=== PATIENT | female | born 1935 | race Caucasian/White ===

== ENCOUNTER 2020-04-11 16:33 | Outpatient (REF) | payer MEDICARE, OTHER, SELFPAY ==
[2020-04-11 16:49] LABS: C Reactive Protein 0.23 mg/dL (< or = 0.50)
[2020-04-11 17:37] LABS: Erythrocyte Sedimentation Rate 8 MM/HR (0-20)
== END 2020-04-11 16:34 | disposition home or self-care (01) ==
LOC: HO.LNP 16:33
PROVIDERS: Visit Provider Internal Medicine
DX: M35.3 Polymyalgia rheumatica (principal)
CPT/HCPCS: 36415; 85652; 86140

== ENCOUNTER 2020-04-24 11:06 | Outpatient (REF) | payer MEDICARE, OTHER, SELFPAY ==
[2020-04-24 14:32] LABS: C Reactive Protein 0.33 mg/dL (< or = 0.50)
[2020-04-24 14:51] LABS: Erythrocyte Sedimentation Rate 8 MM/HR (0-20)
== END 2020-04-24 11:07 | disposition home or self-care (01) ==
LOC: HO.HMGCLDS 11:06
PROVIDERS: PCP Internal Medicine; Visit Provider Internal Medicine
DX: M35.3 Polymyalgia rheumatica (principal)
CPT/HCPCS: 36415; 85652; 86140

== ENCOUNTER 2020-05-06 08:42 | Outpatient (REF) | payer MEDICARE, OTHER, SELFPAY ==
[2020-05-06 11:09] LABS: MANUAL DIFF FLAG NO
[2020-05-06 11:16] LABS: Basophils Absolute Auto 0.1 X10*3/uL (0.0-0.2); Basophils Percent Auto 0.8 % (0-2); Eosinophils Absolute Auto 0.3 X10*3/uL (0.0-0.4); Eosinophils Percent Auto 4.1 % (0-4); Hematocrit 43.5 % (37-47); Hemoglobin 14.5 g/dl (12.0-16.0); Imm Gran Abs Auto 0.02 X10*3/uL (0.00-0.03); Imm Gran Pct Auto 0.3 % (0.0-0.4); Lymphocytes Percent Auto 26.4 % (20-40); Mean Corpuscular HGB Conc 33.3 g/dl (31.0-35.0); Mean Corpuscular Hemoglobin 31.1 pg (27.0-33.0); Mean Corpuscular Volume 93.3 fL (80-98); Mean Platelet Volume 10.8 fL (9.4-12.3); Monocytes Absolute Auto 0.8 X10*3/uL (0.1-1.2); Neutrophils Absolute Auto 4.4 X10*3/uL (2.0-8.3); Neutrophils Percent Auto 58.4 % (45-73); Platelet Count 261 X10*3/uL (160-400); Red Blood Count 4.66 X10*6/uL (4.20-5.50); Red Cell Distribution Width 11.9 % (11.0-16.0); White Blood Count 7.5 X10*3/uL (4.8-10.8)
[2020-05-06 11:21] LABS: Glucose Urine UA NEG (NEG); Leukocyte Esterase Urine 2+ (NEG); Nitrite Urine NEG (NEG); PH 5.5 (5.0-8.0); Specific Gravity - Urine >= 1.030 (1.005-1.025); Urine Blood NEG (NEG); Urine Ketones NEG (NEG); Urine Protein NEG (NEG-TRACE)
[2020-05-06 11:25] LABS: Appearance Urine HAZY; Color Urine YELLOW
[2020-05-06 11:36] LABS: Alanine Aminotransferase 25 U/L (0-31); Albumin Level 4.3 g/dL (3.5-5.0); Alkaline Phosphatase 40 U/L (39-117); Anion Gap 12 (12-20); Aspartate Amino Transferase 20 U/L (5-31); Bilirubin Total 0.4 mg/dL (0.0-1.0); Blood Urea Nitrogen 15 mg/dL (9-16); Carbon Dioxide 28 mmol/L (22-29); Chloride 106 mmol/L (96-108); Cholesterol 249 mg/dL; Estimated Glomerular Filt Rate > 60; Glucose Fasting 115 mg/dL (60-99); HDL Cholesterol 54 mg/dL; LDL Cholesterol Calculated 155 mg/dl; Potassium 4.4 mmol/l (3.3-5.1); Sodium 142 mmol/L (135-145); Total Protein 6.8 g/dL (6.5-8.0); Triglycerides 204 mg/dL
[2020-05-06 11:57] LABS: Estimated Average Glucose 120 mg/dL; Hemoglobin A1C 150.4535 umol/L; Hemoglobin A1c % 5.8 %; Microalbum/Creatinine Ratio Ur 14.3 ug/mg cr
== END 2020-05-06 08:43 | disposition home or self-care (01) ==
LOC: HO.HMGCLDS 08:42
PROVIDERS: PCP Internal Medicine; Visit Provider Internal Medicine
DX: R73.03 Prediabetes (principal); M35.3 Polymyalgia rheumatica; E78.2 Mixed hyperlipidemia
CPT/HCPCS: 36415; 80053; 80061; 81001; 82043; 83036; 85025

== ENCOUNTER 2020-05-08 11:49 | Outpatient (REF) | payer MEDICARE, OTHER, SELFPAY | END 2020-05-08 11:50 | disposition home or self-care (01) | LOC: HO.HMGCLDS 11:49 | PROVIDERS: PCP Internal Medicine; Visit Provider Internal Medicine | DX: Z20.828 Contact with and (suspected) exposure to other viral communicable diseases (principal) | CPT/HCPCS: C9803; U0003 ==

== ENCOUNTER 2020-05-27 12:58 | Outpatient (REF) | payer MEDICARE, OTHER, SELFPAY ==
--- NOTE | 2020-05-27 13:02 | MM_ITS ---
EXAMINATION: MM SCREENING DIGITAL BREAST TOMOSYNTHESIS, BILATERAL CLINICAL INFORMATION: Screening. Asymptomatic. The lifetime risk of breast cancer based on the Tyrer-Cuzick Model is 1%. COMPARISON: Mammography: 04/20/2019, 04/02/2018, 03/16/2017, 03/04/2016 TECHNIQUE: Digital breast tomosynthesis is performed in both the craniocaudal and mediolateral oblique views along with computer-aided detection (CAD). Synthesized 2D images are generated from the tomosynthesis. FINDINGS: There are scattered areas of fibroglandular density (ACR BI-RADS breast composition Category b). Left breast parenchymal pattern is similar to prior studies. There is small nodular asymmetry 7:00 position mid depth similar to prior exams. Neither breast shows abnormal calcifications. The bilateral axilla and skin contours are unremarkable. The right MLO view pelvis asymmetric density close to posterior nipple line 6.7 cm from nipple without correlate on CC view. This may be related to incompletely compressed glandular tissue or summation artifact. Patient will be recalled to further characterize. MM/MM tomosynthesis screening BI IMPRESSION: 1. Right: Asymmetric density posterior central breast on MLO view without CC correlate, possibly summation artifact or incompletely compressed glandular tissue. 2. Left: No significant changes from prior studies. ASSESSMENT: BI-RADS 0: Incomplete - Need Additional Imaging Evaluation RECOMMENDATION: 1. Additional views of the right breast (3-D spot MLO, 3-D ML). 2. Targeted ultrasound if warranted after review of the additional views. 3. Radiology department staff will contact the patient for additional imaging. This patient's information was entered into a reminder system with a target due date for their next mammogram.
== END 2020-05-27 12:59 | disposition home or self-care (01) ==
LOC: HO.MAMMO 12:58
PROVIDERS: PCP Internal Medicine; Visit Provider Internal Medicine
DX: Z12.31 Encounter for screening mammogram for malignant neoplasm of breast (principal)
CPT/HCPCS: 77063; 77067

== ENCOUNTER 2020-06-27 13:41 | Outpatient (REF) | payer MEDICARE, OTHER, SELFPAY ==
--- NOTE | 2020-06-27 13:47 | MM_ITS ---
EXAMINATION: MM DIAGNOSTIC DIGITAL BREAST TOMOSYNTHESIS, RIGHT US DIAGNOSTIC ULTRASOUND BREAST, RIGHT CLINICAL INFORMATION: Recall for small asymmetric density mid outer quadrant close to posterior nipple line mid right breast on MLO view. COMPARISON: Mammography: 05/27/2020, 04/20/2019 TECHNIQUE: Digital breast tomosynthesis is performed. 2D images are generated from the tomosynthesis. The following views are obtained: Spot MLO, standard ML Ultrasound right breast is targeted to the outer quadrant. Grayscale imaging and color Doppler are performed without and with harmonics. FINDINGS: There are scattered areas of fibroglandular density (ACR BI-RADS breast composition Category b). The additional views suggest subtle equal to slightly decreased attenuation nodularity central 9:00 position measuring under 1 cm. Ultrasound demonstrates a solitary oval cyst 9:00 position 5 cm from nipple measuring 0.7 x 0.6 x 0.3 cm. There may be fine peripheral avascular internal septation. No solid component. No peripheral or internal color flow. Results are discussed with the patient at time of visit. MM/MM tomosynthesis added views R IMPRESSION: Incidental small cyst mid 9:00 position corresponding to finding on recent mammography. ASSESSMENT: BI-RADS 2: Benign RECOMMENDATION: Routine annual mammography screening. This patient's information was entered into a reminder system with a target due date for their next mammogram.
== END 2020-06-27 13:42 | disposition home or self-care (01) ==
LOC: HO.MAMMO 13:41
PROVIDERS: PCP Internal Medicine; Visit Provider Internal Medicine
DX: N64.89 Other specified disorders of breast (principal)
CPT/HCPCS: 76642; 77061; 77065

== ENCOUNTER → 2020-08-05 12:28 | Outpatient (BNVA) | payer MEDICARE, OTHER, SELFPAY | PROVIDERS: PCP Internal Medicine; Visit Provider Internal Medicine ==

== ENCOUNTER 2020-08-12 15:38 | Emergency (ER) | payer MEDICARE, OTHER, SELFPAY ==
--- NOTE | ~2020-08-12 | XR_ITS ---
EXAMINATION: XR CHEST CLINICAL INFORMATION: SOB. COMPARISON: Chest 01/09/2020 TECHNIQUE: Frontal view of the chest was obtained. FINDINGS: The lungs are well-expanded with increased interstitial markings in both lungs right greater than left similar to previous study from 1120. There is new focal density left midlung overlying the seventh posterior rib. The heart size and pulmonary vascularity is normal. There is mild tenting of the right hemidiaphragm. No gross bony abnormality seen. XR/XR chest 1V IMPRESSION: Diffuse reticular interstitial changes in both upper lobes worse in the right upper lobe with focal bronchiectasis consistent with chronic changes. There is new noted density seen in the left midlung as described above. No acute pneumonic consolidation seen.
--- NOTE | 2020-08-12 15:58 | ECG_ITS ---
Test Reason : SHORTNESS OF BREATH Blood Pressure : / mmHG Vent. Rate : 076 BPM Atrial Rate : 076 BPM P-R Int : 158 ms QRS Dur : 072 ms QT Int : 400 ms P-R-T Axes : 071 -13 048 degrees QTc Int : 450 ms Normal sinus rhythm Normal ECG When compared with ECG of 16-MAR-2017 14:32, Premature ventricular complexes are no longer Present Referred By: Kerri Boogie Electronically Signed By:KASHMIR MURRAY MD
--- NOTE | 2020-08-12 16:01 | ED.GENADULT ---
HPI - General Adult General Chief complaint: General Medical Stated complaint: diff breathing Time Seen by Provider: 08/12/20 15:50 Source: patient Mode of arrival: ambulatory Limitations: no limitations History of Present Illness HPI narrative: Patient comes emergency room complaining of generalized weakness. Patient states on July 24 she received her 1st dose of the COVID vaccine. After 24 hours, patient stated feeling weak. Patient states she has been weak since then. Patient denies aches, no fever or chills, no abdominal pain, no chest pain, no shortness of breath, no vomiting or diarrhea. Patient states she is eating and drinking well. 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 Iodinated Contrast Media Allergy Severe DIDN'T Unverified 02/15/20 15:20 [IV CONTRAST] AGREE WITH PATIENT SHELLFISH Allergy Intermediate VOMITING Uncoded 02/15/20 15:20 contrast dye Allergy Unknown Uncoded 12/05/19 00:00 fish Allergy Unknown Uncoded 12/05/19 00:00 IV dye Allergy Unknown Uncoded 01/09/20 00:00 shellfish Allergy Unknown Uncoded 01/09/20 00:00 shrimp Allergy Unknown Uncoded 12/05/19 00:00 Review of Systems Review of Systems: Constitutional : No Weight loss, No Fever, No Chills, No Night Sweats, complaining of fatigue ENT/Mouth : No Hearing loss, No Ear Pain, No Nasal Congestion, No Sinus Pain, No Hoarseness, No sore throat, No Rhinorrhea, No Swallowing Difficulty Eyes: No Eye Pain, No Swelling, No Redness, No Foreign Body, No Discharge, No Vision Changes Cardiovascular : No Chest Pain, No SOB, No Dyspnea on Exertion, No Orthopnea, No Edema, No Palpitations Respiratory : No Cough, No Sputum, No Wheezing, No Smoke Exposure, No Dyspnea Gastrointestinal : No Nausea, No Vomiting, No Diarrhea, No Constipation, No abdominal Pain, No Hematochezia, No Melena Genitourinary : no irregular bleeding, No Dysuria, No Urinary Frequency, No Hematuria, No Urinary Incontinence, No Urgency, No Flank Pain, No Urinary Flow Changes, No Hesitancy Musculoskeletal : No joint pain, No Myalgias, No Joint Swelling Skin : No Skin Lesions, No rash Neuro : No Weakness, No Numbness, No Paresthesias, No Loss of Consciousness, No Dizziness, No Headache Psych : No Anxiety/Panic, No Depression, No SI/HI/AH/VH, No Social Issues, Heme/Lymph: No Bruising, No Bleeding,No Lymphadenopathy Endocrine : No Polyuria, No Polydipsia, No Temperature Intolerance [facility] Past Medical History Medical History Osteoporosis Vitamin D deficiency Surgical History History of ear surgery Hx of colonoscopy Hx of toe surgery Hx of tubal ligation Family History Family History Father No problems noted. Mother Heart disease Brother Colon cancer Brother Stomach cancer Social History Social History Alcohol intake: never Smoking Status: Never smoker Tobacco Type: Cigarette Use of substances other than those prescribed or required for medical reasons: No Advance Directives: No Advance Directives Information Provided: No Physical Exam Vital Signs: Vital Signs: Last Vital Signs Temp 98.3 F 08/12/20 16:24 Pulse 79 08/12/20 16:24 Resp 17 08/12/20 16:24 BP 127/66 08/12/20 16:24 Pulse Ox 96 08/12/20 16:24 Body Mass Index 23.9 Appearance: Alert. Oriented X3. No acute distress. Well-appearing Eyes: Pupils equal, round and reactive to light. ENT: Pharynx normal. Neck: Normal inspection. Neck supple. No lymph nodes noted. No crepitus CVS: Normal heart rate and rhythm. Pulses normal. Normal S1 and S2 Respiratory: No respiratory distress. Breath sounds normal. No Wheezing. No rales Abdomen: Soft and nontender. No rigidity. No distention. good BS x4 Skin: Skin warm and dry. Normal skin color. Normal skin turgor. Extremities: No lower extremity edema. No lower extremity edema. No Lacerations. No Rash Neuro: Oriented X 3. No motor deficit. No sensory deficit. Moving all extermities. No slurred speech. Course Course Course Narrative: I discussed the labs and imaging with the patient, no acute pathology. Unclear reason for patient's weakness, recommended to follow up with her primary care physician Medical Decision Making Lab Data Result diagrams: 08/12/20 16:24 08/12/20 16:24 Labs: Lab Results 08/12/20 08/12/20 08/12/20 Range/Units 16:24 16:24 16:24 WBC 9.7 (4.8-10.8) X10*3/uL RBC 4.68 (4.20-5.50) X10*6/uL Hgb 14.0 (12.0-16.0) g/dl Hct 42.8 (37-47) % MCV 91.5 (80-98) fL MCH 29.9 (27.0-33.0) pg MCHC 32.7 (31.0-35.0) g/dl RDW 12.0 (11.0-16.0) % Plt Count 325 (160-400) X10*3/uL MPV 9.5 (9.4-12.3) fL Immature Gran % (Auto) 0.4 (0.0-0.4) % Neut % (Auto) 62.3 (45-73) % Lymph % (Auto) 23.2 (20-40) % [place] % (Auto) 10.6 (2-11) % Eos % (Auto) 2.9 (0-4) % Baso % (Auto) 0.6 (0-2) % Lymph # (Auto) 2.2 (1.2-4.9) X10*3/uL [place] # (Auto) 1.0 (0.1-1.2) X10*3/uL Eos # (Auto) 0.3 (0.0-0.4) X10*3/uL Baso # (Auto) 0.1 (0.0-0.2) X10*3/uL Abs Immat Gran (auto) 0.04 H (0.00-0.03) X10*3/uL Absolute Neuts (auto) 6.0 (2.0-8.3) X10*3/uL Absolute Nucleated RBC 0.000 (0.0-0.012) X10*3/uL Nucleated RBC % (auto) 0.0 (0.0-0.2) /100WBC Sodium 141 (135-145) mmol/L Potassium 4.4 (3.3-5.1) mmol/L Chloride 105 (96-108) mmol/L Carbon Dioxide 27 (22-29) mmol/L Anion Gap 13 (12-20) BUN 16 (9-16) mg/dL Creatinine 0.83 (0.5-1.4) mg/dL Estim Creat Clear Calc 42.4 Estimated GFR > 60 Random Glucose 84 (60-115) mg/dL Calcium 9.3 (8.4-10.2) mg/dL Total Bilirubin 0.5 (0.0-1.0) mg/dL Direct Bilirubin < 0.2 (0.0-0.5) mg/dL AST 13 (5-31) U/L ALT 9 (0-31) U/L Alkaline Phosphatase 53 D (39-117) U/L Total Protein 7.0 (6.5-8.0) g/dL Albumin 4.2 (3.5-5.0) g/dL Urine Color Urine Appearance Urine pH (5.0-8.0) Ur Specific [place] (1.005-1.025) Urine Protein (NEG-TRACE) MG/DL Urine Glucose (UA) (NEG) MG/DL Urine Ketones (NEG) MG/DL Urine Blood (NEG) Urine Nitrite (NEG) Ur Leukocyte Esterase (NEG) Coronavirus (PCR) NEGATIVE (Negative) Influenza Type A (PCR) NEGATIVE (Negative) Influenza Type B (PCR) NEGATIVE (Negative) RSV RNA Qual (PCR) NEGATIVE (Negative) 08/12/20 Range/Units 17:58 WBC (4.8-10.8) X10*3/uL RBC (4.20-5.50) X10*6/uL Hgb (12.0-16.0) g/dl Hct (37-47) % MCV (80-98) fL MCH (27.0-33.0) pg MCHC (31.0-35.0) g/dl RDW (11.0-16.0) % Plt Count (160-400) X10*3/uL MPV (9.4-12.3) fL Immature Gran % (Auto) (0.0-0.4) % Neut % (Auto) (45-73) % Lymph % (Auto) (20-40) % [place] % (Auto) (2-11) % Eos % (Auto) (0-4) % Baso % (Auto) (0-2) % Lymph # (Auto) (1.2-4.9) X10*3/uL [place] # (Auto) (0.1-1.2) X10*3/uL Eos # (Auto) (0.0-0.4) X10*3/uL Baso # (Auto) (0.0-0.2) X10*3/uL Abs Immat Gran (auto) (0.00-0.03) X10*3/uL Absolute Neuts (auto) (2.0-8.3) X10*3/uL Absolute Nucleated RBC (0.0-0.012) X10*3/uL Nucleated RBC % (auto) (0.0-0.2) /100WBC Sodium (135-145) mmol/L Potassium (3.3-5.1) mmol/L Chloride (96-108) mmol/L Carbon Dioxide (22-29) mmol/L Anion Gap (12-20) BUN (9-16) mg/dL Creatinine (0.5-1.4) mg/dL Estim Creat Clear Calc Estimated GFR Random Glucose (60-115) mg/dL Calcium (8.4-10.2) mg/dL Total Bilirubin (0.0-1.0) mg/dL Direct Bilirubin (0.0-0.5) mg/dL AST (5-31) U/L ALT (0-31) U/L Alkaline Phosphatase (39-117) U/L Total Protein (6.5-8.0) g/dL Albumin (3.5-5.0) g/dL Urine Color YELLOW Urine Appearance CLEAR Urine pH 5.5 (5.0-8.0) Ur Specific [place] 1.010 (1.005-1.025) Urine Protein NEG (NEG-TRACE) MG/DL Urine Glucose (UA) NEG (NEG) MG/DL Urine Ketones NEG (NEG) MG/DL Urine Blood NEG (NEG) Urine Nitrite NEG (NEG) Ur Leukocyte Esterase NEG (NEG) Coronavirus (PCR) (Negative) Influenza Type A (PCR) (Negative) Influenza Type B (PCR) (Negative) RSV RNA Qual (PCR) (Negative) Imaging Data Chest x-ray: Radiologist's impression: The lungs are well-expanded with increased interstitial markings in both lungs right greater than left similar to previous study from 1120. There is new focal density left midlung overlying the seventh posterior rib. The heart size and pulmonary vascularity is normal. There is mild tenting of the right hemidiaphragm. No gross bony abnormality seen. XR/XR chest 1V IMPRESSION: Diffuse reticular interstitial changes in both upper lobes worse in the right upper lobe with focal bronchiectasis consistent with chronic changes. There is new noted density seen in the left midlung as described above. No acute pneumonic consolidation seen. ECG Data Attestation: I personally reviewed and interpreted this ECG as follows: (Sinus rhythm, heart rate 76, no ST segment depressions or inversions, no T-wave inversions) Discharge Plan Discharge Clinical Impression: Generalized weakness Patient Disposition: Home, Self-Care Instructions: Weakness (ED) Additional Instructions: Please follow-up with your primary care physician tomorrow. If you have any worsening or new symptoms, please return to the emergency room or call 911 Prescriptions: No Action calcium carbonate 600 mg calcium (1,500 mg) tablet 600 mg PO DAILY 30 Days Qty: 30 RF: 11
[2020-08-12 16:13] VITALS: BP 127/66; PULSE 76; RESP 19; TEMP 36.8; O2SAT 95
[2020-08-12 16:24] VITALS: BP 127/66; PULSE 79; RESP 17; TEMP 36.8; O2SAT 96; BMI 23.9
[2020-08-12 16:31] LABS: Basophils Absolute Auto 0.1 X10*3/uL (0.0-0.2); Basophils Percent Auto 0.6 % (0-2); Eosinophils Absolute Auto 0.3 X10*3/uL (0.0-0.4); Eosinophils Percent Auto 2.9 % (0-4); Hematocrit 42.8 % (37-47); Imm Gran Abs Auto 0.04 X10*3/uL (0.00-0.03); Imm Gran Pct Auto 0.4 % (0.0-0.4); Lymphocytes Absolute Auto 2.2 X10*3/uL (1.2-4.9); Lymphocytes Percent Auto 23.2 % (20-40); MANUAL DIFF FLAG NO; Mean Corpuscular HGB Conc 32.7 g/dl (31.0-35.0); Mean Corpuscular Hemoglobin 29.9 pg (27.0-33.0); Mean Corpuscular Volume 91.5 fL (80-98); Mean Platelet Volume 9.5 fL (9.4-12.3); Monocytes Percent Auto 10.6 % (2-11); Neutrophils Percent Auto 62.3 % (45-73); Platelet Count 325 X10*3/uL (160-400); Red Blood Count 4.68 X10*6/uL (4.20-5.50); White Blood Count 9.7 X10*3/uL (4.8-10.8)
[2020-08-12 17:00] LABS: Alanine Aminotransferase 9 U/L (0-31); Albumin Level 4.2 g/dL (3.5-5.0); Alkaline Phosphatase 53 U/L (39-117); Anion Gap 13 (12-20); Aspartate Amino Transferase 13 U/L (5-31); Bilirubin Direct < 0.2 mg/dL (0.0-0.5); Bilirubin Total 0.5 mg/dL (0.0-1.0); Blood Urea Nitrogen 16 mg/dL (9-16); Calcium 9.3 mg/dL (8.4-10.2); Carbon Dioxide 27 mmol/L (22-29); Chloride 105 mmol/L (96-108); Creatinine Clr Calc Pharmacy 42.4; Estimated Glomerular Filt Rate > 60; Glucose Random 84 mg/dL (60-115); Potassium 4.4 mmol/L (3.3-5.1); Sodium 141 mmol/L (135-145)
[2020-08-12 17:08] LABS: Influenza A PCR NEGATIVE (Negative); Influenza B PCR NEGATIVE (Negative); Resp Syncy Virus RNA Qual PCR NEGATIVE (Negative); SARS COV2 PCR INHOUSE NEGATIVE (Negative)
[2020-08-12 18:05] LABS: Glucose Urine UA NEG (NEG); Leukocyte Esterase Urine NEG (NEG); Nitrite Urine NEG (NEG); PH 5.5 (5.0-8.0); Urine Blood NEG (NEG); Urine Ketones NEG (NEG); Urine Protein NEG (NEG-TRACE)
[2020-08-12 18:06] LABS: Appearance Urine CLEAR; Color Urine YELLOW
== END 2020-08-12 18:52 | disposition home or self-care (01) ==
PROVIDERS: Emergency Provider Emergency Medicine; PCP Internal Medicine
DX: R53.1 Weakness (principal); Z20.822 Contact with and (suspected) exposure to COVID-19; F17.210 Nicotine dependence, cigarettes, uncomplicated
CPT/HCPCS: 0241U; 36415; 71045; 80048; 80076; 81003; 85025; 93005; 99283; 99284

== ENCOUNTER → 2020-09-30 11:11 | Outpatient (BNVA) | payer MEDICARE, OTHER, SELFPAY | PROVIDERS: PCP Internal Medicine; Visit Provider Internal Medicine | DX: Z13.89 Encounter for screening for other disorder (principal) | CPT/HCPCS: Q3014 ==

== ENCOUNTER 2020-10-10 14:42 | Outpatient (REF) | payer MEDICARE, OTHER, SELFPAY ==
[2020-10-10 15:47] LABS: Alanine Aminotransferase 21 U/L (0-31); Albumin Level 4.2 g/dL (3.5-5.0); Alkaline Phosphatase 62 U/L (39-117); Anion Gap 14 (12-20); Aspartate Amino Transferase 17 U/L (5-31); Bilirubin Total 0.2 mg/dL (0.0-1.0); Blood Urea Nitrogen 22 mg/dL (9-16); Calcium 9.7 mg/dL (8.4-10.2); Carbon Dioxide 26 mmol/L (22-29); Chloride 103 mmol/L (96-108); Estimated Glomerular Filt Rate > 60; Glucose Random 78 mg/dL (60-115); Phosphorus 4.1 mg/dL (2.7-4.5); Potassium 4.6 mmol/L (3.3-5.1); Sodium 138 mmol/L (135-145); Total Protein 7.1 g/dL (6.5-8.0)
[2020-10-10 16:08] LABS: Vitamin D 25-OH Total 47.1 ng/mL (>30)
[2020-10-11 11:32] LABS: Calcium (PTHI) 9.7 mg/dL (8.6-10.4); PTHI 31 pg/mL (14-64)
[2020-10-14 09:52] LABS: Alkaline Phosphatase Bone 10.2 mcg/L (see note)
== END 2020-10-10 14:43 | disposition home or self-care (01) ==
LOC: HO.LAB 14:42
PROVIDERS: PCP Internal Medicine; Visit Provider Internal Medicine
DX: M81.0 Age-related osteoporosis without current pathological fracture (principal); E55.9 Vitamin D deficiency, unspecified
CPT/HCPCS: 36415; 80053; 82306; 83970; 84075; 84100

== ENCOUNTER 2020-10-15 14:42 | Outpatient (REF) | payer MEDICARE, OTHER, SELFPAY ==
[2020-10-20 07:36] LABS: N-Telopeptide 65 (see note); NTXCreaRU 42 mg/dL (20-275)
== END 2020-10-15 14:43 | disposition home or self-care (01) ==
LOC: HO.HMGCLNP 14:42
PROVIDERS: Visit Provider Internal Medicine
DX: M81.0 Age-related osteoporosis without current pathological fracture (principal)
CPT/HCPCS: 82523

== ENCOUNTER 2020-12-24 09:41 | Outpatient (REF) | payer MEDICARE, OTHER, SELFPAY ==
--- NOTE | ~2020-12-24 | XR_ITS ---
EXAMINATION: XR SHOULDER, RIGHT XR SHOULDER, LEFT CLINICAL INFORMATION: Bilateral shoulder pain. COMPARISON: Chest radiograph 08/12/2020, CT chest noncontrast 01/24/2019. TECHNIQUE: Each shoulder is imaged in 4 views. There are a total of 8 views. FINDINGS: Right: There is no fracture, dislocation, destructive process. No visible rotator cuff calcifications. The glenohumeral joint appears normal. There are mild degenerative changes acromioclavicular joint. No AC separation. Chronic changes again noted in the right lung with coarsening of the interstitial markings, bronchiectasis, and scattered nodularity similar to prior imaging. Left: There is no fracture, dislocation, destructive process. No visible rotator cuff calcifications. The glenohumeral joint appears normal. The acromioclavicular joint is unremarkable. Chronic changes again noted left lung with coarsening interstitial markings, bronchiectasis, and scattered nodularity similar to prior imaging. XR/XR shoulder LT min 2V IMPRESSION: 1. No fracture, dislocation, or destructive process. 2. No visible rotator cuff calcifications. 3. Mild degenerative changes right acromioclavicular joint.
--- NOTE | ~2020-12-24 | XR_ITS ---
EXAMINATION: XR SHOULDER, RIGHT XR SHOULDER, LEFT CLINICAL INFORMATION: Bilateral shoulder pain. COMPARISON: Chest radiograph 08/12/2020, CT chest noncontrast 01/24/2019. TECHNIQUE: Each shoulder is imaged in 4 views. There are a total of 8 views. FINDINGS: Right: There is no fracture, dislocation, destructive process. No visible rotator cuff calcifications. The glenohumeral joint appears normal. There are mild degenerative changes acromioclavicular joint. No AC separation. Chronic changes again noted in the right lung with coarsening of the interstitial markings, bronchiectasis, and scattered nodularity similar to prior imaging. Left: There is no fracture, dislocation, destructive process. No visible rotator cuff calcifications. The glenohumeral joint appears normal. The acromioclavicular joint is unremarkable. Chronic changes again noted left lung with coarsening interstitial markings, bronchiectasis, and scattered nodularity similar to prior imaging. XR/XR shoulder RT min 2V IMPRESSION: 1. No fracture, dislocation, or destructive process. 2. No visible rotator cuff calcifications. 3. Mild degenerative changes right acromioclavicular joint.
[2020-12-24 11:42] LABS: MANUAL DIFF FLAG NO
[2020-12-24 11:50] LABS: Basophils Absolute Auto 0.1 X10*3/uL (0.0-0.2); Basophils Percent Auto 0.6 % (0-2); Eosinophils Absolute Auto 0.4 X10*3/uL (0.0-0.4); Hematocrit 42.4 % (37-47); Hemoglobin 13.5 g/dl (12.0-16.0); Imm Gran Abs Auto 0.04 X10*3/uL (0.00-0.03); Imm Gran Pct Auto 0.4 % (0.0-0.4); Lymphocytes Absolute Auto 1.9 X10*3/uL (1.2-4.9); Lymphocytes Percent Auto 18.8 % (20-40); Mean Corpuscular HGB Conc 31.8 g/dl (31.0-35.0); Mean Corpuscular Hemoglobin 28.9 pg (27.0-33.0); Mean Corpuscular Volume 90.8 fL (80-98); Mean Platelet Volume 10.1 fL (9.4-12.3); Monocytes Absolute Auto 0.9 X10*3/uL (0.1-1.2); Monocytes Percent Auto 9.1 % (2-11); Neutrophils Absolute Auto 6.7 X10*3/uL (2.0-8.3); Neutrophils Percent Auto 67.1 % (45-73); Platelet Count 355 X10*3/uL (160-400); Red Blood Count 4.67 X10*6/uL (4.20-5.50); Red Cell Distribution Width 12.4 % (11.0-16.0)
[2020-12-24 12:06] LABS: Alanine Aminotransferase 18 U/L (0-31); Albumin Level 4.2 g/dL (3.5-5.0); Alkaline Phosphatase 67 U/L (39-117); Anion Gap 14 (12-20); Aspartate Amino Transferase 16 U/L (5-31); Bilirubin Total 0.3 mg/dL (0.0-1.0); Blood Urea Nitrogen 21 mg/dL (9-16); C Reactive Protein 2.04 mg/dL (< or = 0.50); Calcium 9.8 mg/dL (8.4-10.2); Carbon Dioxide 29 mmol/L (22-29); Chloride 103 mmol/L (96-108); Estimated Glomerular Filt Rate > 60; Glucose Random 86 mg/dL (60-115); Phosphorus 4.2 mg/dL (2.7-4.5); Potassium 5.3 mmol/L (3.3-5.1); Rheumatoid Factor < 15.0 IU/mL (<15.0); Sodium 141 mmol/L (135-145); Total Protein 7.2 g/dL (6.5-8.0)
[2020-12-24 12:19] LABS: Vitamin D 25-OH Total 47.6 ng/mL (>30)
[2020-12-24 12:40] LABS: Erythrocyte Sedimentation Rate 25 MM/HR (0-20)
[2020-12-26 14:00] LABS: Calcium (PTHI) 9.9 mg/dL (8.6-10.4); PTHI 35 pg/mL (14-64)
[2020-12-27 22:11] LABS: Cyclic Citrullinated Peptide <16 UNITS
[2020-12-28 15:11] LABS: Alkaline Phosphatase Bone 12.6 mcg/L (see note)
[2021-01-01 23:01] LABS: N-Telopeptide 141 (see note); NTXCreaRU 65 mg/dL (20-275)
== END 2020-12-24 09:42 | disposition home or self-care (01) ==
LOC: HO.LAB 09:41
PROVIDERS: Internal Medicine; PCP Internal Medicine; Visit Provider Student in an Organized Health Care Education/Training Program
DX: M25.511 Pain in right shoulder (principal); M25.512 Pain in left shoulder; G89.29 Other chronic pain; E55.9 Vitamin D deficiency, unspecified; M81.0 Age-related osteoporosis without current pathological fracture
CPT/HCPCS: 36415; 73030; 80053; 82306; 82523; 83970; 84075; 84100; 85025; 85652; 86140; 86200; 86431; 99202

== ENCOUNTER 2020-12-31 10:43 | Outpatient (REF) | payer MEDICARE, OTHER, SELFPAY ==
[2020-12-31 14:09] LABS: Potassium 4.5 mmol/L (3.3-5.1)
== END 2020-12-31 10:44 | disposition home or self-care (01) ==
LOC: HO.HMGCLDS 10:43
PROVIDERS: PCP Internal Medicine; Visit Provider Internal Medicine
DX: E87.5 Hyperkalemia (principal)
CPT/HCPCS: 36415; 84132

== ENCOUNTER 2021-01-02 10:52 | Outpatient (REF) | payer MEDICARE, OTHER, SELFPAY ==
[2021-01-02 14:23] LABS: Alanine Aminotransferase 17 U/L (0-31); Albumin Level 4.4 g/dL (3.5-5.0); Alkaline Phosphatase 67 U/L (39-117); Anion Gap 15 (12-20); Aspartate Amino Transferase 17 U/L (5-31); Bilirubin Total 0.4 mg/dL (0.0-1.0); Blood Urea Nitrogen 25 mg/dL (9-16); Calcium 9.6 mg/dL (8.4-10.2); Carbon Dioxide 28 mmol/L (22-29); Chloride 106 mmol/L (96-108); Estimated Glomerular Filt Rate > 60; Glucose Random 96 mg/dL (60-115); Potassium 4.9 mmol/L (3.3-5.1); Sodium 144 mmol/L (135-145); Total Protein 7.3 g/dL (6.5-8.0)
== END 2021-01-02 10:53 | disposition home or self-care (01) ==
LOC: HO.HMGCLDS 10:52
PROVIDERS: PCP Internal Medicine; Visit Provider Internal Medicine
DX: M81.0 Age-related osteoporosis without current pathological fracture (principal)
CPT/HCPCS: 36415; 80053

== ENCOUNTER → 2021-01-06 15:26 | Outpatient (BNVA) | payer MEDICARE, OTHER, SELFPAY | PROVIDERS: PCP Internal Medicine; Visit Provider Internal Medicine | DX: M81.0 Age-related osteoporosis without current pathological fracture (principal); E55.9 Vitamin D deficiency, unspecified | CPT/HCPCS: 20552; 96372; 99212 ==

== ENCOUNTER → 2021-01-16 13:40 | Outpatient (BNVA) | payer MEDICARE, OTHER, SELFPAY | PROVIDERS: Visit Provider Nurse Practitioner Family | DX: M35.3 Polymyalgia rheumatica (principal) | CPT/HCPCS: 99212 ==

== ENCOUNTER 2021-01-21 09:33 | Outpatient (REF) | payer MEDICARE, OTHER, SELFPAY ==
[2021-01-21 12:35] LABS: C Reactive Protein 0.25 mg/dL (< or = 0.50)
[2021-01-21 13:11] LABS: Erythrocyte Sedimentation Rate 5 MM/HR (0-20)
[2021-01-22 10:31] LABS: BV Int Neg Control Negative (Negative); BV Int Pos Control Positive (Positive)
== END 2021-01-21 09:34 | disposition home or self-care (01) ==
LOC: HO.LAB 09:33
PROVIDERS: Absent Provider Nurse Practitioner Family; PCP Internal Medicine; Referring Provider Internal Medicine; Visit Provider Advanced Practice Midwife
DX: Z01.419 Encounter for gynecological examination (general) (routine) without abnormal findings (principal); M35.3 Polymyalgia rheumatica; N89.8 Other specified noninflammatory disorders of vagina; Z87.891 Personal history of nicotine dependence
CPT/HCPCS: 36415; 85652; 86140; 87480; 87510; 87660

== ENCOUNTER 2021-03-11 12:23 | Outpatient (REF) | payer MEDICARE, OTHER, SELFPAY ==
[2021-03-11 13:56] LABS: C Reactive Protein 0.64 mg/dL (< or = 0.50)
[2021-03-11 14:36] LABS: Erythrocyte Sedimentation Rate 8 MM/HR (0-20)
== END 2021-03-11 12:24 | disposition home or self-care (01) ==
LOC: HO.LAB 12:23
PROVIDERS: PCP Internal Medicine; Visit Provider Nurse Practitioner Family
DX: M35.3 Polymyalgia rheumatica (principal); Z79.52 Long term (current) use of systemic steroids
CPT/HCPCS: 36415; 85652; 86140; 99212

== ENCOUNTER 2021-04-13 12:40 | Emergency (ER) | payer MEDICARE, OTHER, SELFPAY ==
--- NOTE | ~2021-04-13 | XR_ITS ---
EXAMINATION: XR CHEST CLINICAL INFORMATION: Weakness COMPARISON: Chest x-ray 08/12/2020 TECHNIQUE: 2 views of the chest were obtained. FINDINGS: Cardiac silhouette is normal in size. The lungs are well aerated. Chronically increased reticular nodule interstitial markings are again noted, particularly within the right upper chest. No lobar consolidation is present. No pleural effusion or pneumothorax. Mild degenerative changes of the spine. XR/XR chest 2V IMPRESSION: Stable chronic findings of the chest.
--- NOTE | ~2021-04-13 | CT_ITS ---
EXAMINATION: CT ABDOMEN AND PELVIS WITHOUT CONTRAST CLINICAL INFORMATION: Left-sided abdominal pain COMPARISON: None TECHNIQUE: Multidetector volumetric imaging was performed from the superior aspect of the liver through the pubic symphysis. Sagittal and coronal reformatted images were obtained on the technologist's workstation. This CT examination was performed using dose optimization techniques as appropriate, variously including the following: *Automated exposure control *Adjustment of mA and/or kV according to patient size (this includes techniques or standardized protocols for targeted exams where dose is matched to indication/reason for exam; i.e. extremities or head) *Use of iterative reconstruction technique DLP: 501 mGy-cm FINDINGS: LUNG BASES: Minimal bibasilar atelectasis. The visualized cardiac structures are unremarkable. LIVER, GALLBLADDER, AND BILIARY TREE: The liver is normal in size, shape, and attenuation. Simple cyst at the dome of the right lobe of the liver. No follow-up imaging recommended. No solid hepatic lesion or biliary ductal dilatation is present. The gallbladder is unremarkable with no evidence of radiopaque gallstones, gallbladder wall thickening, or obvious pericholecystic inflammatory changes. PANCREAS: Unremarkable. SPLEEN: Unremarkable. ADRENAL GLANDS: Unremarkable. KIDNEYS AND URETERS: The kidneys are normal in size, shape, and attenuation. No hydronephrosis, hydroureter, or calculi seen. No perinephric stranding. Cortical calcification at the upper pole of the left kidney. BLADDER: Unremarkable. GASTROINTESTINAL TRACT: Decompressed stomach with no gross abnormality. Normal caliber small bowel. No obstruction. No colonic wall thickening or inflammatory change. Mild colonic stool burden. Diverticulosis noted without diverticulitis. No free air or free fluid. ABDOMINAL WALL: No significant hernia is appreciated. LYMPH NODES: Normal. VASCULAR: Normal caliber aorta. Mild to moderate atherosclerotic calcifications. PELVIC VISCERA: Anteverted uterus. 6.4 cm simple appearing right adnexal cyst. OSSEOUS STRUCTURES: No acute or suspicious osseous abnormality. Degenerative changes of the spine. CT/CT abdomen pelvis wo con IMPRESSION: No acute finding of the abdomen or pelvis. No inflammatory change. Diverticulosis without diverticulitis. Simple appearing right adnexal cyst. Suggest follow-up ultrasound in 6-12 months.
--- NOTE | ~2021-04-13 | CT_ITS ---
EXAMINATION: CT HEAD WITHOUT CONTRAST CLINICAL INFORMATION: Weakness. COMPARISON: None TECHNIQUE: Contiguous axial imaging was performed from the skull base to vertex without intravenous administration of contrast. This CT examination was performed using dose optimization techniques as appropriate, variously including the following: *Automated exposure control *Adjustment of mA and/or kV according to patient size (this includes techniques or standardized protocols for targeted exams where dose is matched to indication/reason for exam; i.e. extremities or head) *Use of iterative reconstruction technique DLP: 540 mGy-cm FINDINGS: There is no evidence of acute intracranial hemorrhage or territorial infarction. No abnormal mass effect or midline shift is seen. Delacruz to white matter differentiation is well preserved. No extra-axial fluid collections are identified. The ventricles are normal in size. There is no abnormal attenuation within the brain parenchyma. The osseous structures and soft tissues are normal. The mastoid air cells and visualized portions of the paranasal sinuses are fairly well aerated. Post mastoidectomy changes noted in the left side. CT/CT head/brain wo con IMPRESSION: No acute intracranial pathology.
[2021-04-13 12:46] VITALS: BP 182/86; PULSE 78; O2SAT 97
[2021-04-13 12:51] VITALS: BP 171/82; PULSE 87; RESP 18; TEMP 36.6; O2SAT 96; BMI 24.7
--- NOTE | 2021-04-13 13:06 | ECG_ITS ---
Test Reason : WEAKNESS Blood Pressure : / mmHG Vent. Rate : 080 BPM Atrial Rate : 080 BPM P-R Int : 148 ms QRS Dur : 070 ms QT Int : 382 ms P-R-T Axes : 072 -17 050 degrees QTc Int : 440 ms Normal sinus rhythm Normal ECG When compared with ECG of 12-AUG-2020 16:09, No significant change was found Referred By: Kelin Richardson Electronically Signed By:JULIANNE LARIOS MD
[2021-04-13 13:16] LABS: Basophils Absolute Auto 0.1 X10*3/uL (0.0-0.2); Basophils Percent Auto 0.5 % (0-2); MANUAL DIFF FLAG SCAN; PLT CLUMP 1; Red Cell Distribution Width 13.2 % (11.0-16.0); SCAN SMEAR FLAG 1
[2021-04-13 13:18] LABS: Eosinophils Absolute Auto 0.3 X10*3/uL (0.0-0.4); Eosinophils Percent Auto 2.5 % (0-4); Hematocrit 43.4 % (37.0-47.0); Hemoglobin 14.4 g/dl (12.0-16.0); Imm Gran Abs Auto 0.05 X10*3/uL (0.00-0.03); Imm Gran Pct Auto 0.4 % (0.0-0.4); Lymphocytes Absolute Auto 2.9 X10*3/uL (1.2-4.9); Lymphocytes Percent Auto 25.7 % (20-40); Mean Corpuscular HGB Conc 33.2 g/dl (31.0-35.0); Mean Corpuscular Hemoglobin 30.3 pg (27.0-33.0); Mean Corpuscular Volume 91.2 fL (80.0-98.0); Mean Platelet Volume 11.5 fL (9.4-12.3); Monocytes Absolute Auto 1.3 X10*3/uL (0.1-1.2); Monocytes Percent Auto 11.2 % (2-11); Neutrophils Absolute Auto 6.8 x10*3/uL (2.0-8.3); Neutrophils Percent Auto 59.7 % (45-73); Red Blood Count 4.76 X10*6/uL (4.20-5.50); White Blood Count 11.4 X10*3/uL (4.8-10.8)
--- NOTE | 2021-04-13 13:20 | ED.WEAKNESS ---
HPI - Weakness General Chief complaint: Weakness <Kelin Richardson NP - Last Filed: 04/13/21 19:43> Stated complaint: htn <Kelin Richardson NP - Last Filed: 04/13/21 19:43> Time Seen by Provider: 04/13/21 13:05 <Kelin Richardson NP - Last Filed: 04/13/21 19:43> Source: patient and EMS <Kelin Richardson NP - Last Filed: 04/13/21 19:43> Mode of arrival: EMS <Kelin Richardson NP - Last Filed: 04/13/21 19:43> Limitations: no limitations <Kelin Richardson NP - Last Filed: 04/13/21 19:43> History of Present Illness HPI Narrative: 85-year-old female here with past medical history of polymyalgia rheumatica on chronic prednisone, bronchiectasis (followed by pulmonology, on zyvox since January), osteoporosis here with complaints of generalized weakness for 2-3 weeks. Patient felt lightheaded today and like her head was hot. She tells me she took her blood pressure and it was elevated 180 systolic. She also tells me her pulse fell elevated but she does not know the number. She has no history of hypertension. Patient denies headache, no falls or injury recently. No chest pain, palpitations, shortness of breath, cough, fever, chill, abdominal pain, vomiting or diarrhea. No urinary symptoms. <Kelin Richardson NP - Last Filed: 04/13/21 19:43> Related Data Home medications: Home Medications Medication Instructions Recorded Confirmed benzonatate 100 mg capsule 100 mg PO TID PRN 08/05/20 04/13/21 multivitamin 1 tab PO DAILY 08/05/20 04/13/21 acetaminophen 500 mg tablet 500 mg PO BID PRN tab 12/24/20 04/13/21 (Tylenol Extra Strength) biotin 500 mcg capsule 1 mg PO DAILY 12/24/20 04/13/21 budesonide-formoterol HFA 80 2 inh INHALATION BID 01/06/21 04/13/21 mcg-4.5 mcg/actuation aerosol inhaler (Symbicort) codeine 10 mg-guaifenesin 100 mg/5 10 ml PO Q4H PRN 01/21/21 04/13/21 mL oral liquid (Virtussin AC) linezolid 600 mg tablet 1 tab PO Q12H 04/13/21 04/13/21 prednisone 1 mg tablet 6 mg PO DAILY 04/13/21 04/13/21 Previous Rx's Medication Instructions Recorded calcium carbonate 600 mg calcium 600 mg PO DAILY 30 Days #30 tab 07/31/20 (1,500 mg) tablet Prolia 60 mg/mL subcutaneous 60 mg SUBCUT [id number] #1 ml NS 01/01/21 syringe (denosumab) <Kelin Richardson NP - Last Filed: 04/13/21 19:43> Allergies/Adverse reactions: Allergies Allergy/AdvReac Type Severity Reaction Status Date / Time influenza virus vaccine, Allergy Severe DUE TO Verified 03/11/21 12:42 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 Iodinated Contrast Media Allergy Severe DIDN'T Verified 03/11/21 12:42 [IV CONTRAST] AGREE WITH PATIENT SHELLFISH Allergy Intermediate VOMITING Uncoded 03/11/21 12:42 contrast dye Allergy Unknown Unknown Uncoded 03/11/21 12:42 fish Allergy Unknown Unknown Uncoded 03/11/21 12:42 IV dye Allergy Unknown Unknown Uncoded 03/11/21 12:42 shellfish Allergy Unknown Unknown Uncoded 03/11/21 12:42 shrimp Allergy Unknown Unknown Uncoded 03/11/21 12:42 <Kelin Richardson NP - Last Filed: 04/13/21 19:43> Review of Systems Review of Systems: Yes all other systems are reviewed and are negative <Kelin Richardson NP - Last Filed: 04/13/21 19:43> Constitutional: Constitutional: Reports no additional constitutional complaints, Denies body ache(s), Denies chills, Denies fever(s), Denies headache(s) and Reports weakness <Kelin Richardson NP - Last Filed: 04/13/21 19:43> Eyes: Eyes: Reports no additional eye complaints and Denies change in vision <DOMINIC Rojas Last Filed: 04/13/21 19:43> ENT: Reports system reviewed and no additional complaints, except as documented, Reports dizziness, Denies headache(s), Denies nasal congestion, Denies nasal discharge and Denies neck pain <Kelin Richardson NP - Last Filed: 04/13/21 19:43> Cardiovascular: Cardiovascular: Reports no additional cardiovascular complaints, Denies chest pain, Denies leg edema and Denies dyspnea <Kelin Richardson NP - Last Filed: 04/13/21 19:43> Respiratory: Respiratory: Reports no additional respiratory complaints, Denies cough and Denies dyspnea <Kelin Richardson NP - Last Filed: 04/13/21 19:43> Gastrointestinal: Gastrointestinal: Reports no additional gastrointestinal complaints, Denies abdominal pain, Denies diarrhea, Denies nausea and Denies vomiting <Kelin Richardson NP - Last Filed: 04/13/21 19:43> Genitourinary: Genitourinary: Reports no additional female genitourinary complaints and Denies urinary incontinence <Kelin Richardson NP - Last Filed: 04/13/21 19:43> Musculoskeletal: Musculoskeletal: Reports no additional musculoskeletal complaints, Denies back pain, Denies arthralgias, Denies joint swelling, Denies neck pain, Denies numbness and Denies tingling <Kelin Richardson NP - Last Filed: 04/13/21 19:43> Integumentary/Breasts: Skin/Breast: Reports system reviewed and no additional complaints, except as docu and Denies rash <Kelin Richardson NP - Last Filed: 04/13/21 19:43> Neurologic: Reports system reviewed and no additional complaints, except as documented, Denies Abnormal speech present, Reports dizziness, Denies headache(s), Denies numbness, Denies tingling and Reports weakness <Kelin Richardson NP - Last Filed: 04/13/21 19:43> [facility] Past Medical History Attestation statement: The following information was validated with the patient. <Kelin Richardson NP - Last Filed: 04/13/21 19:43> Source: old records reviewed and nursing notes reviewed <Kelin Richardson NP - Last Filed: 04/13/21 19:43> Medical History: Medical History COVID-19 vaccine series completed Osteoporosis Vitamin D deficiency <Kelin Richardson NP - Last Filed: 04/13/21 19:43> Surgical History: Surgical History History of ear surgery Hx of colonoscopy Hx of toe surgery Hx of tubal ligation <Kelin Richardson NP - Last Filed: 04/13/21 19:43> Family History Family History: Family History Father No problems noted. Mother Heart disease Brother Colon cancer Brother Stomach cancer <Kelin Richardson NP - Last Filed: 04/13/21 19:43> Social History Social History: Social History Household Members: None Alcohol intake: never Patient Tobacco Use Status: Former Tobacco user Tobacco use type: Cigarette Cigarettes Per Day: 40 Years Smoked: 40 Use of substances other than those prescribed or required for medical reasons: No Advance Directives: Yes Advance Directives Information Provided: No Advance Directives on File: No <Kelin Richardson NP - Last Filed: 04/13/21 19:43> Physical Exam Vital Signs: Vital Signs: Last Vital Signs Temp 98.0 F 04/14/21 00:45 Pulse 82 04/14/21 08:12 Resp 04/14/21 05:56 BP 166/76 H 04/14/21 07:33 Pulse Ox 95 04/14/21 07:33 Body Mass Index 24.7 <Kelin Richardson NP - Last Filed: 04/13/21 19:43> Vital Signs: Last Vital Signs Temp 98.0 F 04/14/21 00:45 Pulse 82 04/14/21 08:12 Resp 19 04/14/21 05:56 BP 166/76 H 04/14/21 07:33 Pulse Ox 95 04/14/21 07:33 Body Mass Index 24.7 <Myra Abreu MD - Last Filed: 04/14/21 02:54> Vital Signs: Last Vital Signs Temp 98.0 F 04/14/21 00:45 Pulse 82 04/14/21 08:12 Resp 19 04/14/21 05:56 BP 166/76 H 04/14/21 07:33 Pulse Ox 95 04/14/21 07:33 Body Mass Index 24.7 <Max Dewey MD - Last Filed: 04/14/21 08:41> Const: General: cooperative, healthy appearing, comfortable and no acute distress <Kelin Richardson NP - Last Filed: 04/13/21 19:43> Orientation/consciousness: patient oriented x3 <Kelin Richardson NP - Last Filed: 04/13/21 19:43> Limitations: no limitations <Kelin Richardson NP - Last Filed: 04/13/21 19:43> HENMT: Head: Yes normal to inspection <Kelin Richardson NP - Last Filed: 04/13/21 19:43> Ears: hearing grossly normal bilaterally and TM's normal bilaterally <Kelin Richardson NP - Last Filed: 04/13/21 19:43> General nose exam: Normal external nose present <Kelin Richardson NP - Last Filed: 04/13/21 19:43> Face and sinus: Yes normal facial exam <Kelin Richardson NP - Last Filed: 04/13/21 19:43> Mouth: Normal oral and palatal mucosa present <Kelin Richardson NP - Last Filed: 04/13/21 19:43> Throat: Yes posterior oropharynx normal, Yes tonsils normal and Yes uvula midline <Kelin Richardson NP - Last Filed: 04/13/21 19:43> Eyes: General: appearance normal, both eyes and all related structures <Kelin Richardson NP - Last Filed: 04/13/21 19:43> Pupils: Equal, round and reactive pupils present <Kelin Richardson NP - Last Filed: 04/13/21 19:43> Neck: Neck: Yes normal visual inspection <Kelin Richardson NP - Last Filed: 04/13/21 19:43> Chest: Chest palpation & inspection: normal inspection of the chest <Kelin Richardson NP - Last Filed: 04/13/21 19:43> Resp: Effort & Inspection: normal respiratory effort <Kelin Richardson NP - Last Filed: 04/13/21 19:43> Auscultation: clear to auscultation bilaterally <Kelin Richardson TIE UP WORKER - Last Filed: 04/13/21 19:43> Cardio: Rate: regular rate <Kelin Richardson TIE UP WORKER - Last Filed: 04/13/21 19:43> Rhythm: regular rhythm <Kelin Richardson TIE UP WORKER - Last Filed: 04/13/21 19:43> Peripheral pulses: Peripheral pulses 2+ throughout <Kelin Richardson TIE UP WORKER - Last Filed: 04/13/21 19:43> GI: Inspection: Yes normal to inspection <Kelin Richardson TIE UP WORKER - Last Filed: 04/13/21 19:43> Palpation (GI): Soft to palpation and nontender <Kelin Richardson TIE UP WORKER - Last Filed: 04/13/21 19:43> Auscultation: normal bowel sounds <Kelin Richardson NP - Last Filed: 04/13/21 19:43> Back/Spine/Pelvis: Thoracic/Lumbar Spine: thoracic and lumbar spine normal to inspection <Kelin Richardson TIE UP WORKER - Last Filed: 04/13/21 19:43> Skin: General skin exam: no rashes or lesions noted <Kelin Richardson NP - Last Filed: 04/13/21 19:43> Neuro: General: patient oriented x3, no focal motor deficits and normal sensation to monofilament <Kelin Richardson TIE UP WORKER - Last Filed: 04/13/21 19:43> Cranial nerves: Yes CN's II-XII intact bilaterally, Yes Equal, round and reactive pupils present, Yes Bilaterally intact EOM present, Yes Nystagmus not present, Yes Normal facial strength present and Yes Midline tongue present <Kelin Richardson TIE UP WORKER - Last Filed: 04/13/21 19:43> Cognition (Neuro): normal cognition <Kelin Richardson TIE UP WORKER - Last Filed: 04/13/21 19:43> Speech: No Abnormal speech present <Kelin Richardson NP - Last Filed: 04/13/21 19:43> Gait exam (Neuro): Normal gait present <Kelin Richardson NP - Last Filed: 04/13/21 19:43> Motor exam (neuro): 5/5 motor strength present throughout <Kelin Richardson NP - Last Filed: 04/13/21 19:43> Sensory Exam: Normal double simultaneous stimulation for sensation <Kelin Richardson NP - Last Filed: 04/13/21 19:43> Deep tendon reflexes (DTR's): Right patellar reflex intensity grade: 2+ and Left patellar reflex intensity grade: 2+ <Kelin Richardson NP - Last Filed: 04/13/21 19:43> Coordination: [id number] test normal, [id number] test normal and tandem gait normal <Kelin Richardson NP - Last Filed: 04/13/21 19:43> Extrem: General: Yes normal to inspection, Yes no pedal edema and Yes no calf tenderness <Kelin Richardson NP - Last Filed: 04/13/21 19:43> Course Course Course Narrative: 85-year-old female here with complaints of generalized weakness for several weeks. Today felt lightheaded like she might fall if she stood up and had felt like her head was hot. Checked her blood pressure at home and noted to be elevated so she called EMS. On arrival the patient is alert and oriented. Normal neurological exam. She is mildly hypertensive with no history of same. Otherwise her exam is benign. Due to age will check labs, EKG, chest x-ray, UA and CT head 1415-Mild thombocytopenia which ?from zyvox as patient started this in the last month/two. 1500-imaging unremarkable. Lab work and UA are negative. Patient did attempt to ambulate but is very weak. She lives in a 2nd floor apartment by herself and I do not feel like it is safe for her to be home at this point. We did discuss involving physical therapy for an evaluation and case management the patient was agreeable to this. Placed in physician observation pending disposition <Kelin Richardson NP - Last Filed: 04/13/21 19:43> Reevaluation(s) Reevaluation #1: Informed by nursing that patient began to develop left-sided abdominal discomfort that she states is constant and nonradiating. She denies any feelings nausea at this time. All laboratory evaluations were reviewed and although there was a mild leukocytosis the chest x-ray is negative and the urinalysis is without acute findings. Will proceed with CT abdomen pelvis with IV contrast and obtain lactic acid and blood cultures. <Myra Abreu MD - Last Filed: 04/14/21 02:54> Time: 01:46 <Myra Abreu MD - Last Filed: 04/14/21 02:54> Reevaluation #2: Review of all investigations without acute findings, although there is a noted lactic acid of 2.3 which is of unclear significance. <Myra Abreu MD - Last Filed: 04/14/21 02:54> Time: 02:52 <Myra Abreu MD - Last Filed: 04/14/21 02:54> Reevaluation #3: Patient has generalized weakness, difficulty walking, case management involved for placement, she had an uneventful night <Max Dewey MD - Last Filed: 04/14/21 08:41> Time: 08:41 <Max Dewey MD - Last Filed: 04/14/21 08:41> MDM - Weakness MDM Narrative Medical decision making narrative: ACS, CVA versus ICH <Kelin Richardson NP - Last Filed: 04/13/21 19:43> Differential Diagnosis Differential diagnosis: Likely UTI, anemia, hypoglycemia, sepsis and dehydration <Kelin Richardson NP - Last Filed: 04/13/21 19:43> Medical Records Attestation: I reviewed the patient's medical records. <Kelin Richardson NP - Last Filed: 04/13/21 19:43> Lab Data Attestation: I reviewed the patient's lab results. <Kelin Richardson NP - Last Filed: 04/13/21 19:43> Result diagrams: : 04/13/21 13:10 04/13/21 13:10 <Kelin Richardson NP - Last Filed: 04/13/21 19:43> Labs: Lab Results 04/13/21 04/13/21 04/13/21 Range/Units 13:10 13:10 13:10 WBC 11.4 H (4.8-10.8) X10*3/uL RBC 4.76 (4.20-5.50) X10*6/uL Hgb 14.4 (12.0-16.0) g/dl Hct 43.4 (37.0-47.0) % MCV 91.2 (80.0-98.0) fL MCH 30.3 (27.0-33.0) pg MCHC 33.2 (31.0-35.0) g/dl RDW 13.2 (11.0-16.0) % Plt Count 126 L (160-400) X10*3/uL MPV 11.5 (9.4-12.3) fL Immature Gran % (Auto) 0.4 (0.0-0.4) % Neut % (Auto) 59.7 (45-73) % Lymph % (Auto) 25.7 (20-40) % Dickson % (Auto) 11.2 H (2-11) % Eos % (Auto) 2.5 (0-4) % Baso % (Auto) 0.5 (0-2) % Lymph # (Auto) 2.9 (1.2-4.9) X10*3/uL Dickson # (Auto) 1.3 H (0.1-1.2) X10*3/uL Eos # (Auto) 0.3 (0.0-0.4) X10*3/uL Baso # (Auto) 0.1 (0.0-0.2) X10*3/uL Abs Immat Gran (auto) 0.05 H (0.00-0.03) X10*3/uL Absolute Neuts (auto) 6.8 (2.0-8.3) x10*3/uL Absolute Nucleated RBC 0.000 (0.0-0.012) X10*3/uL Nucleated RBC % (auto) 0.0 (0.0-0.2) /100WBC Smear Tech's Comments VERIFIED Sodium 139 (135-145) mmol/L Potassium 4.4 (3.3-5.1) mmol/L Chloride 104 (96-108) mmol/L Carbon Dioxide 21 L (22-29) mmol/L Anion Gap 18 (12-20) BUN 18 H (9-16) mg/dL Creatinine 0.87 (0.5-1.4) mg/dL Estim Creat Clear Calc 42.2 Estimated GFR > 60 Random Glucose 102 (60-115) mg/dL Lactic Acid (0.5-2.0) mmol/L Lactic Acid Fup @ 2Hr (0.5-2.0) mmol/L Calcium 9.3 (8.4-10.2) mg/dL Magnesium 2.2 (1.6-2.6) mg/dL Total Bilirubin 0.5 (0.0-1.0) mg/dL Direct Bilirubin < 0.2 (0.0-0.5) mg/dL AST 28 D (5-31) U/L ALT 32 H (0-31) U/L Alkaline Phosphatase 42 D (39-117) U/L Troponin I High Sens 7.4 (<3.5-17.0) ng/L Total Protein 7.5 (6.5-8.0) g/dL Albumin 4.5 (3.5-5.0) g/dL Urine Color Urine Appearance Urine pH (5.0-8.0) Ur Specific [place] (1.005-1.025) Urine Protein (NEG-TRACE) MG/DL Urine Glucose (UA) (NEG) MG/DL Urine Ketones (NEG) MG/DL Urine Blood (NEG) Urine Nitrite (NEG) Ur Leukocyte Esterase (NEG) COVID-19 (MAR[facility]) (Negative) COVID-19 Clin Com 04/13/21 04/13/21 04/14/21 Range/Units 13:10 14:49 02:02 WBC (4.8-10.8) X10*3/uL RBC (4.20-5.50) X10*6/uL Hgb (12.0-16.0) g/dl Hct (37.0-47.0) % MCV (80.0-98.0) fL MCH (27.0-33.0) pg MCHC (31.0-35.0) g/dl RDW (11.0-16.0) % Plt Count (160-400) X10*3/uL MPV (9.4-12.3) fL Immature Gran % (Auto) (0.0-0.4) % Neut % (Auto) (45-73) % Lymph % (Auto) (20-40) % Dickson % (Auto) (2-11) % Eos % (Auto) (0-4) % Baso % (Auto) (0-2) % Lymph # (Auto) (1.2-4.9) X10*3/uL Dickson # (Auto) (0.1-1.2) X10*3/uL Eos # (Auto) (0.0-0.4) X10*3/uL Baso # (Auto) (0.0-0.2) X10*3/uL Abs Immat Gran (auto) (0.00-0.03) X10*3/uL Absolute Neuts (auto) (2.0-8.3) x10*3/uL Absolute Nucleated RBC (0.0-0.012) X10*3/uL Nucleated RBC % (auto) (0.0-0.2) /100WBC Smear Tech's Comments Sodium (135-145) mmol/L Potassium (3.3-5.1) mmol/L Chloride (96-108) mmol/L Carbon Dioxide (22-29) mmol/L Anion Gap (12-20) BUN (9-16) mg/dL Creatinine (0.5-1.4) mg/dL Estim Creat Clear Calc Estimated GFR Random Glucose (60-115) mg/dL Lactic Acid 2.3 H* (0.5-2.0) mmol/L Lactic Acid Fup @ 2Hr (0.5-2.0) mmol/L Calcium (8.4-10.2) mg/dL Magnesium (1.6-2.6) mg/dL Total Bilirubin (0.0-1.0) mg/dL Direct Bilirubin (0.0-0.5) mg/dL AST (5-31) U/L ALT (0-31) U/L Alkaline Phosphatase (39-117) U/L Troponin I High Sens (<3.5-17.0) ng/L Total Protein (6.5-8.0) g/dL Albumin (3.5-5.0) g/dL Urine Color STRAW Urine Appearance CLEAR Urine pH 6.0 (5.0-8.0) Ur Specific [place] <= 1.005 (1.005-1.025) Urine Protein NEG (NEG-TRACE) MG/DL Urine Glucose (UA) NEG (NEG) MG/DL Urine Ketones NEG (NEG) MG/DL Urine Blood NEG (NEG) Urine Nitrite NEG (NEG) Ur Leukocyte Esterase NEG (NEG) COVID-19 ([facility]) Negative (Negative) COVID-19 Clin Com See Note 04/14/21 Range/Units 05:10 WBC (4.8-10.8) X10*3/uL RBC (4.20-5.50) X10*6/uL Hgb (12.0-16.0) g/dl Hct (37.0-47.0) % MCV (80.0-98.0) fL MCH (27.0-33.0) pg MCHC (31.0-35.0) g/dl RDW (11.0-16.0) % Plt Count (160-400) X10*3/uL MPV (9.4-12.3) fL Immature Gran % (Auto) (0.0-0.4) % Neut % (Auto) (45-73) % Lymph % (Auto) (20-40) % Dickson % (Auto) (2-11) % Eos % (Auto) (0-4) % Baso % (Auto) (0-2) % Lymph # (Auto) (1.2-4.9) X10*3/uL Dickson # (Auto) (0.1-1.2) X10*3/uL Eos # (Auto) (0.0-0.4) X10*3/uL Baso # (Auto) (0.0-0.2) X10*3/uL Abs Immat Gran (auto) (0.00-0.03) X10*3/uL Absolute Neuts (auto) (2.0-8.3) x10*3/uL Absolute Nucleated RBC (0.0-0.012) X10*3/uL Nucleated RBC % (auto) (0.0-0.2) /100WBC Smear Tech's Comments Sodium (135-145) mmol/L Potassium (3.3-5.1) mmol/L Chloride (96-108) mmol/L Carbon Dioxide (22-29) mmol/L Anion Gap (12-20) BUN (9-16) mg/dL Creatinine (0.5-1.4) mg/dL Estim Creat Clear Calc Estimated GFR Random Glucose (60-115) mg/dL Lactic Acid (0.5-2.0) mmol/L Lactic Acid Fup @ 2Hr 1.8 (0.5-2.0) mmol/L Calcium (8.4-10.2) mg/dL Magnesium (1.6-2.6) mg/dL Total Bilirubin (0.0-1.0) mg/dL Direct Bilirubin (0.0-0.5) mg/dL AST (5-31) U/L ALT (0-31) U/L Alkaline Phosphatase (39-117) U/L Troponin I High Sens (<3.5-17.0) ng/L Total Protein (6.5-8.0) g/dL Albumin (3.5-5.0) g/dL Urine Color Urine Appearance Urine pH (5.0-8.0) Ur Specific [place] (1.005-1.025) Urine Protein (NEG-TRACE) MG/DL Urine Glucose (UA) (NEG) MG/DL Urine Ketones (NEG) MG/DL Urine Blood (NEG) Urine Nitrite (NEG) Ur Leukocyte Esterase (NEG) COVID-19 ([facility]) (Negative) COVID-19 Clin Com <Kelin Richardosn NP - Last Filed: 04/13/21 19:43> Lab Results 04/13/21 04/13/21 04/13/21 Range/Units 13:10 13:10 13:10 WBC 11.4 H (4.8-10.8) X10*3/uL RBC 4.76 (4.20-5.50) X10*6/uL Hgb 14.4 (12.0-16.0) g/dl Hct 43.4 (37.0-47.0) % MCV 91.2 (80.0-98.0) fL MCH 30.3 (27.0-33.0) pg MCHC 33.2 (31.0-35.0) g/dl RDW 13.2 (11.0-16.0) % Plt Count 126 L (160-400) X10*3/uL MPV 11.5 (9.4-12.3) fL Immature Gran % (Auto) 0.4 (0.0-0.4) % Neut % (Auto) 59.7 (45-73) % Lymph % (Auto) 25.7 (20-40) % Dickson % (Auto) 11.2 H (2-11) % Eos % (Auto) 2.5 (0-4) % Baso % (Auto) 0.5 (0-2) % Lymph # (Auto) 2.9 (1.2-4.9) X10*3/uL Dickson # (Auto) 1.3 H (0.1-1.2) X10*3/uL Eos # (Auto) 0.3 (0.0-0.4) X10*3/uL Baso # (Auto) 0.1 (0.0-0.2) X10*3/uL Abs Immat Gran (auto) 0.05 H (0.00-0.03) X10*3/uL Absolute Neuts (auto) 6.8 (2.0-8.3) x10*3/uL Absolute Nucleated RBC 0.000 (0.0-0.012) X10*3/uL Nucleated RBC % (auto) 0.0 (0.0-0.2) /100WBC Smear Tech's Comments VERIFIED Sodium 139 (135-145) mmol/L Potassium 4.4 (3.3-5.1) mmol/L Chloride 104 (96-108) mmol/L Carbon Dioxide 21 L (22-29) mmol/L Anion Gap 18 (12-20) BUN 18 H (9-16) mg/dL Creatinine 0.87 (0.5-1.4) mg/dL Estim Creat Clear Calc 42.2 Estimated GFR > 60 Random Glucose 102 (60-115) mg/dL Lactic Acid (0.5-2.0) mmol/L Lactic Acid Fup @ 2Hr (0.5-2.0) mmol/L Calcium 9.3 (8.4-10.2) mg/dL Magnesium 2.2 (1.6-2.6) mg/dL Total Bilirubin 0.5 (0.0-1.0) mg/dL Direct Bilirubin < 0.2 (0.0-0.5) mg/dL AST 28 D (5-31) U/L ALT 32 H (0-31) U/L Alkaline Phosphatase 42 D (39-117) U/L Troponin I High Sens 7.4 (<3.5-17.0) ng/L Total Protein 7.5 (6.5-8.0) g/dL Albumin 4.5 (3.5-5.0) g/dL Urine Color Urine Appearance Urine pH (5.0-8.0) Ur Specific [place] (1.005-1.025) Urine Protein (NEG-TRACE) MG/DL Urine Glucose (UA) (NEG) MG/DL Urine Ketones (NEG) MG/DL Urine Blood (NEG) Urine Nitrite (NEG) Ur Leukocyte Esterase (NEG) COVID-19 ([facility]) (Negative) COVID-19 Clin Com 04/13/21 04/13/21 04/14/21 Range/Units 13:10 14:49 02:02 WBC (4.8-10.8) X10*3/uL RBC (4.20-5.50) X10*6/uL Hgb (12.0-16.0) g/dl Hct (37.0-47.0) % MCV (80.0-98.0) fL MCH (27.0-33.0) pg MCHC (31.0-35.0) g/dl RDW (11.0-16.0) % Plt Count (160-400) X10*3/uL MPV (9.4-12.3) fL Immature Gran % (Auto) (0.0-0.4) % Neut % (Auto) (45-73) % Lymph % (Auto) (20-40) % [place] % (Auto) (2-11) % Eos % (Auto) (0-4) % Baso % (Auto) (0-2) % Lymph # (Auto) (1.2-4.9) X10*3/uL [place] # (Auto) (0.1-1.2) X10*3/uL Eos # (Auto) (0.0-0.4) X10*3/uL Baso # (Auto) (0.0-0.2) X10*3/uL Abs Immat Gran (auto) (0.00-0.03) X10*3/uL Absolute Neuts (auto) (2.0-8.3) x10*3/uL Absolute Nucleated RBC (0.0-0.012) X10*3/uL Nucleated RBC % (auto) (0.0-0.2) /100WBC Smear Tech's Comments Sodium (135-145) mmol/L Potassium (3.3-5.1) mmol/L Chloride (96-108) mmol/L Carbon Dioxide (22-29) mmol/L Anion Gap (12-20) BUN (9-16) mg/dL Creatinine (0.5-1.4) mg/dL Estim Creat Clear Calc Estimated GFR Random Glucose (60-115) mg/dL Lactic Acid 2.3 H* (0.5-2.0) mmol/L Lactic Acid Fup @ 2Hr (0.5-2.0) mmol/L Calcium (8.4-10.2) mg/dL Magnesium (1.6-2.6) mg/dL Total Bilirubin (0.0-1.0) mg/dL Direct Bilirubin (0.0-0.5) mg/dL AST (5-31) U/L ALT (0-31) U/L Alkaline Phosphatase (39-117) U/L Troponin I High Sens (<3.5-17.0) ng/L Total Protein (6.5-8.0) g/dL Albumin (3.5-5.0) g/dL Urine Color STRAW Urine Appearance CLEAR Urine pH 6.0 (5.0-8.0) Ur Specific [place] <= 1.005 (1.005-1.025) Urine Protein NEG (NEG-TRACE) MG/DL Urine Glucose (UA) NEG (NEG) MG/DL Urine Ketones NEG (NEG) MG/DL Urine Blood NEG (NEG) Urine Nitrite NEG (NEG) Ur Leukocyte Esterase NEG (NEG) COVID-19 ([facility]) Negative (Negative) COVID-19 Clin Com See Note 04/14/21 Range/Units 05:10 WBC (4.8-10.8) X10*3/uL RBC (4.20-5.50) X10*6/uL Hgb (12.0-16.0) g/dl Hct (37.0-47.0) % MCV (80.0-98.0) fL MCH (27.0-33.0) pg MCHC (31.0-35.0) g/dl RDW (11.0-16.0) % Plt Count (160-400) X10*3/uL MPV (9.4-12.3) fL Immature Gran % (Auto) (0.0-0.4) % Neut % (Auto) (45-73) % Lymph % (Auto) (20-40) % [place] % (Auto) (2-11) % Eos % (Auto) (0-4) % Baso % (Auto) (0-2) % Lymph # (Auto) (1.2-4.9) X10*3/uL [place] # (Auto) (0.1-1.2) X10*3/uL Eos # (Auto) (0.0-0.4) X10*3/uL Baso # (Auto) (0.0-0.2) X10*3/uL Abs Immat Gran (auto) (0.00-0.03) X10*3/uL Absolute Neuts (auto) (2.0-8.3) x10*3/uL Absolute Nucleated RBC (0.0-0.012) X10*3/uL Nucleated RBC % (auto) (0.0-0.2) /100WBC Smear Tech's Comments Sodium (135-145) mmol/L Potassium (3.3-5.1) mmol/L Chloride (96-108) mmol/L Carbon Dioxide (22-29) mmol/L Anion Gap (12-20) BUN (9-16) mg/dL Creatinine (0.5-1.4) mg/dL Estim Creat Clear Calc Estimated GFR Random Glucose (60-115) mg/dL Lactic Acid (0.5-2.0) mmol/L Lactic Acid Fup @ 2Hr 1.8 (0.5-2.0) mmol/L Calcium (8.4-10.2) mg/dL Magnesium (1.6-2.6) mg/dL Total Bilirubin (0.0-1.0) mg/dL Direct Bilirubin (0.0-0.5) mg/dL AST (5-31) U/L ALT (0-31) U/L Alkaline Phosphatase (39-117) U/L Troponin I High Sens (<3.5-17.0) ng/L Total Protein (6.5-8.0) g/dL Albumin (3.5-5.0) g/dL Urine Color Urine Appearance Urine pH (5.0-8.0) Ur Specific [place] (1.005-1.025) Urine Protein (NEG-TRACE) MG/DL Urine Glucose (UA) (NEG) MG/DL Urine Ketones (NEG) MG/DL Urine Blood (NEG) Urine Nitrite (NEG) Ur Leukocyte Esterase (NEG) COVID-19 ([facility]) (Negative) COVID-19 Clin Com <Myra Abreu MD - Last Filed: 04/14/21 02:54> Lab Results 04/13/21 04/13/21 04/13/21 Range/Units 13:10 13:10 13:10 WBC 11.4 H (4.8-10.8) X10*3/uL RBC 4.76 (4.20-5.50) X10*6/uL Hgb 14.4 (12.0-16.0) g/dl Hct 43.4 (37.0-47.0) % MCV 91.2 (80.0-98.0) fL MCH 30.3 (27.0-33.0) pg MCHC 33.2 (31.0-35.0) g/dl RDW 13.2 (11.0-16.0) % Plt Count 126 L (160-400) X10*3/uL MPV 11.5 (9.4-12.3) fL Immature Gran % (Auto) 0.4 (0.0-0.4) % Neut % (Auto) 59.7 (45-73) % Lymph % (Auto) 25.7 (20-40) % Dickson % (Auto) 11.2 H (2-11) % Eos % (Auto) 2.5 (0-4) % Baso % (Auto) 0.5 (0-2) % Lymph # (Auto) 2.9 (1.2-4.9) X10*3/uL Dickson # (Auto) 1.3 H (0.1-1.2) X10*3/uL Eos # (Auto) 0.3 (0.0-0.4) X10*3/uL Baso # (Auto) 0.1 (0.0-0.2) X10*3/uL Abs Immat Gran (auto) 0.05 H (0.00-0.03) X10*3/uL Absolute Neuts (auto) 6.8 (2.0-8.3) x10*3/uL Absolute Nucleated RBC 0.000 (0.0-0.012) X10*3/uL Nucleated RBC % (auto) 0.0 (0.0-0.2) /100WBC Smear Tech's Comments VERIFIED Sodium 139 (135-145) mmol/L Potassium 4.4 (3.3-5.1) mmol/L Chloride 104 (96-108) mmol/L Carbon Dioxide 21 L (22-29) mmol/L Anion Gap 18 (12-20) BUN 18 H (9-16) mg/dL Creatinine 0.87 (0.5-1.4) mg/dL Estim Creat Clear Calc 42.2 Estimated GFR > 60 Random Glucose 102 (60-115) mg/dL Lactic Acid (0.5-2.0) mmol/L Lactic Acid Fup @ 2Hr (0.5-2.0) mmol/L Calcium 9.3 (8.4-10.2) mg/dL Magnesium 2.2 (1.6-2.6) mg/dL Total Bilirubin 0.5 (0.0-1.0) mg/dL Direct Bilirubin < 0.2 (0.0-0.5) mg/dL AST 28 D (5-31) U/L ALT 32 H (0-31) U/L Alkaline Phosphatase 42 D (39-117) U/L Troponin I High Sens 7.4 (<3.5-17.0) ng/L Total Protein 7.5 (6.5-8.0) g/dL Albumin 4.5 (3.5-5.0) g/dL Urine Color Urine Appearance Urine pH (5.0-8.0) Ur Specific [place] (1.005-1.025) Urine Protein (NEG-TRACE) MG/DL Urine Glucose (UA) (NEG) MG/DL Urine Ketones (NEG) MG/DL Urine Blood (NEG) Urine Nitrite (NEG) Ur Leukocyte Esterase (NEG) COVID-19 (MARINO) (Negative) COVID-19 Clin Com 04/13/21 04/13/21 04/14/21 Range/Units 13:10 14:49 02:02 WBC (4.8-10.8) X10*3/uL RBC (4.20-5.50) X10*6/uL Hgb (12.0-16.0) g/dl Hct (37.0-47.0) % MCV (80.0-98.0) fL MCH (27.0-33.0) pg MCHC (31.0-35.0) g/dl RDW (11.0-16.0) % Plt Count (160-400) X10*3/uL MPV (9.4-12.3) fL Immature Gran % (Auto) (0.0-0.4) % Neut % (Auto) (45-73) % Lymph % (Auto) (20-40) % Dickson % (Auto) (2-11) % Eos % (Auto) (0-4) % Baso % (Auto) (0-2) % Lymph # (Auto) (1.2-4.9) X10*3/uL Dickson # (Auto) (0.1-1.2) X10*3/uL Eos # (Auto) (0.0-0.4) X10*3/uL Baso # (Auto) (0.0-0.2) X10*3/uL Abs Immat Gran (auto) (0.00-0.03) X10*3/uL Absolute Neuts (auto) (2.0-8.3) x10*3/uL Absolute Nucleated RBC (0.0-0.012) X10*3/uL Nucleated RBC % (auto) (0.0-0.2) /100WBC Smear Tech's Comments Sodium (135-145) mmol/L Potassium (3.3-5.1) mmol/L Chloride (96-108) mmol/L Carbon Dioxide (22-29) mmol/L Anion Gap (12-20) BUN (9-16) mg/dL Creatinine (0.5-1.4) mg/dL Estim Creat Clear Calc Estimated GFR Random Glucose (60-115) mg/dL Lactic Acid 2.3 H* (0.5-2.0) mmol/L Lactic Acid Fup @ 2Hr (0.5-2.0) mmol/L Calcium (8.4-10.2) mg/dL Magnesium (1.6-2.6) mg/dL Total Bilirubin (0.0-1.0) mg/dL Direct Bilirubin (0.0-0.5) mg/dL AST (5-31) U/L ALT (0-31) U/L Alkaline Phosphatase (39-117) U/L Troponin I High Sens (<3.5-17.0) ng/L Total Protein (6.5-8.0) g/dL Albumin (3.5-5.0) g/dL Urine Color STRAW Urine Appearance CLEAR Urine pH 6.0 (5.0-8.0) Ur Specific [place] <= 1.005 (1.005-1.025) Urine Protein NEG (NEG-TRACE) MG/DL Urine Glucose (UA) NEG (NEG) MG/DL Urine Ketones NEG (NEG) MG/DL Urine Blood NEG (NEG) Urine Nitrite NEG (NEG) Ur Leukocyte Esterase NEG (NEG) COVID-19 (MARINO) Negative (Negative) COVID-19 Clin Com See Note 04/14/21 Range/Units 05:10 WBC (4.8-10.8) X10*3/uL RBC (4.20-5.50) X10*6/uL Hgb (12.0-16.0) g/dl Hct (37.0-47.0) % MCV (80.0-98.0) fL MCH (27.0-33.0) pg MCHC (31.0-35.0) g/dl RDW (11.0-16.0) % Plt Count (160-400) X10*3/uL MPV (9.4-12.3) fL Immature Gran % (Auto) (0.0-0.4) % Neut % (Auto) (45-73) % Lymph % (Auto) (20-40) % Dickson % (Auto) (2-11) % Eos % (Auto) (0-4) % Baso % (Auto) (0-2) % Lymph # (Auto) (1.2-4.9) X10*3/uL Dickson # (Auto) (0.1-1.2) X10*3/uL Eos # (Auto) (0.0-0.4) X10*3/uL Baso # (Auto) (0.0-0.2) X10*3/uL Abs Immat Gran (auto) (0.00-0.03) X10*3/uL Absolute Neuts (auto) (2.0-8.3) x10*3/uL Absolute Nucleated RBC (0.0-0.012) X10*3/uL Nucleated RBC % (auto) (0.0-0.2) /100WBC Smear Tech's Comments Sodium (135-145) mmol/L Potassium (3.3-5.1) mmol/L Chloride (96-108) mmol/L Carbon Dioxide (22-29) mmol/L Anion Gap (12-20) BUN (9-16) mg/dL Creatinine (0.5-1.4) mg/dL Estim Creat Clear Calc Estimated GFR Random Glucose (60-115) mg/dL Lactic Acid (0.5-2.0) mmol/L Lactic Acid Fup @ 2Hr 1.8 (0.5-2.0) mmol/L Calcium (8.4-10.2) mg/dL Magnesium (1.6-2.6) mg/dL Total Bilirubin (0.0-1.0) mg/dL Direct Bilirubin (0.0-0.5) mg/dL AST (5-31) U/L ALT (0-31) U/L Alkaline Phosphatase (39-117) U/L Troponin I High Sens (<3.5-17.0) ng/L Total Protein (6.5-8.0) g/dL Albumin (3.5-5.0) g/dL Urine Color Urine Appearance Urine pH (5.0-8.0) Ur Specific [place] (1.005-1.025) Urine Protein (NEG-TRACE) MG/DL Urine Glucose (UA) (NEG) MG/DL Urine Ketones (NEG) MG/DL Urine Blood (NEG) Urine Nitrite (NEG) Ur Leukocyte Esterase (NEG) COVID-19 (MARINO) (Negative) COVID-19 Clin Com <Max Dewey MD - Last Filed: 04/14/21 08:41> Imaging Data Chest x-ray: Attestation: I personally reviewed and interpreted this imaging study as follows: <Kelin Richardson NP - Last Filed: 04/13/21 19:43> Radiologist's impression: EXAMINATION: XR CHEST CLINICAL INFORMATION: Weakness COMPARISON: Chest x-ray 08/12/2020 TECHNIQUE: 2 views of the chest were obtained. FINDINGS: Cardiac silhouette is normal in size. The lungs are well aerated. Chronically increased reticular nodule interstitial markings are again noted, particularly within the right upper chest. No lobar consolidation is present. No pleural effusion or pneumothorax. Mild degenerative changes of the spine. XR/XR chest 2V IMPRESSION: Stable chronic findings of the chest. <Kelin Richardson NP - Last Filed: 04/13/21 19:43> CT scan - head: Attestation: I personally reviewed and interpreted this imaging study as follows: <Kelin Richardson NP - Last Filed: 04/13/21 19:43> Radiologist's impression: FINDINGS: There is no evidence of acute intracranial hemorrhage or territorial infarction. No abnormal mass effect or midline shift is seen. Delacruz to white matter differentiation is well preserved. No extra-axial fluid collections are identified. The ventricles are normal in size. There is no abnormal attenuation within the brain parenchyma. The osseous structures and soft tissues are normal. The mastoid air cells and visualized portions of the paranasal sinuses are fairly well aerated. Post mastoidectomy changes noted in the left side. ? CT/CT head/brain wo con IMPRESSION: No acute intracranial pathology. <Kelin Richardson NP - Last Filed: 04/13/21 19:43> ECG Data Attestation: I personally reviewed and interpreted this ECG as follows: <Kelin Richardson NP - Last Filed: 04/13/21 19:43> ECG interpretation date: 04/13/21 <Kelin Richardson NP - Last Filed: 04/13/21 19:43> ECG interpretation time: 13:30 <Kelin Richardson NP - Last Filed: 04/13/21 19:43> Interpretation: Normal sinus rhythm with a rate 80, normal MI, normal QRS, normal QT <Kelin Richardson NP - Last Filed: 04/13/21 19:43> Discharge Plan Discharge Clinical Impression: Weakness <Kelin Richardson NP - Last Filed: 04/13/21 19:43> Prescriptions: No Action calcium carbonate 600 mg calcium (1,500 mg) tablet 600 mg PO DAILY 30 Days Qty: 30 RF: 11 Prolia 60 mg/mL syringe 60 mg subcut [id number] Qty: 1 RF: 0 linezolid 600 mg tablet 1 tab PO Q12H RF: 0 prednisone 1 mg tablet 6 mg PO DAILY RF: 0 codeine-guaifenesin [Virtussin AC] 10-100 mg/5 mL liquid 10 ml PO Q4H PRN (Reason: cough) RF: 0 acetaminophen [Tylenol Extra Strength] 500 mg tablet 500 mg PO BID PRN (Reason: Pain) RF: 0 biotin 500 mcg capsule 1 mg PO DAILY RF: 0 benzonatate 100 mg capsule 100 mg PO TID PRN (Reason: Cough) RF: 0 multivitamin Tablet 1 tab PO DAILY RF: 0 budesonide-formoterol [Symbicort] 80-4.5 mcg/actuation HFA aerosol inhaler 2 inh inhalation BID RF: 0 <Kelin Richardson NP - Last Filed: 04/13/21 19:43>
[2021-04-13 13:30] LABS: Alanine Aminotransferase 32 U/L (0-31); Albumin Level 4.5 g/dL (3.5-5.0); Alkaline Phosphatase 42 U/L (39-117); Anion Gap 18 (12-20); Aspartate Amino Transferase 28 U/L (5-31); Bilirubin Direct < 0.2 mg/dL (0.0-0.5); Bilirubin Total 0.5 mg/dL (0.0-1.0); Blood Urea Nitrogen 18 mg/dL (9-16); Calcium 9.3 mg/dL (8.4-10.2); Carbon Dioxide 21 mmol/L (22-29); Chloride 104 mmol/L (96-108); Creatinine Clr Calc Pharmacy 42.2; Estimated Glomerular Filt Rate > 60; Glucose Random 102 mg/dL (60-115); Magnesium 2.2 mg/dL (1.6-2.6); Potassium 4.4 mmol/L (3.3-5.1); Sodium 139 mmol/L (135-145); Total Protein 7.5 g/dL (6.5-8.0)
[2021-04-13 13:34] LABS: Troponin-I High Sensitivity 7.4 ng/L (<3.5-17.0)
[2021-04-13 13:35] LABS: COVID-19 Test Negative (Negative)
[2021-04-13 13:36] LABS: Platelet Count 126 X10*3/uL (160-400); SLIDE REVIEW VERIFIED
[2021-04-13 14:03] VITALS: BP 152/77; PULSE 84; RESP 16; TEMP 36.8; O2SAT 96
[2021-04-13 14:56] LABS: Appearance Urine CLEAR; Color Urine STRAW; Glucose Urine UA NEG (NEG); Leukocyte Esterase Urine NEG (NEG); Nitrite Urine NEG (NEG); Specific Gravity - Urine <= 1.005 (1.005-1.025); Urine Blood NEG (NEG); Urine Ketones NEG (NEG); Urine Protein NEG (NEG-TRACE)
--- NOTE | 2021-04-13 15:29 | MHC.CM.ED ---
Addendum entered by Nadia Keenan 04/13/21 15:57: Patient's daughter, Diana, bedside. Plan to wait for physical therapy eval tomorrow. Chetna verbalized understanding. Chetna can be reached via telephone at [phone]. Original Note: Received case management consult from Kelin ALFARO. Patient came to ER due to HTN. Work up essentially negative. Patient having difficulty ambulating. Met with patient in regards to discharge planning. Patient lives alone, ambulates with a cane when she is out of the home and is active with [facility]. Copy of med list obtained from [employer]. No HCP on file. Patient states she has a HCP and will attempt to obtain a copy. Patient received 2 doses of Moderna. Physical therapy eval will not be able to be completed until tomorrow. Patient will stay in ER overnight. List of facilities provided from [facility]. Patient is requesting referral to [facility] because a friend of hers has been there recently. Kelin ALFARO and Lamin RN aware.Continue to monitor for d/c needs.
--- NOTE | 2021-04-13 15:32 | PHA.MEDREC ---
Pharmacy Consult ? Medication Reconciliation Pharmacy has completed the medication reconciliation.
[2021-04-13] MEDS: Acetaminophen 325 MG TABLET 650 MG PO ×2 (16:52→21:17)
[2021-04-13] MEDS: Linezolid 600 MG TABLET PO (17:01)
--- NOTE | 2021-04-13 20:17 | PC.NURSE ---
PT GIVEN HER DINNER TRAY AT 19:00, FINISHED 100%. PT AWAKE AND ALERT, REPOSITIONED HERSELF TO SEATED POSITION ON SIDE OF BED.
[2021-04-13] MEDS: guaiFEN/Codeine SF 200/20/10ML 10 ML LIQUID PO (21:18)
[2021-04-13 21:19] VITALS: BP 127/59; PULSE 84; RESP 20; TEMP 36.5; O2SAT 95
--- NOTE | 2021-04-13 21:32 | PC.NURSE ---
PT HAS CHRONIC BACK PAIN, SHE IS REQUESTING HER PRN TYLENOL EARLY. PT ALSO ASKING FOR BID ALBUTEROL TREATMENT, SPOKE WITH PROVIDER FOR ORDER.
[2021-04-13] MEDS: Albuterol Sulfate (0.083%) 2.5 MG/3 ML VIAL.NEB INHALE (22:17)
[2021-04-13 22:18] VITALS: PULSE 81; O2SAT 97
[2021-04-14 00:45] VITALS: BP 165/82; PULSE 102; RESP 18; TEMP 36.7; O2SAT 95
[2021-04-14 01:32] VITALS: BP 172/74; PULSE 86; RESP 25; O2SAT 97
--- NOTE | 2021-04-14 01:32 | PC.NURSE ---
PT CRYING IN BED, SEATED UPRIGHT. WHEN ASKED WHAT WAS WRONG, PT REPORTS SUDDEN ONSET OF LEFT SIDED ABDOMINAL PAIN THAT WOKE HER. PT HADBEEN EXPERIENCING LEFT FLANK PAIN BEFORE BED.
[2021-04-14 02:25] LABS: Lactic Acid 2.3 mmol/L (0.5-2.0)
--- NOTE | 2021-04-14 03:52 | PC.NURSE ---
PT ASSISTED TO BATHROOM BY WC, ABLE TO STAND AND PIVOT WHILE HOLDING ON TO RAILING.
[2021-04-14 04:07] LABS: Reflex Lactate? Lactic Acid Added
[2021-04-14 05:28] LABS: ~Lactic Acid-LAB USE ONLY 1.8 mmol/L (0.5-2.0)
[2021-04-14 05:56] VITALS: BP 166/76; PULSE 75; RESP 19; O2SAT 95
[2021-04-14 07:33] VITALS: BP 166/76; PULSE 75; O2SAT 95
[2021-04-14] MEDS: Albuterol Sulfate (0.083%) 2.5 MG/3 ML VIAL.NEB INHALE (08:11)
[2021-04-14 08:12] VITALS: PULSE 82; O2SAT 95
[2021-04-14] MEDS: Fluticasone/Vilanterol 100/25 BLST.W.DEV 1 PUFF INHALE ×2 (09:05→09:58)
[2021-04-14] MEDS: Linezolid 600 MG TABLET PO (09:05)
[2021-04-14] MEDS: Multivitamin TABLET 1 TAB PO (09:05)
[2021-04-14] MEDS: predniSONE 1 MG TABLET 6 MG PO (09:49)
--- NOTE | 2021-04-14 11:09 | MHC.CM.ED ---
pt has requested to go to [facility] for str. a ref was made, pt was accepted and bed was offered. HCP was completed as well. pt will leave for STR at 1:30 pm. call to pt's HCP was made to inform of DC plan. rn and md are aware of dc plan cm to cont. to follow.
--- NOTE | 2021-04-14 13:32 | PC.NURSE ---
nad, skin wpd, steady transfer to bathroom, eating lunch, awaiting transport,
--- NOTE | 2021-04-14 13:47 | PC.NURSE ---
report given to rn at snf
== END 2021-04-14 14:24 | disposition skilled nursing facility (03) ==
PROVIDERS: Nurse Practitioner Family; Student in an Organized Health Care Education/Training Program; Emergency Provider Emergency Medicine; PCP Internal Medicine
DX: R53.1 Weakness (principal); D69.6 Thrombocytopenia, unspecified; M35.3 Polymyalgia rheumatica; M81.0 Age-related osteoporosis without current pathological fracture; Z79.52 Long term (current) use of systemic steroids; Z79.899 Other long term (current) drug therapy; Z20.822 Contact with and (suspected) exposure to COVID-19
CPT/HCPCS: 36415; 70450; 71046; 74176; 80048; 80076; 81003; 83605; 83735; 84484; 85025; 87040; 87635; 93005; 94640; 97162; 99285

== ENCOUNTER 2021-04-15 05:29 | Emergency (ER) | payer MEDICARE, OTHER, SELFPAY ==
[2021-04-15 05:35] VITALS: BP 110/64; PULSE 103; PULSE 112; RESP 20; TEMP 36.7; O2SAT 95; O2SAT 97; BMI 24.7
--- NOTE | 2021-04-15 06:03 | PC.NURSE ---
pt a&o , no sob or chest pain. per provider hold on medication at this time and put pressure. bleeding is controlled, small amount of blood at this time.
[2021-04-15] MEDS: Oxymetazoline HCl 0.05 % Nasal 15 ML SPRAY 2 SPRAY NOSTRIL-B (06:54)
[2021-04-15] MEDS: Silver Nitrate Applicator STICK..EA. 4 APPL TOPICAL (06:55)
[2021-04-15 06:56] VITALS: BP 109/66; PULSE 106
--- NOTE | 2021-04-15 06:56 | PC.NURSE ---
provider in to assess and controlled bleeding . medicated per mar.
--- NOTE | 2021-04-15 07:19 | ED.GENADULT ---
HPI - General Adult General Chief complaint: General Medical Stated complaint: Nosebleed Time Seen by Provider: 04/15/21 05:40 Source: patient Mode of arrival: EMS Limitations: no limitations History of Present Illness HPI narrative: 85-year-old female who presents emergency department for evaluation of nose bleed. The patient was seen in the emergency for weakness. She states she is currently at a custodial facility for physical therapy secondary to deconditioning. She believes that she may have picked her nose and her sleep which caused her to have a nose bleed. She states that her nose was bleeding for several hours prior to coming to the emergency department. She states that this is her 3rd nose bleed this year. She denied fever, chills, rhinorrhea, cough or sore throat. She has not noticed any easy bruisability. The patient did have a laboratory evaluation on 04/13/2021 which did reveal a slightly low platelet count of a [id number] with a normal platelet count of 121078 on 12/24/2020. Related Data Home Medications Medication Instructions Recorded Confirmed benzonatate 100 mg capsule 100 mg PO TID PRN 08/05/20 04/13/21 multivitamin 1 tab PO DAILY 08/05/20 04/13/21 acetaminophen 500 mg tablet 500 mg PO BID PRN tab 12/24/20 04/13/21 (Tylenol Extra Strength) biotin 500 mcg capsule 1 mg PO DAILY 12/24/20 04/13/21 budesonide-formoterol HFA 80 2 inh INHALATION BID 01/06/21 04/13/21 mcg-4.5 mcg/actuation aerosol inhaler (Symbicort) codeine 10 mg-guaifenesin 100 mg/5 10 ml PO Q4H PRN 01/21/21 04/13/21 mL oral liquid (Virtussin AC) linezolid 600 mg tablet 1 tab PO Q12H 04/13/21 04/13/21 prednisone 1 mg tablet 6 mg PO DAILY 04/13/21 04/13/21 Previous Rx's Medication Instructions Recorded calcium carbonate 600 mg calcium 600 mg PO DAILY 30 Days #30 tab 07/31/20 (1,500 mg) tablet Prolia 60 mg/mL subcutaneous 60 mg SUBCUT [id number] #1 ml NS 01/01/21 syringe (denosumab) Allergies Allergy/AdvReac Type Severity Reaction Status Date / Time influenza virus vaccine, Allergy Severe DUE TO Verified 03/11/21 12:42 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 Iodinated Contrast Media Allergy Severe DIDN'T Verified 03/11/21 12:42 [IV CONTRAST] AGREE WITH PATIENT SHELLFISH Allergy Intermediate VOMITING Uncoded 03/11/21 12:42 contrast dye Allergy Unknown Unknown Uncoded 03/11/21 12:42 fish Allergy Unknown Unknown Uncoded 03/11/21 12:42 IV dye Allergy Unknown Unknown Uncoded 03/11/21 12:42 shellfish Allergy Unknown Unknown Uncoded 03/11/21 12:42 shrimp Allergy Unknown Unknown Uncoded 03/11/21 12:42 Review of Systems Review of Systems: Yes all other systems are reviewed and are negative [facility] Past Medical History [facility] Narrative: Past medical history: Polymyalgia rheumatica on chronic prednisone, bronchiectasis on linezolid since January 2021, osteoporosis, thrombocytopenia (platelet 126,000 noted on 04/13/2021). Social history: The patient is a former smoker. She denies tobacco use. She denies drug use. Medical History COVID-19 vaccine series completed Osteoporosis Vitamin D deficiency Surgical History History of ear surgery Hx of colonoscopy Hx of toe surgery Hx of tubal ligation Family History Family History Father No problems noted. Mother Heart disease Brother Colon cancer Brother Stomach cancer Social History Social History Household Members: None Alcohol intake: never Patient Tobacco Use Status: Former Tobacco user Tobacco use type: Cigarette Cigarettes Per Day: 40 Years Smoked: 40 Use of substances other than those prescribed or required for medical reasons: No Advance Directives: No Advance Directives Information Provided: No Physical Exam Vital Signs: Vital Signs: Last Vital Signs Temp 98.1 F 04/15/21 05:35 Pulse 106 H 04/15/21 06:56 Resp 20 04/15/21 05:35 BP 109/66 04/15/21 06:56 Pulse Ox 97 04/15/21 05:35 Body Mass Index 24.7 Const: General: cooperative and no acute distress Orientation/consciousness: oriented to person and oriented to place Limitations: no limitations HENMT: Head: Yes normal to inspection, Yes normocephalic and Yes atraumatic Ears: external ears normal General nose exam: Normal external nose present and Other nasal findings present (Small area of active bleeding on the right anterior nasal septum) Face and sinus: Yes normal facial exam Mouth: Normal oral and palatal mucosa present Throat: Yes posterior oropharynx normal Eyes: General: appearance normal, both eyes and all related structures Pupils: Equal, round and reactive pupils present Neck: Neck: Yes normal visual inspection, Yes no lymphadenopathy, Yes trachea midline and Yes supple Chest: Chest palpation & inspection: normal inspection of the chest and normal palpation of entire chest wall Resp: Effort & Inspection: normal respiratory effort and able to speak in complete sentences Auscultation: clear to auscultation bilaterally Cardio: Rate: regular rate Rhythm: regular rhythm Heart sounds: S1 normal heart sound present, S2 normal heart sound present and no murmurs GI: Inspection: Yes normal to inspection Palpation (GI): Soft to palpation, nontender and no guarding Auscultation: normal bowel sounds : General: Yes no CVA tenderness Back/Spine/Pelvis: Back: no CVA tenderness Skin: General skin exam: no rashes or lesions noted Neuro: General: oriented to person and oriented to place Cranial nerves: Yes CN's II-XII intact bilaterally and Yes Equal, round and reactive pupils present Cognition (Neuro): normal cognition Motor exam (neuro): 5/5 motor strength present throughout Extrem: General: Yes normal to inspection Psych: Appearance: grossly normal Speech and movement: Normal speech and movement present Affect: normal affect Attitude: cooperative Thought process: Normal thought process present Thought content: Normal thought content present Course Course Course Narrative: 85-year-old female who presents emergency department for evaluation of nose bleed coming out of the right nares that began this morning and lasted several hours. Patient states that this is her 3rd nose bleed this year. The patient has had no other episodes of bleeding or noted any easy bruisability. The patient was seen here in the emergency department 04/13/2021 for weakness and was found to have thrombocytopenia with a platelet count of a 774124 which suspected to be secondary linezolid therapy for bronchiectasis. On my examination the patient did have an anterior nose bleed with a source on the anterior nasal septum. Patient's nose was initially packed with Afrin-soaked gauze. I then cauterized the area of bleeding using for silver nitrate sticks. Patient was observed for at least 30 minutes after cauterization with no more active bleeding. Given her low platelet count on her previous visit, I did order a CBC, CMP PT/INR and PTT on this patient. 0957: Laboratory evaluation was unremarkable. Patient's platelet count was a 027293 and coags were normal. The patient will be discharged back to her care facility. Procedures Epistaxis Control Nostril: Yes right Nose prepped with: Yes oxymetazoline (Soaked gauze) Direct inspection: Yes anterior source identified (Nasal septum) Direct inspection method: Yes nasal speculum and Yes headlamp Clots removed by: Yes blowing nose Epistaxis treatment: Yes silver nitrate cautery Results of treatment: Yes bleeding controlled Complications: Yes none Medical Decision Making Lab Data Result diagrams: 04/15/21 08:53 04/15/21 08:53 Labs: Lab Results 04/15/21 04/15/21 04/15/21 Range/Units 08:53 08:53 08:53 WBC 16.3 H (4.8-10.8) X10*3/uL RBC 4.60 (4.20-5.50) X10*6/uL Hgb 13.9 (12.0-16.0) g/dl Hct 41.6 (37.0-47.0) % MCV 90.4 (80.0-98.0) fL MCH 30.2 (27.0-33.0) pg MCHC 33.4 (31.0-35.0) g/dl RDW 13.3 (11.0-16.0) % Plt Count 177 D (160-400) X10*3/uL MPV 10.4 (9.4-12.3) fL Immature Gran % (Auto) 0.5 H (0.0-0.4) % Neut % (Auto) 76.4 H (45-73) % Lymph % (Auto) 13.3 L (20-40) % Allen % (Auto) 8.8 (2-11) % Eos % (Auto) 0.7 (0-4) % Baso % (Auto) 0.3 (0-2) % Lymph # (Auto) 2.2 (1.2-4.9) X10*3/uL Allen # (Auto) 1.4 H (0.1-1.2) X10*3/uL Eos # (Auto) 0.1 (0.0-0.4) X10*3/uL Baso # (Auto) 0.1 (0.0-0.2) X10*3/uL Abs Immat Gran (auto) 0.08 H (0.00-0.03) X10*3/uL Absolute Neuts (auto) 12.5 H (2.0-8.3) x10*3/uL Absolute Nucleated RBC 0.020 H (0.0-0.012) X10*3/uL Nucleated RBC % (auto) 0.1 (0.0-0.2) /100WBC PT 12.3 (9.9-13.0) SEC INR 1.1 (0.9-1.1) APTT 35.4 (24.1-38.0) SEC Sodium 135 (135-145) mmol/L Potassium 4.4 (3.3-5.1) mmol/L Chloride 101 (96-108) mmol/L Carbon Dioxide 26 (22-29) mmol/L Anion Gap 12 (12-20) BUN 26 H (9-16) mg/dL Creatinine 0.87 (0.5-1.4) mg/dL Estim Creat Clear Calc 42.2 Estimated GFR > 60 Random Glucose 175 H (60-115) mg/dL Calcium 9.1 (8.4-10.2) mg/dL Total Bilirubin 0.5 (0.0-1.0) mg/dL AST 25 (5-31) U/L ALT 29 (0-31) U/L Alkaline Phosphatase 45 (39-117) U/L Total Protein 6.6 (6.5-8.0) g/dL Albumin 4.3 (3.5-5.0) g/dL Discharge Plan Discharge Clinical Impression: Acute anterior epistaxis, Epistaxis Patient Disposition: Home, Self-Care Additional Instructions: Your bleeding from the right side of your no near the front of your nose (anterior bleed). This was treated with Afrin soaked gauze pads and I cauterized the inside of your nose with silver nitrate sticks and this stop the bleeding Your blood work was all normal, your platelet count was normal therefore I am discharging you back to her facility. Apply Vaseline to the inside of your nose twice a day. If you start bleeding again, apply the nose clip for 20 minutes. If this does not stop the bleeding then you need to return to the emergency department for re-evaluation. Follow-up with your doctor in 2 days. Please return to the emergency department if your symptoms get worse or if you develop any symptoms that are concerning to you. Prescriptions: No Action calcium carbonate 600 mg calcium (1,500 mg) tablet 600 mg PO DAILY 30 Days Qty: 30 RF: 11 Prolia 60 mg/mL syringe 60 mg subcut [id number] Qty: 1 RF: 0 linezolid 600 mg tablet 1 tab PO Q12H RF: 0 prednisone 1 mg tablet 6 mg PO DAILY RF: 0 codeine-guaifenesin [Virtussin AC] 10-100 mg/5 mL liquid 10 ml PO Q4H PRN (Reason: cough) RF: 0 acetaminophen [Tylenol Extra Strength] 500 mg tablet 500 mg PO BID PRN (Reason: Pain) RF: 0 biotin 500 mcg capsule 1 mg PO DAILY RF: 0 benzonatate 100 mg capsule 100 mg PO TID PRN (Reason: Cough) RF: 0 multivitamin Tablet 1 tab PO DAILY RF: 0 budesonide-formoterol [Symbicort] 80-4.5 mcg/actuation HFA aerosol inhaler 2 inh inhalation BID RF: 0
[2021-04-15 09:01] LABS: MANUAL DIFF FLAG NO
[2021-04-15 09:05] LABS: Basophils Absolute Auto 0.1 X10*3/uL (0.0-0.2); Basophils Percent Auto 0.3 % (0-2); Eosinophils Absolute Auto 0.1 X10*3/uL (0.0-0.4); Eosinophils Percent Auto 0.7 % (0-4); Hematocrit 41.6 % (37.0-47.0); Hemoglobin 13.9 g/dl (12.0-16.0); Imm Gran Abs Auto 0.08 X10*3/uL (0.00-0.03); Imm Gran Pct Auto 0.5 % (0.0-0.4); Lymphocytes Absolute Auto 2.2 X10*3/uL (1.2-4.9); Lymphocytes Percent Auto 13.3 % (20-40); Mean Corpuscular HGB Conc 33.4 g/dl (31.0-35.0); Mean Corpuscular Hemoglobin 30.2 pg (27.0-33.0); Mean Corpuscular Volume 90.4 fL (80.0-98.0); Mean Platelet Volume 10.4 fL (9.4-12.3); Monocytes Absolute Auto 1.4 X10*3/uL (0.1-1.2); Monocytes Percent Auto 8.8 % (2-11); NRBC Pct Auto 0.1 /100WBC (0.0-0.2); Neutrophils Absolute Auto 12.5 x10*3/uL (2.0-8.3); Neutrophils Percent Auto 76.4 % (45-73); Platelet Count 177 X10*3/uL (160-400); Red Cell Distribution Width 13.3 % (11.0-16.0); White Blood Count 16.3 X10*3/uL (4.8-10.8)
[2021-04-15 09:07] LABS: INTERNATIONAL NORM RATIO 1.1 (0.9-1.1); Prothrombin Time 12.3 SEC (9.9-13.0)
[2021-04-15 09:10] LABS: Partial Thromboplastin Time 35.4 SEC (24.1-38.0)
[2021-04-15 09:20] LABS: Alanine Aminotransferase 29 U/L (0-31); Albumin Level 4.3 g/dL (3.5-5.0); Alkaline Phosphatase 45 U/L (39-117); Anion Gap 12 (12-20); Aspartate Amino Transferase 25 U/L (5-31); Bilirubin Total 0.5 mg/dL (0.0-1.0); Blood Urea Nitrogen 26 mg/dL (9-16); Calcium 9.1 mg/dL (8.4-10.2); Carbon Dioxide 26 mmol/L (22-29); Chloride 101 mmol/L (96-108); Creatinine Clr Calc Pharmacy 42.2; Estimated Glomerular Filt Rate > 60; Glucose Random 175 mg/dL (60-115); Potassium 4.4 mmol/L (3.3-5.1); Sodium 135 mmol/L (135-145); Total Protein 6.6 g/dL (6.5-8.0)
[2021-04-15 11:20] VITALS: BP 95/59; PULSE 93; O2SAT 96
== END 2021-04-15 13:16 | disposition home or self-care (01) ==
PROVIDERS: Emergency Provider Emergency Medicine Emergency Medical Services; PCP Internal Medicine
DX: R04.0 Epistaxis (principal); Z79.899 Other long term (current) drug therapy; Z87.891 Personal history of nicotine dependence
CPT/HCPCS: 30901; 36415; 80053; 85025; 85610; 85730; 99283; 99284

== ENCOUNTER 2021-05-15 11:14 | Outpatient (REF) | payer MEDICARE, OTHER, SELFPAY ==
[2021-05-15 14:14] LABS: Erythrocyte Sedimentation Rate 6 MM/HR (0-20)
== END 2021-05-15 11:15 | disposition home or self-care (01) ==
LOC: HO.LAB 11:14
PROVIDERS: PCP Internal Medicine; Visit Provider Nurse Practitioner Family
DX: M35.3 Polymyalgia rheumatica (principal)
CPT/HCPCS: 36415; 85652; 86140; 99212

== ENCOUNTER 2021-05-28 10:46 | Outpatient (REF) | payer MEDICARE, OTHER, SELFPAY ==
[2021-05-28 14:34] LABS: Appearance Urine CLEAR; Color Urine YELLOW; Glucose Urine UA NEG (NEG); Leukocyte Esterase Urine NEG (NEG); Nitrite Urine NEG (NEG); PH 5.5 (5.0-8.0); Specific Gravity - Urine >= 1.030 (1.005-1.025); Urine Blood NEG (NEG); Urine Ketones NEG (NEG); Urine Protein NEG (NEG-TRACE)
[2021-05-28 14:43] LABS: MANUAL DIFF FLAG NO
[2021-05-28 14:47] LABS: Basophils Absolute Auto 0.1 X10*3/uL (0.0-0.2); Basophils Percent Auto 0.6 % (0-2); Eosinophils Absolute Auto 0.5 X10*3/uL (0.0-0.4); Eosinophils Percent Auto 4.3 % (0-4); Hematocrit 42.7 % (37.0-47.0); Hemoglobin 13.6 g/dl (12.0-16.0); Imm Gran Abs Auto 0.09 X10*3/uL (0.00-0.03); Imm Gran Pct Auto 0.8 % (0.0-0.4); Mean Corpuscular HGB Conc 31.9 g/dl (31.0-35.0); Mean Corpuscular Hemoglobin 30.6 pg (27.0-33.0); Mean Corpuscular Volume 96.2 fL (80.0-98.0); Mean Platelet Volume 10.7 fL (9.4-12.3); Monocytes Percent Auto 8.1 % (2-11); Neutrophils Absolute Auto 8.1 x10*3/uL (2.0-8.3); Neutrophils Percent Auto 69.2 % (45-73); Platelet Count 350 X10*3/uL (160-400); Red Blood Count 4.44 X10*6/uL (4.20-5.50); Red Cell Distribution Width 14.5 % (11.0-16.0); White Blood Count 11.7 X10*3/uL (4.8-10.8)
[2021-05-28 15:04] LABS: Creatinine Urine 120.87 mg/dL; Microalbum/Creatinine Ratio Ur 12.4 ug/mg cr
[2021-05-28 15:06] LABS: Estimated Average Glucose 111 mg/dL; Hemoglobin A1C 130.9195 umol/L; Hemoglobin A1c % 5.5 %
[2021-05-28 15:07] LABS: Alanine Aminotransferase 22 U/L (0-31); Albumin Level 4.4 g/dL (3.5-5.0); Alkaline Phosphatase 47 U/L (39-117); Anion Gap 16 (12-20); Aspartate Amino Transferase 19 U/L (5-31); Bilirubin Total 0.4 mg/dL (0.0-1.0); Blood Urea Nitrogen 24 mg/dL (9-16); Calcium 9.9 mg/dL (8.4-10.2); Carbon Dioxide 29 mmol/L (22-29); Chloride 104 mmol/L (96-108); Cholesterol 243 mg/dL; Estimated Glomerular Filt Rate > 60; Glucose Fasting 104 mg/dL (60-99); HDL Cholesterol 59 mg/dL; LDL Cholesterol Calculated 128 mg/dl; Potassium 4.5 mmol/L (3.3-5.1); Sodium 144 mmol/L (135-145); Total Protein 7.2 g/dL (6.5-8.0); Triglycerides 281 mg/dL
== END 2021-05-28 10:47 | disposition home or self-care (01) ==
LOC: HO.HMGCLDS 10:46
PROVIDERS: PCP Internal Medicine; Visit Provider Internal Medicine
DX: R73.03 Prediabetes (principal); E78.2 Mixed hyperlipidemia; M35.3 Polymyalgia rheumatica; R79.9 Abnormal finding of blood chemistry, unspecified; R91.8 Other nonspecific abnormal finding of lung field
CPT/HCPCS: 36415; 80053; 80061; 81003; 82043; 83036; 85025

== ENCOUNTER 2021-07-10 10:20 | Outpatient (REF) | payer MEDICARE, OTHER, SELFPAY ==
[2021-07-10 11:50] LABS: Alanine Aminotransferase 17 U/L (0-31); Albumin Level 4.2 g/dL (3.5-5.0); Alkaline Phosphatase 40 U/L (39-117); Anion Gap 14 (12-20); Aspartate Amino Transferase 17 U/L (5-31); Bilirubin Total 0.4 mg/dL (0.0-1.0); Blood Urea Nitrogen 18 mg/dL (9-16); C Reactive Protein 0.23 mg/dL (< or = 0.50); Calcium 9.6 mg/dL (8.4-10.2); Carbon Dioxide 29 mmol/L (22-29); Chloride 105 mmol/L (96-108); Estimated Glomerular Filt Rate 57; Glucose Random 100 mg/dL (60-115); Phosphorus 3.6 mg/dL (2.7-4.5); Potassium 4.3 mmol/L (3.3-5.1); Sodium 144 mmol/L (135-145); Total Protein 7.1 g/dL (6.5-8.0)
[2021-07-10 12:09] LABS: Erythrocyte Sedimentation Rate 7 MM/HR (0-20)
[2021-07-11 17:32] LABS: Calcium (PTHI) 9.4 mg/dL (8.6-10.4); PTHI 38 pg/mL (14-64)
[2021-07-16 17:45] LABS: N-Telopeptide 20 (see note); NTXCreaRU 115 mg/dL (20-275)
== END 2021-07-10 10:21 | disposition home or self-care (01) ==
LOC: HO.HMGCLDS 10:20
PROVIDERS: Absent Provider Nurse Practitioner Family; Visit Provider Internal Medicine
DX: E55.9 Vitamin D deficiency, unspecified (principal); M35.3 Polymyalgia rheumatica; M81.0 Age-related osteoporosis without current pathological fracture
CPT/HCPCS: 36415; 80053; 82306; 82523; 83970; 84100; 85652; 86140

== ENCOUNTER → 2021-07-14 14:12 | Outpatient (BNVA) | payer MEDICARE, OTHER, SELFPAY | PROVIDERS: PCP Internal Medicine; Visit Provider Internal Medicine | DX: M81.0 Age-related osteoporosis without current pathological fracture (principal) | CPT/HCPCS: 99212 ==

== ENCOUNTER 2021-07-15 12:34 | Outpatient (REF) | payer MEDICARE, OTHER, SELFPAY ==
--- NOTE | ~2021-07-15 | MM_ITS ---
EXAMINATION: MM SCREENING DIGITAL BREAST TOMOSYNTHESIS, BILATERAL CLINICAL INFORMATION: Screening. Asymptomatic. The lifetime risk of breast cancer based on the Tyrer-Cuzick Model is under 1%. COMPARISON: Mammography: 06/27/2020, 05/27/2020, 04/20/2019, 04/02/2018, 03/16/2017, 03/04/2016, 02/22/2015; targeted ultrasound right breast 06/27/2020 TECHNIQUE: Digital breast tomosynthesis is performed in both the craniocaudal and mediolateral oblique views along with computer-aided detection (CAD). Synthesized 2D images are generated from the tomosynthesis. FINDINGS: There are scattered areas of fibroglandular density (ACR BI-RADS breast composition Category b). Small cyst right breast mid 9:00 position is decreased in size from prior exam. Left breast has chronic 0.5 cm nodule mid 7:00 left breast which appears slightly larger and perhaps increased attenuation from prior exams. Margins are smooth on MLO view and not as clearly visualized on CC view. Patient will be recalled for additional imaging. The remainder of the breasts show no significant changes. There is no abnormal calcifications. The axilla are unremarkable. There is chronic bilateral mild nipple retraction similar to prior exams. MM/MM tomosynthesis screening BI IMPRESSION: 1. Left: Question subtle change in chronic nodule mid 7:00 position left breast. 2. Right: No mammographic evidence of malignancy. ASSESSMENT: BI-RADS 0: Incomplete - Need Additional Imaging Evaluation RECOMMENDATION: 1. Additional views of left breast (spot CC, spot ML). 2. Targeted left breast ultrasound. 3. Radiology department staff will contact the patient for additional imaging. This patient's information was entered into a reminder system with a target due date for their next mammogram.
== END 2021-07-15 12:35 | disposition home or self-care (01) ==
LOC: HO.MAMMO 12:34
PROVIDERS: PCP Internal Medicine; Visit Provider Internal Medicine
DX: Z12.31 Encounter for screening mammogram for malignant neoplasm of breast (principal); M81.0 Age-related osteoporosis without current pathological fracture
CPT/HCPCS: 77063; 77067; 96372

== ENCOUNTER → 2021-07-17 14:09 | Outpatient (BNVA) | payer MEDICARE, OTHER, SELFPAY | PROVIDERS: PCP Internal Medicine; Visit Provider Nurse Practitioner Family | DX: M35.3 Polymyalgia rheumatica (principal); M81.0 Age-related osteoporosis without current pathological fracture; Z79.52 Long term (current) use of systemic steroids | CPT/HCPCS: 99212 ==

== ENCOUNTER 2021-07-24 14:38 | Outpatient (REF) | payer MEDICARE, OTHER, SELFPAY ==
--- NOTE | ~2021-07-24 | MM_ITS ---
EXAMINATION: MM DIAGNOSTIC DIGITAL BREAST TOMOSYNTHESIS, LEFT US DIAGNOSTIC ULTRASOUND BREAST, LEFT CLINICAL INFORMATION: Recall from screening for question subtle change in chronic nodule mid 7:00 left breast COMPARISON: Mammography: 07/15/2021, 05/27/2020, 04/20/2019, 04/02/2018, 03/16/2017 TECHNIQUE: Digital breast tomosynthesis is performed. 2D images are generated from the tomosynthesis. The following views are obtained: Spot CC, spot MLO, spot ML Ultrasound left breast is targeted to the inferior breast using grayscale imaging and color Doppler without and with harmonics. FINDINGS: There are scattered areas of fibroglandular density (ACR BI-RADS breast composition Category b). The additional views shows small smooth oval nodule borderline increased from prior studies. Ultrasound left breast demonstrates a benign complicated cyst 7:00 position 4 cm from nipple with several thin fine avascular internal septations. Overall size is 0.6 x 0.5 x 0.4 cm. There is increased through-transmission of sound. No peripheral or internal color flow. This corresponds to finding on mammography. Results are discussed with the patient at time of visit. MM/MM tomosynthesis added views L IMPRESSION: Benign complicated cyst 7:00 position measuring 0.6 cm. ASSESSMENT: BI-RADS 2: Benign RECOMMENDATION: Routine annual mammography screening. This patient's information was entered into a reminder system with a target due date for their next mammogram.
== END 2021-07-24 14:39 | disposition home or self-care (01) ==
LOC: HO.MAMMO 14:38
PROVIDERS: Visit Provider Internal Medicine
DX: N63.24 Unspecified lump in the left breast, lower inner quadrant (principal)
CPT/HCPCS: 76642; 77061; 77065

== ENCOUNTER 2021-08-04 10:30 | Outpatient (REF) | payer MEDICARE, OTHER, SELFPAY ==
[2021-08-05 17:46] LABS: Calcium (PTHI) 9.6 mg/dL (8.6-10.4); PTHI 39 pg/mL (14-64)
== END 2021-08-04 10:31 | disposition home or self-care (01) ==
LOC: HO.HMGCLDS 10:30
PROVIDERS: PCP Internal Medicine; Visit Provider Internal Medicine
DX: M81.0 Age-related osteoporosis without current pathological fracture (principal)
CPT/HCPCS: 36415; 83970

== ENCOUNTER 2021-08-22 10:29 | Outpatient (REF) | payer MEDICARE, OTHER, SELFPAY ==
[2021-08-22 12:04] LABS: Erythrocyte Sedimentation Rate 7 MM/HR (0-20)
== END 2021-08-22 10:30 | disposition home or self-care (01) ==
LOC: HO.HMGCLDS 10:29
PROVIDERS: Visit Provider Nurse Practitioner Family
DX: M35.3 Polymyalgia rheumatica (principal)
CPT/HCPCS: 36415; 85652; 86140

== ENCOUNTER → 2021-08-29 10:36 | Outpatient (BNVA) | payer MEDICARE, OTHER, SELFPAY | PROVIDERS: PCP Internal Medicine; Visit Provider Nurse Practitioner Family | DX: M35.3 Polymyalgia rheumatica (principal); M81.0 Age-related osteoporosis without current pathological fracture | CPT/HCPCS: 99212 ==

== ENCOUNTER 2021-11-10 15:26 | Outpatient (REF) | payer MEDICARE, OTHER, SELFPAY ==
[2021-11-10 16:58] LABS: C Reactive Protein 0.94 mg/dL (< or = 0.50)
[2021-11-10 17:51] LABS: Erythrocyte Sedimentation Rate 11 MM/HR (0-20)
== END 2021-11-10 15:27 | disposition home or self-care (01) ==
LOC: HO.HMGCLDS 15:26
PROVIDERS: Visit Provider Nurse Practitioner Family
DX: M35.3 Polymyalgia rheumatica (principal)
CPT/HCPCS: 36415; 85652; 86140

== ENCOUNTER 2021-11-21 13:44 | Outpatient (REF) | payer MEDICARE, OTHER, SELFPAY ==
--- NOTE | ~2021-11-21 | XR_ITS ---
EXAMINATION: XR CHEST CLINICAL INFORMATION: R05.9 - Cough, unspecified COMPARISON: Chest radiographs 04/13/2021, 08/12/2020, 01/09/2020; CT chest noncontrast 11/24/2018, CT chest 11/21/2021. TECHNIQUE: 2 views of the chest were obtained. FINDINGS: Scattered bilateral upper zone nodular asymmetries are stable from prior exams. Again, there are bronchiectatic changes superior medial right upper lobe. There is tracheomegaly with mild rightward deviation as before. No lobar or segmental airspace consolidation or effusion. Heart size normal. Hilar and mediastinal contours and bony structures are stable. XR/XR chest 2V IMPRESSION: -Scattered bilateral upper zone nodular opacities and right upper zone bronchiectasis similar to prior exams. -No lobar or segmental airspace consolidation or effusion. -See CT chest report for further information.
[2021-11-21 15:04] LABS: Estimated Glomerular Filt Rate > 60
[2021-11-21 15:21] LABS: Erythrocyte Sedimentation Rate 17 MM/HR (0-20)
[2021-11-24 13:57] LABS: Calcium (PTHI) 10.1 mg/dL (8.6-10.4); PTHI 24 pg/mL (16-77)
== END 2021-11-21 13:45 | disposition home or self-care (01) ==
LOC: HO.XRAY 13:44
PROVIDERS: Internal Medicine Endocrinology, Diabetes & Metabolism; PCP Internal Medicine; Visit Provider Nurse Practitioner Family
DX: Z13.89 Encounter for screening for other disorder (principal)
CPT/HCPCS: 36415; 71046; 82565; 83970; 85652; 86140; 99212

== ENCOUNTER 2021-11-21 16:59 | Emergency (ER) | payer MEDICARE, OTHER, SELFPAY ==
--- NOTE | ~2021-11-21 | XR_ITS ---
EXAMINATION: XR CHEST CLINICAL INFORMATION: Shortness of breath COMPARISON: Film same day earlier also 04/13/2021 TECHNIQUE: 2 views of the chest were obtained. FINDINGS: Similar pattern to earlier exam. Nodular change in the upper lung zone and more linear thickened change in the right mid-upper lung zone. Mild density at the right base. There is no effusion. Tortuous versus ectatic arch and descending aorta. No effusion or failure. Cardiac silhouette is comparable XR/XR chest 2V IMPRESSION: Similar to film earlier in the day. Nodular change on the left and linear patchy change on the right. Exam is felt to be similar to study from 04/13/2021. Given these findings a superimposed acute process cannot be excluded especially amongst the nodularity in the left upper lung. Continued follow-up recommended
--- NOTE | ~2021-11-21 | CT_ITS ---
EXAMINATION: CT CHEST WITHOUT CONTRAST CLINICAL INFORMATION: Cough. COMPARISON: Chest x-ray 11/21/2021. CT chest 11/24/2018. TECHNIQUE: Multidetector volumetric CT imaging of the chest was done. Axial MIP volume rendering provided. Sagittal and coronal reformatted images were obtained. This CT examination was performed using dose optimization techniques as appropriate, variously including the following: *Automated exposure control. *Adjustment of mA and/or kV according to patient size (this includes techniques or standardized protocols for targeted exams where dose is matched to indication/reason for exam; i.e. extremities or head). *Use of iterative reconstruction technique. DLP: 279 mGy-cm FINDINGS: LUNGS: Stable chronic changes of the lung similar to prior CT exam of 11/24/2018. There is tracheomegaly. Trachea is deviated to the right superior mediastinum similar prior study without mass. Extensive bronchiectasis with volume loss and fibrosis most significant at the upper lobe. Mucous within some of these dilated bronchi in both lungs. There are scattered lung nodules unchanged in size or number since prior exam. Largest in the right upper lobe posteriorly measuring 1.5 cm image 16/6 series 4. This is smooth-bordered and contains calcifications. There are calcifications in other bilateral nodules as well. The previously seen thick-walled cavity in the right upper lobe on the prior CAT scan of 2019 is now an area of parenchymal scarring. Image 24/56 series 4, coronal image 62/77 series 6. No acute airspace disease. MEDIASTINUM: No mediastinal mass or significant lymphadenopathy. Heart size is normal. Small volume of coronary artery calcifications. Scattered vascular calcifications of thoracic aorta. There is no aneurysm of the aorta. Thyroid is unremarkable. PLEURA: There is no pleural effusion. No pleural mass or thickening. AXILLA: No lymphadenopathy. UPPER ABDOMEN: Unremarkable. OSSEOUS STRUCTURES: Unremarkable. CT/CT chest wo con IMPRESSION: 1. Stable chronic changes of bronchiectasis. Stable numerous lung nodules some of which are calcified. No new or suspicious lung nodules. The previously seen cavity in the right lung is now a scar-like area. 2. No acute abnormality of the chest. Fleischner guidelines were followed.
[2021-11-21 17:05] VITALS: BP 168/78; PULSE 87; RESP 19; TEMP 36.6; O2SAT 96; BMI 24.4
--- NOTE | 2021-11-21 17:12 | ECG_ITS ---
Test Reason : WEAKNESS Blood Pressure : / mmHG Vent. Rate : 079 BPM Atrial Rate : 079 BPM P-R Int : 148 ms QRS Dur : 072 ms QT Int : 384 ms P-R-T Axes : 076 -33 056 degrees QTc Int : 440 ms Normal sinus rhythm Left axis deviation Abnormal ECG When compared with ECG of 13-APR-2021 13:31, No significant change was found Referred By: Generic ED Physician Electronically Signed By:KASHMIR MURRAY MD
[2021-11-21 17:36] LABS: MANUAL DIFF FLAG NO
[2021-11-21 17:39] LABS: Basophils Absolute Auto 0.1 X10*3/uL (0.0-0.2); Basophils Percent Auto 0.5 % (0-2); Eosinophils Absolute Auto 0.3 X10*3/uL (0.0-0.4); Eosinophils Percent Auto 2.6 % (0-4); Hematocrit 42.1 % (37.0-47.0); Hemoglobin 13.8 g/dl (12.0-16.0); Imm Gran Abs Auto 0.04 X10*3/uL (0.00-0.03); Imm Gran Pct Auto 0.3 % (0.0-0.4); Lymphocytes Absolute Auto 2.4 X10*3/uL (1.2-4.9); Lymphocytes Percent Auto 19.9 % (20-40); Mean Corpuscular HGB Conc 32.8 g/dl (31.0-35.0); Mean Corpuscular Volume 88.4 fL (80.0-98.0); Mean Platelet Volume 10.1 fL (9.4-12.3); Monocytes Absolute Auto 0.9 X10*3/uL (0.1-1.2); Monocytes Percent Auto 7.5 % (2-11); Neutrophils Absolute Auto 8.2 x10*3/uL (2.0-8.3); Neutrophils Percent Auto 69.2 % (45-73); Platelet Count 297 X10*3/uL (160-400); Red Blood Count 4.76 X10*6/uL (4.20-5.50); Red Cell Distribution Width 12.7 % (11.0-16.0); White Blood Count 11.8 X10*3/uL (4.8-10.8)
[2021-11-21 17:56] LABS: COVID-19 Test Negative (Negative); IDNOW Serial# 16C4AD1C; Influenza A Negative (Negative); Influenza B2 Negative (Negative)
[2021-11-21 18:00] LABS: Anion Gap 13 (12-20); Blood Urea Nitrogen 14 mg/dL (9-16); Calcium 9.6 mg/dL (8.4-10.2); Carbon Dioxide 26 mmol/L (22-29); Chloride 104 mmol/L (96-108); Creatinine Clr Calc Pharmacy 41.2; Estimated Glomerular Filt Rate > 60; Glucose Random 96 mg/dL (60-115); Potassium 4.1 mmol/L (3.3-5.1); Sodium 139 mmol/L (135-145)
[2021-11-21 18:02] LABS: Troponin-I High Sensitivity 3.9 ng/L (<3.5-17.0)
--- NOTE | 2021-11-21 18:24 | ED.WEAKNESS ---
HPI - Weakness General Chief complaint: General Medical Stated complaint: weakness/infection in lungs Time Seen by Provider: 11/21/21 18:18 Source: patient Mode of arrival: ambulatory Limitations: no limitations History of Present Illness HPI Narrative: 86 yo female with hx of bronchiectasis previously on zyvox, PMR just tapered off prednisone today comes in with 1 month of weakness as well as cough with green/yellow mucous. She has seen her PCP who would not give her antibiotic for mucous as well as her ID doctor this week who did not Rx antibiotic. She notes her weakness has been progressive I did ask if the weakness started around her taper of prednisone (she was on it for 1.5 years) and she notes oh I didn't think of that, maybe. She has not had fevers, weight loss. MD Complaint: generalized weakness Onset (ago): month(s) (1) Duration: constant and intermittent Location: generalized Severity: moderate Quality: dull Relieving factors: none Exacerbating factors: other (coughing) Context: other (hx of bronchiectasis as well as recent taper off of PMR prednisone) Associated symptoms: other (productive cough) Related Data Home Medications Medication Instructions Recorded Confirmed benzonatate 100 mg capsule 100 mg PO TID PRN Cough 08/05/20 07/14/21 multivitamin 1 tab PO DAILY 08/05/20 07/14/21 acetaminophen 500 mg tablet 500 mg PO BID PRN Pain 12/24/20 07/14/21 (Tylenol Extra Strength) biotin 500 mcg capsule 1 mg PO DAILY 12/24/20 07/14/21 budesonide-formoterol HFA 80 2 inh inhalation BID 01/06/21 07/14/21 mcg-4.5 mcg/actuation aerosol inhaler (Symbicort) mecobalamin (vitamin B12) 1,000 1,000 mcg sublingual DAILY 07/14/21 07/14/21 mcg disintegrating tablet,sublingual codeine 10 mg-guaifenesin 100 mg/5 5 - 10 ml PO Q4H PRN 11/21/21 mL oral liquid Previous Rx's Medication Instructions Recorded calcium carbonate 600 mg calcium 600 mg PO DAILY 30 days #30 tabs 05/13/21 (1,500 mg) tablet Prolia 60 mg/mL subcutaneous 60 mg subcut [id number] #1 mL 07/10/21 syringe (denosumab) amoxicillin 875 mg-potassium 1 tab PO BID #14 tabs 11/21/21 clavulanate 125 mg tablet lactobacillus combination no.4 3 3,000 mmu cells PO DAILY #7 caps 11/21/21 billion cell capsule (Probiotic) Allergies Allergy/AdvReac Type Severity Reaction Status Date / Time influenza virus vaccine, Allergy Severe DUE TO Verified 11/21/21 13:06 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 Iodinated Contrast Media Allergy Severe DIDN'T Verified 11/21/21 13:06 [IV CONTRAST] AGREE WITH PATIENT SHELLFISH Allergy Intermediate VOMITING Uncoded 11/21/21 13:06 contrast dye Allergy Unknown Unknown Uncoded 11/21/21 13:06 fish Allergy Unknown Unknown Uncoded 11/21/21 13:06 IV dye Allergy Unknown Unknown Uncoded 11/21/21 13:06 shellfish Allergy Unknown Unknown Uncoded 11/21/21 13:06 shrimp Allergy Unknown Unknown Uncoded 11/21/21 13:06 Review of Systems Review of Systems: Constitutional : No Fever, No Chills, pos Fatigue, No Malaise ENT/Mouth : No sore throat, No Rhinorrhea Eyes: No Eye Pain, No Swelling, No Redness Cardiovascular : No Chest Pain, No SOB, No Dyspnea on Exertion Respiratory : pos Cough, pos Sputum, No Wheezing Gastrointestinal : No Nausea, No Vomiting, No Diarrhea, No Constipation, No abdominal Pain, No Hematochezia, No Melena Genitourinary : No Dysuria, No Urinary Frequency, No Hematuria, Musculoskeletal : No joint pain, No Myalgias, No Joint Swelling Skin : No Skin Lesions, No rash Neuro : pos Weakness, No Numbness, No Dizziness, No Headache Psych : No Anxiety/Panic, No Depression Heme/Lymph: No Bruising, No Bleeding,No Lymphadenopathy Endocrine : No Polyuria, No Polydipsia All other systems reviewed and are negative PMFSH Past Medical History Attestation statement: The following information was validated with the patient. Medical History Bronchiectasis COVID-19 vaccine series completed Osteoporosis Polymyalgia rheumatica Surgical History History of ear surgery Hx of colonoscopy Hx of toe surgery Hx of tubal ligation Family History Family History Father No problems noted. Mother Heart disease Brother Colon cancer Brother Stomach cancer Social History Social History Household Members: None Alcohol intake: never Patient Tobacco Use Status: Former Tobacco user Tobacco use type: Cigarette Cigarettes Per Day: 40 Years Smoked: 40 Advance Directives: No Advance Directives Information Provided: No Physical Exam Vital Signs: Vital Signs: Last Vital Signs Temp 98 F 11/21/21 19:21 Pulse 80 11/21/21 20:16 Resp 30 H 11/21/21 20:16 BP 146/83 H 11/21/21 20:16 Pulse Ox 96 11/21/21 20:16 O2 Del Method 11/21/21 20:16 BMI result Body Mass Index 24.4 Appearance: Alert. Oriented X3. No acute distress. Eyes: Pupils equal, round and reactive to light. ENT: Pharynx normal. Neck: Normal inspection. Neck supple. CVS: Normal heart rate and rhythm. Pulses normal. Respiratory: No respiratory distress. Breath sounds diminished and coarse throughout. Abdomen: Soft and non-tender. Skin: Skin warm and dry. Normal skin color. Normal skin turgor. Extremities: No lower extremity edema. No calf ttp Neuro: Oriented X 3. No motor deficit. No sensory deficit. Course Course Course Narrative: labs normal no hypoxia stable for DC at this time can follow up with her doctors MDM - Weakness MDM Narrative Medical decision making narrative: 86 yo female with hx of bronchiectasis previously on zyvox, PMR just tapered off prednisone today comes in with 1 month of weakness at this time will obtain basic labs, CT chest for pneumonia, neb treatment - not toxic appearing could be prednisone withdrawal vs pneumonia. Dispo per results and findings. Lab Data Result diagrams: 11/21/21 17:31 11/21/21 17:31 Labs: Lab Results 11/21/21 11/21/21 11/21/21 Range/Units 17:30 17:30 17:31 WBC 11.8 H (4.8-10.8) X10*3/uL RBC 4.76 (4.20-5.50) X10*6/uL Hgb 13.8 (12.0-16.0) g/dl Hct 42.1 (37.0-47.0) % MCV 88.4 (80.0-98.0) fL MCH 29.0 (27.0-33.0) pg MCHC 32.8 (31.0-35.0) g/dl RDW 12.7 (11.0-16.0) % Plt Count 297 (160-400) X10*3/uL MPV 10.1 (9.4-12.3) fL Immature Gran % (Auto) 0.3 (0.0-0.4) % Neut % (Auto) 69.2 (45-73) % Lymph % (Auto) 19.9 L (20-40) % [place] % (Auto) 7.5 (2-11) % Eos % (Auto) 2.6 (0-4) % Baso % (Auto) 0.5 (0-2) % Lymph # (Auto) 2.4 (1.2-4.9) X10*3/uL [place] # (Auto) 0.9 (0.1-1.2) X10*3/uL Eos # (Auto) 0.3 (0.0-0.4) X10*3/uL Baso # (Auto) 0.1 (0.0-0.2) X10*3/uL Abs Immat Gran (auto) 0.04 H (0.00-0.03) X10*3/uL Absolute Neuts (auto) 8.2 (2.0-8.3) x10*3/uL Absolute Nucleated RBC 0.000 (0.0-0.012) X10*3/uL Nucleated RBC % (auto) 0.0 (0.0-0.2) /100WBC Sodium (135-145) mmol/L Potassium (3.3-5.1) mmol/L Chloride (96-108) mmol/L Carbon Dioxide (22-29) mmol/L Anion Gap (12-20) BUN (9-16) mg/dL Creatinine (0.5-1.4) mg/dL Estim Creat Clear Calc Estimated GFR Random Glucose (60-115) mg/dL Calcium (8.4-10.2) mg/dL Magnesium (1.6-2.6) mg/dL Total Bilirubin (0.0-1.0) mg/dL Direct Bilirubin (0.0-0.5) mg/dL AST (5-31) U/L ALT (0-31) U/L Alkaline Phosphatase (39-117) U/L Troponin I High Sens (<3.5-17.0) ng/L Total Protein (6.5-8.0) g/dL Albumin (3.5-5.0) g/dL Lipase (8-78) U/L COVID-19 (MARINO) Negative (Negative) COVID-19 Clin Com See Note Influenza Type A (JAIMEE) Negative (Negative) Influenza Type B (JAIMEE) Negative (Negative) Influenza A & B Note See Note 11/21/21 11/21/21 Range/Units 17:31 17:31 WBC (4.8-10.8) X10*3/uL RBC (4.20-5.50) X10*6/uL Hgb (12.0-16.0) g/dl Hct (37.0-47.0) % MCV (80.0-98.0) fL MCH (27.0-33.0) pg MCHC (31.0-35.0) g/dl RDW (11.0-16.0) % Plt Count (160-400) X10*3/uL MPV (9.4-12.3) fL Immature Gran % (Auto) (0.0-0.4) % Neut % (Auto) (45-73) % Lymph % (Auto) (20-40) % [place] % (Auto) (2-11) % Eos % (Auto) (0-4) % Baso % (Auto) (0-2) % Lymph # (Auto) (1.2-4.9) X10*3/uL [place] # (Auto) (0.1-1.2) X10*3/uL Eos # (Auto) (0.0-0.4) X10*3/uL Baso # (Auto) (0.0-0.2) X10*3/uL Abs Immat Gran (auto) (0.00-0.03) X10*3/uL Absolute Neuts (auto) (2.0-8.3) x10*3/uL Absolute Nucleated RBC (0.0-0.012) X10*3/uL Nucleated RBC % (auto) (0.0-0.2) /100WBC Sodium 139 (135-145) mmol/L Potassium 4.1 (3.3-5.1) mmol/L Chloride 104 (96-108) mmol/L Carbon Dioxide 26 (22-29) mmol/L Anion Gap 13 (12-20) BUN 14 (9-16) mg/dL Creatinine 0.84 (0.5-1.4) mg/dL Estim Creat Clear Calc 41.2 Estimated GFR > 60 Random Glucose 96 (60-115) mg/dL Calcium 9.6 (8.4-10.2) mg/dL Magnesium 2.3 (1.6-2.6) mg/dL Total Bilirubin 0.4 (0.0-1.0) mg/dL Direct Bilirubin < 0.2 (0.0-0.5) mg/dL AST 17 (5-31) U/L ALT 13 (0-31) U/L Alkaline Phosphatase 50 D (39-117) U/L Troponin I High Sens 3.9 (<3.5-17.0) ng/L Total Protein 7.2 (6.5-8.0) g/dL Albumin 4.2 (3.5-5.0) g/dL Lipase 40 (8-78) U/L COVID-19 (MARINO) (Negative) COVID-19 Clin Com Influenza Type A (JAIMEE) (Negative) Influenza Type B (JAIMEE) (Negative) Influenza A & B Note ECG Data Attestation: I personally reviewed and interpreted this ECG as follows: ECG interpretation date: 11/21/21 ECG interpretation time: 18:48 Interpretation: Rate: 79 Rhythm: NSR [place]: left Normal P waves. Normal RAMÓN. Normal QRS complex. ST T wave : normal no JOSE RAUL qTC: normal prior studies: no acute ischemia The study has been interpreted contemporaneously by me. . Discharge Plan Discharge Clinical Impression: Weakness Bronchiectasis Qualifiers: Bronchiectasis type: with acute exacerbation Qualified Code(s): J47.1 - Bronchiectasis with (acute) exacerbation Patient Disposition: Home, Self-Care Instructions: Bronchiectasis (ED), Weakness (ED) Additional Instructions: return to ED for any worsening symptoms or concerns please follow up with your doctors on [facility] some of your symptoms could be due to you coming off of your prednisone LUNGS: Stable chronic changes of the lung similar to prior CT exam of 11/24/2018. There is tracheomegaly. Trachea is deviated to the right superior mediastinum similar prior study without mass. Extensive bronchiectasis with volume loss and fibrosis most significant at the upper lobe. Mucous within some of these dilated bronchi in both lungs. There are scattered lung nodules unchanged in size or number since prior exam. Largest in the right upper lobe posteriorly measuring 1.5 cm image 16/6 series 4. This is smooth-bordered and contains calcifications. There are calcifications in other bilateral nodules as well. The previously seen thick-walled cavity in the right upper lobe on the prior CAT scan of 2019 is now an area of parenchymal scarring. Image 24/56 series 4, coronal image 62/77 series 6. No acute airspace disease. Prescriptions: New amoxicillin-pot clavulanate 875-125 mg tablet 1 tab PO BID Qty: 14 0RF Probiotic 3 billion cell capsule 3,000 mmu cells PO DAILY Qty: 7 0RF Rx Instructions: administer with a meal No Action calcium carbonate 600 mg calcium (1,500 mg) tablet 600 mg PO DAILY 30 Days Qty: 30 4RF Prolia 60 mg/mL syringe 60 mg subcut [id number] Qty: 1 0RF Rx Instructions: PT LAST RECEIVED SOMETIME IN DECEMBER acetaminophen [Tylenol Extra Strength] 500 mg tablet 500 mg PO BID PRN (Reason: Pain) biotin 500 mcg capsule 1 mg PO DAILY benzonatate 100 mg capsule 100 mg PO TID PRN (Reason: Cough) multivitamin Tablet 1 tab PO DAILY budesonide-formoterol [Symbicort] 80-4.5 mcg/actuation HFA aerosol inhaler 2 inh inhalation BID mecobalamin (vitamin B12) 1,000 mcg tablet,disintegrating 1,000 mcg sublingual DAILY Rx Instructions: place tablet under tongue and allow to dissolve for at least30 secs before swallowing codeine-guaifenesin 10-100 mg/5 mL liquid 5 - 10 ml PO Q4H PRN
[2021-11-21 18:42] VITALS: PULSE 76; RESP 18; O2SAT 95
[2021-11-21] MEDS: Albuterol/Iprat 2.5/0.5MG 3 ML AMPUL.NEB INHALE (18:42)
[2021-11-21 18:45] LABS: Alanine Aminotransferase 13 U/L (0-31); Albumin Level 4.2 g/dL (3.5-5.0); Alkaline Phosphatase 50 U/L (39-117); Aspartate Amino Transferase 17 U/L (5-31); Bilirubin Direct < 0.2 mg/dL (0.0-0.5); Bilirubin Total 0.4 mg/dL (0.0-1.0); Lipase 40 U/L (8-78); Magnesium 2.3 mg/dL (1.6-2.6); Total Protein 7.2 g/dL (6.5-8.0)
[2021-11-21 19:21] VITALS: BP 115/61; PULSE 84; RESP 16; TEMP 36.6; O2SAT 95
[2021-11-21 20:16] VITALS: BP 146/83; PULSE 80; RESP 30; O2SAT 96
[2021-11-21 20:37] LABS: Appearance Urine CLEAR; Color Urine YELLOW; Glucose Urine UA NEG (NEG); Leukocyte Esterase Urine NEG (NEG); Nitrite Urine NEG (NEG); PH 5.5 (5.0-8.0); Specific Gravity - Urine <= 1.005 (1.005-1.025); Urine Blood NEG (NEG); Urine Ketones NEG (NEG); Urine Protein NEG (NEG-TRACE)
== END 2021-11-21 21:12 | disposition home or self-care (01) ==
PROVIDERS: Emergency Provider Emergency Medicine; PCP Internal Medicine
DX: J47.1 Bronchiectasis with (acute) exacerbation (principal); R06.02 Shortness of breath; R53.1 Weakness; Z20.822 Contact with and (suspected) exposure to COVID-19; Z79.899 Other long term (current) drug therapy; Z87.891 Personal history of nicotine dependence
CPT/HCPCS: 36415; 71046; 71250; 80048; 80076; 81003; 82565; 83690; 83735; 83970; 84484; 85025; 85652; 86140; 87502; 87635; 93005; 94640; 99212; 99284; 99285

== ENCOUNTER → 2021-12-23 14:22 | Outpatient (BNVA) | payer MEDICARE, OTHER, SELFPAY | PROVIDERS: PCP Internal Medicine; Visit Provider Nurse Practitioner Family | DX: M35.3 Polymyalgia rheumatica (principal); R05.9 Cough, unspecified; M81.0 Age-related osteoporosis without current pathological fracture | CPT/HCPCS: Q3014 ==

== ENCOUNTER 2021-12-24 09:42 | Outpatient (REF) | payer MEDICARE, OTHER, SELFPAY ==
[2021-12-24 11:43] LABS: Alanine Aminotransferase 15 U/L (0-31); Albumin Level 4.3 g/dL (3.5-5.0); Alkaline Phosphatase 48 U/L (39-117); Anion Gap 12 (12-20); Aspartate Amino Transferase 15 U/L (5-31); Bilirubin Total 0.4 mg/dL (0.0-1.0); Blood Urea Nitrogen 18 mg/dL (9-16); C Reactive Protein 1.57 mg/dL (< or = 0.50); Calcium 9.4 mg/dL (8.4-10.2); Carbon Dioxide 29 mmol/L (22-29); Chloride 105 mmol/L (96-108); Estimated Glomerular Filt Rate > 60; Glucose Random 98 mg/dL (60-115); Phosphorus 3.2 mg/dL (2.7-4.5); Potassium 4.6 mmol/L (3.3-5.1); Sodium 141 mmol/L (135-145); Total Protein 7.4 g/dL (6.5-8.0)
[2021-12-24 12:05] LABS: Vitamin D 25-OH Total 71.2 ng/mL (>30)
[2021-12-24 12:52] LABS: Erythrocyte Sedimentation Rate 21 MM/HR (0-20)
[2021-12-25 14:22] LABS: Calcium (PTHI) 9.6 mg/dL (8.6-10.4); PTHI 38 pg/mL (16-77)
== END 2021-12-24 09:43 | disposition home or self-care (01) ==
LOC: HO.HMGCLDS 09:42
PROVIDERS: Absent Provider Internal Medicine; PCP Internal Medicine; Visit Provider Nurse Practitioner Family
DX: M81.0 Age-related osteoporosis without current pathological fracture (principal); M35.3 Polymyalgia rheumatica; E55.9 Vitamin D deficiency, unspecified
CPT/HCPCS: 36415; 80053; 82306; 83970; 84100; 85652; 86140

== ENCOUNTER → 2022-01-15 14:14 | Outpatient (BNVA) | payer MEDICARE, OTHER, SELFPAY | PROVIDERS: PCP Internal Medicine; Visit Provider Internal Medicine | DX: M81.0 Age-related osteoporosis without current pathological fracture (principal) | CPT/HCPCS: 96372; 99212 ==

== ENCOUNTER 2022-01-15 14:37 | Emergency (ER) | payer MEDICARE, OTHER, SELFPAY ==
--- NOTE | ~2022-01-15 | XR_ITS ---
EXAMINATION: XR CHEST CLINICAL INFORMATION: Cough COMPARISON: Previous 11/21/2021 TECHNIQUE: Frontal view of the chest was obtained. FINDINGS: Chronic markings are noted here bilaterally. I must consider some increasing density/defined opacities right base and there appears to be increasing density in left midlung. The cardiac silhouette is within normal limits. No obvious failure. There is no effusion. Tortuous versus arch and aorta once again seen. XR/XR chest 1V IMPRESSION: There is increasing density in the left midlung laterally. This could be an area of dense infiltrate. Underlying lesion needs to be considered. There is also felt to be some mild increase opacities in the right lower lung which may represent acute infiltrate superimposed on chronic change. Short-term follow-up after treatment 4-6 weeks is recommended to assess for resolution
--- NOTE | ~2022-01-15 | CT_ITS ---
EXAMINATION: CT ANGIOGRAM OF THE CHEST WITH AND WITHOUT CONTRAST (CT PULMONARY ANGIOGRAM FOR PE) CLINICAL INFORMATION: Reason for Exam pleuritic CP,elevated dimer COMPARISON: Radiograph from today. CT 11/21/2021. TECHNIQUE: Prior to contrast administration, noncontrast localization images were obtained. Subsequently, multidetector volumetric imaging was performed from the thoracic inlet to below the diaphragms following the administration of 65 mL Omnipaque 350 intravenous contrast. No contrast reaction reported Sagittal, coronal, and MIP oblique sagittal reformatted images were obtained on the CT workstation, uploaded to PACS, and reviewed. This CT examination was performed using dose optimization techniques as appropriate, variously including the following: *Automated exposure control *Adjustment of mA and/or kV according to patient size (this includes techniques or standardized protocols for targeted exams where dose is matched to indication/reason for exam; i.e. extremities or head) *Use of iterative reconstruction technique Total exam dose-length product 242 mGy-cm FINDINGS: QUALITY OF STUDY/CONTRAST BOLUS: Satisfactory. PULMONARY ARTERIES: No central or segmental pulmonary emboli. THORACIC AORTA: No aneurysm or dissection. LUNG: The central airways are patent. Bronchiectasis with areas of consolidation in the upper lobes, greatest in the right upper lobe. Multiple calcified and noncalcified nodules are present. Compared to prior CT, there is increased tree-in-bud nodular opacity in the right lung. Increased prominence of areas of nodular consolidation in the left midlung.. PLEURA: No pleural effusion or pneumothorax. MEDIASTINUM: Normal heart size. No pericardial effusion. No hilar or mediastinal lymphadenopathy. No evidence of septal bowing or right heart strain. CHEST WALL/AXILLA: No axillary or internal mammary lymphadenopathy. OSSEOUS STRUCTURES: No acute or suspicious osseous abnormality. Mild degenerative changes of the spine. UPPER ABDOMEN: Small hiatal hernia. No acute finding in the visualized upper abdomen.. No reflux of contrast into the hepatic veins to suggest elevated right heart pressures. CT/CT angio chest PE protocol IMPRESSION: 1. No pulmonary embolism. 2. Abnormal lungs. There are chronic changes of bronchiectasis and consolidation. Calcified and noncalcified nodules remain. There is increased tree in bud nodular opacity and increased prominence of consolidation seen compared to prior, suggestive of superimposed infectious/inflammatory process. VTE: negative
[2022-01-15 15:11] VITALS: BP 125/57; PULSE 90; RESP 18; TEMP 36.8; O2SAT 94; BMI 23.3
[2022-01-15 15:16] LABS: MANUAL DIFF FLAG NO
[2022-01-15 15:19] LABS: Basophils Absolute Auto 0.1 X10*3/uL (0.0-0.2); Basophils Percent Auto 0.6 % (0-2); Eosinophils Absolute Auto 0.4 X10*3/uL (0.0-0.4); Eosinophils Percent Auto 3.4 % (0-4); Hematocrit 42.7 % (37.0-47.0); Hemoglobin 13.7 g/dl (12.0-16.0); Imm Gran Abs Auto 0.04 X10*3/uL (0.00-0.03); Imm Gran Pct Auto 0.4 % (0.0-0.4); Lymphocytes Absolute Auto 2.2 X10*3/uL (1.2-4.9); Lymphocytes Percent Auto 20.3 % (20-40); Mean Corpuscular HGB Conc 32.1 g/dl (31.0-35.0); Mean Corpuscular Hemoglobin 28.7 pg (27.0-33.0); Mean Corpuscular Volume 89.5 fL (80.0-98.0); Mean Platelet Volume 10.6 fL (9.4-12.3); Monocytes Absolute Auto 0.9 X10*3/uL (0.1-1.2); Monocytes Percent Auto 8.1 % (2-11); Neutrophils Absolute Auto 7.2 x10*3/uL (2.0-8.3); Neutrophils Percent Auto 67.2 % (45-73); Platelet Count 232 X10*3/uL (160-400); Red Blood Count 4.77 X10*6/uL (4.20-5.50); Red Cell Distribution Width 12.4 % (11.0-16.0); White Blood Count 10.7 X10*3/uL (4.8-10.8)
[2022-01-15 15:23] LABS: Prothrombin Time 11.9 SEC (10.0-13.1)
[2022-01-15 15:25] LABS: D Dimer High Sensitivity 601 NG/ML
[2022-01-15 15:26] LABS: Partial Thromboplastin Time 38.7 SEC (26.0-36.4)
[2022-01-15 15:34] LABS: Lactic Acid 1.5 mmol/L (0.5-2.0)
[2022-01-15 15:39] LABS: COVID-19 Test Negative (Negative)
[2022-01-15 15:41] LABS: Alanine Aminotransferase 11 U/L (0-31); Albumin Level 4.3 g/dL (3.5-5.0); Alkaline Phosphatase 53 U/L (39-117); Anion Gap 16 (12-20); Aspartate Amino Transferase 14 U/L (5-31); Bilirubin Total 0.2 mg/dL (0.0-1.0); Blood Urea Nitrogen 24 mg/dL (9-16); Calcium 9.8 mg/dL (8.4-10.2); Carbon Dioxide 26 mmol/L (22-29); Chloride 104 mmol/L (96-108); Creatinine Clr Calc Pharmacy 42.2; Estimated Glomerular Filt Rate > 60; Glucose Random 111 mg/dL (60-115); Potassium 4.7 mmol/L (3.3-5.1); Sodium 141 mmol/L (135-145); Total Protein 7.7 g/dL (6.5-8.0)
--- NOTE | 2022-01-15 20:23 | ECG_ITS ---
Test Reason : CHEST PAIN Blood Pressure : / mmHG Vent. Rate : 076 BPM Atrial Rate : 076 BPM P-R Int : 158 ms QRS Dur : 078 ms QT Int : 392 ms P-R-T Axes : 071 -22 036 degrees QTc Int : 441 ms Normal sinus rhythm Normal ECG When compared with ECG of 21-NOV-2021 17:15, No significant change was found Referred By: Kerri Boogie Electronically Signed By:FRANCOIS QUEEN
--- NOTE | 2022-01-15 20:42 | ED_ITS ---
Eos % (Auto) (0-4) % Baso % (Auto) (0-2) % Lymph # (Auto) (1.2-4.9) X10*3/uL Irwin # (Auto) (0.1-1.2) X10*3/uL Eos # (Auto) (0.0-0.4) X10*3/uL Baso # (Auto) (0.0-0.2) X10*3/uL Abs Immat Gran (auto) (0.00-0.03) X10*3/uL Absolute Neuts (auto) (2.0-8.3) x10*3/uL Absolute Nucleated RBC (0.0-0.012) X10*3/uL Nucleated RBC % (auto) (0.0-0.2) /100WBC PT (10.0-13.1) SEC INR (0.9-1.1) APTT (26.0-36.4) SEC D-Dimer High Sensitivty NG/ML Sodium (135-145) mmol/L Potassium (3.3-5.1) mmol/L Chloride (96-108) mmol/L Carbon Dioxide (22-29) mmol/L Anion Gap (12-20) BUN (9-16) mg/dL Creatinine (0.5-1.4) mg/dL Estim Creat Clear Calc Estimated GFR Random Glucose (60-115) mg/dL Lactic Acid 1.5 (0.5-2.0) mmol/L Calcium (8.4-10.2) mg/dL Total Bilirubin (0.0-1.0) mg/dL AST (5-31) U/L ALT (0-31) U/L Alkaline Phosphatase (39-117) U/L Total Protein (6.5-8.0) g/dL Albumin (3.5-5.0) g/dL COVID-19 ([facility]) Negative (Negative) COVID-19 Clin Com See Note Discharge Plan Discharge Clinical Impression: Pneumonia Patient Disposition: Home, Self-Care Instructions: Pneumonia (ED) Additional Instructions: Please follow-up with your primary care physician tomorrow. If you have any worsening or new symptoms, please return to the emergency room or call 911 Prescriptions: New azithromycin 250 mg tablet 250 mg PO DAILY 4 Days Qty: 4 0RF Rx Instructions: start on day 2 of therapy doxycycline hyclate 100 mg capsule 100 mg PO BID Qty: 9 0RF No Action calcium carbonate 600 mg calcium (1,500 mg) tablet 600 mg PO DAILY 30 Days Qty: 30 4RF amoxicillin-pot clavulanate 875-125 mg tablet 1 tab PO BID Qty: 14 0RF Probiotic 3 billion cell capsule 3,000 mmu cells PO DAILY Qty: 7 0RF Rx Instructions: administer with a meal cyclobenzaprine 10 mg tablet 5 mg PO BEDTIME PRN (Reason: muscle spasm) Qty: 14 0RF lidocaine [AsperFlex (lidocaine)] 4 % adhesive patch,medicated 1 patch topical DAILY PRN (Reason: pain) Qty: 15 0RF acetaminophen [Tylenol Extra Strength] 500 mg tablet 500 mg PO BID PRN (Reason: Pain) biotin 500 mcg capsule 1 mg PO DAILY benzonatate 100 mg capsule 100 mg PO TID PRN (Reason: Cough) multivitamin Tablet 1 tab PO DAILY budesonide-formoterol [Symbicort] 80-4.5 mcg/actuation HFA aerosol inhaler 2 inh inhalation BID mecobalamin (vitamin B12) 1,000 mcg tablet,disintegrating 1,000 mcg sublingual DAILY Rx Instructions: place tablet under tongue and allow to dissolve for at least30 secs before swallowing Prolia 60 mg/mL syringe 60 mg subcut [id number] Qty: 1 0RF Rx Instructions: Last dose was in July. codeine-guaifenesin 10-100 mg/5 mL liquid 5 - 10 ml PO Q4H PRN HPI - General Adult General Chief complaint: Upper Respiratory Symptoms Stated complaint: SOB Time Seen by Provider: 01/15/22 20:19 Source: patient Mode of arrival: ambulatory Limitations: no limitations History of Present Illness HPI narrative: Patient comes to the emergency room complaining of pleuritic chest pain. Patient states that she has had a cough for approximately 2 weeks, now she is spitting up green foul-smelling sputum. Patient was seen by her PCP in the office today, she was sent here to the [facility] room for further evaluation. On arrival to the emergency room, in triage, patient had labs drawn. Related Data Home Medications Medication Instructions Recorded Confirmed benzonatate 100 mg capsule 100 mg PO TID PRN Cough 08/05/20 01/15/22 multivitamin 1 tab PO DAILY 08/05/20 01/15/22 acetaminophen 500 mg tablet 500 mg PO BID PRN Pain 12/24/20 01/15/22 (Tylenol Extra Strength) biotin 500 mcg capsule 1 mg PO DAILY 12/24/20 01/15/22 budesonide-formoterol HFA 80 2 inh inhalation BID 01/06/21 01/15/22 mcg-4.5 mcg/actuation aerosol inhaler (Symbicort) mecobalamin (vitamin B12) 1,000 1,000 mcg sublingual DAILY 07/14/21 01/15/22 mcg disintegrating tablet,sublingual codeine 10 mg-guaifenesin 100 mg/5 5 - 10 ml PO Q4H PRN 11/21/21 01/15/22 mL oral liquid Previous Rx's Medication Instructions Recorded calcium carbonate 600 mg calcium 600 mg PO DAILY 30 days #30 tabs 05/13/21 (1,500 mg) tablet amoxicillin 875 mg-potassium 1 tab PO BID #14 tabs 11/21/21 clavulanate 125 mg tablet lactobacillus combination no.4 3 3,000 mmu cells PO DAILY #7 caps 11/21/21 billion cell capsule (Probiotic) Prolia 60 mg/mL subcutaneous 60 mg subcut [id number] #1 mL 01/13/22 syringe (denosumab) cyclobenzaprine 10 mg tablet 5 mg PO BEDTIME PRN muscle spasm 01/13/22 #14 tabs lidocaine 4 % topical patch 1 patch topical DAILY PRN pain #15 01/13/22 (AsperFlex (lidocaine)) ea azithromycin 250 mg tablet 250 mg PO DAILY 4 days #4 tabs 01/15/22 doxycycline hyclate 100 mg capsule 100 mg PO BID #9 caps 01/15/22 Allergies Allergy/AdvReac Type Severity Reaction Status Date / Time influenza virus vaccine, Allergy Severe DUE TO Verified 01/15/22 14:22 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 Iodinated Contrast Media Allergy Severe DIDN'T Verified 01/15/22 14:22 [IV CONTRAST] AGREE WITH PATIENT SHELLFISH Allergy Intermediate VOMITING Uncoded 01/15/22 14:22 contrast dye Allergy Unknown Unknown Uncoded 01/15/22 14:22 fish Allergy Unknown Unknown Uncoded 01/15/22 14:22 IV dye Allergy Unknown Unknown Uncoded 01/15/22 14:22 shellfish Allergy Unknown Unknown Uncoded 01/15/22 14:22 shrimp Allergy Unknown Unknown Uncoded 01/15/22 14:22 Review of Systems Review of Systems: Constitutional : No Weight loss, No Fever, No Chills, No Night Sweats, No Fatigue, No Malaise ENT/Mouth : No Hearing loss, No Ear Pain, No Nasal Congestion, No Sinus Pain, No Hoarseness, No sore throat, No Rhinorrhea, No Swallowing Difficulty Eyes: No Eye Pain, No Swelling, No Redness, No Foreign Body, No Discharge, No Vision Changes Cardiovascular : Complaining of pleuritic chest pain specially on the right, No SOB, No Dyspnea on Exertion, No Orthopnea, No Edema, No Palpitations Respiratory : Patient complaining of occasional shortness of breath, complaining of cough and productive sputum Gastrointestinal : No Nausea, No Vomiting, No Diarrhea, No Constipation, No abdominal Pain, No Hematochezia, No Melena Genitourinary : no irregular bleeding, No Dysuria, No Urinary Frequency, No Hematuria, No Urinary Incontinence, No Urgency, No Flank Pain, No Urinary Flow Changes, No Hesitancy Musculoskeletal : No joint pain, No Myalgias, No Joint Swelling Skin : No Skin Lesions, No rash Neuro : No Weakness, No Numbness, No Paresthesias, No Loss of Consciousness, No Dizziness, No Headache Psych : No Anxiety/Panic, No Depression, No SI/HI/AH/VH, No Social Issues, Heme/Lymph: No Bruising, No Bleeding,No Lymphadenopathy Endocrine : No Polyuria, No Polydipsia, No Temperature Intolerance PMFSH Past Medical History Medical History Bronchiectasis COVID-19 vaccine series completed Osteoporosis Polymyalgia rheumatica Vitamin D deficiency Surgical History History of ear surgery Hx of colonoscopy Hx of toe surgery Hx of tubal ligation Family History Family History Father No problems noted. Mother Heart disease Brother Colon cancer Brother Stomach cancer Social History Social History Household Members: None Alcohol intake: never Patient Tobacco Use Status: Former Tobacco user Tobacco use type: Cigarette Cigarettes Per Day: 40 Years Smoked: 40 Advance Directives: No Advance Directives Information Provided: No Physical Exam ED Vital Signs: Vital Signs - 24 hr 01/15/22 15:11 Temperature 98.2 F Pulse Rate 90 Respiratory Rate 18 Blood Pressure 125/57 L Pulse Oximetry 94 Oxygen Delivery Method Room Air BMI result Body Mass Index 23.3 Const Other: Appearance: Alert. Oriented X3. No acute distress. Eyes: Pupils equal, round and reactive to light. ENT: Pharynx normal. Neck: Normal inspection. Neck supple. No lymph nodes noted. No crepitus CVS: Normal heart rate and rhythm. Pulses normal. Normal S1 and S2 Respiratory: No respiratory distress. Mild bilateral crackles, No Wheezing. No rales Abdomen: Soft and nontender. No rigidity. No distention. Skin: Skin warm and dry. Normal skin color. Normal skin turgor. Extremities: No lower extremity edema. No Lacerations. No Rash Neuro: Oriented X 3. No motor deficit. No sensory deficit. Moving all extremities. No slurred speech. CN 2 through 12 grossly intact Psych: calm, cooperative, normal affect Course Course Course Narrative: I discussed the labs and imaging with the patient. It is possible that patient may be developing pneumonia. Patient was given p.o. doxycycline and azithromycin. Patient's D-dimer is elevated at 601. I discussed with the patient that given her elevated INR and her pleuritic chest pain, we should rule out a pulmonary embolism. The likelihood of the patient having PE is low. When I asked the patient what her allergy to IV contrast is, patient states that it meets her intestines feel funny. Patient has never had any rash, angioedema Patient tolerated well the contrast for the CT scan. CTA negative for pulmonary embolism Patient feeling well, no shortness of breath, oxygen saturation 94% on room air even with exertion. Patient's blood pressure normal, no tachycardia, no fever, sepsis not suspected. Medical Decision Making Lab Data Result diagrams: 01/15/22 15:08 01/15/22 15:08 Labs: Lab Results 01/15/22 01/15/22 01/15/22 Range/Units 15:08 15:08 15:08 WBC 10.7 (4.8-10.8) X10*3/uL RBC 4.77 (4.20-5.50) X10*6/uL Hgb 13.7 (12.0-16.0) g/dl Hct 42.7 (37.0-47.0) % MCV 89.5 (80.0-98.0) fL MCH 28.7 (27.0-33.0) pg MCHC 32.1 (31.0-35.0) g/dl RDW 12.4 (11.0-16.0) % Plt Count 232 (160-400) X10*3/uL MPV 10.6 (9.4-12.3) fL Immature Gran % (Auto) 0.4 (0.0-0.4) % Neut % (Auto) 67.2 (45-73) % Lymph % (Auto) 20.3 (20-40) % Irwin % (Auto) 8.1 (2-11) % Eos % (Auto) 3.4 (0-4) % Baso % (Auto) 0.6 (0-2) % Lymph # (Auto) 2.2 (1.2-4.9) X10*3/uL Irwin # (Auto) 0.9 (0.1-1.2) X10*3/uL Eos # (Auto) 0.4 (0.0-0.4) X10*3/uL Baso # (Auto) 0.1 (0.0-0.2) X10*3/uL Abs Immat Gran (auto) 0.04 H (0.00-0.03) X10*3/uL Absolute Neuts (auto) 7.2 (2.0-8.3) x10*3/uL Absolute Nucleated RBC 0.000 (0.0-0.012) X10*3/uL Nucleated RBC % (auto) 0.0 (0.0-0.2) /100WBC PT 11.9 (10.0-13.1) SEC INR 1.0 (0.9-1.1) APTT 38.7 H (26.0-36.4) SEC D-Dimer High Sensitivty 601 NG/ML Sodium 141 (135-145) mmol/L Potassium 4.7 (3.3-5.1) mmol/L Chloride 104 (96-108) mmol/L Carbon Dioxide 26 (22-29) mmol/L Anion Gap 16 (12-20) BUN 24 H (9-16) mg/dL Creatinine 0.82 (0.5-1.4) mg/dL Estim Creat Clear Calc 42.2 Estimated GFR > 60 Random Glucose 111 (60-115) mg/dL Lactic Acid (0.5-2.0) mmol/L Calcium 9.8 (8.4-10.2) mg/dL Total Bilirubin 0.2 (0.0-1.0) mg/dL AST 14 (5-31) U/L ALT 11 (0-31) U/L Alkaline Phosphatase 53 (39-117) U/L Total Protein 7.7 (6.5-8.0) g/dL Albumin 4.3 (3.5-5.0) g/dL COVID-19 ([facility]) (Negative) COVID-19 Clin Com 01/15/22 01/15/22 Range/Units 15:08 15:18 WBC (4.8-10.8) X10*3/uL RBC (4.20-5.50) X10*6/uL Hgb (12.0-16.0) g/dl Hct (37.0-47.0) % MCV (80.0-98.0) fL MCH (27.0-33.0) pg MCHC (31.0-35.0) g/dl RDW (11.0-16.0) % Plt Count (160-400) X10*3/uL MPV (9.4-12.3) fL Immature Gran % (Auto) (0.0-0.4) % Neut % (Auto) (45-73) % Lymph % (Auto) (20-40) % Irwin % (Auto) (2-11) %
[2022-01-15] MEDS: diphenhydrAMINE HCL 50 MG/ML VIAL 25 MG IVPUSH (21:38)
[2022-01-15] MEDS: Famotidine/PF 20 MG/2 ML VIAL IVPUSH (21:38)
[2022-01-15] MEDS: Azithromycin 500 MG TABLET PO (21:38)
[2022-01-15] MEDS: methylPREDNISolone Sod Succ 125 MG/2 ML VIAL IVPUSH (21:42)
--- NOTE | 2022-01-15 21:42 | PC.NURSE ---
pt a&ox3, vss, medicated per provider order, 20G IV placed left AC, pt pending CT.
[2022-01-15] MEDS: iohexoL 350 MG/ML 100 ML INFUS..BTL IV (22:17)
== END 2022-01-15 23:57 | disposition home or self-care (01) ==
PROVIDERS: Emergency Provider Emergency Medicine; PCP Internal Medicine
DX: J18.9 Pneumonia, unspecified organism (principal); Z20.822 Contact with and (suspected) exposure to COVID-19
CPT/HCPCS: 36415; 71045; 71275; 80053; 83605; 85025; 85379; 85610; 85730; 87040; 87635; 93005; 96372; 96374; 96375; 99212; 99284; 99285; J1200; J2930; Q9967

== ENCOUNTER 2022-01-28 10:49 | Outpatient (REF) | payer MEDICARE, OTHER, SELFPAY ==
--- NOTE | ~2022-01-28 | MM_ITS ---
EXAMINATION: BONE DENSITOMETRY CLINICAL INDICATION: Osteoporosis. COMPARISON: Baseline BD dated 11/09/2018. TECHNIQUE: Using a [employer] DXA System (software version: 13.1) manufactured by [employer], dual-energy x-ray absorptiometry was performed of the lumbar spine and left hip. The images are of good technical quality. Summary results are attached. FINDINGS: AP SPINE L1-L4: Current: BMD 0.890 g/cm2, Z-score -0.3, T-score -2.4, osteopenia, 5.0% increase from baseline (<5% change is not significant). Baseline: BMD 0.848 g/cm2. LEFT FEMUR, NECK: Current: BMD 0.775 g/cm2, Z-score 0.6, T-score -1.9, osteopenia. Baseline: BMD 0.719 g/cm2. LEFT FEMUR, TOTAL: Current: BMD 0.725 g/cm2, Z-score 0.2, T-score -2.2, osteopenia, 5.8% increase from baseline (<5% change is not significant). Baseline: BMD 0.685 g/cm2. IDENTIFIED RISK FACTORS: Early menopause, secondary osteoporosis. HISTORY OF FRACTURE: None listed. MEDICATIONS: Calcium, vitamin D, bisphosphonate. MM/XR DEXA axial skeleton IMPRESSION: 1. DIAGNOSIS: Osteopenia based on the lowest T-score value of -2.4 in the lumbar spine applying World Health Organization criteria. 2. 10-YEAR FRACTURE RISK PREDICTION, FRAX: Major osteoporotic fracture (clinical spine, forearm, hip or shoulder) 14.9%. Hip fracture 4.6%. 3. Treatment Recommendations: NOF guidelines recommend consideration for treatment in postmenopausal women and men age 50 and older presenting with the following: -A hip or vertebral (clinical or morphometric) fracture. -T-score less than or equal to -2.5 at the femoral neck or spine after appropriate evaluation to exclude secondary causes. -Low bone mass at the hip or spine and a 10-year fracture probability by FRAX of greater than or equal to 3% for hip fracture or greater than or equal to 20% for major osteoporotic fracture based on the [place] adapted WHO algorithm. 4. Other Recommendations: All treatment decisions require clinical judgment and consideration of individual patient factors, including patient preferences, comorbidities, previous drug use, risk factors not captured in the FRAX model (e.g. frailty, falls, vitamin D deficiency, increased bone turnover, interval significant decline in bone density) and possible under or overestimation of fracture risk by FRAX. Additional medical evaluation for secondary cause of low bone mineral density may be appropriate. FUTURE SCAN RECOMMENDATION: People with diagnosed cases of osteoporosis or at high risk for fracture should have regular bone mineral density tests. For patients eligible for Medicare, routine testing is allowed once every 2 years. The testing frequency can be increased to one year for patients who have rapidly progressing disease, those who are receiving or discontinuing medical therapy to restore bone mass, or have additional risk factors.
== END 2022-01-28 10:50 | disposition home or self-care (01) ==
LOC: HO.MAMMO 10:49
PROVIDERS: PCP Internal Medicine; Visit Provider Internal Medicine
DX: Z13.820 Encounter for screening for osteoporosis (principal); M81.0 Age-related osteoporosis without current pathological fracture; Z78.0 Asymptomatic menopausal state
CPT/HCPCS: 77080

== ENCOUNTER 2022-02-26 16:06 | Emergency (ER) | payer MEDICARE, OTHER, SELFPAY ==
--- NOTE | ~2022-02-26 | XR_ITS ---
EXAMINATION: XR CHEST CLINICAL INFORMATION: Shortness of breath. COMPARISON: 01/15/2022 chest radiograph and chest CTA. TECHNIQUE: 2 views of the chest were obtained. FINDINGS: Coarsened interstitial markings, nodules or bronchiectasis are again seen most pronounced in the right upper lobe with similar distribution and severity. There are no pleural effusions. The heart and mediastinal structures are unremarkable. XR/XR chest 2V IMPRESSION: Pulmonary findings are similar to previous studies consistent with chronic interstitial changes. No definitive acute abnormality. Please refer to the report from the recent chest CTA for more detailed findings.
[2022-02-26 16:08] VITALS: BP 155/74; PULSE 102; RESP 16; TEMP 36.1; O2SAT 95; BMI 23.0
[2022-02-26 16:24] LABS: MANUAL DIFF FLAG NO
[2022-02-26 16:25] LABS: Basophils Absolute Auto 0.1 X10*3/uL (0.0-0.2); Basophils Percent Auto 0.6 % (0-2); Eosinophils Absolute Auto 0.3 X10*3/uL (0.0-0.4); Eosinophils Percent Auto 2.4 % (0-4); Hematocrit 41.9 % (37.0-47.0); Hemoglobin 13.3 g/dl (12.0-16.0); Imm Gran Abs Auto 0.04 X10*3/uL (0.00-0.03); Imm Gran Pct Auto 0.4 % (0.0-0.4); Lymphocytes Absolute Auto 2.6 X10*3/uL (1.2-4.9); Lymphocytes Percent Auto 22.9 % (20-40); Mean Corpuscular HGB Conc 31.7 g/dl (31.0-35.0); Mean Corpuscular Volume 88.2 fL (80.0-98.0); Mean Platelet Volume 9.1 fL (9.4-12.3); Monocytes Absolute Auto 0.9 X10*3/uL (0.1-1.2); Monocytes Percent Auto 8.1 % (2-11); Neutrophils Absolute Auto 7.5 x10*3/uL (2.0-8.3); Neutrophils Percent Auto 65.6 % (45-73); Platelet Count 393 X10*3/uL (160-400); Red Blood Count 4.75 X10*6/uL (4.20-5.50); White Blood Count 11.4 X10*3/uL (4.8-10.8)
[2022-02-26 16:37] LABS: Anion Gap 19 (12-20); Blood Urea Nitrogen 18 mg/dL (9-16); Calcium 9.3 mg/dL (8.4-10.2); Carbon Dioxide 25 mmol/L (22-29); Chloride 103 mmol/L (96-108); Creatinine Clr Calc Pharmacy 44.4; Estimated Glomerular Filt Rate > 60; Glucose Random 96 mg/dL (60-115); Potassium 4.6 mmol/L (3.3-5.1); Sodium 142 mmol/L (135-145)
[2022-02-26 16:39] LABS: COVID-19 Test Negative (Negative)
--- NOTE | 2022-02-26 19:30 | ECG_ITS ---
Test Reason : DYSPNEA Blood Pressure : / mmHG Vent. Rate : 089 BPM Atrial Rate : 089 BPM P-R Int : 154 ms QRS Dur : 072 ms QT Int : 376 ms P-R-T Axes : 071 -09 062 degrees QTc Int : 457 ms Normal sinus rhythm Normal ECG When compared with ECG of 15-JAN-2022 21:48, No significant change was found Referred By: Myra Abreu Electronically Signed By:FRANCOIS QUEEN
[2022-02-26 19:38] VITALS: BP 148/81; PULSE 92; RESP 18; TEMP 36.3; O2SAT 96
--- NOTE | 2022-02-26 19:40 | PC.NURSE ---
pt a&ox3, vss, pt reports pneumonia for ~7 w, feels that symptoms have plateaued over the past 3 days, productive cough, denies any sob/pain at this time. tech at bedside for EKG.
[2022-02-26 19:53] LABS: B Type Natriuretic Peptide 74 pg/mL (<100); Troponin-I High Sensitivity 4.4 ng/L (<3.5-17.0)
--- NOTE | 2022-02-26 20:13 | ED.GENADULT ---
HPI - General Adult General Chief complaint: Dyspnea Stated complaint: pneumonia/weakness/couching/sent by Time Seen by Provider: 02/26/22 19:27 Source: patient Mode of arrival: ambulatory History of Present Illness HPI narrative: 86-year-old female who presents with a history of bronchiectasis and approximately 8 weeks ago had been diagnosed and treated for a pneumonia, she was then discharged on a route remaining week of antibiotics and states that she felt ?better?, but then states that she began to feel bad again and was placed on another course of antibiotics. She cannot remember the name of these antibiotics. She states that over the past 3 days she has had increasing cough with increased sputum production that is greenish in color but denies any associated fever, chills, chest pain/palpitations and says that her primary care provider will not prescribe her more antibiotics. Patient reports that she has been feeling weak and is having discomfort in her hip joints and upper legs when she attempts to get up from a sitting position. Related Data Home Medications Medication Instructions Recorded Confirmed benzonatate 100 mg capsule 100 mg PO TID PRN Cough 08/05/20 01/15/22 multivitamin 1 tab PO DAILY 08/05/20 01/15/22 acetaminophen 500 mg tablet 500 mg PO BID PRN Pain 12/24/20 01/15/22 (Tylenol Extra Strength) biotin 500 mcg capsule 1 mg PO DAILY 12/24/20 01/15/22 budesonide-formoterol HFA 80 2 inh inhalation BID 01/06/21 01/15/22 mcg-4.5 mcg/actuation aerosol inhaler (Symbicort) mecobalamin (vitamin B12) 1,000 1,000 mcg sublingual DAILY 07/14/21 01/15/22 mcg disintegrating tablet,sublingual codeine 10 mg-guaifenesin 100 mg/5 5 - 10 ml PO Q4H PRN 11/21/21 01/15/22 mL oral liquid amikacin liposomal 590 mg/8.4 mL 590 mg inhalation DAILY 02/05/22 susp for inhalation, nebulizer acces. Previous Rx's Medication Instructions Recorded calcium carbonate 600 mg calcium 600 mg PO DAILY 30 days #30 tabs 05/13/21 (1,500 mg) tablet amoxicillin 875 mg-potassium 1 tab PO BID #14 tabs 11/21/21 clavulanate 125 mg tablet lactobacillus combination no.4 3 3,000 mmu cells PO DAILY #7 caps 11/21/21 billion cell capsule (Probiotic) Prolia 60 mg/mL subcutaneous 60 mg subcut [id number] #1 mL 01/13/22 syringe (denosumab) cyclobenzaprine 10 mg tablet 5 mg PO BEDTIME PRN muscle spasm 01/13/22 #14 tabs lidocaine 4 % topical patch 1 patch topical DAILY PRN pain #15 01/13/22 (AsperFlex (lidocaine)) ea azithromycin 250 mg tablet 250 mg PO DAILY 4 days #4 tabs 01/15/22 doxycycline hyclate 100 mg capsule 100 mg PO BID #9 caps 01/15/22 doxycycline hyclate 100 mg tablet 100 mg PO BID 5 days #10 tabs 02/26/22 prednisone 10 mg tablet 10 mg PO DAILY #7 tabs 02/26/22 Allergies Allergy/AdvReac Type Severity Reaction Status Date / Time influenza virus vaccine, Allergy Severe DUE TO Verified 01/15/22 14:22 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 Iodinated Contrast Media Allergy Severe DIDN'T Verified 01/15/22 14:22 [IV CONTRAST] AGREE WITH PATIENT SHELLFISH Allergy Intermediate VOMITING Uncoded 01/15/22 14:22 contrast dye Allergy Unknown Unknown Uncoded 01/15/22 14:22 fish Allergy Unknown Unknown Uncoded 01/15/22 14:22 IV dye Allergy Unknown Unknown Uncoded 01/15/22 14:22 shellfish Allergy Unknown Unknown Uncoded 01/15/22 14:22 shrimp Allergy Unknown Unknown Uncoded 01/15/22 14:22 Review of Systems Review of Systems: Pertinent positives and negatives as stated in HPI 10 point review of systems is otherwise negative. [facility] Past Medical History Source: nursing notes reviewed Medical History Bronchiectasis COVID-19 vaccine series completed Osteoporosis Polymyalgia rheumatica Vitamin D deficiency Surgical History History of ear surgery Hx of colonoscopy Hx of toe surgery Hx of tubal ligation Family History Family History Father No problems noted. Mother Heart disease Brother Colon cancer Brother Stomach cancer Social History Social History Household Members: None Alcohol intake: never Patient Tobacco Use Status: Former Tobacco user Tobacco use type: Cigarette Cigarettes Per Day: 40 Years Smoked: 40 Use of substances other than those prescribed or required for medical reasons: No Advance Directives: Yes Advance Directives on File: Yes Advance Directives Date on File: 01/21/21 Physical Exam ED Vital Signs: Vital Signs - 24 hr 02/26/22 16:08 02/26/22 19:38 Temperature 97.0 F 97.3 F Pulse Rate 102 H 92 Respiratory Rate 16 18 Blood Pressure 155/74 H 148/81 H Pulse Oximetry 95 96 Oxygen Delivery Method Room Air Room Air BMI result Body Mass Index 23.0 VITAL SIGNS: Reviewed. GENERAL: Well developed, well nourished, in no acute distress. HEAD: Normocephalic/atraumatic EYES: PERRLA, EOMI EARS: Ext canals without abnormality OROPHARYNX: no oral lesions noted, posterior pharynx clear NECK: Supple, no adenopathy LUNGS: Normal breath sounds, no tachypnea/wheeze/rhonchi/rales. SpO2<95> CARDIOVASCULAR: Regular rate and rhythm without noted murmurs, no JVD or lower extremity edema. ABDOMEN: Soft, non-tender, non-distended with bowel sounds. MUSCULOSKELETAL: No tenderness, deformities, or effusions noted on gross inspection. EXTREMITIES: No cyanosis, clubbing or edema. SKIN: Inspection of the skin reveals no rashes NEUROLOGIC: Alert and oriented x 4. Strength and sensation to light touch were grossly intact x 4. Course Course Course Narrative: 86-year-old female with history and clinical presentation suggestive of bronchiectasis, will provide patient with bronchodilator. On review of prior rheumatology notes patient does carry a diagnosis of PMR and in November was noted to be at goal, will re-evaluate inflammatory markers and potentially restart medications as indicated with instructions for her to follow-up with the operations systems specialist. Given patient's symptoms she will be discharged with an inhaler, antibiotics, and it is noted that her CRP is mildly elevated and suspect that her shoulder and hip pain is secondary to underlying PMR. She was strongly encouraged to follow-up with her operations systems specialist by calling the office in the morning. Medical Decision Making Lab Data Result diagrams: 02/26/22 16:18 02/26/22 16:18 Labs: Lab Results 02/26/22 02/26/22 02/26/22 Range/Units 16:18 16:18 16:18 WBC 11.4 H (4.8-10.8) X10*3/uL RBC 4.75 (4.20-5.50) X10*6/uL Hgb 13.3 (12.0-16.0) g/dl Hct 41.9 (37.0-47.0) % MCV 88.2 (80.0-98.0) fL MCH 28.0 (27.0-33.0) pg MCHC 31.7 (31.0-35.0) g/dl RDW 13.0 (11.0-16.0) % Plt Count 393 D (160-400) X10*3/uL MPV 9.1 L (9.4-12.3) fL Immature Gran % (Auto) 0.4 (0.0-0.4) % Neut % (Auto) 65.6 (45-73) % Lymph % (Auto) 22.9 (20-40) % [place] % (Auto) 8.1 (2-11) % Eos % (Auto) 2.4 (0-4) % Baso % (Auto) 0.6 (0-2) % Lymph # (Auto) 2.6 (1.2-4.9) X10*3/uL [place] # (Auto) 0.9 (0.1-1.2) X10*3/uL Eos # (Auto) 0.3 (0.0-0.4) X10*3/uL Baso # (Auto) 0.1 (0.0-0.2) X10*3/uL Abs Immat Gran (auto) 0.04 H (0.00-0.03) X10*3/uL Absolute Neuts (auto) 7.5 (2.0-8.3) x10*3/uL Absolute Nucleated RBC 0.000 (0.0-0.012) X10*3/uL Nucleated RBC % (auto) 0.0 (0.0-0.2) /100WBC Sodium 142 (135-145) mmol/L Potassium 4.6 (3.3-5.1) mmol/L Chloride 103 (96-108) mmol/L Carbon Dioxide 25 (22-29) mmol/L Anion Gap 19 (12-20) BUN 18 H (9-16) mg/dL Creatinine 0.78 (0.5-1.4) mg/dL Estim Creat Clear Calc 44.4 Estimated GFR > 60 Random Glucose 96 (60-115) mg/dL Calcium 9.3 (8.4-10.2) mg/dL Troponin I High Sens 4.4 (<3.5-17.0) ng/L C-Reactive Protein 2.57 H (< or = 0.50) mg/dL B-Natriuretic Peptide 74 (<100) pg/mL COVID-19 ([facility]) (Negative) COVID-19 Clin Com 02/26/22 Range/Units 16:19 WBC (4.8-10.8) X10*3/uL RBC (4.20-5.50) X10*6/uL Hgb (12.0-16.0) g/dl Hct (37.0-47.0) % MCV (80.0-98.0) fL MCH (27.0-33.0) pg MCHC (31.0-35.0) g/dl RDW (11.0-16.0) % Plt Count (160-400) X10*3/uL MPV (9.4-12.3) fL Immature Gran % (Auto) (0.0-0.4) % Neut % (Auto) (45-73) % Lymph % (Auto) (20-40) % [place] % (Auto) (2-11) % Eos % (Auto) (0-4) % Baso % (Auto) (0-2) % Lymph # (Auto) (1.2-4.9) X10*3/uL [place] # (Auto) (0.1-1.2) X10*3/uL Eos # (Auto) (0.0-0.4) X10*3/uL Baso # (Auto) (0.0-0.2) X10*3/uL Abs Immat Gran (auto) (0.00-0.03) X10*3/uL Absolute Neuts (auto) (2.0-8.3) x10*3/uL Absolute Nucleated RBC (0.0-0.012) X10*3/uL Nucleated RBC % (auto) (0.0-0.2) /100WBC Sodium (135-145) mmol/L Potassium (3.3-5.1) mmol/L Chloride (96-108) mmol/L Carbon Dioxide (22-29) mmol/L Anion Gap (12-20) BUN (9-16) mg/dL Creatinine (0.5-1.4) mg/dL Estim Creat Clear Calc Estimated GFR Random Glucose (60-115) mg/dL Calcium (8.4-10.2) mg/dL Troponin I High Sens (<3.5-17.0) ng/L C-Reactive Protein (< or = 0.50) mg/dL B-Natriuretic Peptide (<100) pg/mL COVID-19 ([facility]) Negative (Negative) COVID-19 Clin Com See Note ECG Data Attestation: I personally reviewed and interpreted this ECG as follows: Prior ECG tracings: available for review Interpretation: Normal sinus rhythm, HR-89, no STEMI, ME/QRS/QTC is within normal limits. Discharge Plan Discharge Clinical Impression: Bronchiectasis, PMR (polymyalgia rheumatica) Patient Disposition: Home, Self-Care Instructions: Bronchiectasis (ED), Polymyalgia Rheumatica (ED) Additional Instructions: 1. Resume all home medications as prescribed. Complete the antibiotics that you have been prescribed 2. Follow-up with your primary care provider or other specialists 1st thing in the morning. Return to the ER for worsening symptoms. Prescriptions: New doxycycline hyclate 100 mg tablet 100 mg PO BID 5 Days Qty: 10 0RF prednisone 10 mg tablet 10 mg PO DAILY Qty: 7 0RF No Action calcium carbonate 600 mg calcium (1,500 mg) tablet 600 mg PO DAILY 30 Days Qty: 30 4RF amikacin liposomal-neb.accessr 590 mg/8.4 mL suspension for nebulization 590 mg inhalation DAILY amoxicillin-pot clavulanate 875-125 mg tablet 1 tab PO BID Qty: 14 0RF Probiotic 3 billion cell capsule 3,000 mmu cells PO DAILY Qty: 7 0RF Rx Instructions: administer with a meal azithromycin 250 mg tablet 250 mg PO DAILY 4 Days Qty: 4 0RF Rx Instructions: start on day 2 of therapy doxycycline hyclate 100 mg capsule 100 mg PO BID Qty: 9 0RF cyclobenzaprine 10 mg tablet 5 mg PO BEDTIME PRN (Reason: muscle spasm) Qty: 14 0RF lidocaine [AsperFlex (lidocaine)] 4 % adhesive patch,medicated 1 patch topical DAILY PRN (Reason: pain) Qty: 15 0RF acetaminophen [Tylenol Extra Strength] 500 mg tablet 500 mg PO BID PRN (Reason: Pain) biotin 500 mcg capsule 1 mg PO DAILY benzonatate 100 mg capsule 100 mg PO TID PRN (Reason: Cough) multivitamin Tablet 1 tab PO DAILY budesonide-formoterol [Symbicort] 80-4.5 mcg/actuation HFA aerosol inhaler 2 inh inhalation BID mecobalamin (vitamin B12) 1,000 mcg tablet,disintegrating 1,000 mcg sublingual DAILY Rx Instructions: place tablet under tongue and allow to dissolve for at least30 secs before swallowing Prolia 60 mg/mL syringe 60 mg subcut [id number] Qty: 1 0RF Rx Instructions: Last dose was in July. codeine-guaifenesin 10-100 mg/5 mL liquid 5 - 10 ml PO Q4H PRN Referrals: Dionisio Bustamante MD [Primary Care Provider] - Dottie Montes NP [Nurse Practitioner] - (Started prednisone again, CRP is elevated and pt complaint if shoulder/hip pain)
[2022-02-26 20:36] LABS: C Reactive Protein 2.57 mg/dL (< or = 0.50)
[2022-02-26] MEDS: Albuterol Sulfate 90 MCG 8 GM INHALER 2 PUFF INHALE (20:47)
== END 2022-02-26 22:05 | disposition home or self-care (01) ==
PROVIDERS: Emergency Provider Student in an Organized Health Care Education/Training Program; PCP Internal Medicine
DX: J47.9 Bronchiectasis, uncomplicated (principal); M35.3 Polymyalgia rheumatica; R53.1 Weakness; Z20.822 Contact with and (suspected) exposure to COVID-19; Z87.891 Personal history of nicotine dependence; Z79.899 Other long term (current) drug therapy
CPT/HCPCS: 71046; 80048; 83880; 84484; 85025; 86140; 87635; 93005; 99284

== ENCOUNTER → 2022-03-06 12:40 | Outpatient (BNVA) | payer MEDICARE, OTHER, SELFPAY | PROVIDERS: PCP Internal Medicine; Visit Provider Nurse Practitioner Family | DX: M35.3 Polymyalgia rheumatica (principal); R05.9 Cough, unspecified; M81.0 Age-related osteoporosis without current pathological fracture | CPT/HCPCS: 99212 ==

== ENCOUNTER 2022-03-14 10:25 | Outpatient (REF) | payer MEDICARE, OTHER, SELFPAY ==
[2022-03-14 12:14] LABS: Erythrocyte Sedimentation Rate 18 MM/HR (0-20)
[2022-03-14 12:22] LABS: C Reactive Protein 2.16 mg/dL (< or = 0.50)
== END 2022-03-14 10:26 | disposition home or self-care (01) ==
LOC: HO.HMGCLDS 10:25
PROVIDERS: PCP Internal Medicine; Visit Provider Nurse Practitioner Family
DX: M35.3 Polymyalgia rheumatica (principal)
CPT/HCPCS: 36415; 85652; 86140

== ENCOUNTER 2022-06-02 10:38 | Outpatient (REF) | payer MEDICARE, OTHER, SELFPAY ==
[2022-06-02 14:02] LABS: Appearance Urine Clear; Color Urine Yellow; Glucose Urine UA Negative (Negative); Leukocyte Esterase Urine Negative (Negative); Nitrite Urine Negative (Negative); Specific Gravity - Urine >= 1.030 (1.005-1.025); Urine Blood Negative (Negative); Urine Ketones Negative (Negative); Urine Protein Trace mg/dL (Neg-Trace)
[2022-06-02 14:12] LABS: MANUAL DIFF FLAG NO
[2022-06-02 14:19] LABS: Basophils Absolute Auto 0.1 X10*3/uL (0.0-0.2); Basophils Percent Auto 0.6 % (0-2); Eosinophils Absolute Auto 0.5 X10*3/uL (0.0-0.4); Eosinophils Percent Auto 4.2 % (0-4); Hematocrit 43.2 % (37.0-47.0); Hemoglobin 13.4 g/dl (12.0-16.0); Imm Gran Abs Auto 0.04 X10*3/uL (0.00-0.03); Imm Gran Pct Auto 0.3 % (0.0-0.4); Lymphocytes Percent Auto 17.4 % (20-40); Mean Corpuscular Hemoglobin 27.8 pg (27.0-33.0); Mean Corpuscular Volume 89.6 fL (80.0-98.0); Mean Platelet Volume 10.1 fL (9.4-12.3); Monocytes Percent Auto 8.9 % (2-11); Neutrophils Percent Auto 68.6 % (45-73); Platelet Count 402 X10*3/uL (160-400); Red Blood Count 4.82 X10*6/uL (4.20-5.50); Red Cell Distribution Width 12.8 % (11.0-16.0); White Blood Count 11.7 X10*3/uL (4.8-10.8)
[2022-06-02 14:39] LABS: Alanine Aminotransferase 15 U/L (0-31); Alkaline Phosphatase 51 U/L (39-117); Anion Gap 14 (12-20); Aspartate Amino Transferase 18 U/L (5-31); Bilirubin Total 0.4 mg/dL (0.0-1.0); Blood Urea Nitrogen 16 mg/dL (9-16); Calcium 9.1 mg/dL (8.4-10.2); Carbon Dioxide 26 mmol/L (22-29); Chloride 105 mmol/L (96-108); Cholesterol 210 mg/dL; Estimated Glomerular Filt Rate > 60; Glucose Fasting 100 mg/dL (60-99); HDL Cholesterol 42 mg/dL; LDL Cholesterol Calculated 124 mg/dl; Potassium 4.4 mmol/L (3.3-5.1); Sodium 141 mmol/L (135-145); Total Protein 7.2 g/dL (6.5-8.0); Triglycerides 222 mg/dL
[2022-06-02 14:56] LABS: Estimated Average Glucose 120 mg/dL; Hemoglobin A1c % 5.8 %
[2022-06-02 15:10] LABS: Creatinine Urine 159.62 mg/dL; Microalbum/Creatinine Ratio Ur 13.1 ug/mg cr
== END 2022-06-02 10:39 | disposition home or self-care (01) ==
LOC: HO.HMGCLDS 10:38
PROVIDERS: Visit Provider Internal Medicine
DX: R73.03 Prediabetes (principal); E78.2 Mixed hyperlipidemia
CPT/HCPCS: 36415; 80053; 80061; 81003; 82043; 83036; 85025

== ENCOUNTER 2022-06-04 13:54 | Emergency (ER) | payer MEDICARE, OTHER, SELFPAY ==
--- NOTE | ~2022-06-04 | XR_ITS ---
EXAMINATION: XR SHOULDER, LEFT CLINICAL INFORMATION: Acute on chronic pain COMPARISON: December 24, 2020 TECHNIQUE: 3 views of the left shoulder. FINDINGS: There is no evidence of acute fracture or dislocation of the left shoulder. Glenohumeral joint appears unremarkable. No calcific tendinitis. No significant degenerative change of the acromioclavicular joint. No widening of the coracoclavicular space is seen. Chronic left upper lobe disease again seen. XR/XR shoulder LT min 2V IMPRESSION: No significant bony abnormality of the left shoulder. Chronic lung disease.
--- NOTE | ~2022-06-04 | XR_ITS ---
EXAMINATION: XR CHEST CLINICAL INFORMATION: Bronchiectasis COMPARISON: February 26, 2022 and studies dating back to November 24, 2018 TECHNIQUE: 2 views of the chest were obtained. FINDINGS: There are bilateral densities present with mid and upper lobe predominance as well as stable bronchiectatic change most prominent within the right upper lobe. There appears to be a new hazy density overlying the upper left hemithorax measuring approximately 2 cm in diameter. There is bilateral apical pleural-parenchymal scarring left greater than right. A few of the densities appear to be calcified. Heart normal size. No evidence of pulmonary edema. No pneumothorax or pleural effusion. XR/XR chest 2V IMPRESSION: Chronic interstitial lung disease and scarring with an upper lobe dominance. This appearance can be seen with silicosis. Question new 2 cm density mid to upper left hemithorax
[2022-06-04 14:24] VITALS: BP 103/45; BP 99/55; PULSE 109; PULSE 120; RESP 20; TEMP 36.7; O2SAT 92; O2SAT 97; BMI 23.8
--- OUTSIDE RECORDS SUMMARY | 2022-06-04 14:43 | XMS_ITS ---
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, unspecified Problem Cervical disc M50.90 Active 797630 001 disease Problem Vision loss, H54.3 Active 8181237 04 bilateral Problem Bronchiectasis J47.9 Active 64678 000 without complication Problem Bronchiectasis J47.1 Active 62473 8003 with (acute) exacerbation Problem Prediabetes R73.09 Active 34439073 2 Problem 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 Active 44270896 2 osteoporosis without current pathological fracture Problem Moderate J45.41 Active 8021319704 29592 persistent asthmatic bronchitis with acute exacerbation Problem Hallucinations R44.3 Active 81324 01 ALLERGIES Substance Reaction Event Type Date Status flu shots dizziness Non Drug Allergy Feb, Active Cyclobenzaprine HCl weakness Drug Allergy Feb, Active shell fish sick to stomach Non Drug Allergy Feb, Active IVP Dye didn't agree with patient Non Drug Allergy Feb, Active ENCOUNTERS Encounter Location Date Diagnosis Dionisio Bustamante MD [address] Feb, [place] nchiectasis without [address] [place] complication J47 .9 ; Acute 426664913 knee pain, unspe cified laterality M25.5 69 ; Mycobacterial in fection, unspecified A31. 9 ; Polymyalgia rheu matica M35.3 and Encounter fo r screening for other viral diseases Z11.59 Dionisio Bustamante MD [address] Jan, [address] [place] [id number] Dionisio Bustamante MD [address] Jan, [address] [place] [id number] Dionisio Bustamante MD [address] Jan, Acu te knee pain, unspecified [address] [place] laterality M25.5 69 and [id number] Encounter for sc reening for other viral dise ases Z11.59 Dionisio Bustamante MD [address] Jan, His tory of pneumonia Z87.01 [place] ; Encounter for screening 894453462 for other viral diseases Z11.59 and [facility] hiectasis without complica tion J47.9 Dionisio Bustamante MD [address] Dec, His tory of pneumonia Z87.01 [address] [place], [place] [id number] Dionisio Bustamante MD [address] Dec, [address] [place], [place] [id number] Dionisio Bustamante MD [address] Suite Nov, Pre diabetes R73.09 ; Muscle [address] [place] weakness M62.81 and [id number] Encounter for sc reening for other viral dise ases Z11.59 Dionisio Bustamante MD [address] Oct, Bro nchiectasis with (acute) [address] [place] exacerbation J47 .1 [id number] Dionisio Bustamante MD [address] Oct, [address] [place] [id number] Dionisio Bustamante MD [address] Oct, [address] [place] [id number] Dionisio Bustamante MD [address] Jul, Hina ast cancer screening [address] [place] Z12.39 [id number] Dionisio Bustamante MD [address] Jul, Hina ast cancer screening [address] [place] [address] Z12.31 [id number] Dionisio Bustamante MD [address] May, Simon ymyalgia rheumatica M35.[address] [place] [address] ; Prediabetes R7 3.09 ; [id number] Elevated cholest paul with elevated triglyc erides E78.2 ; Age-related os teoporosis without current pathological fracture M81.0 ; Encounter for screening fo r other viral diseases Z 11.59 and Depression scree pauline Z13.31 Dionisio Bustamante MD [address] Apr, Pre diabetes R73.09 ; [address] [place] [address] Mycobacterial in fection, [id number] unspecified A31. 9 ; Encounter for im munization Z23 and Encounte r for screening for ot her viral diseases Z11.59 Dionisio Bustamante MD [address] Feb, Pre diabetes R73.09 ; [address] [place] [address] Mycobacterial in fection, [id number] unspecified A31. 9 ; Polymyalgia rheu matica M35.3 and Encounter fo r screening for other viral diseases Z11.59 Dionisio Bustamante MD [address] Dec, [address] [place] [id number] Dionisio Bustamante MD [address] Dec, Simon ymyalgia rheumatica M35.[address] [place] [address] ; Bleeding nose R04.0 ; [id number] Mycobacterial in fection, unspecified A31. 9 and Encounter for sc reening for other viral dise ases Z11.59 Dionisio Bustamante MD [address] Nov, Hyp erkalemia E87.[address] [place] [id number] Dionisio Bustamante MD [address] Nov, Pre diabetes R73.09 ; [address] [place] [address] Polymyalgia rheu matica M35.3 [id number] and Encounter fo r screening for other viral diseases Z11.59 Dionisio Bustamante MD [address] Sep, 2020 Mod erate persistent [address] [place] [address] asthmatic bronch itis with [id number] acute exacerbati on J45.41 Dionisio Bustamante MD [address] Aug, 2020 Tho racic aortic aneurysm [address] [place] [address] without rupture I71.2 ; [id number] Bronchiectasis w ithout complication J47 .9 and Encounter for sc reening for other viral dise ases Z11.59 Dionisio Bustamante MD [address] Jul, Myc obacterial infection, [address] [place] [address] unspecified A31. 9 and [id number] Encounter for sc reening for other viral dise ases Z11.59 Dionisio Bustamante MD [address] Jul, [address] [place] [id number] Dionisio Bustamante MD [address] Jul, 2020 Myc obacterial infection, [address] [place] [address] unspecified A31. 9 ; Moderate 677788187 persistent asthm atic bronchitis with acute exacerbation J45 .41 ; Vision disorder H53.9 a nd Encounter for screening fo r other viral diseases Z 11.59 Dionisio Bustamante MD [address] Jul, 2020 COV ID-19 U07.1 and Encounter [address] [place] [address] for screening fo r other [id number] viral diseases Z 11.59 Dionisio Bustamante MD [address] Jul, Vac cine counseling Z71.89 ; [address] [place] [address] History of Guill ain-[place] [id number] syndrome Z86.69 and Encounter for sc reening for other viral dise ases Z11.59 Dionisio Bustamante MD [address] Apr, Rylie vated cholesterol with [address] [place] [address] elevated triglyc erides E78.2 [id number] ; Prediabetes R7 3.09 ; Polymyalgia rheu matica M35.3 ; 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 ; Hallucinations R 44.3 ; Vision loss, fabio ateral H54.3 ; Depression scr eening Z13.31 and Encou nter for screening for ot her viral diseases Z11.59 Dionisio Bustamante MD [address] Apr, Acu te non-recurrent [address] [place] maxillary sinusi tis J01.00 [id number] and Encounter fo r screening for other viral diseases Z11.59 Dionisio Bustamante MD [address] Mar, Simon ymyalgia rheumatica M35.[address] [place] [address] ; Vision loss, b ilateral [id number] H54.[address] for screening for ot her viral diseases Z11.59 Dionisio Bustamante MD [address] Mar, [address] [place] [id number] Dionisio Bustamante MD [address] Mar, Simon ymyalgia rheumatica M35.[address] [place] [address] and Encounter fo r screening [id number] for other viral diseases Z11.59 Dionisio Bustamante MD [address] Mar, Simon ymyalgia rheumatica M35.[address] [place] [address] ; Prediabetes R7 3.09 and [id number] Encounter for sc reening for other viral dise ases Z11.59 Dionisio Bustamante MD [address] Mar, [address] [place] [id number] Dionisio Bustamante MD [address] Mar, Simon ymyalgia rheumatica M35.[address] [place] [address] ; Encounter for screening 496183193 for other viral diseases Z11.59 and Hallu cinations R44.3 Dionisio Bustamante MD [address] Feb, Simon ymyalgia rheumatica M35.[address] [place] [address] ; Encounter for screening 633122693 for other viral diseases Z11.59 and Refus ed influenza vaccine Z28.21 Dionisio Bustamante MD [address] Jan, Simon ymyalgia rheumatica M35.[address] [place] [address] and Encounter fo r screening 362717250 for other viral diseases Z11.59 Dionisio Bustamante MD [address] Jan, Gisel lgia M79.10 ; Encounter [address] [place] for screening fo r other [id number] viral diseases Z 11.59 and Polymyalgia rheu matica M35.3 Dionisio Bustamante MD [address] Dec, [address] [place] [address] [place] [id number] Dionisio Bustamante MD [address] Dec, Gisel lgia M79.10 and Encounter [address] [place] for screening fo r other 056433928 viral diseases Z 11.59 Dionisio Bustamante MD [address] Dec, Gisel kermitia M79.10 and Encounter [address] [place] for screening fo r other 220056532 viral diseases Z 11.59 Dionisio Bustamante MD [address] Dec, [address] [place] [id number] Dionisio Bustamante MD [address] Nov, Fariba k muscle spasm M62.830 ; [address] [place] [address] [place] Loss of energy R 53.83 and [id number] Encounter for sc reening for other viral dise ases Z11.59 Dionisio Bustamante MD [address] Aug, Myc obacterial infection, [address] [place] [address] unspecified A31. 9 [id number] Dionisio Bustamante MD [address] Apr, 2019 Rylie vated cholesterol with [address] [place] [address] elevated triglyc erides E78.2 [id number] ; Prediabetes R7 3.09 ; Polymyalgia rheu matica M35.3 ; Thoracic aorti c aneurysm without rupture I71.2 ; History of Guill ain-[place]bert[place] syndrome Z86.69 ; Age-related oste oporosis without current pathological fracture M81.0 ; Bronchiectasis w ithout complication J47 .9 and Depression scree pauline Z13.89 Dionisio Bustamante MD [address] Feb, [facility] [place] [id number] Dionisio Bustamante MD [address] Oct, Acu te swimmer''s ear of left [address] [place] side H60.332 ; A ge-related [id number] osteoporosis wit hout current pathological fra cture M81.0 ; Bruit of left carotid artery R09.89 an d Prediabetes R73. 09 Dionisio Bustamante MD [address] September, [facility] [place] [id number] Dionisio Bustamante MD [address] September, Mod erate persistent [address] [place] asthmatic bronch itis with [id number] acute exacerbati on J45.41 Dionisio Bustamante MD [address] September, [place] [id number] Dionisio Bustamante MD [address] Aug, [address] [place] [id number] Dionisio Bustamante MD [address] Aug, [address] [place] [id number] Dionisio Bustamante MD [address] Apr, Rylie vated cholesterol with [facility] [place] elevated triglyc erides E78.2 [id number] ; Prediabetes R7 3.09 ; Polymyalgia rheu matica M35.3 ; Cervical disc disease M50.90 ; Mycobac terial infection, unspe cified A31.9 ; Menopause Z78. 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 and Thoracic aortic aneurysm without rupture I71.2 Dionisio Bustamante MD [address] Feb, Rylie vated BUN R79.[address] [place] [address] Lethargy R53.83 [id number] Dionisio Bustamante MD [address] Feb, Rylie vated BUN R79.[address] [place] [address] [place] [id number] Dionisio Bustamante MD [address] Jan, Rylie vated BUN R79.[address] [place] [address] Lethargy R53.83 [id number] Dionisio Bustamante MD [address] Jan, [facility] [place] [id number] Dionisio Bustamante MD [address] Jan, Tho racic aortic aneurysm [address] [place] [address] without rupture I71.2 ; [id number] Bronchiectasis w ithout complication J47 .9 ; Lethargy R53.83 and Dysuria R30.0 Dionisio Bustamante MD [address] Oct, Jenae g nodules R91.8 [address] [place], [place] [id number] Dionisio Bustamante MD [address] Oct, Tho racic aortic aneurysm [address] [place] [address] without rupture I71.2 ; [id number] Bronchiectasis w ithout complication J47 .9 and Prediabetes R73. 09 Dionisio Bustamante MD [address] Apr, [address] [place] [id number] Dionisio Bustamante MD [address] Apr, Rylie vated cholesterol with [address] [place] [address] elevated triglyc erides E78.2 [id number] ; Prediabetes R7 3.09 ; Depression scree pauline Z13.89 and Bronchiectas is without complication J47 .9 Dionisio Bustamante MD [address] Mar, Pre -op evaluation Z01.818 ; [address] [place] [address] Mycobacterial in fection, [id number] unspecified A31. 9 ; Prediabetes R73. 09 ; Polymyalgia rheu matica M35.3 and Elevated cho lesterol with elevated tr iglycerides E78.2 Dionisio Bustamante MD [address] Oct, Pre diabetes R73.[address] [place] [address] Mycobacterial in fection, [id number] unspecified A31. 9 Dionisio Bustamante MD [address] Jul, Myc obacterial infection, [address] [place] [address] unspecified A31. 9 and [id number] Depression scree pauline Z13.89 Dionisio Bustamante MD [address] Jan, Myc obacterial infection, [address] [place] [address] unspecified A31. 9 ; Ataxia [id number] R27.0 and Histor y of Guillain-Gilbertown s yndrome Z86.69 Dionisio Bustamante MD [address] Jan, Simon ymyalgia rheumatica M35.[address] [place] [address] ; Elevated tiffanie sterol with [id number] elevated triglyc erides E78.2 ; Prediabetes R7 3.09 and Encounter for im munization Z23 Dionisio Bustamante MD [address] Jul, Cer vical disc disease M50.[address] [place] [address] ; Mycobacterial infection, [id number] unspecified A31. 9 and Depression scree pauline Z13.89 Dionisio Bustamante MD [address] Jul, Spr ain of other part of [address] [place] [address] right shoulder r egion, [id number] initial encounte r S43.491A Dionisio Bustamante MD [address] Feb, Myc obacterial infection, [address] [place] [address] unspecified A31. 9 [id number] Dionisio Bustamante MD [address] Feb, [address] [place] [id number] Dionisio Bustamante MD [address] Feb, Wea kness R53.[address] [place] [address] Mycobacterial in fection, [id number] unspecified A31. 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 [id number] and Pre diabetes 790.29 Dionisio Bustamante MD [address] September, Vir al gastroenteritis 008.[address] [place] [address] and Myofascial m uscle pain [id number] 729.1 Dionisio Bustamante MD [address] Aug, Abd ominal aortic aneurysm [address] [place], [place] 441.[address] ; Pre diab etes 790.29 [id number] and Mycobacteriu m 031.9 Dionisio Bustamante MD [address] Aug, [address] [place] [address] [id number] Dionisio Bustamante MD [address] Jul, Pre -op evaluation V72.84 ; [address] [place] [address] Pre diabetes 790 .29 and [id number] Mycobacterium 03 1.9 Dionisio Bustamante MD [address] Mar, [place] [id number] Dionisio Bustamante MD [address] Mar, Pre diabetes 790.29 ; [address] [place] [address] [place] Mycobacterium 03 1.9 and [id number] Preoperative alfie arance V72.84 Dionisio Bustamante MD [address] Mar, [address] [id number] Dionisio Bustamante MD [address] Feb, Pul monary diseases due to [place] other mycobacter ia 031.0 ; [id number] Lung nodule 793. 11 ; Insomnia 780.52 and Pre diabetes 790.29 Dionisio Bustamante MD [address] Jan, [place] [id number] Dionisio Bustamante MD [address] Nov, Bro nchiectasis 494.0 ; [address] [place], [place] [address] [place] Bunion 727.1 and Pre-op [id number] evaluation V72.8 4 Dionisio Bustamante MD [address] Oct, Imp acted cerumen 380.[address] [place] [address] [place] [id number] Dionisio Bustamante MD [address] Oct, Pre diabetes 790.29 ; [address] [place] [address] [place] Polymyalgia rheu matica 725 ; [id number] Bronchiectasis 4 94.0 ; Pulmonary diseas es due to other mycobacter ia 031.0 ; Lethargy 780.79 and Unspecified dise ase of white blood cells 288. 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 82 Dionisio Bustamante MD [address] Nov, Bro nchospasm 519.11 and Pre [address] [place], [place] diabetes 790.29 [id number] Dionisio Bustamante MD [address] Oct, Bro nchiectasis 494.0 ; [address] [place] [address] [place] Hemoptysis 786.3 0 and Pre [id number] diabetes 790.29 Dionisio Bustamante MD [address] September, Bro nchiectasis 494.0 and Pre [address] [place], [place] [address] [place] diabetes 790.29 [id number] Dionisio Bustamante MD [address] Aug, Jenae g nodules 793.19 and [place] Hemoptysis, unsp ecified [id number] 786.30 Dionisio Bustamante MD [address] Jul, Jenae g nodule 793.11 [address] [place], [place] [id number] Dionisio Bustamante MD [address] Jul, Simon ymyalgia rheumatica 725 ; [place] Mycobacteria, 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 9 Dionsiio Bustamante MD [address] Apr, [facility] [place], [place] [id number] Dionisio Bustamante MD [address] Apr, [address] [place] [id number] Dionisio Bustamante MD [address] Apr, Pul monary diseases due to [facility] [place] other mycobacter ia 031.0 [id number] Dionisio Bustamante MD [address] Apr, Bro nchopneumonia, organism [address] [place], [place] unspecified 485 and [id number] Polymyalgia rheu matica 725 Dionisio Bustamante MD [address] Mar, Bro nchopneumonia, organism [address] [place], [place] unspecified 485 [id number] Dionisio Bustamante MD [address] Feb, Simon ymyalgia rheumatica 725 [address] [place] and Other abnorm al glucose [id number] 790.29 Dionisio Bustamante MD [address] Feb, Simon ymyalgia rheumatica 725 [address] [place] and Pre diabetes 790.29 [id number] Dionisio Bustamante MD [address] Feb, Simon ymyalgia rheumatica 725 [address] [place] [id number] Dionisio Bustamante MD [address] Feb, Uns pecified myalgia and [address] [place] myositis 729.1 a nd Pre 534201491 diabetes 790.29 IMMUNIZATIONS Vaccine Route Administration Date Status SARS-COV-2 Moderna Unknown December 15, 2021 Administered SARS-COV-2 Moderna Unknown May 11, 2021 Administered PPSV23 (Pnemovax) IM Intramuscular May 13, 2021 Administered Covid Vaccine Unknown August 29, 2020 Administered Covid Vaccine Unknown Jul 26, 2020 Administered PPSV23 (Pnemovax) IM Intramuscular Feb 11, 2016 Administered PPSV23 (Pnemovax) Unknown November 07, 2005 Administered Prevnar 13 IM Intramuscular Apr 15, 2012 Administered SOCIAL HISTORY Qualifiers Date Former Smoker REASON FOR REFERRAL FUNCTIONAL STATUS PLAN OF CARE Activity Details Future Appointment Provider Name:Dionisio Acosta ier, 2022-06-08 11:00:00 AM, [address], [address], [facility] [place], [id number], Future Test US venous duplex LE RT 924 Future Test US CAROTID BILATERAL DOPPLER 01920841 Future Test BONE DENSITY DEXA 20180920 Future Test HEMOGLOBIN A1C (GLYCOHEMOGLO BIN) 14859045 Pending Test UA ClnCatch+Micro w/rflx Cul t Pending Test Blood Culture < 90 LBS Pending Test MM screening mammo BI Pending Test MM tomosynthesis diagnostic BI Pending Test Hemoglobin A1c Pending Test Glucose, finger stick VITAL SIGNS Height 62 in 2022-03-03 Height 62 in 2022-02-19 Height 62 in 2022-02-09 Height 62 in 2022-01-23 Height 62 in 2021-12-08 Height 62 in 2021-11-24 Height 62 in 2021-06-05 Height 62 in 2021-05-13 Height 62 in 2021-03-25 Height 62 in 2020-12-30 Height 62 in 2020-12-12 Height 62 in 2020-09-12 Height 62 in 2020-08-22 Height 62 in 2020-08-13 Height 62 in 2020-08-12 Height 62 in 2020-07-02 Height 62 in 2020-05-27 Height 62 in 2020-05-21 Height 62 in 2020-04-29 Height 62 in 2020-04-23 Height 62 in 2020-04-11 Height 62 in 2020-04-01 Height 62 in 2020-03-04 Height 62 in 2020-02-08 Height 62 in 2020-01-18 Height 62 in 2020-01-11 Height 62 in 2019-09-08 Height 62 in 2019-05-09 Height 62 in 2018-11-15 Height 62 in 2018-10-18 Height 62 in 2018-05-17 Height 62 in 2018-03-15 Height 62 in 2018-02-22 Height 62 in 2018-02-15 Height 62 in 2017-11-08 Height 62 in 2017-05-10 Height 62 in 2017-04-20 Height 62 in 2016-11-23 Height 62 in 2016-08-24 Height 62 in 2016-02-13 Height 62 in 2015-08-13 Height 62 in 2015-08-02 Height 62 in 2015-03-18 Height 62 in 2015-03-08 Height 62 in 2015-01-15 Height 62 in 2014-03-05 Height 62 in 2013-12-11 Height N/A in 2013-10-03 Height N/A in 2013-09-11 Height N/A in 2013-08-01 Height N/A in 2013-04-14 Height N/A in 2013-02-28 Height N/A in 2012-12-23 Height 62 in 2012-11-21 Height N/A in 2012-11-07 Height N/A in 2012-04-15 Height N/A in 2011-12-07 Height N/A in 2011-11-03 Height N/A in 2011-10-06 Height N/A in 2011-09-15 Height N/A in 2011-08-18 Height N/A in 2011-06-09 Height N/A in 2011-05-19 Height N/A in 2011-05-01 Height N/A in 2011-04-09 Height N/A in 2011-03-12 Height N/A in 2011-03-06 Height N/A in 2011-03-03 Height 62 in 2011-03-02 Weight 128 lbs 2022-03-03 Weight 130 lbs 2022-02-19 Weight 132 lbs 2022-01-23 Weight 138 lbs 2021-12-08 Weight 138 lbs 2021-11-24 Weight 138 lbs 2021-06-05 Weight 133 lbs 2021-05-13 Weight 133 lbs 2021-03-25 Weight 132 lbs 2020-12-30 Weight 131 lbs 2020-12-12 Weight 134 lbs 2020-09-12 Weight 135 lbs 2020-08-22 Weight 135 lbs 2020-08-13 Weight 135 lbs 2020-08-12 Weight 130 lbs 2020-07-02 Weight 130 lbs 2020-05-27 Weight 130 lbs 2020-05-21 Weight 131 lbs 2020-04-29 Weight 134 lbs 2020-04-23 Weight 137 lbs 2020-04-11 Weight 130 lbs 2020-04-01 Weight 130 lbs 2020-03-04 Weight 130 lbs 2020-02-08 Weight 132 lbs 2020-01-18 Weight 132 lbs 2020-01-11 Weight 126 lbs 2019-09-08 Weight 128 lbs 2019-05-09 Weight 126 lbs 2018-11-15 Weight 127 lbs 2018-10-18 Weight 126 lbs 2018-05-17 Weight 127 lbs 2018-03-15 Weight 126 lbs 2018-02-22 Weight 126 lbs 2018-02-15 Weight 128 lbs 2017-11-08 Weight 130 lbs 2017-05-10 Weight 130 lbs 2017-04-20 Weight 128 lbs 2016-11-23 Weight 128 lbs 2016-08-24 Weight 122 lbs 2016-02-13 Weight 131.5 lbs 2015-08-13 Weight 132 lbs 2015-08-02 Weight 129 lbs 2015-03-18 Weight 128 lbs 2015-03-08 Weight 127 lbs 2015-01-15 Weight 121 lbs 2014-03-05 Weight 122 lbs 2013-12-11 Weight 120 lbs 2013-10-03 Weight 121 lbs 2013-09-11 Weight 117 lbs 2013-08-01 Weight 118 lbs 2013-04-14 Weight 118 lbs 2013-02-28 Weight 120 lbs 2012-12-23 Weight 120 lbs 2012-11-21 Weight 121 lbs 2012-11-07 Weight 126 lbs 2012-04-15 Weight 126 lbs 2011-12-07 Weight 127 lbs 2011-11-03 Weight 129 lbs 2011-10-06 Weight 128.5 lbs 2011-09-15 Weight 129 lbs 2011-08-18 Weight 128 lbs 2011-06-09 Weight 1217 lbs 2011-05-19 Weight 124 lbs 2011-05-01 Weight 122 lbs 2011-04-09 Weight 123 lbs 2011-03-12 Weight 123 lbs 2011-03-06 Weight 120 lbs 2011-03-03 Weight 119 lbs 2011-03-02 BMI 23.41 kg/m2 2022-03-03 BMI 23.77 kg/m2 2022-02-19 BMI 24.14 kg/m2 2022-01-23 BMI 25.24 kg/m2 2021-12-08 BMI 25.24 kg/m2 2021-11-24 BMI 25.24 kg/m2 2021-06-05 BMI 24.32 kg/m2 2021-05-13 BMI 24.32 kg/m2 2021-03-25 BMI 24.14 kg/m2 2020-12-30 BMI 23.96 kg/m2 2020-12-12 BMI 24.51 kg/m2 2020-09-12 BMI 24.69 kg/m2 2020-08-22 BMI 24.69 kg/m2 2020-08-13 BMI 24.69 kg/m2 2020-08-12 BMI 23.77 kg/m2 2020-07-02 BMI 23.77 kg/m2 2020-05-27 BMI 23.77 kg/m2 2020-05-21 BMI 23.96 kg/m2 2020-04-29 BMI 24.51 kg/m2 2020-04-23 BMI 25.05 kg/m2 2020-04-11 BMI 23.77 kg/m2 2020-04-01 BMI 23.77 kg/m2 2020-03-04 BMI 23.77 kg/m2 2020-02-08 BMI 24.14 kg/m2 2020-01-18 BMI 24.14 kg/m2 2020-01-11 BMI 23.04 kg/m2 2019-09-08 BMI 23.41 kg/m2 2019-05-09 BMI 23.04 kg/m2 2018-11-15 BMI 23.23 kg/m2 2018-10-18 BMI 23.04 kg/m2 2018-05-17 BMI 23.23 kg/m2 2018-03-15 BMI 23.04 kg/m2 2018-02-22 BMI 23.04 kg/m2 2018-02-15 BMI 23.41 kg/m2 2017-11-08 BMI 23.77 kg/m2 2017-05-10 BMI 23.77 kg/m2 2017-04-20 BMI 23.41 kg/m2 2016-11-23 BMI 23.41 kg/m2 2016-08-24 BMI 22.31 kg/m2 2016-02-13 BMI 24.05 kg/m2 2015-08-13 BMI 24.14 kg/m2 2015-08-02 BMI 23.59 kg/m2 2015-03-18 BMI 23.41 kg/m2 2015-03-08 BMI 23.23 kg/m2 2015-01-15 BMI 22.13 kg/m2 2014-03-05 BMI 22.31 kg/m2 2013-12-11 BMI 21.95 kg/m2 2013-10-03 BMI 22.13 kg/m2 2013-09-11 BMI 21.40 kg/m2 2013-08-01 BMI 21.58 kg/m2 2013-04-14 BMI 21.58 kg/m2 2013-02-28 BMI 21.95 kg/m2 2012-12-23 BMI 21.95 kg/m2 2012-11-21 BMI 22.13 kg/m2 2012-11-07 BMI 23.04 kg/m2 2012-04-15 BMI 23.04 kg/m2 2011-12-07 BMI 23.23 kg/m2 2011-11-03 BMI 23.59 kg/m2 2011-10-06 BMI 23.50 kg/m2 2011-09-15 BMI 23.59 kg/m2 2011-08-18 BMI 23.41 kg/m2 2011-06-09 BMI 222.57 kg/m2 2011-05-19 BMI 22.68 kg/m2 2011-05-01 BMI 22.31 kg/m2 2011-04-09 BMI 22.49 kg/m2 2011-03-12 BMI 22.49 kg/m2 2011-03-06 BMI 21.95 kg/m2 2011-03-03 BMI 21.76 kg/m2 2011-03-02 Temperature 98.1 degrees Fahrenheit 2021-06-05 Temperature 98.3 degrees Fahrenheit 2021-05-13 Temperature 97.7 degrees Fahrenheit 2021-03-25 Temperature 97.9 degrees Fahrenheit 2020-12-12 Temperature 97.3 degrees Fahrenheit 2020-04-23 Temperature 96.8 degrees Fahrenheit 2020-04-11 Temperature 98.5 degrees Fahrenheit 2015-03-08 Temperature 98.3 degrees Fahrenheit 2013-10-03 Temperature 97.1 degrees Fahrenheit 2012-11-21 Temperature 99.1 degrees Fahrenheit 2011-09-15 Temperature 98.6 degrees Fahrenheit 2011-03-12 Temperature 98.6 degrees Fahrenheit 2011-03-03 Temperature 99.4 degrees Fahrenheit 2011-03-02 Blood pressure systolic 114 mm Hg 2021-12-08 Blood pressure diastolic 58 mm Hg 2021-12-08 MEDICATIONS Medication Instructions Dosage Frequency Start End Duration Statu s Date Date guaiFENesin-Codein Orally every 6 10 ml as 6h 10 Not-Taki e 100-10 MG/5ML hrs needed ng Amoxicillin-Pot Orally every 12 1 tablet 12h 10 day( s) Not-Taki Clavulanate hrs ng 875-125 MG Serevent Diskus 50 Inhalation 1 puff 12h No t-Taki MCG/DOSE Twice a day ng Symbicort 80-4.5 Inhalation 2 puffs 12h Not- Taki MCG/ACT Twice a day ng Zithromax Z-Cl[place] Orally Once a 2 tablet on 24h 12 Sep, 5 day( s) Active 250 MG day the first 2021 day, then 1 tablet daily for 4 days Foradil Aerolizer Inhalation 1 capsule 12h N ot-Taki 12 MCG every 12 hrs ng Doxycycline Orally Twice a 1 capsule 12h 12 Sep, 10 day(s) A ctive Hyclate 100 MG day 2021 Vitamin B12 1000 Orally Once a 1 tablet 24h 30 day(s ) Active MCG day Benzonatate 100 MG Orally Three 1 capsule 8h Active times a day as needed Albuterol Sulfate as directed Ac tive 0.63 MG/3ML Calcium 600 MG Orally QD 1 tablet 24h Active with meals Cyclobenzaprine Orally twice a 1 tablet at 12h 28 Nov, 10 da ys Not-Taki HCl 5 MG day bedtime as 2019 ng needed Prolia 60 MG/ML as directed Acti ve Ventolin HFA * 108 Inhalation 2 puffs as 4h Not-Taki (90 Base) MCG/ACT every 4 hrs needed ng PROCEDURES Procedure Date Ordered Result Body Site DOC MEDS VERIFIED W/PT OR RE December 11, 2013 BMI>=30OR<22 DAVINA NO FOLLOWUP August 01, 2013 ASSAY, GLUCOSE, BLOOD QUANT Feb 28, 2013 VENIPUNCT, ROUTINE* Jun 09, 2011 PHONE E/M BY PHYS 11-20 MIN Apr 29, 2020 ASSAY, GLUCOSE, BLOOD QUANT Apr 15, 2012 ASSAY, GLUCOSE, BLOOD QUANT November 03, 2011 PHONE E/M BY PHYS 11-20 MIN August 13, 2020 ADMN PNEUMCOC VAC NO FEE SCHED DAY Apr 15, 2012 ADMN PNEUMCOC VAC NO FEE SCHED DAY May 13, 2021 DOC MEDS VERIFIED W/PT OR RE August 02, 2015 DOC MEDS VERIFIED W/PT OR RE Mar 18, 2015 BMI<30 AND >=22 CALC & DOCU August 24, 2016 DOC MEDS VERIFIED W/PT OR RE August 24, 2016 FLU IMM NO ORD/ADMIN DOC JESSICA August 01, 2013 NEG SCR D PT NOT ELIG F/U/PLN DOC August 24, 2016 PNEUMOC IMM ORDER/ADMIN August 01, 2013 TOBACCO NON-USER August 24, 2016 PHONE E/M BY PHYS 11-20 MIN Apr 01, 2020 ASSAY, GLUCOSE, BLOOD QUANT November 08, 2017 ASSAY, GLUCOSE, BLOOD QUANT September 04, 2019 ASSAY, GLUCOSE, BLOOD QUANT August 18, 2011 PHONE E/M BY PHYS 11-20 MIN Jan 18, 2020 PHONE E/M BY PHYS 21-30 MIN August 12, 2020 -ELECTROCARDIOGRAM, COMPLETE May 17, 2018 GLYCATED HEMOGLOBIN TEST Apr 11, 2020 PNEUMOCOCCAL VACCINE May 13, 2021 MEDS DOCUMENT W/O VERIFICA September 11, 2013 ASSAY, GLUCOSE, BLOOD QUANT Mar 06, 2011 ASSAY, GLUCOSE, BLOOD QUANT Mar 25, 2021 ASSAY, GLUCOSE, BLOOD QUANT October 06, 2011 PHONE E/M BY PHYS 11-20 MIN May 21, 2020 AT LEAST 1 RX TRANSMIT ERX SYS September 15, 2011 PHONE E/M BY PHYS 21-30 MIN May 27, 2020 GLYCATED HEMOGLOBIN TEST November 23, 2016 DOC MEDS VERIFIED W/PT OR RE October 03, 2013 FLU IMM NO ORD/ADMIN DOC JESSICA Feb 13, 2016 NEG SCR D PT NOT ELIG F/U/PLN DOC August 13, 2015 DOC MEDS VERIFIED W/PT OR RE August 01, 2013 PNEUMOCOCCAL VACC 13 CONNIE IM Apr 15, 2012 TOBACCO NON-USER August 13, 2015 AT LEAST 1 RX TRANSMIT ERX SYS October 06, 2011 PNEUMOC IMM ORDER/ADMIN August 24, 2016 BMI<30 AND >=22 CALC & DOCU August 02, 2015 PHONE E/M BY PHYS 11-20 MIN Feb 08, 2020 ASSAY, GLUCOSE, BLOOD QUANT Apr 14, 2013 PNEUMOCOCCAL VACCINE Feb 11, 2016 ASSAY, GLUCOSE, BLOOD QUANT November 23, 2016 PHONE E/M BY PHYS 11-20 MIN Jan 23, 2022 BMI<30 AND >=22 CALC & DOCU Mar 18, 2015 TOBACCO NON-USER September 11, 2013 DOC MEDS VERIFIED W/PT OR RE Feb 13, 2016 DOC MEDS VERIFIED W/PT OR RE Mar 05, 2014 VENIPUNCT, ROUTINE* Mar 02, 2011 VENIPUNCT, ROUTINE* November 07, 2012 GLYCATED HEMOGLOBIN TEST December 11, 2013 GLYCATED HEMOGLOBIN TEST September 04, 2019 GLYCATED HEMOGLOBIN TEST November 08, 2017 GLYCATED HEMOGLOBIN TEST Feb 28, 2013 FLU IMM NO ORD/ADMIN DOC JESSICA August 02, 2015 GLYCATED HEMOGLOBIN TEST Apr 15, 2012 GLYCATED HEMOGLOBIN TEST Mar 05, 2014 ASSAY, GLUCOSE, BLOOD QUANT Mar 12, 2011 GLYCATED HEMOGLOBIN TEST August 01, 2013 VENIPUNCT, ROUTINE* Mar 08, 2015 GLYCATED HEMOGLOBIN TEST December 12, 2020 PHONE E/M BY PHYS 11-20 MIN Feb 15, 2020 ADMN PNEUMCOC VAC NO FEE SCHED Feb 11, 2016 GLYCATED HEMOGLOBIN TEST December 08, 2021 ASSAY, GLUCOSE, BLOOD QUANT May 13, 2021 PHONE E/M BY PHYS 11-20 MIN August 22, 2020 DOC MEDS VERIFIED W/PT OR RE August 13, 2015 ASSAY, GLUCOSE, BLOOD QUANT November 07, 2012 ASSAY, GLUCOSE, BLOOD QUANT Mar 02, 2011 ASSAY, GLUCOSE, BLOOD QUANT November 15, 2018 VENIPUNCT, ROUTINE* Mar 10, 2018 PHONE E/M BY PHYS 11-20 MIN September 12, 2020 PHONE E/M BY PHYS 11-20 MIN Mar 03, 2022 FLU IMM NO ORD/ADMIN DOC JESSICA Mar 18, 2015 PNEUMOC IMM ORDER/ADMIN August 02, 2015 FLU IMM NO ORD/ADMIN DOC JESSICA August 24, 2016 PNEUMOC IMM ORDER/ADMIN Mar 18, 2015 VENIPUNCT, ROUTINE* Feb 11, 2016 GLYCATED HEMOGLOBIN TEST October 06, 2011 GLYCATED HEMOGLOBIN TEST November 07, 2012 GLYCATED HEMOGLOBIN TEST Mar 02, 2011 VENIPUNCT, ROUTINE* Feb 15, 2018 VENIPUNCT, ROUTINE* Apr 11, 2020 PRES/ABSN URINE INCON ASSESS Feb 13, 2016 GLYCATED HEMOGLOBIN TEST November 15, 2018 GLYCATED HEMOGLOBIN TEST May 13, 2021 PHONE E/M BY PHYS 11-20 MIN Jul 02, 2020 ASSAY, GLUCOSE, BLOOD QUANT August 01, 2013 PHONE E/M BY PHYS 11-20 MIN Feb 19, 2022 PHONE E/M BY PHYS 11-20 MIN Jan 11, 2020 ASSAY, GLUCOSE, BLOOD QUANT Apr 11, 2020 ASSAY, GLUCOSE, BLOOD QUANT December 08, 2021 ASSAY, GLUCOSE, BLOOD QUANT December 11, 2013 PHONE E/M BY PHYS 11-20 MIN November 24, 2021 -ELECTROCARDIOGRAM, COMPLETE May 09, 2019 PHONE E/M BY PHYS 11-20 MIN December 26, 2019 ASSAY, GLUCOSE, BLOOD QUANT Mar 05, 2014 PHONE E/M BY PHYS 11-20 MIN Mar 04, 2020 ASSAY, GLUCOSE, BLOOD QUANT December 07, 2011 PHONE E/M BY PHYS 11-20 MIN Dec 30, 2020 ASSAY, GLUCOSE, BLOOD QUANT September 11, 2013 VENIPUNCT, ROUTINE* May 02, 2019 ASSAY, GLUCOSE, BLOOD QUANT December 12, 2020 PRES/ABSN URINE INCON ASSESS August 24, 2016 RESULTS Name Result Date Reference Range UA CC w/rflx Micro + Cult 2022-06-02 Color Urine Yellow Appearance Urine Clear PH 5.0 5.0-9.0 Glucose Urine UA Negative Negative Urine Blood Negative Negative Specific [place] - Urine >= 1.030 1.005-1 .025 Urine Protein Trace Neg-Trace Urine Ketones Negative Negative Nitrite Urine Negative Negative Leukocyte Esterase Urine Negative Negativ e Complete Blood Count Auto Diff 2022-06-02 White Blood Count 11.7 4.8-10.8 Red Blood Count 4.82 4.20-5.50 Hemoglobin 13.4 12.0-16.0 Hematocrit 43.2 37.0-47.0 Mean Corpuscular Volume 89.6 80.0-98. 0 Mean Corpuscular Hemoglobin 27.8 27.0 -33.0 Mean Corpuscular HGB Conc 31.0 31.0-3 5.0 Red Cell Distribution Width 12.8 11.0 -16.0 Platelet Count 402 160-400 Mean Platelet Volume 10.1 9.4-12.3 Neutrophils Percent Auto 68.6 45-73 Imm Gran Pct Auto 0.3 0.0-0.4 Lymphocytes Percent Auto 17.4 20-40 Monocytes Percent Auto 8.9 2-11 Eosinophils Percent Auto 4.2 0-4 Basophils Percent Auto 0.6 0-2 NRBC Pct Auto 0.0 0.0-0.2 Neutrophils Absolute Auto 8.0 2.0-8. 3 Imm Gran Abs Auto 0.04 0.00-0.03 Lymphocytes Absolute Auto 2.0 1.2-4. 9 Monocytes Absolute Auto 1.0 0.1-1.2 Eosinophils Absolute Auto 0.5 0.0-0. 4 Basophils Absolute Auto 0.1 0.0-0.2 NRBC Abs Auto 0.000 0.0-0.012 Comprehensive [place]. Panel Fast 2022-06-02 Sodium 141 135-145 Potassium 4.4 3.3-5.1 Chloride 105 96-108 Carbon Dioxide 26 22-29 Anion Gap 14 12-20 Blood Urea Nitrogen 16 9-16 Creatinine 0.79 0.5-1.4 Estimated Glomerular Filt Rate > 60 Glucose Fasting 100 60-99 Calcium 9.1 8.4-10.2 Bilirubin Total 0.4 0.0-1.0 Aspartate Amino Transferase 18 5-31 Alanine Aminotransferase 15 0-31 Total Protein 7.2 6.5-8.0 Albumin Level 4.0 3.5-5.0 Alkaline Phosphatase 51 39-117 Lipid Panel 2022-06-02 Triglycerides 222 Cholesterol 210 LDL Cholesterol Calculated 124 HDL Cholesterol 42 Microalbumin, Random 2022-06-02 Creatinine Urine 159.62 Microalbumin Urine 21.0 Microalbum/Creatinine Ratio Ur 13.1 Hemoglobin A1c 2022-06-02 Hemoglobin A1c % 5.8 Estimated Average Glucose 120 Erythrocyte Sedimentation Rate 2022-03-14 Erythrocyte Sedimentation Rate 18 0 -20 C Reactive Protein 2022-03-14 C Reactive Protein 2.16 < or = 0.50 Complete Blood Count Auto Diff 2022-02-26 White Blood Count 11.4 4.8-10.8 Red Blood Count 4.75 4.20-5.50 Hemoglobin 13.3 12.0-16.0 Hematocrit 41.9 37.0-47.0 Mean Corpuscular Volume 88.2 80.0-98. 0 Mean Corpuscular Hemoglobin 28.0 27.0 -33.0 Mean Corpuscular HGB Conc 31.7 31.0-3 5.0 Red Cell Distribution Width 13.0 11.0 -16.0 Platelet Count 393 160-400 Mean Platelet Volume 9.1 9.4-12.3 Neutrophils Percent Auto 65.6 45-73 Imm Gran Pct Auto 0.4 0.0-0.4 Lymphocytes Percent Auto 22.9 20-40 Monocytes Percent Auto 8.1 2-11 Eosinophils Percent Auto 2.4 0-4 Basophils Percent Auto 0.6 0-2 NRBC Pct Auto 0.0 0.0-0.2 Neutrophils Absolute Auto 7.5 2.0-8. 3 Imm Gran Abs Auto 0.04 0.00-0.03 Lymphocytes Absolute Auto 2.6 1.2-4. 9 Monocytes Absolute Auto 0.9 0.1-1.2 Eosinophils Absolute Auto 0.3 0.0-0. 4 Basophils Absolute Auto 0.1 0.0-0.2 NRBC Abs Auto 0.000 0.0-0.012 Basic Metabolic Panel 2022-02-26 Sodium 142 135-145 Potassium 4.6 3.3-5.1 Chloride 103 96-108 Carbon Dioxide 25 22-29 Anion Gap 19 12-20 Blood Urea Nitrogen 18 9-16 Creatinine 0.78 0.5-1.4 Creatinine Clr Calc Pharmacy 44.4 Estimated Glomerular Filt Rate > 60 Glucose Random 96 60-115 Calcium 9.3 8.4-10.2 Troponin-I High Sensitivity 2022-02-26 Troponin-I High Sensitivity 4.4 <3.5 -17.0 C Reactive Protein 2022-02-26 C Reactive Protein 2.57 < or = 0.50 B Type Natriuretic Peptide 2022-02-26 B Type Natriuretic Peptide 74 <100 COVID-19 ID NOW ([employer] [facility]) 2022-02-26 IDNOW Serial# [id number] COVID-19 Test Negative Negative COVID-19 Note See Note Complete Blood Count Auto Diff 2022-01-15 White Blood Count 10.7 4.8-10.8 Red Blood Count 4.77 4.20-5.50 Hemoglobin 13.7 12.0-16.0 Hematocrit 42.7 37.0-47.0 Mean Corpuscular Volume 89.5 80.0-98. 0 Mean Corpuscular Hemoglobin 28.7 27.0 -33.0 Mean Corpuscular HGB Conc 32.1 31.0-3 5.0 Red Cell Distribution Width 12.4 11.0 -16.0 Platelet Count 232 160-400 Mean Platelet Volume 10.6 9.4-12.3 Neutrophils Percent Auto 67.2 45-73 Imm Gran Pct Auto 0.4 0.0-0.4 Lymphocytes Percent Auto 20.3 20-40 Monocytes Percent Auto 8.1 2-11 Eosinophils Percent Auto 3.4 0-4 Basophils Percent Auto 0.6 0-2 NRBC Pct Auto 0.0 0.0-0.2 Neutrophils Absolute Auto 7.2 2.0-8. 3 Imm Gran Abs Auto 0.04 0.00-0.03 Lymphocytes Absolute Auto 2.2 1.2-4. 9 Monocytes Absolute Auto 0.9 0.1-1.2 Eosinophils Absolute Auto 0.4 0.0-0. 4 Basophils Absolute Auto 0.1 0.0-0.2 NRBC Abs Auto 0.000 0.0-0.012 Prothrombin Time INR 2022-01-15 Prothrombin Time 11.9 10.0-13.1 INTERNATIONAL NORM RATIO 1.0 0.9-1.1 Partial Thromboplastin Time 2022-01-15 Partial Thromboplastin Time 38.7 26.0 -36.4 Comprehensive Met. Panel 2022-01-15 Sodium 141 135-145 Potassium 4.7 3.3-5.1 Chloride 104 96-108 Carbon Dioxide 26 22-29 Anion Gap 16 12-20 Blood Urea Nitrogen 24 9-16 Creatinine 0.82 0.5-1.4 Creatinine Clr Calc Pharmacy 42.2 Estimated Glomerular Filt Rate > 60 Glucose Random 111 60-115 Calcium 9.8 8.4-10.2 Bilirubin Total 0.2 0.0-1.0 Aspartate Amino Transferase 14 5-31 Alanine Aminotransferase 11 0-31 Total Protein 7.7 6.5-8.0 Albumin Level 4.3 3.5-5.0 Alkaline Phosphatase 53 39-117 Lactic Acid 2022-01-15 Lactic Acid 1.5 0.5-2.0 COVID-19 ID NOW ([facility]) 2022-01-15 IDNOW Serial# [id number] COVID-19 Test Negative Negative COVID-19 Note See Note Blood Culture (Second) 2022-01-15 D Dimer High Sensitivity 2022-01-15 D Dimer High Sensitivity 601 Erythrocyte Sedimentation Rate 2021-12-24 Erythrocyte Sedimentation Rate 21 0 -20 Comprehensive Met. Panel 2021-12-24 Sodium 141 135-145 Potassium 4.6 3.3-5.1 Chloride 105 96-108 Carbon Dioxide 29 22-29 Anion Gap 12 12-20 Blood Urea Nitrogen 18 9-16 Creatinine 0.82 0.5-1.4 Estimated Glomerular Filt Rate > 60 Glucose Random 98 60-115 Calcium 9.4 8.4-10.2 Bilirubin Total 0.4 0.0-1.0 Aspartate Amino Transferase 15 5-31 Alanine Aminotransferase 15 0-31 Total Protein 7.4 6.5-8.0 Albumin Level 4.3 3.5-5.0 Alkaline Phosphatase 48 39-117 Phosphorus 2021-12-24 Phosphorus 3.2 2.7-4.5 C Reactive Protein 2021-12-24 C Reactive Protein 1.57 < or = 0.50 Vitamin D 25-OH Total 2021-12-24 Vitamin D 25-OH Total 71.2 >30 PTHI 2021-12-24 PTHI 38 16-77 Calcium (PTHI) 9.6 8.6-10.4 Hemoglobin A1c 2021-12-08 Value Hemoglobin A1c 5.9 Glucose, finger stick 2021-12-08 Value 99 Complete Blood Count Auto Diff 2021-11-21 White Blood Count 11.8 4.8-10.8 Red Blood Count 4.76 4.20-5.50 Hemoglobin 13.8 12.0-16.0 Hematocrit 42.1 37.0-47.0 Mean Corpuscular Volume 88.4 80.0-98. 0 Mean Corpuscular Hemoglobin 29.0 27.0 -33.0 Mean Corpuscular HGB Conc 32.8 31.0-3 5.0 Red Cell Distribution Width 12.7 11.0 -16.0 Platelet Count 297 160-400 Mean Platelet Volume 10.1 9.4-12.3 Neutrophils Percent Auto 69.2 45-73 Imm Gran Pct Auto 0.3 0.0-0.4 Lymphocytes Percent Auto 19.9 20-40 Monocytes Percent Auto 7.5 2-11 Eosinophils Percent Auto 2.6 0-4 Basophils Percent Auto 0.5 0-2 NRBC Pct Auto 0.0 0.0-0.2 Neutrophils Absolute Auto 8.2 2.0-8. 3 Imm Gran Abs Auto 0.04 0.00-0.03 Lymphocytes Absolute Auto 2.4 1.2-4. 9 Monocytes Absolute Auto 0.9 0.1-1.2 Eosinophils Absolute Auto 0.3 0.0-0. 4 Basophils Absolute Auto 0.1 0.0-0.2 NRBC Abs Auto 0.000 0.0-0.012 Erythrocyte Sedimentation Rate 2021-11-21 Erythrocyte Sedimentation Rate 17 0 -20 Liver Panel 2021-11-21 Bilirubin Total 0.4 0.0-1.0 Bilirubin Direct < 0.2 0.0-0.5 Aspartate Amino Transferase 17 5-31 Alanine Aminotransferase 13 0-31 Total Protein 7.2 6.5-8.0 Albumin Level 4.2 3.5-5.0 Alkaline Phosphatase 50 39-117 Basic Metabolic Panel 2021-11-21 Sodium 139 135-145 Potassium 4.1 3.3-5.1 Chloride 104 96-108 Carbon Dioxide 26 22-29 Anion Gap 13 12-20 Blood Urea Nitrogen 14 9-16 Creatinine 0.84 0.5-1.4 Creatinine Clr Calc Pharmacy 41.2 Estimated Glomerular Filt Rate > 60 Glucose Random 96 60-115 Calcium 9.6 8.4-10.2 Creatinine 2021-11-21 Creatinine 0.82 0.5-1.4 Estimated Glomerular Filt Rate > 60 Magnesium 2021-11-21 Magnesium 2.3 1.6-2.6 Troponin-I High Sensitivity 2021-11-21 Troponin-I High Sensitivity 3.9 <3.5 -17.0 C Reactive Protein 2021-11-21 C Reactive Protein 3.90 < or = 0.50 Lipase 2021-11-21 Lipase 40 8-78 PTHI 2021-11-21 PTHI 24 16-77 Calcium (PTHI) 10.1 8.6-10.4 UA CC w/rflx Micro + Cult 2021-11-21 Color Urine YELLOW Appearance Urine CLEAR PH 5.5 5.0-8.0 Glucose Urine UA NEG NEG Urine Blood NEG NEG Specific [place] - Urine <= 1.005 1.005-1 .025 Urine Protein NEG NEG-TRACE Urine Ketones NEG NEG Nitrite Urine NEG NEG Leukocyte Esterase Urine NEG NEG COVID-19 ID NOW ([employer] [facility] [facility] [facility]) 2021-11-21 IDNOW Serial# [id number] COVID-19 Test Negative Negative COVID-19 Note See Note Influenza A B2 ID NOW ([employer] [facility]) 2021-11-21 IDNOW Serial# [id number] Influenza A Negative Negative Influenza B2 Negative Negative Influenza A B2 Note See Note PTHI 2021-08-04 PTHI 39 14-64 Calcium (PTHI) 9.6 8.6-10.4 MM tomosynthesis added views L 2021-07-24 US breast LT limited 2021-07-24 MM tomosynthesis screening BI 2021-07-15 Complete Blood Count Auto Diff 2021-05-28 White Blood Count 11.7 4.8-10.8 Red Blood Count 4.44 4.20-5.50 Hemoglobin 13.6 12.0-16.0 Hematocrit 42.7 37.0-47.0 Mean Corpuscular Volume 96.2 80.0-98. 0 Mean Corpuscular Hemoglobin 30.6 27.0 -33.0 Mean Corpuscular HGB Conc 31.9 31.0-3 5.0 Red Cell Distribution Width 14.5 11.0 -16.0 Platelet Count 350 160-400 Mean Platelet Volume 10.7 9.4-12.3 Neutrophils Percent Auto 69.2 45-73 Imm Gran Pct Auto 0.8 0.0-0.4 Lymphocytes Percent Auto 17.0 20-40 Monocytes Percent Auto 8.1 2-11 Eosinophils Percent Auto 4.3 0-4 Basophils Percent Auto 0.6 0-2 NRBC Pct Auto 0.0 0.0-0.2 Neutrophils Absolute Auto 8.1 2.0-8. 3 Imm Gran Abs Auto 0.09 0.00-0.03 Lymphocytes Absolute Auto 2.0 1.2-4. 9 Monocytes Absolute Auto 1.0 0.1-1.2 Eosinophils Absolute Auto 0.5 0.0-0. 4 Basophils Absolute Auto 0.1 0.0-0.2 NRBC Abs Auto 0.000 0.0-0.012 Urinalysis 2021-05-28 Color Urine YELLOW Appearance Urine CLEAR PH 5.5 5.0-8.0 Glucose Urine UA NEG NEG Urine Blood NEG NEG Specific [place] - Urine >= 1.030 1.005-1 .025 Urine Protein NEG NEG-TRACE Urine Ketones NEG NEG Nitrite Urine NEG NEG Leukocyte Esterase Urine NEG NEG Comprehensive [place]. Panel Fast 2021-05-28 Sodium 144 135-145 Potassium 4.5 3.3-5.1 Chloride 104 96-108 Carbon Dioxide 22-29 Anion Gap 16 12-20 Blood Urea Nitrogen 24 9-16 Creatinine 0.85 0.5-1.4 Estimated Glomerular Filt Rate > 60 Glucose Fasting 104 60-99 Calcium 9.9 8.4-10.2 Bilirubin Total 0.4 0.0-1.0 Aspartate Amino Transferase 19 5-31 Alanine Aminotransferase 22 0-31 Total Protein 7.2 6.5-8.0 Albumin Level 4.4 3.5-5.0 Alkaline Phosphatase 47 39-117 Lipid Panel 2021-05-28 Triglycerides 281 Cholesterol 243 LDL Cholesterol Calculated 128 HDL Cholesterol 59 Microalbumin, Random 2021-05-28 Creatinine Urine 120.87 Microalbumin Urine 15.0 Microalbum Creatinine Ratio Ur 12.4 Hemoglobin A1c 2021-05-28 Hemoglobin A1c % 5.5 Estimated Average Glucose 111 Erythrocyte Sedimentation Rate 2021-05-15 Erythrocyte Sedimentation Rate 6 0 -20 C Reactive Protein 2021-05-15 C Reactive Protein 0.60 < or = 0.50 Hemoglobin A1c 2021-05-13 Value Hemoglobin A1c 5.8 Glucose, finger stick 2021-05-13 Value 106 Complete Blood Count Auto Diff 2021-04-15 White Blood Count 16.3 4.8-10.8 Red Blood Count 4.60 4.20-5.50 Hemoglobin 13.9 12.0-16.0 Hematocrit 41.6 37.0-47.0 Mean Corpuscular Volume 90.4 80.0-98. 0 Mean Corpuscular Hemoglobin 30.2 27.0 -33.0 Mean Corpuscular HGB Conc 33.4 31.0-3 5.0 Red Cell Distribution Width 13.3 11.0 -16.0 Platelet Count 177 160-400 Mean Platelet Volume 10.4 9.4-12.3 Neutrophils Percent Auto 76.4 45-73 Imm Gran Pct Auto 0.5 0.0-0.4 Lymphocytes Percent Auto 13.3 20-40 Monocytes Percent Auto 8.8 2-11 Eosinophils Percent Auto 0.7 0-4 Basophils Percent Auto 0.3 0-2 NRBC Pct Auto 0.1 0.0-0.2 Neutrophils Absolute Auto 12.5 2.0-8. 3 Imm Gran Abs Auto 0.08 0.00-0.03 Lymphocytes Absolute Auto 2.2 1.2-4. 9 Monocytes Absolute Auto 1.4 0.1-1.2 Eosinophils Absolute Auto 0.1 0.0-0. 4 Basophils Absolute Auto 0.1 0.0-0.2 NRBC Abs Auto 0.020 0.0-0.012 Prothrombin Time INR 2021-04-15 Prothrombin Time 12.3 9.9-13.0 INTERNATIONAL NORM RATIO 1.1 0.9-1.1 Partial Thromboplastin Time 2021-04-15 Partial Thromboplastin Time 35.4 24.1 -38.0 Comprehensive Met. Panel 2021-04-15 Sodium 135 135-145 Potassium 4.4 3.3-5.1 Chloride 101 96-108 Carbon Dioxide 26 22-29 Anion Gap 12 12-20 Blood Urea Nitrogen 26 9-16 Creatinine 0.87 0.5-1.4 Creatinine Clr Calc Pharmacy 42.2 Estimated Glomerular Filt Rate > 60 Glucose Random 175 60-115 Calcium 9.1 8.4-10.2 Bilirubin Total 0.5 0.0-1.0 Aspartate Amino Transferase 25 5-31 Alanine Aminotransferase 29 0-31 Total Protein 6.6 6.5-8.0 Albumin Level 4.3 3.5-5.0 Alkaline Phosphatase 45 39-117 Lactic Acid 2021-04-14 Lactic Acid 2.3 0.5-2.0 Blood Culture (First) 2021-04-14 Blood Culture (Second) 2021-04-14 Lactic Acid-LAB USE ONLY 2021-04-14 Lactic Acid-LAB USE ONLY 1.8 0.5-2.0 Complete Blood Count Auto Diff 2021-04-13 White Blood Count 11.4 4.8-10.8 Red Blood Count 4.76 4.20-5.50 Hemoglobin 14.4 12.0-16.0 Hematocrit 43.4 37.0-47.0 Mean Corpuscular Volume 91.2 80.0-98. 0 Mean Corpuscular Hemoglobin 30.3 27.0 -33.0 Mean Corpuscular HGB Conc 33.2 31.0-3 5.0 Red Cell Distribution Width 13.2 11.0 -16.0 Platelet Count 126 160-400 Mean Platelet Volume 11.5 9.4-12.3 Neutrophils Percent Auto 59.7 45-73 Imm Gran Pct Auto 0.4 0.0-0.4 Lymphocytes Percent Auto 25.7 20-40 Monocytes Percent Auto 11.2 2-11 Eosinophils Percent Auto 2.5 0-4 Basophils Percent Auto 0.5 0-2 NRBC Pct Auto 0.0 0.0-0.2 Neutrophils Absolute Auto 6.8 2.0-8. 3 Imm Gran Abs Auto 0.05 0.00-0.03 Lymphocytes Absolute Auto 2.9 1.2-4. 9 Monocytes Absolute Auto 1.3 0.1-1.2 Eosinophils Absolute Auto 0.3 0.0-0. 4 Basophils Absolute Auto 0.1 0.0-0.2 NRBC Abs Auto 0.000 0.0-0.012 Liver Panel 2021-04-13 Bilirubin Total 0.5 0.0-1.0 Bilirubin Direct < 0.2 0.0-0.5 Aspartate Amino Transferase 28 5-31 Alanine Aminotransferase 32 0-31 Total Protein 7.5 6.5-8.0 Albumin Level 4.5 3.5-5.0 Alkaline Phosphatase 42 39-117 Basic Metabolic Panel 2021-04-13 Sodium 139 135-145 Potassium 4.4 3.3-5.1 Chloride 104 96-108 Carbon Dioxide 21 22-29 Anion Gap 18 12-20 Blood Urea Nitrogen 18 9-16 Creatinine 0.87 0.5-1.4 Creatinine Clr Calc Pharmacy 42.2 Estimated Glomerular Filt Rate > 60 Glucose Random 102 60-115 Calcium 9.3 8.4-10.2 Magnesium 2021-04-13 Magnesium 2.2 1.6-2.6 Troponin-I High Sensitivity 2021-04-13 Troponin-I High Sensitivity 7.4 <3.5 -17.0 SLIDE REVIEW 2021-04-13 SLIDE REVIEW VERIFIED UA CC w/rflx Micro + Cult 2021-04-13 Color Urine STRAW Appearance Urine CLEAR PH 6.0 5.0-8.0 Glucose Urine UA NEG NEG Urine Blood NEG NEG Specific [place] - Urine <= 1.005 1.005-1 .025 Urine Protein NEG NEG-TRACE Urine Ketones NEG NEG Nitrite Urine NEG NEG Leukocyte Esterase Urine NEG NEG COVID-19 ID NOW ([facility]) 2021-04-13 IDNOW Serial# [id number] COVID-19 Test Negative Negative COVID-19 Note See Note Glucose, finger stick 2021-03-25 Value 120 Erythrocyte Sedimentation Rate 2021-03-11 Erythrocyte Sedimentation Rate 8 0 -20 C Reactive Protein 2021-03-11 C Reactive Protein 0.64 < or = 0.50 Erythrocyte Sedimentation Rate 2021-01-21 Erythrocyte Sedimentation Rate 5 0 -20 C Reactive Protein 2021-01-21 C Reactive Protein 0.25 < or = 0.50 Bacterial Vaginosis Panel 2021-01-21 Trichomonas DNA Probe Negative Negative Gardnerella DNA Probe Negative Negative Kemi DNA Probe Negative Negative Comprehensive Met. Panel 2021-01-02 Sodium 144 135-145 Potassium 4.9 3.3-5.1 Chloride 106 96-108 Carbon Dioxide 28 22-29 Anion Gap 15 12-20 Blood Urea Nitrogen 25 9-16 Creatinine 0.85 0.5-1.4 Estimated Glomerular Filt Rate > 60 Glucose Random 96 60-115 Calcium 9.6 8.4-10.2 Bilirubin Total 0.4 0.0-1.0 Aspartate Amino Transferase 17 5-31 Alanine Aminotransferase 17 0-31 Total Protein 7.3 6.5-8.0 Albumin Level 4.4 3.5-5.0 Alkaline Phosphatase 67 39-117 Potassium 2020-12-31 Potassium 4.5 3.3-5.1 Complete Blood Count Auto Diff 2020-12-24 White Blood Count 10.0 4.8-10.8 Red Blood Count 4.67 4.20-5.50 Hemoglobin 13.5 12.0-16.0 Hematocrit 42.4 37-47 Mean Corpuscular Volume 90.8 80-98 Mean Corpuscular Hemoglobin 28.9 27.0 -33.0 Mean Corpuscular HGB Conc 31.8 31.0-3 5.0 Red Cell Distribution Width 12.4 11.0 -16.0 Platelet Count 355 160-400 Mean Platelet Volume 10.1 9.4-12.3 Neutrophils Percent Auto 67.1 45-73 Imm Gran Pct Auto 0.4 0.0-0.4 Lymphocytes Percent Auto 18.8 20-40 Monocytes Percent Auto 9.1 2-11 Eosinophils Percent Auto 4.0 0-4 Basophils Percent Auto 0.6 0-2 NRBC Pct Auto 0.0 0.0-0.2 Neutrophils Absolute Auto 6.7 2.0-8. 3 Imm Gran Abs Auto 0.04 0.00-0.03 Lymphocytes Absolute Auto 1.9 1.2-4. 9 Monocytes Absolute Auto 0.9 0.1-1.2 Eosinophils Absolute Auto 0.4 0.0-0. 4 Basophils Absolute Auto 0.1 0.0-0.2 NRBC Abs Auto 0.000 0.0-0.012 Erythrocyte Sedimentation Rate 2020-12-24 Erythrocyte Sedimentation Rate 25 0 -20 Comprehensive Met. Panel 2020-12-24 Sodium 141 135-145 Potassium 5.3 3.3-5.1 Chloride 103 96-108 Carbon Dioxide 29 22-29 Anion Gap 14 12-20 Blood Urea Nitrogen 21 9-16 Creatinine 0.79 0.5-1.4 Estimated Glomerular Filt Rate > 60 Glucose Random 86 60-115 Calcium 9.8 8.4-10.2 Bilirubin Total 0.3 0.0-1.0 Aspartate Amino Transferase 16 5-31 Alanine Aminotransferase 18 0-31 Total Protein 7.2 6.5-8.0 Albumin Level 4.2 3.5-5.0 Alkaline Phosphatase 67 39-117 Phosphorus 2020-12-24 Phosphorus 4.2 2.7-4.5 C Reactive Protein 2020-12-24 C Reactive Protein 2.04 < or = 0.50 Cyclic Citrullinated Peptide 2020-12-24 Cyclic Citrullinated Peptide <16 Rheumatoid Factor 2020-12-24 Rheumatoid Factor < 15.0 <15.0 Hemoglobin A1c 2020-12-12 Value Hemoglobin A1c 6.2 Glucose, finger stick 2020-12-12 Value 105 Comprehensive Met. Panel 2020-10-10 Sodium 138 135-145 Potassium 4.6 3.3-5.1 Chloride 103 96-108 Carbon Dioxide 26 22-29 Anion Gap 14 12-20 Blood Urea Nitrogen 22 9-16 Creatinine 0.81 0.5-1.4 Estimated Glomerular Filt Rate > 60 Glucose Random 78 60-115 Calcium 9.7 8.4-10.2 Bilirubin Total 0.2 0.0-1.0 Aspartate Amino Transferase 17 5-31 Alanine Aminotransferase 21 0-31 Total Protein 7.1 6.5-8.0 Albumin Level 4.2 3.5-5.0 Alkaline Phosphatase 62 39-117 Phosphorus 2020-10-10 Phosphorus 4.1 2.7-4.5 Vitamin D 25-OH Total 2020-10-10 Vitamin D 25-OH Total 47.1 >30 PTHI 2020-10-10 PTHI 31 14-64 Calcium (PTHI) 9.7 8.6-10.4 Alkaline Phosphatase Bone 2020-10-10 Alkaline Phosphatase Bone 10.2 see no te Complete Blood Count Auto Diff 2020-08-12 White Blood Count 9.7 4.8-10.8 Red Blood Count 4.68 4.20-5.50 Hemoglobin 14.0 12.0-16.0 Hematocrit 42.8 37-47 Mean Corpuscular Volume 91.5 80-98 Mean Corpuscular Hemoglobin 29.9 27.0 -33.0 Mean Corpuscular HGB Conc 32.7 31.0-3 5.0 Red Cell Distribution Width 12.0 11.0 -16.0 Platelet Count 325 160-400 Mean Platelet Volume 9.5 9.4-12.3 Neutrophils Percent Auto 62.3 45-73 Imm Gran Pct Auto 0.4 0.0-0.4 Lymphocytes Percent Auto 23.2 20-40 Monocytes Percent Auto 10.6 2-11 Eosinophils Percent Auto 2.9 0-4 Basophils Percent Auto 0.6 0-2 NRBC Pct Auto 0.0 0.0-0.2 Neutrophils Absolute Auto 6.0 2.0-8. 3 Imm Gran Abs Auto 0.04 0.00-0.03 Lymphocytes Absolute Auto 2.2 1.2-4. 9 Monocytes Absolute Auto 1.0 0.1-1.2 Eosinophils Absolute Auto 0.3 0.0-0. 4 Basophils Absolute Auto 0.1 0.0-0.2 NRBC Abs Auto 0.000 0.0-0.012 Liver Panel 2020-08-12 Bilirubin Total 0.5 0.0-1.0 Bilirubin Direct < 0.2 0.0-0.5 Aspartate Amino Transferase 13 5-31 Alanine Aminotransferase 9 0-31 Total Protein 7.0 6.5-8.0 Albumin Level 4.2 3.5-5.0 Alkaline Phosphatase 53 39-117 Basic Metabolic Panel 2020-08-12 Sodium 141 135-145 Potassium 4.4 3.3-5.1 Chloride 105 96-108 Carbon Dioxide 27 22-29 Anion Gap 13 12-20 Blood Urea Nitrogen 16 9-16 Creatinine 0.83 0.5-1.4 Creatinine Clr Calc Pharmacy 42.4 Estimated Glomerular Filt Rate > 60 Glucose Random 84 60-115 Calcium 9.3 8.4-10.2 SARS-CoV2/FLU/RSV 2020-08-12 Influenza A PCR NEGATIVE Negative Influenza B PCR NEGATIVE Negative Resp Syncy Virus RNA Qual PCR NEGATIVE Ne gative SARS COV2 PCR INHOUSE NEGATIVE Negative SARS/Flu/RSV Note See Note UA CC w/rflx Micro + Cult 2020-08-12 Color Urine YELLOW Appearance Urine CLEAR PH 5.5 5.0-8.0 Glucose Urine UA NEG NEG Urine Blood NEG NEG Specific [place] - Urine 1.010 1.005-1 .025 Urine Protein NEG NEG-TRACE Urine Ketones NEG NEG Nitrite Urine NEG NEG Leukocyte Esterase Urine NEG NEG MM tomosynthesis added views R 2020-06-27 US breast RT limited 2020-06-27 MM tomosynthesis screening BI 2020-05-27 Hemoglobin A1c 2020-04-11 Value Hemoglobin A1c 3.2 Glucose, finger stick 2020-04-11 Value 109 CHEM 7 PROFILE 2020-01-09 NA 141 135-145 K 4.5 3.3-5.1 CL 105 96-108 CO2 27 22-29 ANION GAP 14 12-20 GLUCOSE,RANDOM 112 60-115 BUN 15 9-16 CREATININE 0.85 0.5-1.4 ESTIMATED GFR > 60 ESTIMATED CrCl 42.2 LIVER PROFILE 2020-01-09 PROTEIN, TOTAL 7.0 6.5-8.0 ALBUMIN 4.5 3.5-5.0 BILIRUBIN, TOTAL 0.3 0.0-1.0 BILIRUBIN, DIRECT 0.2 0.0-0.5 ALK. PHOS. 47 39-117 GOT 16 5-31 GPT 20 0-31 CPK 2020-01-09 CPK 104 26-140 CBC w DIFF 2020-01-09 WBC 7.0 4.8-10.8 RBC 4.67 4.20-5.50 HEMOGLOBIN 14.4 12.0-16.0 HEMATOCRIT 42.7 37-47 MCV 91.4 80-98 MCH 30.8 27.0-33.0 MCHC 33.7 31.0-35.0 PLATELET COUNT 241 160-400 RDW 11.6 11.0-16.0 NEUTROPHILS 57.5 45-73 LYMPHOCYTES 28.0 20-40 MONOCYTES 9.6 2-11 EOSINOPHILS 4.0 0-4 BASOPHILS 0.6 0-2 ABSOLUTE NEUTROPHIL COUNT 4.0 2.0-8. 3 ABSOLUTE LYMPHOCYTE COUNT 2.0 1.2-4. 9 ABSOLUTE MONOCYTE COUNT 0.7 0.1-1.2 ABSOLUTE EOSINOPHIL COUNT 0.3 0.0-0. 4 ABSOLUTE BASOPHIL COUNT 0.0 0.0-0.2 SED RATE (ESR) 2020-01-09 SED RATE 7 0-20 URINALYSIS - CLEAN CATCH (UA) 2020-01-09 COLOR YELLOW APPEARANCE,(UA) CLEAR SPECIFIC GRAVITY <= 1.005 1.005-1.025 LEUKOCYTES NEG NEG NITRITE NEG NEG PROTEIN,QUALITATIVE NEG NEG - TRACE PH 5.5 5.0-8.0 URINE BLOOD NEG NEG KETONES NEG NEG GLUCOSE NEG NEG XR CHEST 1 VIEW 2020-01-09 CREATININE 2019-12-26 CREATININE 0.85 0.5-1.4 ESTIMATED GFR > 60 ALBUMIN 2019-12-26 ALBUMIN 4.7 3.5-5.0 CALCIUM 2019-12-26 CALCIUM 9.7 8.4-10.2 BASIC METABOLIC PROFILE RANDOM 2019-11-21 NA 143 135-145 K 4.5 3.3-5.1 CL 106 96-108 CO2 26 22-29 ANION GAP 16 12-20 GLUCOSE,RANDOM 115 60-115 BUN 18 9-16 CREATININE 0.87 0.5-1.4 ESTIMATED GFR > 60 CALCIUM 9.3 8.4-10.2 ALBUMIN 2019-11-21 ALBUMIN 4.6 3.5-5.0 COLLAGEN CROSSLINKS NTX 2019-11-21 N-TELOPEPTIDE 29 NXT CREARU 148 20-275 VITAMIN D 25-OH TOTAL 2019-11-21 VITAMIN D 25-OH TOTAL 48.4 > 30 PARATHYROID HORMONE INTACT 2019-11-21 CALCIUM (PTHI) 9.4 8.6-10.4 Electrocardiogram (EKG) 2019-05-09 HEMOGLOBIN A1C (GLYCOHEMOGLOBIN) 2019-05-05 HEMOGLOBIN A1C % (HH) 5.7 ESTIMATED AVG GLUCOSE 117 PROFILE, FASTING 2019-05-05 NA 145 135-145 K 4.5 3.3-5.1 CL 108 96-108 CO2 27 22-29 ANION GAP 15 12-20 FASTING BLOOD SUGAR 130 60-99 BUN 17 9-16 CREATININE 0.84 0.5-1.4 ESTIMATED GFR > 60 PROTEIN, TOTAL 6.8 6.5-8.0 ALBUMIN 4.4 3.5-5.0 BILIRUBIN, TOTAL 0.4 0.0-1.0 CALCIUM 9.0 8.4-10.2 ALK. PHOS. 57 39-117 GOT 18 5-31 GPT 21 0-31 MICROALBUMIN, RANDOM 2019-05-05 MICALB/CRE RATIO RANDOM URINE 11.5 MICROALBUMIN, RANDOM URINE 22.0 CREATININE, RANDOM URINE 189.89 CBC w DIFF 2019-05-05 WBC 6.1 4.8-10.8 ABSOLUTE NEUTROPHIL COUNT 4.1 2.2-7. 9 RBC 4.63 4.20-5.50 HEMOGLOBIN 15.2 12.0-16.0 HEMATOCRIT 43.1 37-47 MCV 93.0 80-98 MCH 32.7 27.0-33.0 MCHC 35.2 31.0-35.0 PLATELET COUNT 208 160-400 RDW 11.2 11.0-16.0 NEUTROPHILS 66.8 45-73 LYMPHOCYTES 20.7 20-40 MONOCYTES 7.9 2-11 EOSINOPHILS 3.6 0-4 BASOPHILS 0.9 0-2 SED RATE (ESR) 2019-05-05 SED RATE 7 0-20 URINALYSIS (UA) 2019-05-05 COLOR YELLOW APPEARANCE,(UA) CLEAR SPECIFIC GRAVITY >= 1.030 1.005-1.025 LEUKOCYTES NEG NEG NITRITE NEG NEG PROTEIN,QUALITATIVE NEG NEG - TRACE PH 5.5 5.0-8.0 URINE BLOOD NEG NEG KETONES NEG NEG GLUCOSE NEG NEG LIPOPROTEIN FRACTIONATION W/RFLX 2019-05-05 (LIPID PNL W/RFLX) CHOLESTEROL 249 TRIGLYCERIDE 103 HDL 70 LDL CALCULATED 159 MAMMOGRAM DIGITAL BILATERAL 2019-04-21 SCREEN BASIC METABOLIC PROFILE RANDOM 2019-02-24 NA 141 135-145 K 4.7 3.3-5.1 CL 105 96-108 CO2 27 22-29 ANION GAP 14 12-20 GLUCOSE,RANDOM 88 60-115 BUN 18 9-16 CREATININE 0.79 0.5-1.4 ESTIMATED GFR > 60 CALCIUM 9.7 8.4-10.2 ALBUMIN 2019-02-24 ALBUMIN 4.7 3.5-5.0 MAGNESIUM 2019-02-24 MAGNESIUM 2.3 1.6-2.6 PHOSPHORUS 2019-02-24 PHOSPHORUS 3.2 2.7-4.5 TSH (THYROID STIMULATING 2019-02-24 HORMONE) TSH 2.70 0.32-4.0 CALCIUM, IONIZED 2019-02-24 CALCIUM, IONIZED 5.1 4.8-5.6 COLLAGEN CROSSLINKS NTX 2019-02-24 N-TELOPEPTIDE 40 NXT SEGUNDOU 28 20-275 PROTEIN ELECTROPHORESIS, SERUM 2019-02-24 PROT ELEC - TOTAL PROTEIN 6.9 6.1-8. 1 PROT ELEC - ALBUMIN 4.4 3.8-4.8 PROT ELEC - ALPHA1 0.2 0.2-0.3 PROT ELEC - ALPHA 2 0.6 0.5-0.9 PROT ELEC - BETA-1 0.4 0.4-0.6 PROT ELEC - GAMMA 0.8 0.8-1.7 PES-ABN PROTEIN BAND 1 SEE NOTE () PES-ABN PROTEIN BAND 2 Test not performed () PES-ABN PROTEIN BAND 3 Test not performed () PROT ELEC - INTERPRETATION SEE NOTE () VITAMIN D 25-OH TOTAL 2019-02-24 VITAMIN D 25-OH TOTAL 70.4 > 30 PARATHYROID HORMONE INTACT 2019-02-24 CALCIUM (PTHI) 9.5 8.6-10.4 ALKALINE PHOSPHATASE BONE 2019-02-24 ALKALINE PHOSPHATASE BONE 13.1 GI BIOPSY 2018-12-22 G.I. BIOPSY CHEST WITHOUT CONTRAST 2018-11-24 Hemoglobin A1c 2018-11-15 Value Hemoglobin A1c 5.5 Glucose, finger stick 2018-11-15 Value 97 CHEST 2 VIEWS 2018-10-18 US CAROTID BILATERAL DOPPLER 2018-09-27 BONE DENSITY DEXA 2018-11-11 URINALYSIS + MICROSCOPIC 2018-05-10 COLOR YELLOW APPEARANCE,(UA) HAZY SPECIFIC GRAVITY >= 1.030 1.005-1.025 LEUKOCYTES TRACE NEG NITRITE NEG NEG PROTEIN,QUALITATIVE TRACE NEG - TRACE PH 5.5 5.0-8.0 URINE BLOOD NEG NEG KETONES NEG NEG GLUCOSE NEG NEG MICROSCOPIC WBC 1-4 0-4 MICROSCOPIC RBC 0 0 EPITHELIAL CELLS 4+ BACTERIA 2+ MUCUS TRACE HEMOGLOBIN A1C (GLYCOHEMOGLOBIN) 2018-05-10 HEMOGLOBIN A1C % (HH) 5.7 ESTIMATED AVG GLUCOSE 117 PROFILE, FASTING 2018-05-10 NA 143 135-145 K 4.3 3.3-5.1 CL 107 96-108 CO2 26 22-29 ANION GAP 14 12-20 FASTING BLOOD SUGAR 116 60-99 BUN 21 9-16 CREATININE 0.92 0.5-1.4 ESTIMATED GFR 59 PROTEIN, TOTAL 7.1 6.5-8.0 ALBUMIN 4.4 3.5-5.0 BILIRUBIN, TOTAL 0.4 0.0-1.0 CALCIUM 9.5 8.4-10.2 ALK. PHOS. 56 39-117 GOT 20 5-31 GPT 24 0-31 MICROALBUMIN, RANDOM 2018-05-10 MICALB/CRE RATIO RANDOM URINE 25.2 MICROALBUMIN, RANDOM URINE 51.0 CREATININE, RANDOM URINE 201.63 CBC w DIFF 2018-05-10 WBC 7.9 4.8-10.8 ABSOLUTE NEUTROPHIL COUNT 5.7 2.2-7. 9 RBC 4.68 4.20-5.50 HEMOGLOBIN 15.1 12.0-16.0 HEMATOCRIT 43.4 37-47 MCV 92.8 80-98 MCH 32.2 27.0-33.0 MCHC 34.7 31.0-35.0 PLATELET COUNT 237 160-400 RDW 10.7 11.0-16.0 NEUTROPHILS 72.6 45-73 LYMPHOCYTES 15.8 20-40 MONOCYTES 7.6 2-11 EOSINOPHILS 3.2 0-4 BASOPHILS 0.8 0-2 SED RATE (ESR) 2018-05-10 SED RATE 7 0-20 LIPOPROTEIN FRACTIONATION W/RFLX 2018-05-10 (LIPID PNL W/RFLX) CHOLESTEROL 254 TRIGLYCERIDE 137 HDL 66 LDL CALCULATED 161 MAMMOGRAM DIGITAL BILATERAL 2018-04-05 SCREEN BUN 2018-03-10 BUN 17 9-16 CREATININE 2018-03-10 CREATININE 0.87 0.5-1.4 ESTIMATED GFR > 60 PROFILE, FASTING 2018-02-15 NA 141 135-145 K 4.4 3.3-5.1 CL 106 96-108 CO2 26 22-29 ANION GAP 13 12-20 FASTING BLOOD SUGAR 90 60-99 BUN 25 9-16 CREATININE 0.99 0.5-1.4 ESTIMATED GFR 54 PROTEIN, TOTAL 7.1 6.5-8.0 ALBUMIN 4.5 3.5-5.0 BILIRUBIN, TOTAL 0.3 0.0-1.0 CALCIUM 9.8 8.4-10.2 ALK. PHOS. 66 39-117 GOT 20 5-31 GPT 26 0-31 CBC w DIFF 2018-02-15 WBC 8.2 4.8-10.8 ABSOLUTE NEUTROPHIL COUNT 5.5 2.2-7. 9 RBC 4.42 4.20-5.50 HEMOGLOBIN 14.1 12.0-16.0 HEMATOCRIT 40.5 37-47 MCV 91.7 80-98 MCH 32.0 27.0-33.0 MCHC 34.9 31.0-35.0 PLATELET COUNT 261 160-400 RDW 11.1 11.0-16.0 NEUTROPHILS 66.3 45-73 LYMPHOCYTES 19.6 20-40 MONOCYTES 8.4 2-11 EOSINOPHILS 4.3 0-4 BASOPHILS 1.4 0-2 URINALYSIS (UA) 2018-02-15 COLOR YELLOW APPEARANCE,(UA) CLEAR SPECIFIC GRAVITY >= 1.030 1.005-1.025 LEUKOCYTES NEG NEG NITRITE NEG NEG PROTEIN,QUALITATIVE NEG NEG - TRACE PH 5.5 5.0-8.0 URINE BLOOD NEG NEG KETONES NEG NEG GLUCOSE NEG NEG URINE CULTURE 2018-02-15 URINE CULTURE RESULT URINE CULTURE <10,000 col/ml URINE CULTURE Mixed Gram-positive tristian URINE CULTURE Multiple organism types; clinical significance unclear URINE CULTURE Please resubmit if indicated. URINE CULTURE CHEST WITHOUT CONTRAST 2017-11-22 Hemoglobin A1c 2017-11-08 Value Hemoglobin A1c 5.8 Glucose, finger stick 2017-11-08 Value 163 US ABD AORTA 2017-12-05 HEMOGLOBIN A1C (GLYCOHEMOGLOBIN) 2017-05-03 HEMOGLOBIN A1C % (HH) 5.4 ESTIMATED AVG GLUCOSE 108 LIPOPROTEIN FRACTIONATION (LIPID 2017-05-03 PANEL) CHOLESTEROL 230 TRIGLYCERIDE 145 HDL 50 LDL CALCULATED 151 URINALYSIS + MICROSCOPIC 2017-05-03 COLOR YELLOW APPEARANCE,(UA) HAZY SPECIFIC GRAVITY >= 1.030 1.005-1.025 LEUKOCYTES 1+ NEG NITRITE NEG NEG PROTEIN,QUALITATIVE TRACE NEG - TRACE PH 5.0 5.0-8.0 URINE BLOOD NEG NEG KETONES NEG NEG GLUCOSE NEG NEG MICROSCOPIC WBC 10-14 0-4 MICROSCOPIC RBC 0-2 0 EPITHELIAL CELLS 1+ BACTERIA NONE MUCUS 1+ PROFILE, FASTING 2017-05-03 NA 144 135-145 K 4.6 3.3-5.1 CL 107 96-108 CO2 27 22-29 ANION GAP 15 12-20 FASTING BLOOD SUGAR 126 60-99 BUN 17 9-16 CREATININE 0.99 0.5-1.4 ESTIMATED GFR 54 PROTEIN, TOTAL 6.8 6.5-8.0 ALBUMIN 4.2 3.5-5.0 BILIRUBIN, TOTAL 0.7 0.0-1.0 CALCIUM 9.6 8.4-10.2 ALK. PHOS. 67 39-117 GOT 20 5-31 GPT 26 0-31 MICROALBUMIN, RANDOM 2017-05-03 MICALB/CRE RATIO RANDOM URINE 6.5 MICROALBUMIN, RANDOM URINE 14.0 CREATININE, RANDOM URINE 214.64 CBC w DIFF 2017-05-03 WBC 5.9 4.8-10.8 ABSOLUTE NEUTROPHIL COUNT 3.7 2.2-7. 9 RBC 4.61 4.20-5.50 HEMOGLOBIN 15.1 12.0-16.0 HEMATOCRIT 42.6 37-47 MCV 92.4 80-98 MCH 32.7 27.0-33.0 MCHC 35.4 31.0-35.0 PLATELET COUNT 222 160-400 RDW 11.4 11.0-16.0 NEUTROPHILS 62.4 45-73 LYMPHOCYTES 20.1 20-40 MONOCYTES 10.6 2-11 EOSINOPHILS 5.9 0-4 BASOPHILS 1.0 0-2 URINALYSIS (UA) 2017-05-03 COLOR YELLOW APPEARANCE,(UA) HAZY SPECIFIC GRAVITY >= 1.030 1.005-1.025 LEUKOCYTES 1+ NEG NITRITE NEG NEG PROTEIN,QUALITATIVE TRACE NEG - TRACE PH 5.0 5.0-8.0 URINE BLOOD NEG NEG KETONES NEG NEG GLUCOSE NEG NEG MAMMOGRAM DIGITAL BILATERAL 2017-03-17 SCREEN Hemoglobin A1c 2016-11-23 Value Hemoglobin A1c 5.4 Glucose, finger stick 2016-11-23 Value 158 MAMMOGRAM DIGITAL BILATERAL 2016-03-05 SCREEN HEMOGLOBIN A1C (GLYCOHEMOGLOBIN) 2016-02-11 HEMOGLOBIN A1C % (HH) 5.8 ESTIMATED AVG GLUCOSE 120 LIPOPROTEIN FRACTIONATION (LIPID 2016-02-11 PANEL) CHOLESTEROL 225 TRIGLYCERIDE 173 HDL 46 LDL CALCULATED 145 URINALYSIS + MICROSCOPIC 2016-02-11 COLOR YELLOW APPEARANCE,(UA) HAZY SPECIFIC GRAVITY >= 1.030 1.005-1.025 LEUKOCYTES 1+ NEG NITRITE NEG NEG PROTEIN,QUALITATIVE NEG NEG - TRACE PH 5.5 5.0-8.0 URINE BLOOD NEG NEG KETONES NEG NEG GLUCOSE NEG NEG MICROSCOPIC WBC 1-4 0-4 MICROSCOPIC RBC 0-2 0 EPITHELIAL CELLS 1+ BACTERIA 1+ RENAL EPITHELIAL CELLS TRACE CASTS NONE MUCUS 1+ BASIC METABOLIC PROFILE FAST 2016-02-11 NA 140 135-145 K 4.3 3.3-5.1 CL 107 96-108 CO2 24 22-29 ANION GAP 13 12-20 FASTING BLOOD SUGAR 114 60-99 BUN 18 9-16 CREATININE 0.87 0.5-1.4 ESTIMATED GFR > 60 CALCIUM 9.2 8.4-10.2 PROFILE, FASTING 2016-02-11 PROTEIN, TOTAL 6.8 6.5-8.0 ALBUMIN 4.3 3.5-5.0 BILIRUBIN, TOTAL 0.7 0.0-1.0 ALK. PHOS. 62 39-117 GOT 24 5-31 GPT 36 0-31 MICROALBUMIN, RANDOM 2016-02-11 MICALB/CRE RATIO RANDOM URINE 5.7 MICROALBUMIN, RANDOM URINE 8.0 CREATININE, RANDOM URINE 140.22 CBC w DIFF 2016-02-11 WBC 6.1 4.8-10.8 ABSOLUTE NEUTROPHIL COUNT 3.4 2.2-7. 9 RBC 4.57 4.20-5.50 HEMOGLOBIN 14.4 12.0-16.0 HEMATOCRIT 42.1 37-47 MCV 92.2 80-98 MCH 31.6 27.0-33.0 MCHC 34.2 31.0-35.0 PLATELET COUNT 245 160-400 RDW 11.8 11.0-16.0 NEUTROPHILS 56.4 45-73 LYMPHOCYTES 25.8 20-40 MONOCYTES 11.2 2-11 EOSINOPHILS 5.7 0-4 BASOPHILS 0.9 0-2 CANCELLED HEM 2015-03-08 CANCELLED HEM SEE NOTE TSH (THYROID STIMULATING 2015-03-08 HORMONE) TSH 7.54 0.32-4.0 VITAMIN B12 AND FOLATE 2015-03-08 B12 > 2000 200-900 FOLATE 13.7 > OR = 4.0 CBC w DIFF 2015-03-08 WBC 9.9 4.8-10.8 ABSOLUTE NEUTROPHIL COUNT 6.5 2.2-7. 9 RBC 4.48 4.20-5.50 HEMOGLOBIN 14.0 12.0-16.0 HEMATOCRIT 42.0 37-47 MCV 93.6 80-98 MCH 31.2 27.0-33.0 MCHC 33.3 31.0-35.0 PLATELET COUNT 294 160-400 RDW 11.7 11.0-16.0 NEUTROPHILS 66.3 45-73 LYMPHOCYTES 20.3 20-40 MONOCYTES 7.0 2-11 EOSINOPHILS 4.9 0-4 BASOPHILS 1.4 0-2 SED RATE (ESR) 2015-03-08 SED RATE Insufficient quant. 0-20 MAMMOGRAM DIGITAL BILATERAL 2015-02-25 SCREEN HEMOGLOBIN A1C (GLYCOHEMOGLOBIN) 2015-02-07 HEMOGLOBIN A1C % (HH) 5.3 ESTIMATED AVG GLUCOSE 105 LIPOPROTEIN FRACTIONATION (LIPID 2015-02-07 PANEL) CHOLESTEROL 225 TRIGLYCERIDE 160 HDL 57 LDL 136 PROFILE, FASTING 2015-02-07 NA 140 135-145 K 4.8 3.3-5.1 CL 106 96-108 CO2 25 22-29 ANION GAP 14 12-20 FASTING BLOOD SUGAR 96 60-99 BUN 19 9-16 CREATININE 1.07 0.5-1.4 ESTIMATED GFR 50 PROTEIN, TOTAL 7.1 6.5-8.0 ALBUMIN 4.3 3.5-5.0 BILIRUBIN, TOTAL 0.4 0.0-1.0 CALCIUM 9.3 8.4-10.2 ALK. PHOS. 75 39-117 GOT 22 5-31 GPT 26 0-31 GI BIOPSY 2014-05-15 G.I. BIOPSY cologuard CHEST WITHOUT CONTRAST 2014-03-06 MAMMOGRAM DIGITAL BILATERAL 2014-01-19 SCREEN CHEST WITHOUT CONTRAST 2013-05-03 MAMMOGRAM DIGITAL BILATERAL 2012-12-29 SCREEN SURGICAL 2012-12-29 SURGICAL ELECTROLYTES 2012-12-23 NA 141 135-145 K 4.5 3.3-5.1 CL 105 96-108 CO2 25 22-29 ANION GAP 16 12-20 GLUCOSE,RANDOM 2012-12-23 GLUCOSE,RANDOM 85 60-115 BUN 2012-12-23 BUN 19 9-16 CBC w DIFF 2012-12-23 WBC 7.2 4.8-10.8 ABSOLUTE NEUTROPHIL COUNT 4.1 2.2-7. 9 RBC 4.70 4.20-5.50 HEMOGLOBIN 14.6 12.0-16.0 HEMATOCRIT 42.3 37-47 MCV 90.0 80-98 MCH 31.0 27.0-33.0 MCHC 34.4 31.0-35.0 PLATELET COUNT 238 160-400 RDW 11.4 11.0-16.0 NEUTROPHILS 57.1 45-73 LYMPHOCYTES 24.9 20-40 MONOCYTES 12.2 2-11 EOSINOPHILS 4.6 0-4 BASOPHILS 1.1 0-2 LIPID PANEL WITH REFLEX TO 2012-11-07 DIRECT LDL CHOLESTEROL, TOTAL 208 125-200 HDL CHOLESTEROL 44 > OR = 46 TRIGLYCERIDES 283 <150 LDL-CHOLESTEROL 107 <130 CHOL/HDLC RATIO 4.7 < OR = 5.0 NON HDL CHOLESTEROL 164 COMPREHENSIVE METABOLIC PANEL 2012-11-07 GLUCOSE 79 65-99 UREA NITROGEN (BUN) 18 7-25 CREATININE 1.06 0.60-0.93 eGFR NON-AFR. MOSOTHO 51 > OR = 60 eGFR 59 > OR = 60 BUN/CREATININE RATIO 17 6-22 SODIUM 140 135-146 POTASSIUM 4.8 3.5-5.3 CHLORIDE 103 98-110 CARBON DIOXIDE 27 19-30 CALCIUM 9.4 8.6-10.4 PROTEIN, TOTAL 7.2 6.1-8.1 ALBUMIN 4.4 3.6-5.1 GLOBULIN 2.8 1.9-3.7 ALBUMIN/GLOBULIN RATIO 1.6 1.0-2.5 BILIRUBIN, TOTAL 0.4 0.2-1.2 ALKALINE PHOSPHATASE 47 33-130 AST 29 10-35 ALT 20 6-29 CBC (INCLUDES DIFF/PLT) 2012-11-07 WHITE BLOOD CELL COUNT 8.8 3.8-10.8 RED BLOOD CELL COUNT 4.64 3.80-5.10 HEMOGLOBIN 14.2 11.7-15.5 HEMATOCRIT 42.7 35.0-45.0 MCV 91.9 80.0-100.0 MCH 30.6 27.0-33.0 MCHC 33.3 32.0-36.0 RDW 12.8 11.0-15.0 PLATELET COUNT 221 140-400 MPV 10.3 7.5-11.5 ABSOLUTE NEUTROPHILS 5447 [phone] ABSOLUTE LYMPHOCYTES 2174 850-3900 ABSOLUTE MONOCYTES 880 200-950 ABSOLUTE EOSINOPHILS 255 15-500 ABSOLUTE BASOPHILS 44 0-200 NEUTROPHILS 61.9 LYMPHOCYTES 24.7 MONOCYTES 10.0 EOSINOPHILS 2.9 BASOPHILS 0.5 URINALYSIS, COMPLETE 2012-11-07 COLOR YELLOW YELLOW APPEARANCE CLEAR CLEAR SPECIFIC GRAVITY 1.018 1.001-1.035 PH 6.0 5.0-8.0 GLUCOSE NEGATIVE NEGATIVE BILIRUBIN NEGATIVE NEGATIVE KETONES NEGATIVE NEGATIVE OCCULT BLOOD NEGATIVE NEGATIVE PROTEIN NEGATIVE NEGATIVE NITRITE NEGATIVE NEGATIVE LEUKOCYTE ESTERASE 1+ NEGATIVE WBC 0-5 < OR = 5 RBC NONE SEEN < OR = 3 SQUAMOUS EPITHELIAL CELLS 0-5 < OR = 5 BACTERIA NONE SEEN NONE SEEN HYALINE CAST NONE SEEN NONE SEEN SED RATE BY MODIFIED WESTERGREN 2012-11-07 SED RATE BY MODIFIED WESTERGREN 7 < OR = 30 MICROALBUMIN, RANDOM URINE 2012-11-07 (W/CREATININE) CREATININE, RANDOM URINE 98 20-320 MICROALBUMIN 0.3 See Note: MICROALBUMIN/CREATININE RATIO, 3 < 30 RANDOM URINE Mammogram MAMMOGRAM DIGITAL BILATERAL 2011-11-16 SCREEN CHEST WITHOUT CONTRAST 2011-08-31 HEMOGLOBIN A1c 2011-06-09 HEMOGLOBIN A1c 6.0 <5.7 LIPID PANEL WITH REFLEX TO 2011-06-09 DIRECT LDL CHOLESTEROL, TOTAL 189 125-200 HDL CHOLESTEROL 67 > OR = 46 TRIGLYCERIDES 93 <150 LDL-CHOLESTEROL 103 <130 CHOL/HDLC RATIO 2.8 < OR = 5.0 CBC (INCLUDES DIFF/PLT) 2011-06-09 WHITE BLOOD CELL COUNT 7.5 3.8-10.8 RED BLOOD CELL COUNT 4.35 3.80-5.10 HEMOGLOBIN 13.6 11.7-15.5 HEMATOCRIT 40.8 35.0-45.0 MCV 93.8 80.0-100.0 MCH 31.2 27.0-33.0 MCHC 33.3 32.0-36.0 RDW 13.7 11.0-15.0 PLATELET COUNT 295 140-400 MPV 9.6 7.5-11.5 ABSOLUTE NEUTROPHILS 4665 [phone] ABSOLUTE LYMPHOCYTES [phone] ABSOLUTE MONOCYTES 555 200-950 ABSOLUTE EOSINOPHILS 300 15-500 ABSOLUTE BASOPHILS 15 0-200 NEUTROPHILS 62.2 LYMPHOCYTES 26.2 MONOCYTES 7.4 EOSINOPHILS 4.0 BASOPHILS 0.2 URINALYSIS, COMPLETE 2011-06-09 COLOR YELLOW YELLOW APPEARANCE CLEAR CLEAR SPECIFIC GRAVITY 1.024 1.001-1.035 PH 6.0 5.0-8.0 GLUCOSE NEGATIVE NEGATIVE BILIRUBIN NEGATIVE NEGATIVE KETONES NEGATIVE NEGATIVE OCCULT BLOOD NEGATIVE NEGATIVE PROTEIN NEGATIVE NEGATIVE NITRITE NEGATIVE NEGATIVE LEUKOCYTE ESTERASE 2+ NEGATIVE WBC 20-40 < OR = 5 RBC NONE SEEN < OR = 3 SQUAMOUS EPITHELIAL CELLS 10-20 < OR = 5 BACTERIA MANY NONE SEEN HYALINE CAST 0-5 NONE SEEN TSH, 3RD GENERATION 2011-06-09 TSH 5.77 0.40-4.50 MICROALBUMIN, RANDOM URINE 2011-06-09 (W/CREATININE) CREATININE, RANDOM URINE 134 20-320 MICROALBUMIN 1.3 See Note: MICROALBUMIN/CREATININE RATIO, 10 < 30 RANDOM URINE COMPREHENSIVE METABOLIC PANEL 2011-06-09 GLUCOSE 61 65-99 UREA NITROGEN (BUN) 20 7-25 CREATININE 0.95 0.63-1.22 eGFR NON-AFR. [place] 59 > OR = 60 eGFR 69 > OR = 60 BUN/CREATININE RATIO NOT APPLICABLE 11-19 SODIUM 143 135-146 POTASSIUM 4.0 3.5-5.3 CHLORIDE 105 98-110 CARBON DIOXIDE 27 21-33 CALCIUM 9.9 8.6-10.2 PROTEIN, TOTAL 7.1 6.2-8.3 ALBUMIN 4.1 3.6-5.1 GLOBULIN 3.0 2.2-3.9 ALBUMIN/GLOBULIN RATIO 1.4 1.0-2.1 BILIRUBIN, TOTAL 0.4 0.2-1.2 ALKALINE PHOSPHATASE 52 33-130 AST 21 10-35 ALT 16 6-40 SED RATE BY MODIFIED WESTERGREN 2011-06-09 SED RATE BY MODIFIED WESTERGREN 12 < OR = 30 Hemoglobin A1c Value Hemoglobin A1c COMPREHENSIVE METABOLIC PANEL 2011-03-02 GLUCOSE 126 65-99 UREA NITROGEN (BUN) 17 7-25 CREATININE 0.75 0.63-1.22 eGFR NON-AFR. MOS[place] 79 > OR = 60 eGFR 92 > OR = 60 BUN/CREATININE RATIO NOT APPLICABLE 11-19 SODIUM 140 135-146 POTASSIUM 4.5 3.5-5.3 CHLORIDE 103 98-110 CARBON DIOXIDE 26 21-33 CALCIUM 9.5 8.6-10.2 PROTEIN, TOTAL 7.5 6.2-8.3 ALBUMIN 4.1 3.6-5.1 GLOBULIN 3.4 2.2-3.9 ALBUMIN/GLOBULIN RATIO 1.2 1.0-2.1 BILIRUBIN, TOTAL 0.4 0.2-1.2 ALKALINE PHOSPHATASE 58 33-130 AST 13 10-35 ALT 11 6-40 CREATINE KINASE, TOTAL 2011-03-02 CREATINE KINASE, TOTAL 131 29-143 CBC (INCLUDES DIFF/PLT) 2011-03-02 WHITE BLOOD CELL COUNT 12.2 3.8-10.8 RED BLOOD CELL COUNT 4.26 3.80-5.10 HEMOGLOBIN 13.1 11.7-15.5 HEMATOCRIT 39.4 35.0-45.0 MCV 92.6 80.0-100.0 MCH 30.8 27.0-33.0 MCHC 33.3 32.0-36.0 RDW 13.0 11.0-15.0 PLATELET COUNT 345 140-400 MPV 8.8 7.5-11.5 ABSOLUTE NEUTROPHILS 9675 [phone] ABSOLUTE LYMPHOCYTES [phone] ABSOLUTE MONOCYTES 708 200-950 ABSOLUTE EOSINOPHILS 122 15-500 ABSOLUTE BASOPHILS 49 0-200 NEUTROPHILS 79.3 LYMPHOCYTES 13.5 MONOCYTES 5.8 EOSINOPHILS 1.0 BASOPHILS 0.4 SED RATE BY MODIFIED JAVIERERGREN 2011-03-02 SED RATE BY MODIFIED JAVIERERGREN 49 < OR = 30 cologuard REASON FOR VISIT COMP EXAM, Covid #1 #2 #3 #4 documented, 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, 3 WK, Covid #1 #2 #3 #4 documented, c/o headache cough , Audio [phone], Pt CX U S appt , lump back of right knee very painful x 1 day , Covid #1 #2 #3 #4, No Covid symptoms, 3 month bronchiectsis/ 2 WK F/U, Covid #1 #2 #3 #4 documented, No Covid symptoms except ongoing productive cough and fatigue, Audio [phone], F/U ER pneumonia and sinusinfection finishes antibiotics, Covid #1 #2 #3 #4 doumented, c/o cough due to pneumonia, Audio [phone], headache, 6 [place] F/U, Covid #1 #2 #3 documented flu vc refused documentd, NO Covid symptoms, ER VISIT was tested for Covid in ER negative stopped AB due to vomiting, c/o chills fatigue weakness, headache cough, congestion, , Audio [phone], ER Follow up, records, corrected Mammo order, needs mammo order faxed to [facility], review labs/ pmr, Covid #1 #2 #3 documented cannot have the Flu vac documented, NO Covid symptoms, has [employer], 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, Post Rehah TCM, Covid #1 #2 documented flu refused documented, 3 month follow up appt, Covid #1 and #2 documented, A1C test failed will get at next visit, nose bleed today , NOSE BLEED during the night, No Covid symptoms Covid #1 and #2 documented, Audio [phone], repeat K+, 3 MO F/U, Screening for Fall Risk, Do Covid Screen No Covid symptoms Covid #1 and #2 documented, needs refill, 3 MO F/U SINUS INFECTION, Do Covid Screen nO cOVID SY MPTOMS cOVID #1 AND #2 DOCUMENTED, Complete HCP WE CAN MAIL IT TO THE PATIENT MAILED TO THE PATIENT,USE PHONE NUMBER [phone] THIS # MAILBOX IS FULL AND LEFT MESSAGES ON OTHER 2 NUMBERS, questionsabout 2nd covid shot/still feeling effects of 1st due #2 08-23-20, c/o weakness, fatigue,and muscle aches all other Covid symptoms are negative, audio [phone], WANTS PT AT HOME CANNOT DRIVE TOO WEAK, PT , cough syrup and can she go back on AB, Covid test 08-12-20 negative, audio [phone], weakness after Covid #1 07-28-20, c/o fatigue, headache,cough SOB,muscle pain congestion, all other Covid symptoms are negative, audio [phone], ? Covid vaccine WITH HER HISTORY CAN SHE TAKE THE TDAP, NO COVID SYMPTOMS, AUDIO [phone], Comp exam and review labs, labs in doc's from 05-06-2020, DoCovid Screen NO Covid symptoms, Depression screening; smoking and alcohol status, Communication Screening, Screening for Fall Risk, CK if plans to have T-DAP wants to ask doc if safe , Tel only [phone], sinus x 3 days, c/o fatigue , cough, nasal congestion all other Covid symptoms are negative, Tel call [phone], Yearly fasting labs, VISION, Do Covid Screen No Covid symptoms, Tel only [phone], 2 WEEK F/U MYALGIA, Do Covid Screen- filled out paperwork-no sx, Have pt call insurance co re: [employer]-does not want, follow-up, NO Covid symptoms except this week c/o headache and fatigue for m filled out and signed, Need to see , 4 WEEK F/U PMR, Do Covid Screen no cOVID SYMPTOMS, TELEPHONE ONLY [phone], HAVING TROUBLE SEEING SINCE STARTING THE pREDNISONE SO STOPPED IT 03-29-2020, 2 WEEK F/U PMR, Do Covid Screen NO Covid symptoms, Ck if had flu shot cannot have it, CK if plans to have T-DAP will ask doctor , Tel only [phone], 1 WEEK F/U, no covid sypmtoms, does not get the fluvac, tel only [phone], 3 week f/u myalgia, No Covid symptoms, No Flu, Telephone only [phone], Physical Therapy, 1 WEEK F/U MYALGIA (was to stay off Flexeril for the week), Do COVID Screening NO COVID SYMPTOMS, phone Call only [phone], PH visit from [facility] 01/08 w/malagia, Do COVID Screening NO COVID SYMPTOMS, [facility] Visit 01/09/20, back pain x 3 weeks rightside below waistline no rash,No Covid symptoms, telephone only [phone], 6 month visit telephone only, 6 mo visit for brochiectasis and prediabetes, Screening for Fall Risk, Allergic to flu shots, Comp exam and review labs, Depression screening; smoking and alcohol status, Screening for Fall Risk, EKG, Fasting comp labs, Missed Enodcrine Appt, 6 mo visit for prediabetes (do BS & A1C), Review bone density done 11/11/18, c/o left ear pain x 2 days , RX FOR COUGH SYRUP, BAD COUGH 1 WEEK, Chest CT Scan no contrast, QUESTIONABOUT A MEDICINE, Fabio Carotid US, Comp exam and review labs, Depression screening; smoking and alcohol status, EKG, Due for bone density needs order, Due for colonoscopy - Cris had checked w/Dr. Elise's office, Yearly fasting labs, Going to [facility] for Labs, 3 wk follow up, BUN , 1 wk follow up for lethargy and dysuria (review labs), Results of Culture, 3 MO F/U for thoracic aneurysm and bronchiectasis (review CT Chest and US abd aorta), Screening for Fall Risk, c/oweakness and little energy since having an extraction 3 weeks ago, 3 mo visit , Screening for Fall Risk, CK if had T-DAP, Have pt call insurance co re: [employer], repeat ct chest in one year, 6 mo visit for aortic aneurysm, prediabetes , Due for repeat CT Chest, Do BS & A1C, Due for T-Dap at Pharmacy patient informed, FLU SHOT,comp exam and review labs, Depression screening; smoking and alcohol status, EKG - had ekg done at [facility] 02/2017, fasting comp labs, Pre-OP Dr Brambila Date of Surgery and What is being done Cataract 04-26-17 [facility], Due for fasting yearly labs - last done 01/2016 needs order today has appt [address] 05-03-17, Due for T-Dap at Pharmacy Patient informed, EKG being faxed, 3 MO F/U, Screening for Fall Risk, Do BS & A1C, F/U AFTER [place], Depression and urinary incontinence screening; smoking and alcohol status, Screening for Fall Risk, 6 mo visit and review labs, urinary incontinence screening, cannot find Jarro-Dophilus 2 tabs w/breakfast and 2 tabs with dinner, /FLU SHOT not today has to clear with doctor on 02-13-16 but given Pneumo, 3 mo visit and 1 wk f/u for shoulder pain (was suppose to goto PT - did she start?)starting 08-14-15, Depression and urinary incontinence screening; smoking status, pulled muscle in arm, neck on the right side x 2weeks, 2 WK visit, SED RATE, having sweats, not feeling well x 2 weeks, overdue for visit, Depression and urinary incontinence screening; smoking and alcohol status, Hasn't had labs in 2 years, Needs lab order to bring to [facility], 2 MO VISIT, 6 MO VISIT, due for fasting yearly labs, 6 MO VISIT, 3 MO VISIT and See Back for aortic aneurysm, PQRS - smoking status, lower right abdominal pain X 3 days, Patient states has had 3 loose BM's this AM, PH, Bronchoscopy, DR BRAMBILA 3- 24, PQRS, Screenings complete, CT CHEST, DR BRAMBILA, get date of colonoscopy in 2010; also should get report by Dr. Elise, Here for Preop, 3 MO VISIT, repeat CTof chest is due 03/09/13, give flu shot, discuss colonoscopy again 2008 Dr. Strickland, Repeat CT of Chest, 3 MO VISIT, Dr. Rolando cooley, hammer toe and ganglion cyst, Surgery 12/29/2012, left ear ache x 1 week, 6 MO VISIT, 6 mo visit, 2 MO VISIT, discuss flu and pneumo, 2 MO VISIT, 2MOFU, 2 MO VISIT, 1 MO VISIT, 4WKFU, 2 MO VISIT, coughing up blood clots for the past 5 days; pink mucous and greenish phlegm, CT of Chest, 2 MO VISIT, BIOPSY, wants results of biosey and to have her bloodwork done, Temitopeno longer available, 3wkfu, 3WKFU, 3WKFU, 1WKFU, 3DAYFU, 1DAYFU, elevated sed rate and WBC Insurance Providers [facility] Health Member Patient Patient Patient Patient Patient Subscriber Subscriber Subscriber Group Insurance Plan Plan Plan Plan ID Relationship Address Phone Name Date of ID Name Date of No Type Insurance Insurance Insurance Coverage to Subscriber Address Phone Name Dates MEDICARE [address] MEDICARE self Danielle [id number] Adore Me [place] [facility] [address] [phone] WPS self Danielle [id number] [place] [facility] [address]
--- OUTSIDE RECORDS SUMMARY | 2022-06-04 14:43 | XMS_ITS ---
:1935 Author Name Willardelham Dionisio Care Team Providers Name Role Phone Bill Bustamanten Unavailable Unavailable PROBLEMS Type Condition ICD9-CM Code RLC73-CA Code Onset Condition SNO MED Code Dates Status Problem Hallux valgus M20.12 Active 093474 01 (acquired), left foot Problem Ataxic gait R26.0 Active 20392398 ALLERGIES Substance Reaction Event Type Date Status Shrimp Flavor Unknown Drug Allergy Dec, Active Shellfish-derived Products dizziness Drug Allergy Dec, A ctive ENCOUNTERS Encounter Location Date Diagnosis [address] Jan, [place] [address] Dec, Imtiaz xic gait R26.0 ; Foot [place] drop, right yamini t M21.371 [id number] ; Pain in left f oot M79.672 ; Pain i n right foot M79.671 ; N euralgia and neuritis, un specified M79.2 and Left f oot drop M21.[address] Jul, Ing rowing nail L60.0 ; [place] Skin disease L9 8.9 ; [address] Tinea unguium B3 5.1 and Hallux valgus (a cquired), left foot M20.[address] Dec, [place] [address] [facility] Jul, Misael n in Limb 729.5 ; [place] Arthritis - Deg enerative [address] 719.97 ; Hallux Valgus 735.0 and Hammer toe 735.[address] Apr, Misael n in [place] 729.5 ; [place] Arthritis - Deg enerative [address] 719.97 ; Hallux Valgus 735.0 and Hammer toe 735.[address] Jan, [place] [address] Jan, Misael n in Limb 729.5 ; [place] [facility] [place] Arthritis - Deg enerative [address] 719.97 ; Hallux Valgus 735.0 and Hammer toe 735.[address] Dec, Misael n in Limb 729.5 ; [facility] [place] Arthritis - Deg enerative [address] 719.97 ; Hallux Valgus 735.0 and Hammer toe 735.[address] Dec, Misael n in Limb 729.5 ; [place] Arthritis - Deg enerative [address] 719.97 ; Hallux Valgus 735.0 and Hammer toe 735.[address] Dec, Misael n in Limb 729.5 ; [facility] [place] Arthritis - Deg enerative [address] 719.97 ; Hallux Valgus 735.0 and Hammer toe 735.[address] Dec, [address] [address] Nov, Misael n in Limb 729.5 ; [place] Arthritis - Deg enerative [address] 719.97 ; Hallux Valgus 735.0 ; Hammer t oe 735.4 and Ganglion Cys t 727.[address] [facility] Oct, Misael n in Limb 729.5 ; [place] Arthritis - Deg enerative [address] 719.97 ; Hallux Valgus 735.0 ; Hammer t oe 735.4 and Ganglion Cys t 727.43 [facility] [address] Aug, Misael n in Limb 729.5 ; [place] Arthritis - Deg enerative [address] 719.97 ; Hallux Valgus 735.0 ; Hammer t oe 735.4 and Ganglion Cys t 727.43 IMMUNIZATIONS Vaccine Route Administration Date Status COVID-19 Moderna Vaccine Unknown August 22, 2020 Adminis tered SOCIAL HISTORY Qualifiers Date Former Smoker REASON FOR REFERRAL FUNCTIONAL STATUS PLAN OF CARE Activity Details Pending Test X ray : Foot, left 3V Pending Test X ray : Foot, right 3V Pending Test X ray : Foot, right 2V Pending Test X ray : Foot, right 2V Pending Test X ray : Foot, right 2V Pending Test X ray : Foot, right 2V Pending Test X ray : Foot, right 2V Pending Test X ray : Foot, right 2V VITAL SIGNS Height 5 ft 3 in in 2021-01-27 Weight 133 lbs 2021-01-27 BMI 23.56 kg/m2 2021-01-27 Heart Rate 86 /min 2013-08-10 Temperature 97.2 degrees Fahrenheit 2020-08-21 Blood pressure systolic 114 mm Hg 2021-01-27 Blood pressure diastolic 65 mm Hg 2021-01-27 MEDICATIONS Medication Instructions Dosage Frequency Start End Duration Statu s Date Date AFO-fixed . . Wear daily Dec, . Active 2020 Clarithromycin Orally every 12 1 tablet 12h 10 day(s ) Not-Takin 250 MG hrs g Calcium Active Vitamin B12 Active Avelox 400 MG Orally Once a 1 tablet 24h 10 day(s) N ot-Takin day g Benzonatate Active Physical Therapy . 2-3x/week . Jan, 3-4 weeks N ot-Takin . 2012 g PROCEDURES Procedure Date Ordered Result Body Site X-RAY EXAM OF RIGHT FOOT 2V May 11, 2013 Gel toe cap ($6) May 11, 2013 X-RAY EXAM OF RIGHT FOOT 2V Feb 22, 2013 HALLUS-VALGUS NIGHT DYNAMIC SPLINT Jan 26, 2013 Pneumati walking boot prefab Jan 02, 2013 X-RAY EXAM OF RIGHT FOOT 2V Jan 11, 2013 X-RAY EXAM OF RIGHT FOOT 2V Jan 26, 2013 X-RAY EXAM OF RIGHT FOOT 2V September 21, 2012 X-RAY EXAM OF RIGHT FOOT 2V Jan 02, 2013 Toe Separators (gel-$2) September 21, 2012 X-RAY EXAM OF RIGHT FOOT 3V Jan 27, 2021 X-RAY EXAM OF LEFT FOOT 3V Jan 27, 2021 Insoles-pedag ($40) September 21, 2012 RESULTS No Results REASON FOR VISIT Insurance Providers [facility] Member Patient Patient Patient Patient Patient Subscriber Subscriber Subscriber Group Insurance Plan Plan Plan Plan ID Relationship Address Phone Name Date of ID Name Date of No Type Insurance Insurance Insurance Coverage to Subscriber Address Phone Name Dates Medicare National [phone] Medicare self Danielle [id number] Govt Svcs [employer] ([employer]) [facility] [address] [place] [address] [phone] self Danielle [id number] for Life [id number] for Life [facility] [address] MEDICAL (GENERAL) HISTORY Type Description Date Medical History lung disease Medical History poor circulation Medical History Chicken pox Medical History Measles Medical History Mumps Medical History Ganglion Cyst Medical History Ganglion Cyst Medical History Pain in Limb Medical History Arthritis - Degenerative Medical History Hallux Valgus Medical History Hammer toe Surgical History colonoscopy 12/2010 Surgical History tubal ligation 07/1971 Surgical History biopsy 2010 Surgical History bunionectomy 12/2012 Surgical History hammer toe 12/2012 Surgical History cyst removal 12/2012 Surgical History cataract surgery OD 03/14/2013 Surgical History ear surgery 1989
--- NOTE | 2022-06-04 15:13 | ED.GENADULT ---
HPI - General Adult General Chief complaint: Upper Respiratory Symptoms Stated complaint: COUGH,WEAK,VOMITING Time Seen by Provider: 06/04/22 15:01 Source: patient Mode of arrival: ambulatory Limitations: no limitations History of Present Illness HPI narrative: 86-year-old female with chronic shoulder pain polymyalgia rheumatica and bronchiectasis presents emergency department for bronchiectasis signs with cough and left arm pain. Patient is currently on amoxicillin per EMS she was hypotensive he [address] she is now in the low 100s. Patient did have blood work done just 2 days ago here was not seen as a patient in the ER. I do not see any outpatient notes either her last visit here was in January. Patient has multiple complaints at that time she presented very similarly and agreed this was likely related to her bronchiectasis as well as her polymyalgia rheumatica. Patient appears to have some dementia she does understand these are all chronic conditions. Unfortunately she does live alone. There is nothing new from her previous visits Related Data Home Medications Medication Instructions Recorded Confirmed benzonatate 100 mg capsule 100 mg PO TID PRN Cough 08/05/20 03/06/22 multivitamin 1 tab PO DAILY 08/05/20 03/06/22 acetaminophen 500 mg tablet 500 mg PO BID PRN Pain 12/24/20 03/06/22 (Tylenol Extra Strength) biotin 500 mcg capsule 1 mg PO DAILY 12/24/20 03/06/22 budesonide-formoterol HFA 80 2 inh inhalation BID 01/06/21 03/06/22 mcg-4.5 mcg/actuation aerosol inhaler (Symbicort) mecobalamin (vitamin B12) 1,000 1,000 mcg sublingual DAILY 07/14/21 03/06/22 mcg disintegrating tablet,sublingual codeine 10 mg-guaifenesin 100 mg/5 5 - 10 ml PO Q4H PRN 11/21/21 03/06/22 mL oral liquid amikacin liposomal 590 mg/8.4 mL 590 mg inhalation DAILY 02/05/22 03/06/22 susp for inhalation, nebulizer acces. Previous Rx's Medication Instructions Recorded lactobacillus combination no.4 3 3,000 mmu cells PO DAILY #7 caps 11/21/21 billion cell capsule (Probiotic) Prolia 60 mg/mL subcutaneous 60 mg subcut [id number] #1 mL 01/13/22 syringe (denosumab) cyclobenzaprine 10 mg tablet 5 mg PO BEDTIME PRN muscle spasm 01/13/22 #14 tabs lidocaine 4 % topical patch 1 patch topical DAILY PRN pain #15 01/13/22 (AsperFlex (lidocaine)) ea prednisone 2.5 mg tablet See Rx Instructions PO DAILY #42 03/19/22 tabs calcium carbonate 600 mg calcium 600 mg PO DAILY 90 days #90 tabs 04/29/22 (1,500 mg) tablet Allergies Allergy/AdvReac Type Severity Reaction Status Date / Time influenza virus vaccine, Allergy 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 Iodinated Contrast Media Allergy Severe DIDN'T Verified 03/06/22 13:07 [IV CONTRAST] AGREE WITH PATIENT SHELLFISH Allergy Intermediate VOMITING Uncoded 03/06/22 13:07 contrast dye Allergy Unknown Unknown Uncoded 03/06/22 13:07 fish Allergy Unknown Unknown Uncoded 03/06/22 13:07 IV dye Allergy Unknown Unknown Uncoded 03/06/22 13:07 shellfish Allergy Unknown Unknown Uncoded 03/06/22 13:07 shrimp Allergy Unknown Unknown Uncoded 03/06/22 13:07 Review of Systems Review of Systems: Review of systems: General: Patient denies any fever chills recent illness or falls Musculoskeletal: Denies back pain or body aches or other injuries HEENT: denies headache, runny nose, ear pain Respiratory: shortness of breath, cough Cardiovascular: no chest pain or palpitations : denies dysuria, frequency Abdomen: no nausea vomiting denies abdominal pain Extremities: no swelling, no pain Skin: no diaphoresis Yes all other systems are reviewed and are negative [facility] Past Medical History Medical History Bronchiectasis COVID-19 vaccine series completed Osteoporosis Polymyalgia rheumatica Vitamin D deficiency Surgical History History of ear surgery Hx of colonoscopy Hx of toe surgery Hx of tubal ligation Family History Family History Father No problems noted. Mother Heart disease Brother Colon cancer Brother Stomach cancer Social History Social History Household Members: None Alcohol intake: never Patient Tobacco Use Status: Former Tobacco user Tobacco use type: Cigarette Cigarettes Per Day: 40 Years Smoked: 40 Advance Directives: Yes Advance Directives on File: Yes Advance Directives Date on File: 01/21/21 Physical Exam ED Vital Signs: Vital Signs - 24 hr 06/04/22 14:24 Temperature 98.1 F Pulse Rate 109 H Respiratory Rate 20 Blood Pressure 103/45 L Pulse Oximetry 92 Oxygen Delivery Method Room Air BMI result Body Mass Index 23.8 Medications Administered Discontinued Medications Generic Name Dose Route Start Last Admin Trade Name Freq PRN Reason Stop Dose Admin Sodium Chloride 1,000 mls @ 999 mls/hr 06/04/22 15:15 06/04/22 15:49 Ns IV 06/04/22 16:15 999 mls/hr .Q1H1M VIANNEY Administration Medical Decision Making Medical Decision Making MDM Narrative: Patient with basilar bronchiectasis PMR polymyalgia rheumatica and chronic pain to her shoulders bilaterally. I do think this is a flare of all this. I do not think she is acutely septic I will get x-ray and labs to make sure there is no other concerns 1644 XR and labs are all normal. I will discharge home with PCp follow up. She refuses to take prednisone. She was agreeable to tylenol only. Differential Diagnosis Differential Diagnoses: The differential diagnosis associated with the presentation includes PMR flare as well as chronic pain and bronchiectasis Admission/Observation Consideration of admission/observation: Escalation of care including admission/observation considered Lab Data [facility] Lab Attestation statement: I reviewed the patient's lab results. Result Diagrams: 06/04/22 15:40 06/04/22 15:40 Labs: Lab Results 06/04/22 Range/Units 15:40 Sodium 140 (135-145) mmol/L Potassium 4.2 (3.3-5.1) mmol/L Chloride 106 (96-108) mmol/L Carbon Dioxide 25 (22-29) mmol/L Anion Gap 13 (12-20) BUN 26 H (9-16) mg/dL Creatinine 0.98 (0.5-1.4) mg/dL Estim Creat Clear Calc 33.7 Estimated GFR 54 Random Glucose 108 (60-115) mg/dL Calcium 9.0 (8.4-10.2) mg/dL Radiology Impression Discussion of test interpretation with radiology: I have reviewed the radiologist's reading. Discharge Plan Discharge Clinical Impression: Polymyalgia rheumatica, Bronchiectasis Patient Disposition: Home, Self-Care Instructions: Bronchiectasis (ED), Polymyalgia Rheumatica (ED) Additional Instructions: Please take tylenol as needed for pain. If you have any other concerns please return to the ED. Prescriptions: No Action amikacin liposomal-neb.accessr 590 mg/8.4 mL suspension for nebulization 590 mg inhalation DAILY prednisone 2.5 mg tablet See Rx Instructions PO DAILY Qty: 42 0RF Rx Instructions: take 3 tabs (7.5mg) by mouth daily for 1 week, then 2 tabs (5mg) by mouth daily for 1 week, then 1 tab (2.5mg) by mouth daily for 1 week, then stop. calcium carbonate 600 mg calcium (1,500 mg) tablet 600 mg PO DAILY 90 Days Qty: 90 11RF Probiotic 3 billion cell capsule 3,000 mmu cells PO DAILY Qty: 7 0RF Rx Instructions: administer with a meal cyclobenzaprine 10 mg tablet 5 mg PO BEDTIME PRN (Reason: muscle spasm) Qty: 14 0RF lidocaine [AsperFlex (lidocaine)] 4 % adhesive patch,medicated 1 patch topical DAILY PRN (Reason: pain) Qty: 15 0RF acetaminophen [Tylenol Extra Strength] 500 mg tablet 500 mg PO BID PRN (Reason: Pain) biotin 500 mcg capsule 1 mg PO DAILY benzonatate 100 mg capsule 100 mg PO TID PRN (Reason: Cough) multivitamin Tablet 1 tab PO DAILY budesonide-formoterol [Symbicort] 80-4.5 mcg/actuation HFA aerosol inhaler 2 inh inhalation BID mecobalamin (vitamin B12) 1,000 mcg tablet,disintegrating 1,000 mcg sublingual DAILY Rx Instructions: place tablet under tongue and allow to dissolve for at least30 secs before swallowing Prolia 60 mg/mL syringe 60 mg subcut [id number] Qty: 1 0RF Rx Instructions: Last dose was in July. codeine-guaifenesin 10-100 mg/5 mL liquid 5 - 10 ml PO Q4H PRN
[2022-06-04] MEDS: 0.9 % Sodium Chloride 1,000 ML 999 ML IV (15:49)
[2022-06-04 16:04] LABS: Anion Gap 13 (12-20); Blood Urea Nitrogen 26 mg/dL (9-16); Carbon Dioxide 25 mmol/L (22-29); Chloride 106 mmol/L (96-108); Creatinine Clr Calc Pharmacy 33.7; Estimated Glomerular Filt Rate 54; Glucose Random 108 mg/dL (60-115); Potassium 4.2 mmol/L (3.3-5.1); Sodium 140 mmol/L (135-145)
[2022-06-04 16:51] VITALS: BP 118/66; PULSE 93; RESP 14; TEMP 36.8; O2SAT 96
[2022-06-04] MEDS: Acetaminophen 325 MG TABLET 650 MG PO (17:15)
== END 2022-06-04 17:46 | disposition home or self-care (01) ==
PROVIDERS: Emergency Provider Student in an Organized Health Care Education/Training Program; PCP Internal Medicine
DX: M35.3 Polymyalgia rheumatica (principal); J47.9 Bronchiectasis, uncomplicated; R05.9 Cough, unspecified; M25.512 Pain in left shoulder; Z79.899 Other long term (current) drug therapy
CPT/HCPCS: 36415; 71046; 73030; 80048; 85025; 96360; 99284

== ENCOUNTER 2022-07-22 11:29 | Outpatient (REF) | payer MEDICARE, OTHER, SELFPAY ==
[2022-07-22 15:08] LABS: Alanine Aminotransferase 16 U/L (0-31); Albumin Level 3.9 g/dL (3.5-5.0); Alkaline Phosphatase 58 U/L (39-117); Anion Gap 14 (12-20); Aspartate Amino Transferase 17 U/L (5-31); Bilirubin Total 0.5 mg/dL (0.0-1.0); Blood Urea Nitrogen 17 mg/dL (9-16); Calcium 9.7 mg/dL (8.4-10.2); Carbon Dioxide 29 mmol/L (22-29); Chloride 103 mmol/L (96-108); Estimated Glomerular Filt Rate > 60; Glucose Random 112 mg/dL (60-115); Phosphorus 3.6 mg/dL (2.7-4.5); Potassium 4.6 mmol/L (3.3-5.1); Sodium 141 mmol/L (135-145); Total Protein 7.1 g/dL (6.5-8.0)
[2022-07-22 15:23] LABS: Vitamin D 25-OH Total 58.2 ng/mL (>30)
[2022-07-24 13:19] LABS: Calcium (PTHI) 9.6 mg/dL (8.6-10.4); PTHI 18 pg/mL (16-77)
[2022-07-28 04:14] LABS: N-Telopeptide 103 (see note); NTXCreaRU 216 mg/dL (20-275)
== END 2022-07-22 11:30 | disposition home or self-care (01) ==
LOC: HO.HMGCLDS 11:29
PROVIDERS: PCP Internal Medicine; Visit Provider Internal Medicine
DX: E55.9 Vitamin D deficiency, unspecified (principal); M81.0 Age-related osteoporosis without current pathological fracture
CPT/HCPCS: 36415; 80053; 82306; 82523; 83970; 84100; 99212

== ENCOUNTER → 2022-07-27 13:49 | Outpatient (BNVA) | payer MEDICARE, OTHER, SELFPAY | PROVIDERS: PCP Internal Medicine; Visit Provider Internal Medicine | DX: M81.0 Age-related osteoporosis without current pathological fracture (principal) | CPT/HCPCS: 96372 ==

== ENCOUNTER 2022-08-10 11:38 | Outpatient (REF) | payer MEDICARE, OTHER, SELFPAY ==
[2022-08-10 14:15] LABS: Estimated Glomerular Filt Rate > 60
[2022-08-11 14:53] LABS: Calcium (PTHI) 9.3 mg/dL (8.6-10.4); PTHI 53 pg/mL (16-77)
== END 2022-08-10 11:39 | disposition home or self-care (01) ==
LOC: HO.HMGCLDS 11:38
PROVIDERS: PCP Internal Medicine; Visit Provider Internal Medicine
DX: M81.0 Age-related osteoporosis without current pathological fracture (principal)
CPT/HCPCS: 36415; 82565; 83970

== ENCOUNTER 2022-09-02 15:12 | Outpatient (REF) | payer MEDICARE, OTHER, SELFPAY ==
--- NOTE | ~2022-09-02 | MM_ITS ---
EXAMINATION: MM SCREENING DIGITAL BREAST TOMOSYNTHESIS, BILATERAL CLINICAL INFORMATION: Screening. Asymptomatic. COMPARISON: Mammography: 07/24/2021 and studies dating back to 11/13/2011. TECHNIQUE: Digital breast tomosynthesis is performed in both the craniocaudal and mediolateral oblique views along with computer-aided detection (CAD). Synthesized 2D images are generated from the tomosynthesis. FINDINGS: There are scattered areas of fibroglandular density (ACR BI-RADS breast composition Category b). There are no new significant masses, abnormal calcifications, or other abnormalities. There is a density with some lobular borders seen on mediolateral oblique projection of the right breast measuring approximately 5 x 3 mm in size which was not seen on recent studies but is noted to be present on studies of 03/16/2017 and earlier than that. On craniocaudal view, there are noted to be a few circumscribed and lobular densities about the lateral aspect of the right breast which would correspond in size and appearance to the lesion seen on mediolateral oblique projection. MM/MM tomosynthesis screening BI IMPRESSION: No significant changes from prior exams. ASSESSMENT: BI-RADS 2: Benign RECOMMENDATION: Routine annual mammography screening. This patient's information was entered into a reminder system with a target due date for their next mammogram.
== END 2022-09-02 15:13 | disposition home or self-care (01) ==
LOC: HO.MAMMO 15:12
PROVIDERS: PCP Internal Medicine; Visit Provider Internal Medicine
DX: Z12.31 Encounter for screening mammogram for malignant neoplasm of breast (principal)
CPT/HCPCS: 77063; 77067

== ENCOUNTER → 2022-09-24 11:16 | Outpatient (BNVA) | payer MEDICARE, OTHER, SELFPAY | PROVIDERS: PCP Internal Medicine; Visit Provider Nurse Practitioner Family | DX: H92.02 Otalgia, left ear (principal); M35.3 Polymyalgia rheumatica; M81.0 Age-related osteoporosis without current pathological fracture | CPT/HCPCS: 36415; 85652; 86140; 99212 ==

== ENCOUNTER 2022-09-24 12:35 | Outpatient (REF) | payer MEDICARE, OTHER, SELFPAY ==
[2022-09-24 13:54] LABS: C Reactive Protein 4.58 mg/dL (< or = 0.50)
[2022-09-24 19:21] LABS: Erythrocyte Sedimentation Rate 39 MM/HR (0-20)
== END 2022-09-24 12:36 | disposition home or self-care (01) ==
LOC: HO.10HDL 12:35
PROVIDERS: Visit Provider Nurse Practitioner Family
DX: Z13.89 Encounter for screening for other disorder (principal)
CPT/HCPCS: 36415; 85652; 86140

== ENCOUNTER 2023-01-27 14:10 | Outpatient (AMB) | payer MEDICARE, OTHER, SELFPAY ==
--- NOTE | 2023-01-27 14:26 | AM.OFFVISNUR ---
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 Iodinated Contrast Media [IV CONTRAST] Allergy (Severe, Verified 10/29/22 15:48) DIDN'T AGREE WITH PATIENT SHELLFISH Allergy (Intermediate, Uncoded 10/14/22 14:36) VOMITING contrast dye Allergy (Unknown, Uncoded 10/14/22 14:36) Unknown fish Allergy (Unknown, Uncoded 10/14/22 14:36) Unknown IV dye Allergy (Unknown, Uncoded 10/14/22 14:36) Unknown shellfish Allergy (Unknown, Uncoded 10/14/22 14:36) Unknown shrimp Allergy (Unknown, Uncoded 10/14/22 14:36) Unknown Office Meds Prolia Performing Provider: Isabel Weller DO Administered by: Antonio Potter RN on 01/27/23 14:26 Dose Route Admin Location Lot Number Expiration Date NDC Casing Inspector 60 mg subcut L arm [id number] 07/28/25 AMGEN Coding Diagnoses Assessment & Plan Assessment & Plan Orders: Orders AMB Denosumab Injection Patient Supplied Today M81.0 - Age-related osteoporosis without current pathological fracture
== END 2023-01-27 14:21 | disposition home or self-care (01) ==
LOC: HO.ENCR 14:10
PROVIDERS: PCP Internal Medicine; Visit Provider Internal Medicine
DX: M81.0 Age-related osteoporosis without current pathological fracture (principal)

== ENCOUNTER → 2023-01-27 14:10 | Outpatient (BNVA) | payer MEDICARE, OTHER, SELFPAY | PROVIDERS: PCP Internal Medicine; Visit Provider Internal Medicine | DX: M81.0 Age-related osteoporosis without current pathological fracture (principal) | CPT/HCPCS: 96372; J0897 ==

== ENCOUNTER 2023-04-06 13:40 | Outpatient (AMB) | payer MEDICARE, OTHER, SELFPAY ==
--- NOTE | 2023-04-06 14:44 | AM.OFFWIN_ITS ---
Intake Vital Signs 04/06/23 14:45 Height 5 ft 2 in Weight 120 lb 2 oz BMI 22.0 BP 118/60 Blood Pressure Location Rt brachial Position Sitting Pulse 84 Pulse Source Pulse Oximeter Pulse Oximetry (%) 95 Oxygen Delivery Method Room Air Intake Visit Reasons: EP rt shoulder pain radiates up neck. 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 Iodinated Contrast Media [IV CONTRAST] Allergy (Severe, Verified 04/06/23 14:49) DIDN'T AGREE WITH PATIENT SHELLFISH Allergy (Intermediate, Uncoded 04/06/23 14:49) VOMITING contrast dye Allergy (Unknown, Uncoded 04/06/23 14:49) Unknown fish Allergy (Unknown, Uncoded 04/06/23 14:49) Unknown IV dye Allergy (Unknown, Uncoded 04/06/23 14:49) Unknown shellfish Allergy (Unknown, Uncoded 04/06/23 14:49) Unknown shrimp Allergy (Unknown, Uncoded 04/06/23 14:49) Unknown Medication List - Last Reconciled 04/06/23 by Wade Scott MD acetaminophen (Tylenol Extra Strength) 500 mg PO BID PRN albuterol sulfate 90 mcg/actuation 2 puffs inhalation Q6H PRN amikacin liposomal-neb.accessr 590 mg/8.4 mL 590 mg inhalation DAILY budesonide-formoterol 80-4.5 mcg/actuation (Symbicort) 2 inhalations inhalation BID calcium carbonate 600 mg PO DAILY 90 days fluticasone propionate 50 mcg/actuation 1 spray intranasal DAILY lactobacillus combination no.4 (Probiotic) 3,000 mmu cells PO DAILY levalbuterol HCl mg inhalation lidocaine 4% (AsperFlex (lidocaine)) 1 patch topical DAILY PRN mecobalamin (vitamin B12) 1,000 mcg sublingual DAILY multivitamin 1 tab PO DAILY Prolia (denosumab) 60 mg subcut [id number] NS sodium chloride 7% mL inhalation HPI EP rt shoulder pain radiates up neck. HPI Details 87-year-old female presents to the [facility] for a sick visit. Patient is complaining of pain on the left side of her neck for the past few days. Symptoms started after she received her last flu shot. Pain is worse on turning her head to the left side. [facility] Medical History Bronchiectasis COVID-19 vaccine series completed Osteoporosis Polymyalgia rheumatica Vitamin D deficiency Surgical History History of ear surgery Hx of colonoscopy Hx of toe surgery Hx of tubal ligation Family History Father No problems noted. Mother Heart disease Brother Colon cancer Brother Stomach cancer Social History Household Members: None Alcohol intake: never Patient Tobacco Use Status: Former Tobacco user Tobacco use type: Cigarette Cigarettes Per Day: 40 Years Smoked: 40 Advance Directives Date on File: 01/21/21 Physical Exam Vital Signs: Last Vital Signs Pulse 84 04/06/23 14:45 BP 118/60 04/06/23 14:45 Pulse Ox 95 04/06/23 14:45 Oxygen Delivery Method Room Air 04/06/23 14:45 BMI result Body Mass Index 22.0 Const General: cooperative and healthy appearing Nutritional Appearance: well nourished Orientation/consciousness: patient oriented x3 Limitations: no limitations HEENT Head: Yes normal to inspection Eyes General: appearance normal, both eyes and all related structures Neck Other: Neck: Left trapezius mild discomfort Neck: Yes normal visual inspection Chest Chest palpation & inspection: normal palpation of entire chest wall Resp Effort & Inspection: normal respiratory effort Neuro General: patient oriented x3 Assessment & Plan Assessment & Plan (1) Sprain of cervical neck: Code(s): S13.9XXA - Sprain of joints and ligaments of unspecified parts of neck, initial encounter Plan: Cyclobenzaprine called in. If symptoms do not get better to follow-up here. Coding Level of Care Code Est Pt Level 3 (81032) Diagnoses Sprain of cervical neck S13.9XXA
[2023-04-06 14:45] VITALS: BP 118/60; PULSE 84; O2SAT 95; BMI 22.0
== END 2023-04-06 15:51 | disposition home or self-care (01) ==
PROVIDERS: PCP Internal Medicine; Visit Provider Nurse Practitioner Primary Care
DX: S13.9XXA Sprain of joints and ligaments of unspecified parts of neck, initial encounter (principal)
CPT/HCPCS: 99213

== ENCOUNTER 2023-04-14 13:38 | Outpatient (REF) | payer MEDICARE, OTHER, SELFPAY ==
[2023-04-14 17:48] LABS: Appearance Urine Clear; Color Urine Yellow; Glucose Urine UA Negative (Negative); Leukocyte Esterase Urine Negative (Negative); Nitrite Urine Negative (Negative); PH 5.5 (5.0-9.0); Urine Blood Negative (Negative); Urine Ketones Negative (Negative); Urine Protein Negative (Neg-Trace)
== END 2023-04-14 13:39 | disposition home or self-care (01) ==
LOC: HO.HMGCLDS 13:38
PROVIDERS: PCP Internal Medicine; Visit Provider Internal Medicine
DX: N39.0 Urinary tract infection, site not specified (principal)
CPT/HCPCS: 81003

== ENCOUNTER 2023-05-10 14:05 | Outpatient (AMB) | payer MEDICARE, OTHER, SELFPAY ==
[2023-05-10 14:07] VITALS: BP 112/50; PULSE 82; BMI 22.4
--- NOTE | 2023-05-10 14:07 | MHC.OFFVIS ---
Intake Vital Signs 05/10/23 14:07 Height 5 ft 2 in Weight 122 lb 5.705 oz BMI 22.4 BP 112/50 L Blood Pressure Location Rt brachial Position Sitting Pulse 82 Pulse Source Pulse Oximeter Intake Visit Reasons: Osteoporosis/CONFIRMED Intake Note: Patient present for Osteoporosis follow up visit. Previously managed by Dr. Lam. Signal Operator Linguist Required: No Accompanied by: Self / Same As Patient Allergies influenza virus vaccine, specific [FLU VACCINE] Allergy (Severe, Verified 05/10/23 14:13) DUE TO GUILLIAN BARRE Iodinated Contrast Media [IV CONTRAST] Allergy (Severe, Verified 05/10/23 14:13) DIDN'T AGREE WITH PATIENT SHELLFISH Allergy (Intermediate, Uncoded 04/06/23 14:49) VOMITING contrast dye Allergy (Unknown, Uncoded 04/06/23 14:49) Unknown fish Allergy (Unknown, Uncoded 04/06/23 14:49) Unknown IV dye Allergy (Unknown, Uncoded 04/06/23 14:49) Unknown shellfish Allergy (Unknown, Uncoded 04/06/23 14:49) Unknown shrimp Allergy (Unknown, Uncoded 04/06/23 14:49) Unknown Medication List - Last Reconciled 05/10/23 by Carlos Grimaldo MD acetaminophen (Tylenol Extra Strength) 500 mg PO BID PRN albuterol sulfate 90 mcg/actuation 2 puffs inhalation Q6H PRN amikacin liposomal-neb.accessr 590 mg/8.4 mL 590 mg inhalation DAILY budesonide-formoterol 80-4.5 mcg/actuation (Symbicort) 2 inhalations inhalation BID calcium carbonate 600 mg PO DAILY 90 days fluticasone propionate 50 mcg/actuation 1 spray intranasal DAILY lactobacillus combination no.4 (Probiotic) 3,000 mmu cells PO DAILY levalbuterol HCl mg inhalation mecobalamin (vitamin B12) 1,000 mcg sublingual DAILY multivitamin 1 tab PO DAILY Prolia (denosumab) 60 mg subcut [id number] NS sodium chloride 7% mL inhalation HPI HPI Comments History of Present Illness Details 87 YO Female with PMHx Bronchiectasis is seen in F/U for Osteoporosis. The patient last saw Dr. Lam on 07/22/2022 First diagnosed in 2018 after her BMD October 2018. Review of records reveals that she did have Osteoporosis of the spine in 2004 based on DEXA. She began treatment with Prolia and had her first injection 04/18/2019, second 12/05/2019, third 01/06/2021, fourth 07/15/2021 and fifth 01/15/2022. There was a delay between her 2nd and third dose as she was supposed to be traveling to [place] and had cancelled her F/U's with us. She is due now for her 6th dose. No history of pathologic fracture or ONJ. Has 2 servings of dietary calcium per day in the form of milk, cheese and yogurt. Takes Calcium Carbonate 600 mg PO daily. Does not take a Vitamin D supplement as her levels were elevated. Denies ever using PPI, anticoagulant, or antiepileptic. Has used Prednisone tapers in the past for her lung disease, but not in many years. Does weight bearing exercise 2 days per week in the form of dancing for 1-2 hours at a time. 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 Fracture history: Fractured a metatarsal bone in her hand 30 years ago. Height loss: Has lost 2 inches in height. PHYSICAL MEDICINE SPECIALIST history: Menarche 16. Menses was always regular. , did not breastfeed. Menopause was age 46. Did use intravaginal estrogen beginning at the age of 62 until just recently, but did not use systemic HRT. History of Kidney stones: Denies Denies a family history of Osteoporosis or hip fracture. UTD on dental cleanings and sees dentist every 6 months. No recent dental extractions. DXA dated 01/28/2022 FINDINGS: AP SPINE L1-L4: Current: BMD 0.890 g/cm2, Z-score -0.3, T-score -2.4, osteopenia, 5.0% increase from baseline (<5% change is not significant). Baseline: BMD 0.848 g/cm2. LEFT FEMUR, NECK: Current: BMD 0.775 g/cm2, Z-score 0.6, T-score -1.9, osteopenia. Baseline: BMD 0.719 g/cm2. LEFT FEMUR, TOTAL: Current: BMD 0.725 g/cm2, Z-score 0.2, T-score -2.2, osteopenia, 5.8% increase from baseline (<5% change is not significant). Baseline: BMD 0.685 g/cm2. Labs: Laboratory Tests 07/22/22 11:38 Sodium 141 Potassium 4.6 Creatinine 0.80 Estimated GFR > 60 Calcium 9.7 D Phosphorus 3.6 Albumin 3.9 N o hx of fractures . Tolerating Prolia okay. No hx of GERD . Last dose of Prolia was Dec. [facility] Medical History Bronchiectasis COVID-19 vaccine series completed Osteoporosis Polymyalgia rheumatica Vitamin D deficiency Surgical History History of ear surgery Hx of colonoscopy Hx of toe surgery Hx of tubal ligation Family History Father No problems noted. Mother Heart disease Brother Colon cancer Brother Stomach cancer Social History Household Members: None Alcohol intake: never Patient Tobacco Use Status: Former Tobacco user Tobacco use type: Cigarette Cigarettes Per Day: 40 Years Smoked: 40 Advance Directives Date on File: 01/21/21 Assessment & Plan Assessment & Plan (1) Osteoporosis: Code(s): M81.0 - Age-related osteoporosis without current pathological fracture Qualifiers: Osteoporosis type: unspecified Presence of current pathological fracture: unspecified Qualified Code(s): M81.0 - Age-related osteoporosis without current pathological fracture Plan: This 87-year-old white female with history of osteoporosis with negative secondary workup who received 3 years of Prolia treatment with last DEXA bone density in the osteopenic range. Will talk to patient about potentially transitioning to either oral or intravenous bisphosphonate . After a careful discussion with the patient, we decided to transition to oral alendronate 70 mg q.week which will start . Will see patient back 2-3 weeks prior to transitioning Coding Level of Care Code Est Pt Level 3 (45485) Diagnoses Osteoporosis, unspecified osteoporosis type, unspecified pathological fracture presence M81.0 Osteoporosis type: unspecified Presence of current pathological fracture: unspecified
== END 2023-05-10 14:39 | disposition home or self-care (01) ==
PROVIDERS: PCP Internal Medicine; Visit Provider Internal Medicine Endocrinology, Diabetes & Metabolism
DX: M81.0 Age-related osteoporosis without current pathological fracture (principal)
CPT/HCPCS: 99213

== ENCOUNTER → 2023-05-10 14:05 | Outpatient (BNVA) | payer MEDICARE, OTHER, SELFPAY | PROVIDERS: PCP Internal Medicine; Visit Provider Internal Medicine Endocrinology, Diabetes & Metabolism | DX: M81.0 Age-related osteoporosis without current pathological fracture (principal) | CPT/HCPCS: 99212 ==

== ENCOUNTER 2023-06-02 11:20 | Outpatient (REF) | payer MEDICARE, OTHER, SELFPAY | END 2023-06-02 11:21 | disposition home or self-care (01) | LOC: HO.HMGCLDS 11:20 | PROVIDERS: PCP Internal Medicine; Visit Provider Internal Medicine | DX: R73.09 Other abnormal glucose (principal); E78.2 Mixed hyperlipidemia | CPT/HCPCS: 36415; 80053; 80061; 81003; 82043; 82570; 83036; 85025 ==

== ENCOUNTER 2023-07-13 16:52 | Inpatient (IN) | payer MEDICARE, OTHER, SELFPAY ==
[2023-07-13] VITALS (7 sets, daily range): BP systolic 105–133; BP diastolic 48–66; PULSE 78–102; RESP 18–20; TEMP 36.8–37; O2SAT 90–97; BMI 22.7
--- NOTE | ~2023-07-13 | XR_ITS ---
EXAMINATION: XR CHEST CLINICAL INFORMATION: Pneumonia. Bronchiectasis. COMPARISON: Chest x-ray June 04, 2022. CT chest January 15, 2022 TECHNIQUE: Frontal portable view of the chest was obtained. 1800 hours FINDINGS: Chronic bronchiectasis mostly affecting the right upper lobe associated bronchial wall thickening. Scattered airspace opacities which in part is related to the bronchial wall thickening as well as scattered airspace opacities similar CT chest January 15, 2022. No acute airspace disease. No pleural effusion or pneumothorax. XR/XR chest 1V IMPRESSION: Chronic bronchiectasis and bronchial wall thickening. Scattered airspace opacities similar to CT chest January 15, 2022. No acute airspace disease.
--- NOTE | 2023-07-13 17:24 | ECG_ITS ---
Test Reason : SOB Blood Pressure : / mmHG Vent. Rate : 100 BPM Atrial Rate : 100 BPM P-R Int : 132 ms QRS Dur : 068 ms QT Int : 350 ms P-R-T Axes : 077 -09 052 degrees QTc Int : 451 ms Normal sinus rhythm Normal ECG When compared with ECG of 26-FEB-2022 19:46, No significant change was found Referred By: Kerri Boogie Electronically Signed By:Carmelo Urias
--- NOTE | 2023-07-13 17:26 | ED_ITS ---
HPI - General Adult General Chief complaint: Upper Respiratory Symptoms Stated complaint: SOB & WEAKNESS X3DAYS,N/V Time Seen by Provider: 07/13/23 16:53 Source: patient and EMS Mode of arrival: EMS Limitations: no limitations History of Present Illness HPI narrative: Patient comes to the emergency room complaining cough, shortness of breath for about 3 days. Patient states that last weekend, patient's celebrated her birthday with her family. Patient believes that since then she has been coughing. Patient states that she has history of bronchiectasis which has been well controlled. Over the last couple of days, patient has heavy mucus production. Denies fever or chills. No chest pain. Also, patient reports multiple episodes of nausea and vomiting. Patient had diarrhea couple of times which self-resolved. Patient states that she has not been able to eat anything solid for couple of days due to nausea and vomiting, but has been able to sip some fluids. According to EMS, the lowest oxygen saturation was 92% on room air. In route to the hospital patient received 2 DuoNebs and 125 mg of Solu- Medrol Related Data Home Medications Medication Instructions Recorded Confirmed multivitamin 1 tab PO DAILY 08/05/20 04/06/23 acetaminophen 500 mg tablet 500 mg PO BID PRN Pain 12/24/20 04/06/23 (Tylenol Extra Strength) budesonide-formoterol HFA 80 2 inh inhalation BID 01/06/21 04/06/23 mcg-4.5 mcg/actuation aerosol inhaler (Symbicort) mecobalamin (vitamin B12) 1,000 1,000 mcg sublingual DAILY 07/14/21 04/06/23 mcg disintegrating tablet,sublingual amikacin liposomal 590 mg/8.4 mL 590 mg inhalation DAILY 02/05/22 04/06/23 susp for inhalation, nebulizer acces. albuterol sulfate 90 mcg/actuation 2 puff inhalation Q6H PRN cough 09/24/22 04/06/23 aerosol inhaler fluticasone propionate 50 1 spray intranasal DAILY 09/24/22 04/06/23 mcg/actuation nasal spray,suspension levalbuterol HCl 1.25 mg/3 mL mg inhalation 09/24/22 04/06/23 solution for nebulization sodium chloride 7 % for ml inhalation 09/24/22 04/06/23 nebulization Previous Rx's Medication Instructions Recorded lactobacillus combination no.4 3 3,000 mmu cells PO DAILY #7 caps 11/21/21 billion cell capsule (Probiotic) calcium carbonate 600 mg calcium 600 mg PO DAILY 90 days #90 tabs 04/29/22 (1,500 mg) tablet Prolia 60 mg/mL subcutaneous 60 mg subcut [id number] #1 mL 06/10/23 syringe (denosumab) Allergies Allergy/AdvReac Type Severity Reaction Status Date / Time influenza virus vaccine, Allergy 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 Iodinated Contrast Media Allergy Severe DIDN'T Verified 07/13/23 17:26 [IV CONTRAST] AGREE WITH PATIENT SHELLFISH Allergy Intermediate VOMITING Uncoded 07/13/23 17:26 contrast dye Allergy Unknown Unknown Uncoded 07/13/23 17:26 fish Allergy Unknown Unknown Uncoded 07/13/23 17:26 IV dye Allergy Unknown Unknown Uncoded 07/13/23 17:26 shellfish Allergy Unknown Unknown Uncoded 07/13/23 17:26 shrimp Allergy Unknown Unknown Uncoded 07/13/23 17:26 Review of Systems 2 Review of Systems: Constitutional : No Weight loss, No Fever, No Chills, No Night Sweats, No Fatigue, No Malaise ENT/Mouth : No Hearing loss, No Ear Pain, No Nasal Congestion, No Sinus Pain, No Hoarseness, No sore throat, No Rhinorrhea, No Swallowing Difficulty Eyes: No Eye Pain, No Swelling, No Redness, No Foreign Body, No Discharge, No Vision Changes Cardiovascular : No Chest Pain, No SOB, No Dyspnea on Exertion, No Orthopnea, No Edema, No Palpitations Respiratory : Complaining of cough and sputum production No Wheezing, No Smoke Exposure, No Dyspnea Gastrointestinal : Complaining of nausea and vomiting, diarrhea so resolved,, No Constipation, No abdominal Pain, No Hematochezia, No Melena Genitourinary : no irregular bleeding, No Dysuria, No Urinary Frequency, No Hematuria, No Urinary Incontinence, No Urgency, No Flank Pain, No Urinary Flow Changes, No Hesitancy Musculoskeletal : No joint pain, No Myalgias, No Joint Swelling Skin : No Skin Lesions, No rash Neuro : No Weakness, No Numbness, No Paresthesias, No Loss of Consciousness, No Dizziness, No Headache Psych : No Anxiety/Panic, No Depression, No SI/HI/AH/VH, No Social Issues, Heme/Lymph: No Bruising, No Bleeding,No Lymphadenopathy Endocrine : No Polyuria, No Polydipsia, No Temperature Intolerance [facility] Past Medical History Medical History Bronchiectasis COVID-19 vaccine series completed Polymyalgia rheumatica Vitamin D deficiency Osteoporosis Surgical History Hx of colonoscopy Hx of toe surgery History of ear surgery Hx of tubal ligation Family History Family History Father No problems noted. Mother Heart disease Brother Colon cancer Brother Stomach cancer Social History Social History Household Members: None Alcohol intake: never Patient Tobacco Use Status: Former Tobacco user Tobacco use type: Cigarette Cigarettes Per Day: 40 Years Smoked: 40 Smoked in Last 30 Days: No Use of substances other than those prescribed or required for medical reasons: No Advance Directives: No Advance Directives Information Provided: No Advance Directives Date on File: 01/21/21 Physical Exam ED Vital Signs: Vital Signs - 24 hr 07/13/23 17:10 07/13/23 19:00 07/13/23 19:33 Temperature 98.2 F 98.6 F Pulse Rate 93 91 Respiratory Rate 18 18 Blood Pressure 109/56 L 105/55 L Pulse Oximetry 97 93 90 L Oxygen Delivery Method Room Air Room Air Room Air Oxygen Flow Rate 07/13/23 19:41 07/13/23 20:49 Temperature Pulse Rate Respiratory Rate Blood Pressure Pulse Oximetry 92 95 Oxygen Delivery Method Nasal Cannula Oxygen Flow Rate 2 BMI result Body Mass Index 22.7 Const Other: Appearance: Alert. Oriented X3. No acute distress. Eyes: Pupils equal, round and reactive to light. ENT: Pharynx normal. Neck: Normal inspection. Neck supple. No lymph nodes noted. No crepitus CVS: Normal heart rate and rhythm. Pulses normal. Normal S1 and S2 Respiratory: No respiratory distress. Diffuse rales, no crackles, no wheezing , normal respiratory rate, oxygen saturation 94% on room air Abdomen: Soft and nontender. No rigidity. No distention. Skin: Skin warm and dry. Normal skin color. Normal skin turgor. Extremities: No lower extremity edema. No Lacerations. No Rash Neuro: Oriented X 3. No motor deficit. No sensory deficit. Moving all extremities. No slurred speech. CN 2 through 12 grossly intact Psych: calm, cooperative, normal affect Course Course Course Narrative: -labs and imaging pending -vitals stable, sepsis not suspected Medications Administered Discontinued Medications Generic Name Dose Route Start Last Admin Trade Name Freq PRN Reason Stop Dose Admin Sodium Chloride 1,000 mls @ 999 mls/hr 07/13/23 17:27 07/13/23 19:33 Ns IVCONT 07/13/23 18:27 Infused .Q1H1M ONE Infusion Ondansetron HCl 4 mg 07/13/23 17:27 07/13/23 18:11 Ondansetron Hcl 4 Mg/2 Ml Vial IVPUSH 07/13/23 17:28 4 mg ONCE ONE Administration Oseltamivir Phosphate 75 mg 07/13/23 20:44 07/13/23 20:53 Oseltamivir Phosphate 75 Mg Capsule PO 07/13/23 20:45 75 mg ONCE ONE Administration Prochlorperazine Edisylate 10 mg 07/13/23 19:32 07/13/23 20:46 Prochlorperazine Edisylate 10 Mg/2 Ml Vial IVPUSH 07/13/23 19:33 10 mg ONCE ONE Administration Medical Decision Making Medical Decision Making [facility] Narrative: -my interpretation of labs: Hematology within normal limits,, troponin slightly elevated 17.1, nonspecific, no chest pain, serology positive for influenza A -chest x-ray shows chronic changes, no new infiltrates -patient's oxygen saturation dropped to 88 89% while lying in bed. Patient is on supplemental oxygen saturating 95% on 2 L. -patient given Tamiflu. -sepsis not suspected. -I discussed the patient with Dr. Wayne, patient being admitted -I attempted to call patient's daughter Chetna Jenkins for an update, but did not order picker/assembler the phone Differential Diagnosis Differential Diagnoses: The differential diagnosis associated with the presentation includes (Influenza, COVID, pneumonia, viral syndrome) Admission/Observation Consideration of admission/observation: Escalation of care including admission/observation considered Consult Healthcare Provider Management of the patient was discussed with: Hospitalist Lab Data [facility] Lab Attestation statement: I reviewed the patient's lab results. 07/13/23 17:39 07/13/23 17:39 Labs: Lab Results 07/13/23 07/13/23 Range/Units 17:39 17:43 WBC 6.1 (4.8-10.8) X10*3/uL RBC 4.49 (4.20-5.50) X10*6/uL Hgb 11.7 L (12.0-16.0) g/dl Hct 36.7 L (37.0-47.0) % MCV 81.7 (80.0-98.0) fL MCH 26.1 L (27.0-33.0) pg MCHC 31.9 (31.0-35.0) g/dl RDW 15.7 (11.0-16.0) % Plt Count 297 D (160-400) X10*3/uL MPV Not Reportable Immature Gran % (Auto) 0.2 (0.0-0.4) % Neut % (Auto) 58.5 (45-73) % Lymph % (Auto) 31.0 (20-40) % [place] % (Auto) 9.9 (2-11) % Eos % (Auto) 0.2 (0-4) % Baso % (Auto) 0.2 (0-2) % Lymph # (Auto) 1.9 (1.2-4.9) X10*3/uL [place] # (Auto) 0.6 (0.1-1.2) X10*3/uL Eos # (Auto) 0.0 (0.0-0.4) X10*3/uL Baso # (Auto) 0.0 (0.0-0.2) X10*3/uL Abs Immat Gran (auto) 0.01 (0.00-0.03) X10*3/uL Absolute Neuts (auto) 3.6 (2.0-8.3) x10*3/uL Absolute Nucleated RBC 0.000 (0.0-0.012) X10*3/uL Nucleated RBC % (auto) 0.0 (0.0-0.2) /100WBC Smear Tech's Comments VERIFIED VBG pH 7.49 H (7.32-7.43) VBG pCO2 25 mmHg VBG pO2 63 mmHg VBG HCO3 19 L (22-26) mmol/L VBG O2 Saturation 92.0 % VBG Base Excess -2.0 mmol/L Sodium 137 (135-145) mmol/L Potassium 3.9 (3.3-5.1) mmol/L Chloride 104 (96-108) mmol/L Carbon Dioxide 18 L (22-29) mmol/L Anion Gap 19 (12-20) BUN 38 H (9-16) mg/dL Creatinine 1.05 (0.5-1.4) mg/dL Estim Creat Clear Calc 29.0 Estimated GFR 50 Random Glucose 102 (60-115) mg/dL Lactic Acid 2.0 (0.5-2.0) mmol/L Calcium 9.5 (8.4-10.2) mg/dL Total Bilirubin 0.2 (0.0-1.0) mg/dL Direct Bilirubin < 0.2 (0.0-0.5) mg/dL AST 75 H (5-31) U/L ALT 37 H (0-31) U/L Alkaline Phosphatase 53 (39-117) U/L Troponin I High Sens 17.1 H (<3.5-17.0) ng/L B-Natriuretic Peptide 19 (<100) pg/mL Total Protein 7.6 (6.5-8.0) g/dL Albumin 3.5 (3.5-5.0) g/dL COVID-19 (MARINO) Negative (Negative) COVID-19 Clin Com See Note Influenza Type A (JAIMEE) Positive A (Negative) Influenza Type B (JAIMEE) Negative (Negative) Influenza A & B Note See Note Independent Interpretation I performed an independent interpretation of an: Plain X-Ray Radiology Impression Discussion of test interpretation with radiology: I have reviewed the radiologist's reading. Radiologist Impression: FINDINGS: Chronic bronchiectasis mostly affecting the right upper lobe associated bronchial wall thickening. Scattered airspace opacities which in part is related to the bronchial wall thickening as well as scattered airspace opacities similar CT chest January 15, 2022. No acute airspace disease. No pleural effusion or pneumothorax. XR/XR chest 1V IMPRESSION: Chronic bronchiectasis and bronchial wall thickening. Scattered airspace opacities similar to CT chest January 15, 2022. No acute airspace disease. Critical Care Time Critical Care Time Critical Care Time: Yes Total Critical Care Time: 75 Attestation: I have personally provided critical care time. Time includes review of lab data, radiology results, discussion with consultants, and monitoring for potential decompensation. Intervention performed as documented. Discharge Plan Discharge Clinical Impression: Influenza A Patient Disposition: Admitted As Inpatient
--- NOTE | 2023-07-13 17:39 | PC.NURSE ---
labs obtained/sent to lab. tech bedside performing ekg at this time.
[2023-07-13 17:47] LABS: Venous Blood Gas Refer to POC result
[2023-07-13 17:48] LABS: VBG HCO3 19 mmol/L (22-26); VBG pCO2 25 mmHg; VBG pH 7.49 (7.32-7.43); VBG pO2 63 mmHg
[2023-07-13 18:05] LABS: Basophils Percent Auto 0.2 % (0-2); Eosinophils Percent Auto 0.2 % (0-4); Hematocrit 36.7 % (37.0-47.0); Hemoglobin 11.7 g/dl (12.0-16.0); Imm Gran Abs Auto 0.01 X10*3/uL (0.00-0.03); Imm Gran Pct Auto 0.2 % (0.0-0.4); Lymphocytes Absolute Auto 1.9 X10*3/uL (1.2-4.9); MANUAL DIFF FLAG SCAN; Mean Corpuscular HGB Conc 31.9 g/dl (31.0-35.0); Mean Corpuscular Hemoglobin 26.1 pg (27.0-33.0); Mean Corpuscular Volume 81.7 fL (80.0-98.0); Monocytes Absolute Auto 0.6 X10*3/uL (0.1-1.2); Monocytes Percent Auto 9.9 % (2-11); Neutrophils Absolute Auto 3.6 x10*3/uL (2.0-8.3); Neutrophils Percent Auto 58.5 % (45-73); PLT CLUMP 1; Red Blood Count 4.49 X10*6/uL (4.20-5.50); Red Cell Distribution Width 15.7 % (11.0-16.0); SCAN SMEAR FLAG 1
[2023-07-13 18:08] LABS: Alanine Aminotransferase 37 U/L (0-31); Albumin Level 3.5 g/dL (3.5-5.0); Alkaline Phosphatase 53 U/L (39-117); Anion Gap 19 (12-20); Aspartate Amino Transferase 75 U/L (5-31); Bilirubin Direct < 0.2 mg/dL (0.0-0.5); Bilirubin Total 0.2 mg/dL (0.0-1.0); Blood Urea Nitrogen 38 mg/dL (9-16); Calcium 9.5 mg/dL (8.4-10.2); Carbon Dioxide 18 mmol/L (22-29); Chloride 104 mmol/L (96-108); Estimated Glomerular Filt Rate 50; Glucose Random 102 mg/dL (60-115); Potassium 3.9 mmol/L (3.3-5.1); Sodium 137 mmol/L (135-145); Total Protein 7.6 g/dL (6.5-8.0)
[2023-07-13 18:09] LABS: COVID-19 Test Negative (Negative); IDNOW Serial# 08D9AD1C; IDNOW Serial# 152EDE1D; Influenza A Positive (Negative); Influenza B2 Negative (Negative)
[2023-07-13] MEDS: ondansetron HCL 4 MG/2 ML VIAL IVPUSH (18:11)
[2023-07-13] MEDS: 0.9 % Sodium Chloride 1,000 ML 999 ML IVCONT (18:11)
--- NOTE | 2023-07-13 18:13 | PC.NURSE ---
medication/IVF administered per provider order. pt continues to rest in no apparent distress at this time. respirations remain even and unlabored. call lozada placed within reach.
[2023-07-13 18:15] LABS: Troponin-I High Sensitivity 17.1 ng/L (<3.5-17.0)
[2023-07-13 18:32] LABS: Platelet Count 297 X10*3/uL (160-400); SLIDE REVIEW VERIFIED; White Blood Count 6.1 X10*3/uL (4.8-10.8)
[2023-07-13 19:20] LABS: B Type Natriuretic Peptide 19 pg/mL (<100)
[2023-07-13] MEDS: Prochlorperazine Edisylate 10 MG/2 ML VIAL IVPUSH (20:46)
[2023-07-13] MEDS: Oseltamivir Phosphate 75 MG CAPSULE PO (20:53)
--- NOTE | 2023-07-13 21:00 | PC.NURSE ---
This leader writer assumed care of this Pt at 1900. Pt A&Ox3, denies any pain. Reports increase SOB with N/V x 3 days. Pt SpO2 90% on RA. Per fitness technician who performed ambulation trial, Pt maintained at 91% while walking. Pt placed on 2L via NC with improvement to 95%. Lung sounds diminished. Pt reports productive cough.
--- NOTE | 2023-07-13 21:30 | PM.IMHP ---
History of Present Illness Date of Service: 07/13/23 Attending physician on admission: Jerry Wayne Chief Complaint: weakness, cough, sob 88-year-old female with history of bronchiectasis, polymyalgia rheumatica, vitamin-D deficiency, osteoporosis, and CKD stage 3 presented to the ED earlier this evening for evaluation of generalized weakness, malaise, productive cough with white sputum production, and dyspnea ongoing for 2 days. She denies any known sick contacts. Denies any fevers, chills, sore throat, congestion, abdominal pain, nausea, vomiting, diarrhea, urinary symptoms, lightheadedness, palpitations, chest pain. She has not oxygen dependent at home. Follows with [facility] pulmonology for her bronchiectasis. On arrival, vital signs stable except for hypoxia to 89% on room air, placed on 2 L supplemental O2 now maintaining oximetry 95%. There is no leukocytosis. Renal function baseline, electrolyte levels normal except for CO2 18. AST 75, ALT 37, troponin 17.1, BNP 19. Positive for influenza a, negative for COVID-19. VBG reassuring with pH 7.49, pCO2 25, bicarb 19. CXR shows chronic bronchiectasis and bronchial wall thickening with scattered airspace opacities similar to prior imaging. In the ED, given Tamiflu, ondansetron, 1 L IV NS, and campral. Review of Systems Review of Systems: General: No fevers, unintentional weight loss. +general weakness, +malaise HEENT: No blurred vision, diplopia. No sore throat, nasal congestion, rhinorrhea, sinus pain, ear pain Cardiovascular: No chest pain, palpitations, or leg edema Respiratory: +cough, +dyspnea. No wheezing GI: No abdominal pain, nausea, vomiting, diarrhea, constipation, melena, hematochezia : No dysuria, hematuria, increased urinary frequency, decreased urinary output MSK: No myalgia, back pain Neuro: No headaches, weakness, paresthesias Skin: No rashes or lesions [facility] Medical History Bronchiectasis COVID-19 vaccine series completed Polymyalgia rheumatica Vitamin D deficiency Osteoporosis Family History Father No problems noted. Mother Heart disease Brother Colon cancer Brother Stomach cancer Surgical History Hx of colonoscopy Hx of toe surgery History of ear surgery Hx of tubal ligation Social History Household Members: None Alcohol intake: never Patient Tobacco Use Status: Former Tobacco user Tobacco use type: Cigarette Cigarettes Per Day: 40 Years Smoked: 40 Smoked in Last 30 Days: No Use of substances other than those prescribed or required for medical reasons: No Advance Directives: No Advance Directives Information Provided: No Advance Directives Date on File: 01/21/21 Meds Allergies Allergy/AdvReac Type Severity Reaction Status Date / Time influenza virus vaccine, Allergy 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 Iodinated Contrast Media Allergy Severe DIDN'T Verified 07/13/23 17:26 [IV CONTRAST] AGREE WITH PATIENT SHELLFISH Allergy Intermediate VOMITING Uncoded 07/13/23 17:26 contrast dye Allergy Unknown Unknown Uncoded 07/13/23 17:26 fish Allergy Unknown Unknown Uncoded 07/13/23 17:26 IV dye Allergy Unknown Unknown Uncoded 07/13/23 17:26 shellfish Allergy Unknown Unknown Uncoded 07/13/23 17:26 shrimp Allergy Unknown Unknown Uncoded 07/13/23 17:26 Active Medications: Current Medications Acetaminophen (Acetaminophen 325 Mg Tablet) 650 mg PO Q6H PRN PRN Reason: Pain, Mild (Pain Scale 1-3) Enoxaparin Sodium (Enoxaparin Sodium 30 Mg/0.3 Ml Syringe) 30 mg SUBCUT Q24H [facility] Levofloxacin (Levaquin) 750 mg in 150 mls @ 100 mls/hr IV Q48H [facility] Ondansetron HCl (Ondansetron Hcl 4 Mg/2 Ml Vial) 4 mg IVPUSH Q8H PRN PRN Reason: Nausea and Vomiting Oseltamivir Phosphate (Oseltamivir Phosphate 30 Mg Capsule) 30 mg PO Q24H VIANNEY Stop: 07/18/23 21:01 Senna (Sennosides 8.6 Mg Tablet) 17.2 mg PO BEDTIME PRN PRN Reason: Constipation Sodium Chloride (0.9 % Sodium Chloride Flush 3 Ml Syringe) 3 ml IVFLUSH QSHIFT [facility] Home Medications Medication Instructions Recorded Confirmed Last Taken Type multivitamin 1 tab PO DAILY 08/05/20 07/13/23 04/13/21 History budesonide-formoterol HFA 80 2 inh inhalation BID 01/06/21 07/13/23 04/12/21 History mcg-4.5 mcg/actuation aerosol inhaler (Symbicort) mecobalamin (vitamin B12) 1,000 1,000 mcg sublingual DAILY 07/14/21 07/13/23 Unknown History mcg disintegrating tablet,sublingual albuterol sulfate 90 mcg/actuation 2 puff inhalation Q6H PRN cough 09/24/22 07/13/23 Unknown History aerosol inhaler fluticasone propionate 50 1 spray intranasal DAILY 09/24/22 07/13/23 Unknown History mcg/actuation nasal spray,suspension levalbuterol HCl 1.25 mg/3 mL 1.25 mg inhalation BID 09/24/22 07/13/23 Unknown History solution for nebulization sodium chloride 7 % for 1 inh inhalation BID 09/24/22 07/13/23 Unknown History nebulization benzonatate 200 mg capsule 200 mg PO TID PRN cough 07/13/23 07/13/23 Unknown History celecoxib 100 mg capsule 100 mg PO DAILY 07/13/23 07/13/23 Unknown History cholecalciferol (vitamin D3) 25 25 mcg PO DAILY 07/13/23 07/13/23 Unknown History mcg (1,000 unit) tablet vitamin E 268 mg (400 unit) capsule 268 mg PO DAILY 07/13/23 07/13/23 Unknown History Physical Exam Vital Signs and Narrative: Vital Signs: Last Vital Signs Temp 98.6 F 07/13/23 19:33 Pulse 91 07/13/23 19:33 Resp 18 07/13/23 19:33 BP 105/55 L 07/13/23 19:33 Pulse Ox 95 07/13/23 20:49 O2 Del Method Nasal Cannula 07/13/23 20:49 O2 Flow Rate 2 07/13/23 20:49 BMI result Body Mass Index 22.7 Constitutional - Awake and Alert, No apparent distress Eyes - PERRLA, EOMI Cardiovascular - S1S2, RRR, No edema Respiratory - Normal lung expansion, Normal respiratory effort, No respiratory distress on 2L supplemental O2, diffuse rhonchi with scattered expiratory wheezing Gastrointestinal - NT / ND; +BS; No rebound or guarding Extremities - no calf tenderness bilaterally, no swelling Skin - Warm/Dry Neurological - Alert & oriented x3 Psychological - Appropriate affect Results Labs 07/13/23 17:39 07/13/23 17:39 Labs: Laboratory Results - last 24 hr 07/13/23 07/13/23 17:39 17:43 MCV 81.7 MCH 26.1 L MCHC 31.9 RDW 15.7 Plt Count 297 D MPV Not Reportable Immature Gran % (Auto) 0.2 Neut % (Auto) 58.5 Lymph % (Auto) 31.0 [place] % (Auto) 9.9 Eos % (Auto) 0.2 Baso % (Auto) 0.2 Lymph # (Auto) 1.9 [place] # (Auto) 0.6 Eos # (Auto) 0.0 Baso # (Auto) 0.0 Abs Immat Gran (auto) 0.01 Absolute Neuts (auto) 3.6 Absolute Nucleated RBC 0.000 Nucleated RBC % (auto) 0.0 Smear Tech's Comments VERIFIED VBG pH 7.49 H VBG pCO2 25 VBG pO2 63 VBG HCO3 19 L VBG O2 Saturation 92.0 VBG Base Excess -2.0 Anion Gap 19 Estim Creat Clear Calc 29.0 Estimated GFR 50 Random Glucose 102 Lactic Acid 2.0 Calcium 9.5 Total Bilirubin 0.2 Direct Bilirubin < 0.2 AST 75 H ALT 37 H Alkaline Phosphatase 53 Troponin I High Sens 17.1 H B-Natriuretic Peptide 19 Total Protein 7.6 Albumin 3.5 COVID-19 (MARINO) Negative COVID-19 Clin Com See Note Influenza Type A (JAIEME) Positive A Influenza Type B (JAIMEE) Negative Influenza A & B Note See Note Imaging Radiologist's Impressions: Impressions Chest X-Ray 07/13/23 18:03 IMPRESSION: Chronic bronchiectasis and bronchial wall thickening. Scattered airspace opacities similar to CT chest January 15, 2022. No acute airspace disease. Assessment and Plan (1) Influenza A: Status: Acute (2) Bronchiectasis: Status: Acute Plan 88-year-old female with history of bronchiectasis, polymyalgia rheumatica, vitamin-D deficiency, osteoporosis, and CKD stage 3 admitted for influenza A with acute hypoxemic respiratory failure and acute exacerbation of bronchiectasis. #Influenza A with acute hypoxemic respiratory failure -Renally adjusted tamiflu -symptomatic management -continue supplemental O2 to maintain oximetry >92% -droplet precautions -PT eval given weakness #Acute exacbernation of bronchiectasis -renally adjusted levaquin -duonebs q4h -continue maintenance inhalers, albuterol prn #CKD stage 3 -renal function baseline #Polymyalgia rheumatica -no acute flare, not on steroids at this time DVt prophylaxis- lovenox full code pt requires inpt stay at least 2 midnights for management of influenza a and acute bronchiectasis exacerbation with acute hypoxemic respiratory failure requiring supplemental O2, IV abx and PT eval for possible placement to STR. Quality Stroke Does the patient have a stroke diagnosis?: No VTE Prior VTE?: No VTE Risk Level:: Medical - moderate - high VTE Device Contraindication: Treatment Not Indicated VTE Drug Contraindication: N/A - Med Ordered
--- NOTE | 2023-07-13 21:40 | PHA.MEDREC ---
Pharmacy Consult ? Medication Reconciliation Pharmacy has completed the medication reconciliation. Patient reported and confirm medications. Report using nebulizer BID, she think it might be the levalbuterol mix with another med. Levalbuterol and sodium chloride are the only medications that are fill through claim history. Ruchi Kohli, PharmD
[2023-07-13] MEDS: levoFLOXacin/D5W 750 MG/150 ML PIGGYBACK 100 MG IV (23:12)
[2023-07-14] MEDS: Enoxaparin Sodium 30 MG/0.3 ML SYRINGE SUBCUT (00:12)
[2023-07-14] MEDS: Acetaminophen 325 MG TABLET 650 MG PO (00:15)
[2023-07-14] MEDS: guaiFENesin 200 MG/10 ML 10 ML LIQUID PO (00:16)
--- NOTE | 2023-07-14 03:30 | PC.NURSE ---
Pt reports not being able to get comfortable in bed with slight anxiety. Recliner for comfort placed at bedside. Pt one assist to bedside commode.
[2023-07-14 03:50] VITALS: BP 109/52; PULSE 72; RESP 16; TEMP 36.9; O2SAT 96
[2023-07-14 06:28] LABS: MANUAL DIFF FLAG NO
[2023-07-14 06:29] VITALS: BP 128/56; PULSE 85; RESP 17; O2SAT 95
[2023-07-14 06:32] LABS: Hematocrit 36.8 % (37.0-47.0); Hemoglobin 11.5 g/dl (12.0-16.0); Imm Gran Abs Auto 0.01 X10*3/uL (0.00-0.03); Imm Gran Pct Auto 0.3 % (0.0-0.4); Lymphocytes Absolute Auto 1.3 X10*3/uL (1.2-4.9); Lymphocytes Percent Auto 34.8 % (20-40); Mean Corpuscular HGB Conc 31.3 g/dl (31.0-35.0); Mean Corpuscular Hemoglobin 25.7 pg (27.0-33.0); Mean Corpuscular Volume 82.3 fL (80.0-98.0); Mean Platelet Volume 9.1 fL (9.4-12.3); Monocytes Absolute Auto 0.2 X10*3/uL (0.1-1.2); Monocytes Percent Auto 4.1 % (2-11); Neutrophils Absolute Auto 2.2 x10*3/uL (2.0-8.3); Neutrophils Percent Auto 60.8 % (45-73); Platelet Count 351 X10*3/uL (160-400); Red Blood Count 4.47 X10*6/uL (4.20-5.50); Red Cell Distribution Width 15.5 % (11.0-16.0); White Blood Count 3.7 X10*3/uL (4.8-10.8)
[2023-07-14 06:49] LABS: Anion Gap 16 (12-20); Blood Urea Nitrogen 36 mg/dL (9-16); Calcium 9.1 mg/dL (8.4-10.2); Carbon Dioxide 21 mmol/L (22-29); Chloride 106 mmol/L (96-108); Creatinine Clr Calc Pharmacy 27.4; Estimated Glomerular Filt Rate 47; Glucose Random 122 mg/dL (60-115); Sodium 139 mmol/L (135-145)
[2023-07-14 07:27] VITALS: BP 128/56; PULSE 85; O2SAT 95
[2023-07-14] MEDS: Cyanocobalamin (Vitamin B-12) 1,000 MCG TABLET 1000 MCG PO (08:10)
[2023-07-14] MEDS: Multivitamin TABLET 1 TAB PO (08:10)
[2023-07-14] MEDS: Cholecalciferol (Vitamin D3) 25 MCG TABLET PO (08:10)
[2023-07-14] MEDS: Fluticasone/Vilanterol 100/25 BLST.W.DEV 1 PUFF INHALE (08:55)
[2023-07-14] MEDS: Albuterol/Iprat 2.5/0.5MG 3 ML AMPUL.NEB INHALE ×2 (08:56→11:13)
[2023-07-14 08:57] VITALS: PULSE 76; O2SAT 96
--- NOTE | 2023-07-14 09:03 | PC.NURSE ---
Addendum entered by Fariha Joseph RN 07/14/23 09:16: correction, pt sating 93% to 97% on room air post breathing treatment. Original Note: assumed care of pt at 0700. pt a&o x4, pleasant, calm, and cooperative. pt sitting up in recliner, ate breakfast and medicated per mar with AM meds. pt receiving breathing treatment with RT agustín. per Dr. Rhodes, if pt passes ambulation trial today, pt can likely be discharged. rr even/unlabored. sating 91% on room air. called pharmacy for meds not yet given. report given to [place].
--- NOTE | 2023-07-14 09:12 | MHC.CM.PN ---
Patient is unavailable; CM spoke with Daughter/HCP/Chetna @ [phone] and addressed IMM with her (original will be mailed certified letter to Chetna and a copy will be placed on the chart). Patient lives alone in a first floor apartment/duplex and she uses a cane to assist with mobility. PT is recommending STR and CM has initiated and will follow for dc planning. Patient/Daughter are agreeable to a local SNF search and a new referral to [facility]. PCP is Dr. Dionisio Bustamante.
--- NOTE | 2023-07-14 09:37 | MHC.CM.PN ---
CM attempted to call PCP/Dr. Dionisio Bustamante's office @ [phone] to see if the PCP had a copy of the HCP but the office is closed on Wednesdays.
[2023-07-14] MEDS: Celecoxib 100 MG CAPSULE PO (10:12)
[2023-07-14] MEDS: Vitamin E (Dl,Tocopheryl Acet) 180 MG (400 UNIT) CAPSULE PO (10:12)
[2023-07-14 10:23] VITALS: BP 110/57; PULSE 96; RESP 20; TEMP 36.6; O2SAT 97
[2023-07-14 11:13] VITALS: PULSE 88; RESP 20; O2SAT 93
--- NOTE | 2023-07-14 11:15 | PC.NURSE ---
fluticasone spray meghan'd from pharm again. earlier shift req'd. spoke rob chan- bringing down
--- NOTE | 2023-07-14 11:30 | PC.NURSE ---
md juarez informed: 92-93% walking about 30-35 feet. no sob. she sat back down and went down to 91% so i put her on 1L NC and o2 94% and above
--- NOTE | 2023-07-14 11:34 | PC.NURSE ---
md juarez state pt ok to go home
--- NOTE | 2023-07-14 11:55 | P.F2F_ITS ---
Service Date Service Date: 07/14/23 Encounter Date of encounter: 07/14/23 Reasons for Services Signs and symptoms assessed: weakness Reason for senior living: medication management, medication treatment and teach disease management Reason for physical therapy: home safety and mobility and therapeutic exercises Homebound: Leaving the home is medically contraindicated at this time without the asist of a device and/or another person due th the listed conditions above and below. Reason homebound: unsteady gait / fall risk Certification: Based on the above findings, I certify that this patient is confined to the home and needs intermittent senior living care, physical therapy and/or speech therapy, or continues to need occupational therapy. The patient is under my care, and I have initiated the establishment of the plan of care. The patient will be followed by a physician who will periodically review the plan of care. Time Spent With Patient Time: Total time managing care of this patient today ____ minutes.
--- NOTE | 2023-07-14 11:56 | PM.DS ---
DS: Providers Provider Date of Service: 07/14/23 Date of admission: 07/13/23 21:25 Primary care physician: Dionisio Bustamante MD DS: Diagnosis Discharge Diagnosis (1) Influenza A: Status: Acute (2) Bronchiectasis: Status: Acute DS: Summary Hospital Course Hospital Course: from initial hpi: 88-year-old female with history of bronchiectasis, polymyalgia rheumatica, vitamin-D deficiency, osteoporosis, and CKD stage 3 presented to the ED earlier this evening for evaluation of generalized weakness, malaise, productive cough with white sputum production, and dyspnea ongoing for 2 days. She denies any known sick contacts. Denies any fevers, chills, sore throat, congestion, abdominal pain, nausea, vomiting, diarrhea, urinary symptoms, lightheadedness, palpitations, chest pain. She has not oxygen dependent at home. Follows with [facility] pulmonology for her bronchiectasis. On arrival, vital signs stable except for hypoxia to 89% on room air, placed on 2 L supplemental O2 now maintaining oximetry 95%. There is no leukocytosis. Renal function baseline, electrolyte levels normal except for CO2 18. AST 75, ALT 37, troponin 17.1, BNP 19. Positive for influenza a, negative for COVID-19. VBG reassuring with pH 7.49, pCO2 25, bicarb 19. CXR shows chronic bronchiectasis and bronchial wall thickening with scattered airspace opacities similar to prior imaging. In the ED, given Tamiflu, ondansetron, 1 L IV NS, and campral. hospital course: Patient was admitted for acute hypoxic respiratory failure secondary to influenza a in a patient with known bronchiectasis. She was treated with Tamiflu, levofloxacin. Patient improved faster than expected. By the next day she was able to ambulate on room air. She was seen by physical therapy recommended short-term rehab. Patient declined to go to senior living facility, will be discharged home with VNA and home PT. She will complete 4 more days Tamiflu in cefuroxime. For CKD 3 she remained stable. For PMR she has no longer on steroids. Patient is feeling better will be discharged home. Time Attestation Discharge coordination time: Greater than 30 minutes Quality: Safe Use of Opioids Does Pt have an Active Cancer Diagnosis on the Problem List?: No Quality: Stroke Does the patient have a stroke diagnosis?: No Physical Exam Vital Signs: Vital Signs: Last Vital Signs Temp 97.8 F 07/14/23 10:23 Pulse 88 07/14/23 11:13 Resp 20 07/14/23 11:13 BP 110/57 L 07/14/23 10:23 Pulse Ox 97 07/14/23 10:23 O2 Del Method Nasal Cannula 07/14/23 10:23 O2 Flow Rate 2 07/14/23 10:23 BMI result Body Mass Index 22.7 General: AO X 3, no acute distress Resp: CTA bilateral, no accessory muscles used CVS: S1,S2,RRR GI: soft, non tender, non distended Neuro: motor grossly intact, alert Psych: appropriate affect, appropriate insight DS: Data Data Completed and Pending Labs on day of discharge: Laboratory Results - last 24 hr 07/13/23 07/13/23 07/14/23 17:39 17:43 06:20 WBC 6.1 3.7 L RBC 4.49 4.47 Hgb 11.7 L 11.5 L Hct 36.7 L 36.8 L MCV 81.7 82.3 MCH 26.1 L 25.7 L MCHC 31.9 31.3 RDW 15.7 15.5 Plt Count 297 D 351 MPV Not Reportable 9.1 L Immature Gran % (Auto) 0.2 0.3 Neut % (Auto) 58.5 60.8 Lymph % (Auto) 31.0 34.8 [place] % (Auto) 9.9 4.1 Eos % (Auto) 0.2 0.0 Baso % (Auto) 0.2 0.0 Lymph # (Auto) 1.9 1.3 [place] # (Auto) 0.6 0.2 Eos # (Auto) 0.0 0.0 Baso # (Auto) 0.0 0.0 Abs Immat Gran (auto) 0.01 0.01 Absolute Neuts (auto) 3.6 2.2 Absolute Nucleated RBC 0.000 0.000 Nucleated RBC % (auto) 0.0 0.0 Smear Tech's Comments VERIFIED VBG pH 7.49 H VBG pCO2 25 VBG pO2 63 VBG HCO3 19 L VBG O2 Saturation 92.0 VBG Base Excess -2.0 Sodium 137 139 Potassium 3.9 4.0 Chloride 104 106 Carbon Dioxide 18 L 21 L Anion Gap 19 16 BUN 38 H 36 H Creatinine 1.05 1.11 Estim Creat Clear Calc 29.0 27.4 Estimated GFR 50 47 Random Glucose 102 122 H Lactic Acid 2.0 Calcium 9.5 9.1 Total Bilirubin 0.2 Direct Bilirubin < 0.2 AST 75 H ALT 37 H Alkaline Phosphatase 53 Troponin I High Sens 17.1 H B-Natriuretic Peptide 19 Total Protein 7.6 Albumin 3.5 COVID-19 (MARINO) Negative COVID-19 Clin Com See Note Influenza Type A (JAIMEE) Positive A Influenza Type B (JAIMEE) Negative Influenza A & B Note See Note Discharge Plan Discharge Anticipated Discharge Date/Time: 07/14/23 11:38 Patient Disposition: Home Health Service Discharge Diagnosis: flu Referrals: [facility] [Outside] - 1 Week Dionisio Bustamante MD [Primary Care Provider] - 1 Week Discharge Medications: New oseltamivir 30 mg Capsule 30 mg PO Q24H Qty: 4 0RF cefuroxime axetil 250 mg tablet 250 mg PO BID Qty: 8 0RF Continued calcium carbonate 600 mg calcium (1,500 mg) tablet 600 mg PO DAILY 90 Days Qty: 90 11RF Prolia 60 mg/mL syringe 60 mg subcut [id number] Qty: 1 1RF celecoxib 100 mg capsule 100 mg PO DAILY benzonatate 200 mg capsule 200 mg PO TID PRN (Reason: cough) vitamin E 268 mg (400 unit) Capsule 268 mg PO DAILY cholecalciferol (vitamin D3) 25 mcg (1,000 unit) Tablet 25 mcg PO DAILY multivitamin Tablet 1 tab PO DAILY budesonide-formoterol [Symbicort] 80-4.5 mcg/actuation HFA aerosol inhaler 2 inh inhalation BID mecobalamin (vitamin B12) 1,000 mcg tablet,disintegrating 1,000 mcg sublingual DAILY Rx Instructions: place tablet under tongue and allow to dissolve for at least30 secs before swallowing levalbuterol HCl 1.25 mg/3 mL solution for nebulization 1.25 mg inhalation BID sodium chloride 7 % solution for nebulization 1 inh inhalation BID albuterol sulfate 90 mcg/actuation HFA aerosol inhaler 2 puff inhalation Q6H PRN (Reason: cough) fluticasone propionate 50 mcg/actuation spray,suspension 1 spray intranasal DAILY Discharge Orders: Discharge Order (Routine); Ordered 07/14/23 Ordered By: Matt Rhodes Diet: Advance to usual diet Activity on Discharge: As tolerated Stand Alone Forms: Patient Portal Discharge page Care Plan Goals: recovery Health Concerns: flu Plan of Treatment: tamiflu and ceftin for 4 more days Assessment: see above
--- NOTE | 2023-07-14 11:58 | MHC.CM.PN ---
Patient has been medically cleared for dc to home today with services. A referral has been made to [facility], who has been made aware of today's dc.
== END 2023-07-14 14:15 | disposition home health service (06) | DRG 193 ==
LOC: HO.ED 20:50 → HO.EDOVER 22:11
PROVIDERS: Admitting Provider Physician Assistant; Emergency Provider Emergency Medicine; PCP Internal Medicine; Visit Provider Internal Medicine
DX: J10.1 Influenza due to other identified influenza virus with other respiratory manifestations (principal); J96.01 Acute respiratory failure with hypoxia; J47.1 Bronchiectasis with (acute) exacerbation; M35.3 Polymyalgia rheumatica; N18.30 Chronic kidney disease, stage 3 unspecified; Z87.891 Personal history of nicotine dependence; Z91.041 Radiographic dye allergy status; Z79.51 Long term (current) use of inhaled steroids; Z79.899 Other long term (current) drug therapy
CPT/HCPCS: 36415; 71045; 80048; 80076; 82803; 83605; 83880; 84484; 85025; 87040; 87502; 87635; 93005; 94640; 94664; 97162; 99285; J0737; J1650; J1956; J2405

== ENCOUNTER → 2023-07-13 17:24 | Outpatient (BNV) | payer MEDICARE, OTHER, SELFPAY | PROVIDERS: Admitting Provider Physician Assistant; Emergency Provider Emergency Medicine; PCP Internal Medicine; Visit Provider Internal Medicine Cardiovascular Disease | DX: R06.02 Shortness of breath (principal) | CPT/HCPCS: 93010 ==

== ENCOUNTER → 2023-07-13 19:01 | Outpatient (BNV) | payer MEDICARE, OTHER, SELFPAY | PROVIDERS: Emergency Provider Emergency Medicine; PCP Internal Medicine; Visit Provider Physician Assistant | DX: J96.01 Acute respiratory failure with hypoxia (principal); J10.1 Influenza due to other identified influenza virus with other respiratory manifestations; J47.1 Bronchiectasis with (acute) exacerbation; N18.30 Chronic kidney disease, stage 3 unspecified | CPT/HCPCS: 99223; 99238; G0180 ==

== ENCOUNTER 2023-07-26 12:17 | Inpatient (IN) | payer MEDICARE, OTHER, SELFPAY ==
[2023-07-26] VITALS (7 sets, daily range): BP systolic 97–123; BP diastolic 47–67; PULSE 78–90; RESP 16–24; TEMP 36–36.9; O2SAT 89–95; BMI 21.9
--- NOTE | ~2023-07-26 | XR_ITS ---
EXAMINATION: XR CHEST CLINICAL INFORMATION: Shortness of breath, cough. COMPARISON: 07/13/2023 TECHNIQUE: Frontal view of the chest was obtained. FINDINGS: Redemonstration of chronic bronchiectasis, right upper lobe predominant, with bronchial wall thickening. Redemonstration of scattered airspace opacities partially related to bronchial wall thickening is noted on CT scan of the chest of 01/15/2022 as well as scattered airspace opacities. Increased airspace opacities in the mid to lower lungs, left greater than right. No gross pleural effusion. XR/XR chest 1V IMPRESSION: Increased airspace opacities in the mid to lower lungs, left greater than right, superimposed on chronic bronchiectatic changes as detailed above, concerning for superimposed pneumonia. This study was presented today 07/26/2023 for interpretation. Stat results provided at this time as requested by referring provider.
--- NOTE | 2023-07-26 12:36 | PC.NURSE ---
Pt presents to ED via EMS from home. Pt reports 2 weeks of SOB, cough w/ yellow mucus, headache and dizziness. Pt reports she was here on 07/14 and was diagnosed with Flu, pt had ABX during that stay. Pt reports she has not felt better, poor PO intake and cough worsening. Pt has hx of COPD, no baseline O2 at home but does have neb machine. Pt reports at home nebs have been helping some. Pt alert and oriented, breathing even and unlabored, skin warm and pale. Pt noted to have + cough and congestion. RA SPO2 noted to be 88-89%. Pt placed on 2L O2 via NC with improvements to 94-95%. Other vital signs stable, pt placed on bedside montiror, NSR.
--- NOTE | 2023-07-26 12:41 | PC.NURSE ---
No acute resp distress at this time. Pt able to speak in full sentences, resting in bed and reports feeling comfortable with O2.
--- NOTE | 2023-07-26 12:52 | PC.NURSE ---
Please call Rosa Cantu with updates if pt gets admitted [phone]
[2023-07-26 13:15] LABS: MANUAL DIFF FLAG NO
[2023-07-26 13:16] LABS: Basophils Percent Auto 0.2 % (0-2); Eosinophils Percent Auto 0.2 % (0-4); Hematocrit 33.1 % (37.0-47.0); Hemoglobin 10.7 g/dl (12.0-16.0); Imm Gran Abs Auto 0.05 X10*3/uL (0.00-0.03); Imm Gran Pct Auto 0.4 % (0.0-0.4); Lymphocytes Absolute Auto 1.6 X10*3/uL (1.2-4.9); Lymphocytes Percent Auto 12.7 % (20-40); Mean Corpuscular HGB Conc 32.3 g/dl (31.0-35.0); Mean Corpuscular Hemoglobin 25.8 pg (27.0-33.0); Mean Platelet Volume 9.3 fL (9.4-12.3); Monocytes Absolute Auto 0.9 X10*3/uL (0.1-1.2); Monocytes Percent Auto 7.3 % (2-11); Neutrophils Absolute Auto 10.1 x10*3/uL (2.0-8.3); Neutrophils Percent Auto 79.2 % (45-73); Platelet Count 367 X10*3/uL (160-400); Red Blood Count 4.14 X10*6/uL (4.20-5.50); White Blood Count 12.7 X10*3/uL (4.8-10.8)
[2023-07-26 13:45] LABS: Alanine Aminotransferase 13 U/L (0-31); Albumin Level 3.2 g/dL (3.5-5.0); Alkaline Phosphatase 51 U/L (39-117); Anion Gap 13 (12-20); Aspartate Amino Transferase 19 U/L (5-31); Bilirubin Total 0.3 mg/dL (0.0-1.0); Blood Urea Nitrogen 12 mg/dL (9-16); Calcium 9.1 mg/dL (8.4-10.2); Carbon Dioxide 26 mmol/L (22-29); Chloride 101 mmol/L (96-108); Estimated Glomerular Filt Rate > 60; Glucose Random 121 mg/dL (60-115); Potassium 3.8 mmol/L (3.3-5.1); Sodium 136 mmol/L (135-145); Total Protein 6.6 g/dL (6.5-8.0)
--- NOTE | 2023-07-26 13:55 | ED.SOB ---
HPI - SOB/Dyspnea General Chief Complaint: Dyspnea Stated Complaint: LOW 02 SAT,FEELS SICK X2 WEEKS PER EMS Time Seen by Provider: 07/26/23 13:08 History of Present Illness HPI Narrative: 88-year-old female with history of bronchiectasis, polymyalgia rheumatica, vitamin-D deficiency, osteoporosis, and CKD stage 3 presented to the ED earlier this evening for evaluation of generalized weakness, malaise, productive cough with yellow sputum production, and dyspnea ongoing. Patient was admitted to the hospital on July 13. Discharged 2 days later. Was on steroids for a few days finish a course of antibiotics. Continued to have shortness of breath after rehab. Feels the symptoms getting worse. Presented to the ED. there is no chest pain. There has no diaphoresis. Patient was tested positive for influenza during that visit 2 weeks ago. She is vaccinated for COVID . Related Data Home Medications Medication Instructions Recorded Confirmed multivitamin 1 tab PO DAILY 08/05/20 07/26/23 budesonide-formoterol HFA 80 2 inh inhalation BID 01/06/21 07/26/23 mcg-4.5 mcg/actuation aerosol inhaler (Symbicort) mecobalamin (vitamin B12) 1,000 1,000 mcg sublingual DAILY 07/14/21 07/26/23 mcg disintegrating tablet,sublingual albuterol sulfate 90 mcg/actuation 2 puff inhalation Q6H PRN cough 09/24/22 07/26/23 aerosol inhaler fluticasone propionate 50 1 spray intranasal DAILY 09/24/22 07/26/23 mcg/actuation nasal spray,suspension benzonatate 200 mg capsule 200 mg PO TID cough 07/13/23 07/26/23 celecoxib 100 mg capsule 100 mg PO DAILY 07/13/23 07/26/23 cholecalciferol (vitamin D3) 25 25 mcg PO DAILY 07/13/23 07/26/23 mcg (1,000 unit) tablet vitamin E 268 mg (400 unit) capsule 268 mg PO DAILY 07/13/23 07/26/23 Previous Rx's Medication Instructions Recorded calcium carbonate 600 mg calcium 600 mg PO DAILY 90 days #90 tabs 04/29/22 (1,500 mg) tablet Allergies Allergy/AdvReac Type Severity Reaction Status Date / Time influenza virus vaccine, Allergy 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 Iodinated Contrast Media Allergy Severe DIDN'T Verified 07/13/23 17:26 [IV CONTRAST] AGREE WITH PATIENT SHELLFISH Allergy Intermediate VOMITING Uncoded 07/13/23 17:26 contrast dye Allergy Unknown Unknown Uncoded 07/13/23 17:26 fish Allergy Unknown Unknown Uncoded 07/13/23 17:26 IV dye Allergy Unknown Unknown Uncoded 07/13/23 17:26 shellfish Allergy Unknown Unknown Uncoded 07/13/23 17:26 shrimp Allergy Unknown Unknown Uncoded 07/13/23 17:26 Review of Systems Review of Systems: Positive shortness of breath positive coughing positive upper respiratory symptoms. Positive generalized malaise Yes all other systems are reviewed and are negative PMFSH Past Medical History Attestation statement: The following information was validated with the patient. Medical History Bronchiectasis COVID-19 vaccine series completed Polymyalgia rheumatica Vitamin D deficiency Osteoporosis Surgical History Hx of colonoscopy Hx of toe surgery History of ear surgery Hx of tubal ligation Family History Family History Father No problems noted. Mother Heart disease Brother Colon cancer Brother Stomach cancer Social History Social History Household Members: None Alcohol intake: never Patient Tobacco Use Status: Former Tobacco user Tobacco use type: Cigarette Cigarettes Per Day: 40 Years Smoked: 40 Smoked in Last 30 Days: No Use of substances other than those prescribed or required for medical reasons: No Advance Directives: No Advance Directives Information Provided: Yes Advance Directives Date on File: 01/21/21 service: No Physical Exam Vital Signs: Vital Signs: Last Vital Signs Temp 98.1 F 07/26/23 16:33 Pulse 90 07/26/23 16:33 Resp 18 07/26/23 16:33 BP 97/47 L 07/26/23 16:33 Pulse Ox 93 07/26/23 16:33 O2 Del Method Nasal Cannula 07/26/23 16:33 O2 Flow Rate 2 07/26/23 16:33 BMI result Body Mass Index 21.9 Appearance: Alert. Oriented X3. No acute distress. Eyes: Pupils equal, round and reactive to light. ENT: Pharynx normal. Neck: Normal inspection. Neck supple. No lymph nodes noted. No crepitus CVS: Normal heart rate and rhythm. Pulses normal. Normal S1 and S2 Respiratory: Diminished breath sounds bilaterally crackles to the bases bilaterally. Abdomen: Soft and nontender. No rigidity. No distention. good BS x4 Skin: Skin warm and dry. Normal skin color. Normal skin turgor. Extremities: No lower extremity edema. Neurovascular intact to all extremities. No Lacerations. No Rash Neuro: Oriented X 3. No motor deficit. No sensory deficit. Moving all extermities. No slurred speech Medications Administered Generic Name Dose Route Start Last Admin Trade Name Freq PRN Reason Stop Dose Admin Enoxaparin Sodium 40 mg 07/26/23 17:15 07/26/23 18:38 Enoxaparin Sodium 40 Mg/0.4 Ml Syringe SUBCUT 40 mg Q24H VIANNEY Administration Ceftriaxone Sodium 1 gm/ 50 mls @ 100 mls/hr 07/26/23 17:30 07/26/23 18:38 Sodium Chloride IV 100 mls/hr Q24H VIANNEY Administration Discontinued Medications Generic Name Dose Route Start Last Admin Trade Name Freq PRN Reason Stop Dose Admin Albuterol/Ipratropium 3 ml 07/26/23 13:58 07/26/23 14:34 Albuterol/Iprat 2.5/0.5mg 3 Ml Ampul.Neb INHALE 07/26/23 13:59 3 ml ONCE ONE Administration Sodium Chloride 500 mls @ 999 mls/hr 07/26/23 14:00 07/26/23 16:34 Ns IV 07/26/23 14:30 Infused .Q31M VIANNEY Infusion Cefepime HCl 1 gm/ Sodium 50 mls @ 100 mls/hr 07/26/23 14:00 07/26/23 15:47 Chloride IV 07/26/23 14:29 Infused ONCE ONE Infusion Methylprednisolone Sodium Succinate 125 mg 07/26/23 13:58 07/26/23 14:38 Methylprednisolone Sod Succ 125 Mg/2 Ml Vial IVPUSH 07/26/23 13:59 125 mg ONCE ONE Administration Medical Decision Making Medical Decision Making MDM Narrative: Positive coughing upper respiratory symptoms. Patient's oxygenation is 80% on room air. [place] short of breath. Patient's chest x-ray by my interpretation showed a worsening infiltrate consistent with having possible pneumonia. Lactate is normal there is no evidence for severe sepsis. Steroid was given a neb treatment was given for COPD/bronchiectasis. Cultures obtained. Because patient was in the hospital cefepime was started. Case discussed with the hospitalist team for admission. Differential Diagnosis Differential Diagnoses: The differential diagnosis associated with the presentation includes Pneumonia, COPD, bronchiectasis Admission/Observation Consideration of admission/observation: Escalation of care including admission/observation considered Consult Healthcare Provider Management of the patient was discussed with: Hospitalist Lab Data [facility] Lab Attestation statement: I reviewed the patient's lab results. 07/26/23 13:10 07/26/23 14:33 Labs: Lab Results 07/26/23 07/26/23 Range/Units 13:10 14:33 WBC 12.7 H (4.8-10.8) X10*3/uL RBC 4.14 L (4.20-5.50) X10*6/uL Hgb 10.7 L (12.0-16.0) g/dl Hct 33.1 L (37.0-47.0) % MCV 80.0 (80.0-98.0) fL MCH 25.8 L (27.0-33.0) pg MCHC 32.3 (31.0-35.0) g/dl RDW 15.0 (11.0-16.0) % Plt Count 367 (160-400) X10*3/uL MPV 9.3 L (9.4-12.3) fL Immature Gran % (Auto) 0.4 (0.0-0.4) % Neut % (Auto) 79.2 H (45-73) % Lymph % (Auto) 12.7 L (20-40) % [place] % (Auto) 7.3 (2-11) % Eos % (Auto) 0.2 (0-4) % Baso % (Auto) 0.2 (0-2) % Lymph # (Auto) 1.6 (1.2-4.9) X10*3/uL [place] # (Auto) 0.9 (0.1-1.2) X10*3/uL Eos # (Auto) 0.0 (0.0-0.4) X10*3/uL Baso # (Auto) 0.0 (0.0-0.2) X10*3/uL Abs Immat Gran (auto) 0.05 H (0.00-0.03) X10*3/uL Absolute Neuts (auto) 10.1 H (2.0-8.3) x10*3/uL Absolute Nucleated RBC 0.000 (0.0-0.012) X10*3/uL Nucleated RBC % (auto) 0.0 (0.0-0.2) /100WBC Sodium 136 135 (135-145) mmol/L Potassium 3.8 3.9 (3.3-5.1) mmol/L Chloride 101 100 (96-108) mmol/L Carbon Dioxide 26 27 (22-29) mmol/L Anion Gap 13 12 (12-20) BUN 12 11 (9-16) mg/dL Creatinine 0.71 0.70 (0.5-1.4) mg/dL Estim Creat Clear Calc 45.0 45.6 Estimated GFR > 60 > 60 Random Glucose 121 H 112 (60-115) mg/dL Lactic Acid 1.1 (0.5-2.0) mmol/L Calcium 9.1 8.9 (8.4-10.2) mg/dL Total Bilirubin 0.3 0.3 (0.0-1.0) mg/dL Direct Bilirubin 0.2 (0.0-0.5) mg/dL AST 19 17 (5-31) U/L ALT 13 13 (0-31) U/L Alkaline Phosphatase 51 51 (39-117) U/L Troponin I High Sens 6.1 D (<3.5-17.0) ng/L B-Natriuretic Peptide 128 H (<100) pg/mL Total Protein 6.6 6.5 (6.5-8.0) g/dL Albumin 3.2 L 3.1 L (3.5-5.0) g/dL Influenza Type A (PCR) NEGATIVE (Negative) Influenza Type B (PCR) NEGATIVE (Negative) RSV RNA Qual (PCR) NEGATIVE (Negative) SARS-CoV-2 RNA (RT-PCR) NEGATIVE (Negative) Independent Interpretation I performed an independent interpretation of an: EKG (Sinus heart rate was 80 NE QRS QTC within normal limits there has no change from previous) and Plain X-Ray (Nonspecific infiltrate noted on the x-ray) Radiology Impression Discussion of test interpretation with radiology: I have reviewed the radiologist's reading. External Record Review External record reviewed: Inpatient record Chronic Conditions Bronchiectasis Social Determinants Patient?s care significantly limited by Social Determinants of Health including: Problems related to primary support group Discharge Plan Discharge Clinical Impression: Pneumonia Patient Disposition: Admitted As Inpatient
--- NOTE | 2023-07-26 13:58 | ECG_ITS ---
Test Reason : CHEST PAIN Blood Pressure : / mmHG Vent. Rate : 079 BPM Atrial Rate : 079 BPM P-R Int : 136 ms QRS Dur : 072 ms QT Int : 378 ms P-R-T Axes : 061 -30 041 degrees QTc Int : 433 ms Normal sinus rhythm Left axis deviation Abnormal ECG When compared with ECG of 13-JUL-2023 17:37, No significant change was found Referred By: Yvette Carlos Electronically Signed By:BENTON RODRIGUEZ
[2023-07-26 14:08] LABS: Influenza A PCR NEGATIVE (Negative); Influenza B PCR NEGATIVE (Negative); Resp Syncy Virus RNA Qual PCR NEGATIVE (Negative); SARS COV2 PCR INHOUSE NEGATIVE (Negative)
[2023-07-26] MEDS: Albuterol/Iprat 2.5/0.5MG 3 ML AMPUL.NEB INHALE ×2 (14:34→20:08)
[2023-07-26] MEDS: cefEPime HCl 1 GM in 0.9 % Sodium Chloride 50 ML IV (14:38)
[2023-07-26] MEDS: methylPREDNISolone Sod Succ 125 MG/2 ML VIAL IVPUSH (14:38)
[2023-07-26] MEDS: 0.9 % Sodium Chloride 500 ML 999 ML IV (14:42)
[2023-07-26 14:52] LABS: Lactic Acid 1.1 mmol/L (0.5-2.0)
[2023-07-26 14:56] LABS: Alanine Aminotransferase 13 U/L (0-31); Albumin Level 3.1 g/dL (3.5-5.0); Alkaline Phosphatase 51 U/L (39-117); Anion Gap 12 (12-20); Aspartate Amino Transferase 17 U/L (5-31); Bilirubin Direct 0.2 mg/dL (0.0-0.5); Bilirubin Total 0.3 mg/dL (0.0-1.0); Blood Urea Nitrogen 11 mg/dL (9-16); Calcium 8.9 mg/dL (8.4-10.2); Carbon Dioxide 27 mmol/L (22-29); Chloride 100 mmol/L (96-108); Creatinine Clr Calc Pharmacy 45.6; Estimated Glomerular Filt Rate > 60; Glucose Random 112 mg/dL (60-115); Potassium 3.9 mmol/L (3.3-5.1); Sodium 135 mmol/L (135-145); Total Protein 6.5 g/dL (6.5-8.0)
[2023-07-26 15:02] LABS: B Type Natriuretic Peptide 128 pg/mL (<100)
[2023-07-26 15:05] LABS: Troponin-I High Sensitivity 6.1 ng/L (<3.5-17.0)
--- NOTE | 2023-07-26 17:17 | MHC.EDTECH ---
Patient repositioned and bed pad changed
--- NOTE | 2023-07-26 17:22 | PM.IMHP ---
History of Present Illness Date of Service: 07/26/23 Chief Complaint: Cough, dyspnea An 88 years old lady with PMH of PMR, Bronchiectasis, osteoporosis among others who presents to the hospital complaining of worsening cough and shortness of breath. The patient reports having Flu infection almost 2 weeks ago that was treated with Tamiflu with partial recovery but over the last few days she noticed worsening dyspnea and increase sputum production with associated weakness and decrease appetite. No chest pain, palpitations, nausea, vomiting, diarrhea or urinary symptoms. In Ed found to be hypoxic on room air requiring O2 supplement. CXR showing evidence of pneumonia. Admitted for further treatment. Review of Systems Review of Systems: No fever, chills but has generalized weakness No chest pain, palpitation reporting shortness of breath and coughing No abdominal pain, nausea or vomiting No urinary symptoms No any rash or wounds PMFSH Medical History Bronchiectasis COVID-19 vaccine series completed Polymyalgia rheumatica Vitamin D deficiency Osteoporosis Family History Father No problems noted. Mother Heart disease Brother Colon cancer Brother Stomach cancer Surgical History Hx of colonoscopy Hx of toe surgery History of ear surgery Hx of tubal ligation Social History Household Members: None Alcohol intake: never Patient Tobacco Use Status: Former Tobacco user Tobacco use type: Cigarette Cigarettes Per Day: 40 Years Smoked: 40 Smoked in Last 30 Days: No Use of substances other than those prescribed or required for medical reasons: No Advance Directives: No Advance Directives Information Provided: Yes Advance Directives Date on File: 01/21/21 service: No Meds Allergies Allergy/AdvReac Type Severity Reaction Status Date / Time influenza virus vaccine, Allergy Severe DUE TO Verified 07/13/23 17: 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 Iodinated Contrast Media Allergy Severe DIDN'T Verified 07/13/23 17: [IV CONTRAST] AGREE WITH PATIENT SHELLFISH Allergy Intermediate VOMITING Uncoded 07/13/23 17:26 contrast dye Allergy Unknown Unknown Uncoded 07/13/23 17:26 fish Allergy Unknown Unknown Uncoded 07/13/23 17:26 IV dye Allergy Unknown Unknown Uncoded 07/13/23 17:26 shellfish Allergy Unknown Unknown Uncoded 07/13/23 17:26 shrimp Allergy Unknown Unknown Uncoded 07/13/23 17:26 Home Medications Medication Instructions Recorded Confirmed Last Taken Type multivitamin 1 tab PO DAILY 08/05/20 07/26/23 07/26/23 History budesonide-formoterol HFA 80 2 inh inhalation BID 01/06/21 07/26/23 07/26/23 History mcg-4.5 mcg/actuation aerosol inhaler (Symbicort) mecobalamin (vitamin B12) 1,000 1,000 mcg sublingual DAILY 07/14/21 07/26/23 07/26/23 History mcg disintegrating tablet,sublingual albuterol sulfate 90 mcg/actuation 2 puff inhalation Q6H PRN cough 09/24/22 07/26/23 07/26/23 History aerosol inhaler fluticasone propionate 50 1 spray intranasal DAILY 09/24/22 07/26/23 07/26/23 History mcg/actuation nasal spray,suspension benzonatate 200 mg capsule 200 mg PO TID cough 07/13/23 07/26/23 07/26/23 History celecoxib 100 mg capsule 100 mg PO DAILY 07/13/23 07/26/23 07/26/23 History cholecalciferol (vitamin D3) 25 25 mcg PO DAILY 07/13/23 07/26/23 07/26/23 History mcg (1,000 unit) tablet vitamin E 268 mg (400 unit) capsule 268 mg PO DAILY 07/13/23 07/26/23 07/26/23 History Physical Exam Vital Signs and Narrative: Vital Signs: Last Vital Signs Temp 98.1 F 07/26/23 16:33 Pulse 90 07/26/23 16:33 Resp 18 07/26/23 16:33 BP 97/47 L 07/26/23 16:33 Pulse Ox 93 07/26/23 16:33 O2 Del Method Nasal Cannula 07/26/23 16:33 O2 Flow Rate 2 07/26/23 16:33 BMI result Body Mass Index 21.9 Const: Other: Constitutional : Awake, interactive, not in distress Neck : Normal inspection, Supple Cardiovascular : RRR, no JVP, no lower extremity edema Respiratory : fair bilateral air entry, basal fine crackles bilaterally, no wheezes Gastrointestinal: soft, lax, Normal bowel sounds, Non tender Skin : Warm, Dry Neurological : Alert & oriented x3, No focal deficit Results Labs 07/26/23 13:10 07/26/23 14:33 Labs: Laboratory Results - last 24 hr 07/26/23 07/26/23 13:10 14:33 MCV 80.0 MCH 25.8 L MCHC 32.3 RDW 15.0 Plt Count 367 MPV 9.3 L Immature Gran % (Auto) 0.4 Neut % (Auto) 79.2 H Lymph % (Auto) 12.7 L [place] % (Auto) 7.3 Eos % (Auto) 0.2 Baso % (Auto) 0.2 Lymph # (Auto) 1.6 [place] # (Auto) 0.9 Eos # (Auto) 0.0 Baso # (Auto) 0.0 Abs Immat Gran (auto) 0.05 H Absolute Neuts (auto) 10.1 H Absolute Nucleated RBC 0.000 Nucleated RBC % (auto) 0.0 Anion Gap 13 12 Estim Creat Clear Calc 45.0 45.6 Estimated GFR > 60 > 60 Random Glucose 121 H 112 Lactic Acid 1.1 Calcium 9.1 8.9 Total Bilirubin 0.3 0.3 Direct Bilirubin 0.2 AST 19 17 ALT 13 13 Alkaline Phosphatase 51 51 Troponin I High Sens 6.1 D B-Natriuretic Peptide 128 H Total Protein 6.6 6.5 Albumin 3.2 L 3.1 L Influenza Type A (PCR) NEGATIVE Influenza Type B (PCR) NEGATIVE RSV RNA Qual (PCR) NEGATIVE SARS-CoV-2 RNA (RT-PCR) NEGATIVE Imaging Radiologist's Impressions: Impressions Chest X-Ray 07/26/23 13:00 IMPRESSION: Increased airspace opacities in the mid to lower lungs, left greater than right, superimposed on chronic bronchiectatic changes as detailed above, concerning for superimposed pneumonia. This study was presented today 07/26/2023 for interpretation. Stat results provided at this time as requested by referring provider. Assessment and Plan (1) Pneumonia: Status: Acute (2) Acute respiratory failure with hypoxia: Status: Acute (3) Physical deconditioning: Status: Acute Plan An 88 years old lady with PMH of PMR, Bronchiectasis, osteoporosis among others who presents to the hospital complaining of worsening cough and shortness of breath. # Acute hypoxic respiratory 2/2 post viral Pneumonia CXR showing infiltrates , more on left not septic pending cultures IV Rhoda and CTX (07/26) Duonebs wean O2 down as tolerated # PHysical deconditioning PT evaluation #CKD stage 3 at Baseline # PMR not on steroids, no exacerbation DVT PPx Lovenox The patient will likely need 2 overnight hospital stay for treatment of Pneumonia andn eed of O2 supplement which can not be provided at any less acute care Quality Stroke Does the patient have a stroke diagnosis?: No VTE Prior VTE?: No VTE Risk Level:: Medical - moderate - high VTE Device Contraindication: Treatment Not Indicated VTE Drug Contraindication: N/A - Med Ordered
--- NOTE | 2023-07-26 18:16 | PHA.MEDREC ---
Pharmacy Consult ? Medication Reconciliation Pharmacy has completed the medication reconciliation. Confirmed medication with patient. Reports that she used her nebulizer this morning and also used her rescue inhaler this morning.
[2023-07-26] MEDS: Enoxaparin Sodium 40 MG/0.4 ML SYRINGE SUBCUT (18:38)
[2023-07-26] MEDS: cefTRIAXone sodium 1 GM in 0.9 % Sodium Chloride 50 ML IV (18:38)
[2023-07-26 20:08] LABS: Appearance Urine Cloudy; Color Urine Dark Yellow; Glucose Urine UA Negative (Negative); Leukocyte Esterase Urine Negative (Negative); Nitrite Urine Negative (Negative); PH 5.5 (5.0-9.0); Specific Gravity - Urine >= 1.030 (1.005-1.025); UMIC TRIGGER UACC YES; Urine Blood Negative (Negative); Urine Ketones 15 mg/dL (Negative); Urine Protein 30 (1+) mg/dL (Neg-Trace)
[2023-07-26] MEDS: Azithromycin 500 MG in 0.9 % Sodium Chloride 250 ML 125 MG IV (20:17)
--- NOTE | 2023-07-26 20:19 | PC.NURSE ---
assumed care of pt at 1900, pt a&ox4, vss, 2 assist to bedside commode. urine same obtained. medicated per JUL.
[2023-07-26 20:31] LABS: Bacteria Urine None Seen (None Seen); Hyaline Casts Urine 0-2 /LPF (0-2); RBC Urine 0-2 /HPF (0-2); WBC Urine 0-5 /HPF (0-5)
[2023-07-26] MEDS: guaiFENesin LA 600 MG TAB.ER.12H PO (22:03)
[2023-07-26] MEDS: Acetaminophen 325 MG TABLET 650 MG PO (23:35)
[2023-07-27] VITALS (10 sets, daily range): BP systolic 106–128; BP diastolic 53–87; PULSE 70–121; RESP 16–20; TEMP 36.1–37; O2SAT 85–95
[2023-07-27] MEDS: guaiFENesin LA 600 MG TAB.ER.12H PO ×2 (07:48→19:59)
[2023-07-27 07:50] LABS: Hemoglobin 10.3 g/dl (12.0-16.0); Mean Corpuscular HGB Conc 32.2 g/dl (31.0-35.0); Mean Corpuscular Hemoglobin 26.2 pg (27.0-33.0); Mean Corpuscular Volume 81.4 fL (80.0-98.0); Mean Platelet Volume 10.2 fL (9.4-12.3); Platelet Count 384 X10*3/uL (160-400); Red Blood Count 3.93 X10*6/uL (4.20-5.50); Red Cell Distribution Width 14.9 % (11.0-16.0); White Blood Count 8.6 X10*3/uL (4.8-10.8)
[2023-07-27] MEDS: Albuterol/Iprat 2.5/0.5MG 3 ML AMPUL.NEB INHALE ×4 (07:53→20:07)
[2023-07-27 08:04] LABS: Anion Gap 13 (12-20); Blood Urea Nitrogen 16 mg/dL (9-16); Calcium 9.7 mg/dL (8.4-10.2); Carbon Dioxide 25 mmol/L (22-29); Chloride 106 mmol/L (96-108); Creatinine Clr Calc Pharmacy 43.7; Estimated Glomerular Filt Rate > 60; Glucose Random 179 mg/dL (60-115); Potassium 4.4 mmol/L (3.3-5.1); Sodium 140 mmol/L (135-145)
--- NOTE | 2023-07-27 11:23 | HO.PM.IMPN ---
Subjective Subjective Date of Service: 07/27/23 Interval History: Seen and evaluated this morning Feels little better weaned off O2 on rest but desaturated to 80s w ambulation Physical Exam Vital Signs: Vital Signs: Last Vital Signs Temp 96.9 F 07/27/23 06:43 Pulse 77 07/27/23 08:08 Resp 20 07/27/23 08:08 BP 128/60 07/27/23 06:43 Pulse Ox 93 07/27/23 08:07 O2 Del Method Nasal Cannula 07/27/23 06:43 O2 Flow Rate 2 07/27/23 06:43 BMI result Body Mass Index 21.9 Const: Other: Constitutional : Awake, interactive, not in distress Neck : Normal inspection, Supple Cardiovascular : RRR, no JVP, no lower extremity edema Respiratory : fair bilateral air entry, basal fine crackles bilaterally, no wheezes Gastrointestinal: soft, lax, Normal bowel sounds, Non tender Skin : Warm, Dry Neurological : Alert & oriented x3, No focal deficit Objective Data Active Medications Acetaminophen (Acetaminophen 325 Mg Tablet) 650 mg PO Q6H PRN PRN Reason: Pain, Mild (Pain Scale 1-3) Last Admin: 07/26/23 23:35 Dose: 650 mg Documented By: NEHA Albuterol/Ipratropium (Albuterol/Iprat 2.5/0.5mg 3 Ml Ampul.Neb) 3 ml INHALE RQ4H WHILE AWAKE [facility] Last Admin: 07/27/23 07:53 Dose: 3 ml Documented By: MOISES Enoxaparin Sodium (Enoxaparin Sodium 40 Mg/0.4 Ml Syringe) 40 mg SUBCUT Q24H [facility] Last Admin: 07/26/23 18:38 Dose: 40 mg Documented By: JESÚS Guaifenesin (Guaifenesin [place] 600 Mg Tab.Er.12h) 600 mg PO BID [facility] Last Admin: 07/27/23 07:48 Dose: 600 mg Documented By: MIKE Azithromycin 500 mg/ Sodium (Chloride) 250 mls @ 125 mls/hr IV Q24H [facility] Last Infusion: 07/26/23 23:00 Dose: Infused Documented By: NEAH Ceftriaxone Sodium 1 gm/ (Sodium Chloride) 50 mls @ 100 mls/hr IV Q24H [facility] Last Infusion: 07/26/23 20:16 Dose: Infused Documented By: REBEKAH Ondansetron HCl (Ondansetron Hcl 4 Mg/2 Ml Vial) 4 mg IVPUSH Q8H PRN PRN Reason: Nausea and Vomiting Labs 07/27/23 07:20 07/27/23 07:20 Labs: Laboratory Results - last 24 hr 07/26/23 07/26/23 07/26/23 13:10 14:33 19:59 MCV 80.0 MCH 25.8 L MCHC 32.3 RDW 15.0 Plt Count 367 MPV 9.3 L Immature Gran % (Auto) 0.4 Neut % (Auto) 79.2 H Lymph % (Auto) 12.7 L [place] % (Auto) 7.3 Eos % (Auto) 0.2 Baso % (Auto) 0.2 Lymph # (Auto) 1.6 [place] # (Auto) 0.9 Eos # (Auto) 0.0 Baso # (Auto) 0.0 Abs Immat Gran (auto) 0.05 H Absolute Neuts (auto) 10.1 H Absolute Nucleated RBC 0.000 Nucleated RBC % (auto) 0.0 Anion Gap 13 12 Estim Creat Clear Calc 45.0 45.6 Estimated GFR > 60 > 60 Random Glucose 121 H 112 Lactic Acid 1.1 Calcium 9.1 8.9 Total Bilirubin 0.3 0.3 Direct Bilirubin 0.2 AST 19 17 ALT 13 13 Alkaline Phosphatase 51 51 Troponin I High Sens 6.1 D B-Natriuretic Peptide 128 H Total Protein 6.6 6.5 Albumin 3.2 L 3.1 L Urine Color Dark Yellow Urine Appearance Cloudy Urine pH 5.5 Ur Specific [place] >= 1.030 H Urine Protein 30 (1+) H Urine Glucose (UA) Negative Urine Ketones 15 Urine Blood Negative Urine Nitrite Negative Ur Leukocyte Esterase Negative Urine RBC 0-2 Urine WBC 0-5 Ur Squamous Epith Cells 3-5 Urine Bacteria None Seen Hyaline Casts 0-2 Influenza Type A (PCR) NEGATIVE Influenza Type B (PCR) NEGATIVE RSV RNA Qual (PCR) NEGATIVE SARS-CoV-2 RNA (RT-PCR) NEGATIVE 07/27/23 07:20 MCV 81.4 MCH 26.2 L MCHC 32.2 RDW 14.9 Plt Count 384 MPV 10.2 Immature Gran % (Auto) Neut % (Auto) Lymph % (Auto) [place] % (Auto) Eos % (Auto) Baso % (Auto) Lymph # (Auto) [place] # (Auto) Eos # (Auto) Baso # (Auto) Abs Immat Gran (auto) Absolute Neuts (auto) Absolute Nucleated RBC 0.000 Nucleated RBC % (auto) 0.0 Anion Gap 13 Estim Creat Clear Calc 43.7 Estimated GFR > 60 Random Glucose 179 H Lactic Acid Calcium 9.7 D Total Bilirubin Direct Bilirubin AST ALT Alkaline Phosphatase Troponin I High Sens B-Natriuretic Peptide Total Protein Albumin Urine Color Urine Appearance Urine pH Ur Specific [place] Urine Protein Urine Glucose (UA) Urine Ketones Urine Blood Urine Nitrite Ur Leukocyte Esterase Urine RBC Urine WBC Ur Squamous Epith Cells Urine Bacteria Hyaline Casts Influenza Type A (PCR) Influenza Type B (PCR) RSV RNA Qual (PCR) SARS-CoV-2 RNA (RT-PCR) Assessment and Plan (1) Physical deconditioning: Status: Acute (2) Acute respiratory failure with hypoxia: Status: Acute (3) Pneumonia: Status: Acute Plan An 88 years old lady with PMH of PMR, Bronchiectasis, osteoporosis among others who presents to the hospital complaining of worsening cough and shortness of breath. # Acute hypoxic respiratory 2/ post viral Pneumonia CXR showing infiltrates , more on left not septic pending cultures Continue IV Rhoda and CTX (07/26) Duonebs wean O2 down as tolerated Home O2 eval done and she qualifies for 2L with ambulation # PHysical deconditioning PT evaluation #CKD stage 3 at Baseline # PMR not on steroids, no exacerbation DVT PPx Lovenox The patient will likely need overnight hospital stay for treatment of Pneumonia andn eed of O2 supplement which can not be provided at any less acute care Quality Stroke Does the patient have a stroke diagnosis?: No VTE Prior VTE?: No VTE Risk Level:: Medical - moderate - high VTE Device Contraindication: Treatment Not Indicated VTE Drug Contraindication: N/A - Med Ordered
--- NOTE | 2023-07-27 13:38 | MHC.CM.PN ---
IMM/ FORM DELIVERED. PT LIVES ALONE. ACTIVE WITH [facility]. 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 PT USES [facility] FOR MOBILITY. + HCP PCP DR. ALEXIS. DP: HOME WITH RESUMPTION OF [facility] SERVICES. FAMILY WILL TRANSPORT. CM WILL CONTINUE TO FOLLOW FOR ANY CHANGE IN DC NEEDS/PLAN
[2023-07-27] MEDS: cefTRIAXone sodium 1 GM in 0.9 % Sodium Chloride 50 ML IV (16:52)
[2023-07-27] MEDS: Enoxaparin Sodium 40 MG/0.4 ML SYRINGE SUBCUT (16:52)
[2023-07-27] MEDS: Azithromycin 500 MG in 0.9 % Sodium Chloride 250 ML 125 MG IV (17:09)
[2023-07-27] MEDS: ondansetron HCL 4 MG/2 ML VIAL IVPUSH (23:46)
[2023-07-28 03:05] VITALS: BP 115/56; PULSE 84; RESP 16; TEMP 36.7; O2SAT 92
[2023-07-28 07:05] VITALS: BP 120/58; PULSE 74; RESP 16; TEMP 36.6; O2SAT 93
[2023-07-28 07:39] VITALS: PULSE 74; RESP 16; O2SAT 95
[2023-07-28] MEDS: Albuterol/Iprat 2.5/0.5MG 3 ML AMPUL.NEB INHALE ×2 (07:39→11:18)
[2023-07-28] MEDS: guaiFENesin LA 600 MG TAB.ER.12H PO (08:52)
[2023-07-28 09:51] VITALS: PULSE 74
--- NOTE | 2023-07-28 10:40 | PM.DS ---
DS: Providers Provider Date of Service: 07/28/23 Date of admission: 07/26/23 17:14 Primary care physician: Dionisio Bustamante MD DS: Diagnosis Discharge Diagnosis (1) Physical deconditioning: Status: Acute (2) Acute respiratory failure with hypoxia: Status: Acute (3) Pneumonia: Status: Acute DS: Summary Hospital Course Hospital Course: from initial hpi: 88 years old lady with PMH of PMR, Bronchiectasis, osteoporosis among others who presents to the hospital complaining of worsening cough and shortness of breath. The patient reports having Flu infection almost 2 weeks ago that was treated with Tamiflu with partial recovery but over the last few days she noticed worsening dyspnea and increase sputum production with associated weakness and decrease appetite. No chest pain, palpitations, nausea, vomiting, diarrhea or urinary symptoms. In Ed found to be hypoxic on room air requiring O2 supplement. CXR showing evidence of pneumonia. Admitted for further treatment. hospital course: Patient was admitted for acute hypoxic respiratory failure secondary to post flu pneumonia complicated by chronic bronchiectasis. She was treated with ceftriaxone azithromycin. She was able to be weaned off oxygen at rest but still requires on ambulation. She will be discharged on 5 more days of cefuroxime and azithromycin and with home O2. Her CKD 3 remained at baseline. Time Attestation Discharge coordination time: Greater than 30 minutes Quality: Safe Use of Opioids Does Pt have an Active Cancer Diagnosis on the Problem List?: No Quality: Stroke Does the patient have a stroke diagnosis?: No Physical Exam Vital Signs: Vital Signs: Last Vital Signs Temp 98 F 07/28/23 07:05 Pulse 74 07/28/23 09:51 Resp 16 07/28/23 07:39 BP 120/58 L 07/28/23 07:05 Pulse Ox 93 07/28/23 07:05 O2 Del Method Room Air 07/28/23 07:05 O2 Flow Rate 2 07/27/23 06:43 BMI result Body Mass Index 21.9 Const: Other: Constitutional : Awake, interactive, not in distress Neck : Normal inspection, Supple Cardiovascular : RRR, no JVP, no lower extremity edema Respiratory : fair bilateral air entry, basal fine crackles bilaterally, no wheezes Gastrointestinal: soft, lax, Normal bowel sounds, Non tender Skin : Warm, Dry Neurological : Alert & oriented x3, No focal deficit DS: Data Data Completed and Pending Labs on day of discharge: Preliminary micro results at discharge 07/26/23 14:33 Blood Culture - Preliminary Blood - Venous No growth after 24 hours. 07/26/23 14:33 Blood Culture - Preliminary Blood - Venous No growth after 24 hours. Discharge Plan Discharge Anticipated Discharge Date/Time: 07/28/23 10:37 Patient Disposition: Home Health Service Discharge Diagnosis: pneumonia Referrals: Dionisio Bustamante MD [Primary Care Provider] - 1 Week Discharge Medications: New cefuroxime axetil 500 mg tablet 500 mg PO BID Qty: 10 0RF azithromycin 500 mg tablet 500 mg PO DAILY 5 Days Qty: 5 0RF Continued calcium carbonate 600 mg calcium (1,500 mg) tablet 600 mg PO DAILY 90 Days Qty: 90 11RF celecoxib 100 mg capsule 100 mg PO DAILY benzonatate 200 mg capsule 200 mg PO TID vitamin E 268 mg (400 unit) Capsule 268 mg PO DAILY cholecalciferol (vitamin D3) 25 mcg (1,000 unit) Tablet 25 mcg PO DAILY multivitamin Tablet 1 tab PO DAILY budesonide-formoterol [Symbicort] 80-4.5 mcg/actuation HFA aerosol inhaler 2 inh inhalation BID mecobalamin (vitamin B12) 1,000 mcg tablet,disintegrating 1,000 mcg sublingual DAILY Rx Instructions: place tablet under tongue and allow to dissolve for at least30 secs before swallowing albuterol sulfate 90 mcg/actuation HFA aerosol inhaler 2 puff inhalation Q6H PRN (Reason: cough) fluticasone propionate 50 mcg/actuation spray,suspension 1 spray intranasal DAILY Discharge Orders: Discharge Order (Routine); Ordered 07/28/23 Ordered By: Matt Rhodes Diet: Advance to usual diet Activity on Discharge: As tolerated Stand Alone Forms: Patient Portal Discharge page Care Plan Goals: recovery Health Concerns: penumonia Plan of Treatment: home o2, ceftin and azithro for 5 more days Assessment: see above
--- NOTE | 2023-07-28 10:53 | MHC.CM.PN ---
DP: PT HAS BEEN MEDICALLY CLEARED FOR DC HOME WITH RESUMPTION OF [facility] SERVICES. [facility] NOTIFIED OF TODAY'S DC. DAUGHTER WILL TRANSPORT HOME.
[2023-07-28 11:18] VITALS: PULSE 70; RESP 16; O2SAT 94
== END 2023-07-28 12:50 | disposition home health service (06) | DRG 190 ==
LOC: HO.ED 16:47 → HO.EDOVER 17:25 → HO.S3 20:15
PROVIDERS: Admitting Provider Student in an Organized Health Care Education/Training Program; Emergency Provider Emergency Medicine Emergency Medical Services; PCP Internal Medicine; Visit Provider Internal Medicine
DX: J47.0 Bronchiectasis with acute lower respiratory infection (principal); J96.01 Acute respiratory failure with hypoxia; M35.3 Polymyalgia rheumatica; J18.9 Pneumonia, unspecified organism; N18.30 Chronic kidney disease, stage 3 unspecified; Z20.822 Contact with and (suspected) exposure to COVID-19; Z91.041 Radiographic dye allergy status; Z79.51 Long term (current) use of inhaled steroids; Z79.899 Other long term (current) drug therapy
CPT/HCPCS: 0241U; 36415; 71045; 80048; 80053; 80076; 81001; 83605; 83880; 84484; 85025; 85027; 87040; 93005; 94640; 97116; 97162; 99285; J0456; J0692; J0696; J1650; J2405; J2930

== ENCOUNTER → 2023-07-26 13:58 | Outpatient (BNV) | payer MEDICARE, OTHER, SELFPAY | PROVIDERS: Emergency Provider Emergency Medicine Emergency Medical Services; PCP Internal Medicine; Visit Provider Internal Medicine | DX: R07.9 Chest pain, unspecified (principal) | CPT/HCPCS: 93010 ==

== ENCOUNTER → 2023-07-26 17:14 | Outpatient (BNV) | payer MEDICARE, OTHER, SELFPAY | PROVIDERS: Admitting Provider Student in an Organized Health Care Education/Training Program; Emergency Provider Emergency Medicine Emergency Medical Services; PCP Internal Medicine; Visit Provider Student in an Organized Health Care Education/Training Program | DX: J96.01 Acute respiratory failure with hypoxia (principal); J18.9 Pneumonia, unspecified organism; R53.81 Other malaise | CPT/HCPCS: 99223; 99232; 99238 ==

== ENCOUNTER 2023-08-21 01:00 | Inpatient (IN) | payer MEDICARE, OTHER, SELFPAY ==
[2023-08-21] VITALS (13 sets, daily range): BP systolic 126–169; BP diastolic 58–87; PULSE 75–106; RESP 15–21; TEMP 35.9–37; O2SAT 92–98; BMI 21.1
--- NOTE | ~2023-08-21 | XR_ITS ---
EXAMINATION: XR CHEST CLINICAL INFORMATION: Cough. Pneumonia. COMPARISON: 07/26/2023. TECHNIQUE: Frontal view of the chest was obtained. FINDINGS: The cardiomediastinal silhouette is stable. There is diffuse increased markings and multilevel bronchiectatic change. There is patchy bilateral consolidation similar to previous. There are no significant pleural effusions. The bony structures are osteopenic. The soft tissues are unremarkable. XR/XR chest 1V IMPRESSION: Diffuse increased markings and multilevel bronchiectatic change. Patchy bilateral consolidation similar to previous.
--- NOTE | 2023-08-21 01:15 | ECG_ITS ---
Test Reason : HIGH HR Blood Pressure : / mmHG Vent. Rate : 089 BPM Atrial Rate : 089 BPM P-R Int : 148 ms QRS Dur : 076 ms QT Int : 370 ms P-R-T Axes : 062 021 031 degrees QTc Int : 450 ms Normal sinus rhythm Normal ECG When compared with ECG of 26-JUL-2023 14:10, No significant change was found Referred By: Generic ED Physician Electronically Signed By:BENTON RODRIGUEZ
[2023-08-21 02:00] LABS: MANUAL DIFF FLAG NO
[2023-08-21 02:01] LABS: Basophils Absolute Auto 0.1 X10*3/uL (0.0-0.2); Basophils Percent Auto 0.7 % (0-2); Eosinophils Absolute Auto 0.2 X10*3/uL (0.0-0.4); Eosinophils Percent Auto 2.4 % (0-4); Hematocrit 31.4 % (37.0-47.0); Hemoglobin 9.8 g/dl (12.0-16.0); Imm Gran Abs Auto 0.04 X10*3/uL (0.00-0.03); Imm Gran Pct Auto 0.4 % (0.0-0.4); Lymphocytes Absolute Auto 2.5 X10*3/uL (1.2-4.9); Lymphocytes Percent Auto 25.2 % (20-40); Mean Corpuscular HGB Conc 31.2 g/dl (31.0-35.0); Mean Corpuscular Volume 83.3 fL (80.0-98.0); Mean Platelet Volume 9.2 fL (9.4-12.3); Monocytes Percent Auto 10.4 % (2-11); Neutrophils Percent Auto 60.9 % (45-73); Platelet Count 416 X10*3/uL (160-400); Red Blood Count 3.77 X10*6/uL (4.20-5.50); Red Cell Distribution Width 14.7 % (11.0-16.0); White Blood Count 9.8 X10*3/uL (4.8-10.8)
[2023-08-21 02:14] LABS: Alanine Aminotransferase 13 U/L (0-31); Albumin Level 3.1 g/dL (3.5-5.0); Alkaline Phosphatase 59 U/L (39-117); Anion Gap 14 (12-20); Aspartate Amino Transferase 18 U/L (5-31); Bilirubin Total 0.2 mg/dL (0.0-1.0); Blood Urea Nitrogen 14 mg/dL (9-16); Calcium 10.4 mg/dL (8.4-10.2); Carbon Dioxide 29 mmol/L (22-29); Chloride 104 mmol/L (96-108); Creatinine Clr Calc Pharmacy 41.4; Estimated Glomerular Filt Rate > 60; Glucose Random 106 mg/dL (60-115); Potassium 3.6 mmol/L (3.3-5.1); Sodium 143 mmol/L (135-145); Total Protein 6.5 g/dL (6.5-8.0)
[2023-08-21 02:21] LABS: Troponin-I High Sensitivity 11.3 ng/L (<3.5-17.0)
--- NOTE | 2023-08-21 06:58 | ED_ITS ---
HPI - General Adult General Chief complaint: General Medical Stated complaint: tremors, HTN, Tachy Time Seen by Provider: 08/21/23 06:36 Source: patient and EMS Mode of arrival: EMS Limitations: no limitations History of Present Illness HPI narrative: Patient is an 88 year old assigned female at with a history of recent pneumonia and starting on home oxygen, presenting to the emergency department today with left sided chest pain and tremors. Patient states that tremors woke her up from a sleep and then she developed sharp and constant left sided chest pain. Patient states that the ambulance gave her ASA en route to the hospital. Patient states nothing makes the pain better. Patient denies any dizziness, lightheadedness, abdominal pain, nausea, vomiting, fever, chills, blurry vision, double vision, loss of vision, difficulty breathing, shortness of breath, back pain, night sweats, pain with urination, increased urinary frequency, increased urinary urgency, blood in her urine or stool, syncope or a near syncopal episode, recent trauma or falls, bowel incontinence, bladder incontinence, bowel retention, bladder retention, or any other complaints at this time. Onset (ago): hour(s) Location: chest and left Severity: moderate Severity scale (1-10): 5 Quality: sharp and constant Pain Consistency: constant Relieving factors: none Exacerbating factors: none Associated symptoms: chest pain Treatments prior to arrival: aspirin Related Data Home Medications Medication Instructions Recorded Confirmed multivitamin 1 tab PO DAILY 08/05/20 07/26/23 budesonide-formoterol HFA 80 2 inh inhalation BID 01/06/21 07/26/23 mcg-4.5 mcg/actuation aerosol inhaler (Symbicort) mecobalamin (vitamin B12) 1,000 1,000 mcg sublingual DAILY 07/14/21 07/26/23 mcg disintegrating tablet,sublingual albuterol sulfate 90 mcg/actuation 2 puff inhalation Q6H PRN cough 09/24/22 07/26/23 aerosol inhaler fluticasone propionate 50 1 spray intranasal DAILY 09/24/22 07/26/23 mcg/actuation nasal spray,suspension benzonatate 200 mg capsule 200 mg PO TID cough 07/13/23 07/26/23 celecoxib 100 mg capsule 100 mg PO DAILY 07/13/23 07/26/23 cholecalciferol (vitamin D3) 25 25 mcg PO DAILY 07/13/23 07/26/23 mcg (1,000 unit) tablet vitamin E 268 mg (400 unit) capsule 268 mg PO DAILY 07/13/23 07/26/23 codeine 10 mg-guaifenesin 100 mg/5 10 ml PO Q4H PRN cough 08/21/23 mL oral liquid denosumab 60 mg/mL subcutaneous 60 mg subcut [id number] 08/21/23 syringe (Prolia) Previous Rx's Medication Instructions Recorded azithromycin 500 mg tablet 500 mg PO DAILY 5 days #5 tabs 07/28/23 cefuroxime axetil 500 mg tablet 500 mg PO BID #10 tabs 07/28/23 calcium carbonate 600 mg calcium 600 mg PO DAILY 90 days #90 tabs 08/02/23 (1,500 mg) tablet Allergies Allergy/AdvReac Type Severity Reaction Status Date / Time influenza virus vaccine, Allergy 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 Iodinated Contrast Media Allergy Severe DIDN'T Verified 07/13/23 17:26 [IV CONTRAST] AGREE WITH PATIENT SHELLFISH Allergy Intermediate VOMITING Uncoded 07/13/23 17:26 contrast dye Allergy Unknown Unknown Uncoded 07/13/23 17:26 fish Allergy Unknown Unknown Uncoded 07/13/23 17:26 IV dye Allergy Unknown Unknown Uncoded 07/13/23 17:26 shellfish Allergy Unknown Unknown Uncoded 07/13/23 17:26 shrimp Allergy Unknown Unknown Uncoded 07/13/23 17:26 Review of Systems 2 Constitutional: Constitutional: Reports no additional constitutional complaints, Denies chills, Denies fever(s) and Denies night sweats Eyes: Eyes: Reports no additional eye complaints, Denies blurry vision, Denies change in vision, Denies diplopia, Denies eye discharge, Denies loss of vision and Denies eye pain ENT: Denies dizziness Cardiovascular: Cardiovascular: Reports no additional cardiovascular complaints, Reports chest pain, Denies lightheadedness, Denies Loss of Consciousness and Denies dyspnea Respiratory: Respiratory: Reports no additional respiratory complaints and Denies dyspnea Gastrointestinal: Gastrointestinal: Reports no additional gastrointestinal complaints, Denies abdominal pain, Denies melena, Denies hematochezia, Denies change in bowel habits and Denies change in stool character Genitourinary: Genitourinary: Denies hematuria, Denies urinary frequency, Denies dysuria, Denies urinary incontinence, Denies urinary hesitancy and Denies urinary urgency Musculoskeletal: Musculoskeletal: Reports no additional musculoskeletal complaints, Denies numbness and Denies tingling Neurologic: Denies dizziness, Denies loss of vision, Denies numbness and Denies tingling Psychiatric: Psychiatric: Reports no additional psychiatric complaints Endocrine: Endocrine: Reports no additional endocrine complaints Hematologic/Lymphatic: Hematologic/Lymphatic: Reports no additional hematologic/lymphatic complaints Allergic/Immunologic: Allergic/Immunologic: Reports no additional allergic/immunologic complaints [facility] Past Medical History Attestation statement: The following information was validated with the patient. Source: old records reviewed and nursing notes reviewed Medical History Bronchiectasis COVID-19 vaccine series completed Polymyalgia rheumatica Vitamin D deficiency Osteoporosis Surgical History Hx of colonoscopy Hx of toe surgery History of ear surgery Hx of tubal ligation Family History Family History Father No problems noted. Mother Heart disease Brother Colon cancer Brother Stomach cancer Social History Social History Household Members: None Housing: Apartment Do you presently have visiting nurse or other home services: Yes ([facility] PT) Alcohol intake: never Patient Tobacco Use Status: Former Tobacco user Tobacco use type: Cigarette Cigarettes Per Day: 40 Years Smoked: 40 Smoked in Last 30 Days: No Use of substances other than those prescribed or required for medical reasons: No Advance Directives: No Advance Directives Information Provided: Yes Advance Directives Date on File: 01/21/21 service: No Physical Exam ED Vital Signs: Vital Signs - 24 hr 08/21/23 01:07 08/21/23 03:27 08/21/23 06:47 Temperature 98.6 F Pulse Rate 92 78 75 Respiratory Rate 15 16 20 Blood Pressure 149/73 H 134/58 L 138/69 Pulse Oximetry 96 96 97 Oxygen Delivery Method Nasal Cannula Nasal Cannula Nasal Cannula Oxygen Flow Rate 2 2 08/21/23 07:35 08/21/23 07:44 08/21/23 07:45 Temperature Pulse Rate 84 102 H 104 H Respiratory Rate 15 20 Blood Pressure 152/77 H 169/87 H 169/87 H Pulse Oximetry 97 98 Oxygen Delivery Method Nasal Cannula Nasal Cannula Oxygen Flow Rate 2 2 08/21/23 07:56 Temperature Pulse Rate 105 H Respiratory Rate 18 Blood Pressure 148/84 H Pulse Oximetry 94 Oxygen Delivery Method Nasal Cannula Oxygen Flow Rate 2 BMI result Body Mass Index 21.1 Const General: cooperative, no acute distress, alert and awake Nutritional Appearance: well nourished Orientation/consciousness: patient oriented x3 Limitations: no limitations HENMT Head: Yes normal to inspection and Yes atraumatic Ears: hearing grossly normal bilaterally and external ears normal General nose exam: Normal external nose present, no nasal discharge noted and no epistaxis Face and sinus: Yes normal facial exam, No abrasion and No laceration Mouth: Normal oral and palatal mucosa present, no drooling and no muffled voice Eyes General: appearance normal, both eyes and all related structures Periorbital: periorbital findings normal Eyelids: Yes eyelids normal Conjunctivae: conjunctivae normal Pupils: Equal, round and reactive pupils present EOM: EOMs intact bilaterally Neck Neck: Yes normal visual inspection, Yes full ROM and Yes no lymphadenopathy Chest Chest palpation & inspection: normal inspection of the chest Resp Effort & Inspection: normal respiratory effort and able to speak in complete sentences Auscultation: clear to auscultation bilaterally Cardio Rate: regular rate Rhythm: regular rhythm GI Inspection: Yes normal to inspection Neuro General: patient oriented x3 and moves all extremities Cranial nerves: Yes Equal, round and reactive pupils present Cognition (Neuro): normal cognition Motor exam (neuro): 5/5 motor strength present throughout Sensory Exam: Normal double simultaneous stimulation for sensation Coordination: [id number] test normal Extrem General: Yes normal to inspection, Yes full ROM and Yes capillary refill normal Psych Appearance: grossly normal Mental Status: mental status grossly normal Affect: normal affect Attitude: cooperative Thought process: Normal thought process present Thought content: Normal thought content present Insight: Good insight present (Psych) Medications Administered Discontinued Medications Generic Name Dose Route Start Last Admin Trade Name Freq PRN Reason Stop Dose Admin Nitroglycerin 0.4 mg 08/21/23 07:36 08/21/23 07:45 Nitroglycerin 0.4 Mg Tab.Subl SUBLINGUAL 08/21/23 07:37 0.4 mg ONCE ONE Administration Medical Decision Making Medical Decision Making MDM Narrative: Patient is an 88 year old assigned female at with a history of recent pneumonia and starting of home oxygenation presenting to the emergency department today with tremors, now resolved, and persistent left sided chest pain. Patient's physical exam was as noted in the physical exam portion of this note. Patient's blood work showed an initial trop of 11.3 and a repeat of 73.8. The rest of the patient's labs were unremarkable. Patient's initial EKG was unremarkable. Patient's repeat EKG showed no T wave inversion in V1. Patient's chest x-ray was similar to previous with no acute change. I consulted the conference reservationist demonstrator electric gas appliances who recommended giving the patient SL nitro, ordered an echo, and admitting to medicine. I spoke to the hospitalist team who agreed to admission. I explained my physical exam findings as well as all test results to the patient. I answered all questions asked by the patient. Patient verbalized agreement and understanding with this treatment plan and admission. Differential Diagnosis Differential Diagnoses: The differential diagnosis associated with the presentation includes NSTEMI STEMI ND Chest pain PNA Admission/Observation Consideration of admission/observation: Escalation of care including admission/observation considered Patient admitted. Consult Healthcare Provider Management of the patient was discussed with: Hospitalist (agreed to admission as noted in the MDM rationale portion of this note) and Technical Service Rep (spoke with the conference reservationist as noted in the MDM Rationale portion of this note.) Lab Data [facility] Lab Attestation statement: I reviewed the patient's lab results. My interpretation of these results are in the MDM Rationale portion of this note. 08/21/23 01:56 08/21/23 01:56 Labs: Lab Results 08/21/23 08/21/23 Range/Units 01:56 06:54 WBC 9.8 (4.8-10.8) X10*3/uL RBC 3.77 L (4.20-5.50) X10*6/uL Hgb 9.8 L (12.0-16.0) g/dl Hct 31.4 L (37.0-47.0) % MCV 83.3 (80.0-98.0) fL MCH 26.0 L (27.0-33.0) pg MCHC 31.2 (31.0-35.0) g/dl RDW 14.7 (11.0-16.0) % Plt Count 416 H (160-400) X10*3/uL MPV 9.2 L (9.4-12.3) fL Immature Gran % (Auto) 0.4 (0.0-0.4) % Neut % (Auto) 60.9 (45-73) % Lymph % (Auto) 25.2 (20-40) % [place] % (Auto) 10.4 (2-11) % Eos % (Auto) 2.4 (0-4) % Baso % (Auto) 0.7 (0-2) % Lymph # (Auto) 2.5 (1.2-4.9) X10*3/uL [place] # (Auto) 1.0 (0.1-1.2) X10*3/uL Eos # (Auto) 0.2 (0.0-0.4) X10*3/uL Baso # (Auto) 0.1 (0.0-0.2) X10*3/uL Abs Immat Gran (auto) 0.04 H (0.00-0.03) X10*3/uL Absolute Neuts (auto) 6.0 (2.0-8.3) x10*3/uL Absolute Nucleated RBC 0.000 (0.0-0.012) X10*3/uL Nucleated RBC % (auto) 0.0 (0.0-0.2) /100WBC Sodium 143 (135-145) mmol/L Potassium 3.6 (3.3-5.1) mmol/L Chloride 104 (96-108) mmol/L Carbon Dioxide 29 (22-29) mmol/L Anion Gap 14 (12-20) BUN 14 (9-16) mg/dL Creatinine 0.77 (0.5-1.4) mg/dL Estim Creat Clear Calc 41.4 Estimated GFR > 60 Random Glucose 106 (60-115) mg/dL Calcium 10.4 H D (8.4-10.2) mg/dL Total Bilirubin 0.2 (0.0-1.0) mg/dL AST 18 (5-31) U/L ALT 13 (0-31) U/L Alkaline Phosphatase 59 (39-117) U/L Troponin I High Sens 11.3 D 73.8 H* D (<3.5-17.0) ng/L Total Protein 6.5 (6.5-8.0) g/dL Albumin 3.1 L (3.5-5.0) g/dL Independent Interpretation I performed an independent interpretation of an: EKG and Plain X-Ray Interpretation: My interpretation is in agreement with the radiologist's impression of this imaging study. - EXAMINATION: XR CHEST CLINICAL INFORMATION: Cough. Pneumonia. COMPARISON: 07/26/2023. TECHNIQUE: Frontal view of the chest was obtained. FINDINGS: The cardiomediastinal silhouette is stable. There is diffuse increased markings and multilevel bronchiectatic change. There is patchy bilateral consolidation similar to previous. There are no significant pleural effusions. The bony structures are osteopenic. The soft tissues are unremarkable. XR/XR chest 1V IMPRESSION: Diffuse increased markings and multilevel bronchiectatic change. Patchy bilateral consolidation similar to previous. Dictated By: Carlos Kaminski Signed By: Electronically signed by Carlos Kaminski 08/21/23 0226 - Vent. Rate: 089 BPM Atrial Rate: 089 BPM P-R Int: 148 ms QRS Dur: 076 ms QT Int: 370 ms P-R-T Axes: 062 021 031 degrees QTc Int: 450 ms Normal sinus rhythm Normal ECG When compared with ECG of 26-JUL-2023 14:10, No significant change was found DD/ 0128 - Vent. Rate: 081 BPM Atrial Rate: 081 BPM P-R Int: 146 ms QRS Dur: 078 ms QT Int: 386 ms P-R-T Axes: 068 000 041 degrees QTc Int: 448 ms Normal sinus rhythm Normal ECG When compared with ECG of 21-AUG-2023 01:28, No significant change was found DD/ 0731 Radiology Impression Discussion of test interpretation with radiology: I have reviewed the radiologist's reading. Independent Historian Clinical information obtained from an independent historian. History obtained from or confirmed by: EMS (EMS provided additional history and confirmed the history provided by the patient.) Critical Care Time Critical Care Time Critical Care Time: Yes Total Critical Care Time: 76 Attestation: I spent 76 minutes of Critical Care Time with this patient. This does not include time spent on separately reported billable procedures. Discharge Plan Discharge Clinical Impression: Non-ST elevation ND (NSTEMI), Chest pain Patient Disposition: Admitted As Inpatient Prescriptions: No Action calcium carbonate 600 mg calcium (1,500 mg) tablet 600 mg PO DAILY 90 Days Qty: 90 11RF cefuroxime axetil 500 mg tablet 500 mg PO BID Qty: 10 0RF azithromycin 500 mg tablet 500 mg PO DAILY 5 Days Qty: 5 0RF codeine-guaifenesin 10-100 mg/5 mL liquid 10 ml PO Q4H PRN (Reason: cough) Prolia 60 mg/mL syringe 60 mg subcut [id number] celecoxib 100 mg capsule 100 mg PO DAILY benzonatate 200 mg capsule 200 mg PO TID vitamin E 268 mg (400 unit) Capsule 268 mg PO DAILY cholecalciferol (vitamin D3) 25 mcg (1,000 unit) Tablet 25 mcg PO DAILY multivitamin Tablet 1 tab PO DAILY budesonide-formoterol [Symbicort] 80-4.5 mcg/actuation HFA aerosol inhaler 2 inh inhalation BID mecobalamin (vitamin B12) 1,000 mcg tablet,disintegrating 1,000 mcg sublingual DAILY Rx Instructions: place tablet under tongue and allow to dissolve for at least30 secs before swallowing albuterol sulfate 90 mcg/actuation HFA aerosol inhaler 2 puff inhalation Q6H PRN (Reason: cough) fluticasone propionate 50 mcg/actuation spray,suspension 1 spray intranasal DAILY
[2023-08-21 07:29] LABS: Troponin-I High Sensitivity 73.8 ng/L (<3.5-17.0)
--- NOTE | 2023-08-21 07:29 | ECG_ITS ---
Test Reason : CP Blood Pressure : / mmHG Vent. Rate : 081 BPM Atrial Rate : 081 BPM P-R Int : 146 ms QRS Dur : 078 ms QT Int : 386 ms P-R-T Axes : 068 000 041 degrees QTc Int : 448 ms Normal sinus rhythm Normal ECG When compared with ECG of 21-AUG-2023 01:28, No significant change was found Referred By: Priyanka Funez Electronically Signed By:BENTON RODRIGUEZ
--- NOTE | 2023-08-21 07:36 | CA_ITS ---
Transthoracic Echocardiogram Patient (Last, First, Middle): Danielle Shields J Gender: Female Date of : 1935 Age: 88 Procedure Date: 08/21/2023 Procedure Type: Transthoracic Echocardiogram Location: ER Height: 157.48 cm Weight: 52.16 kg BSA: 1.51 m2 Heart Rate: bpm BP: 155 / 72 mmHg Director Of Business Applications: Referring MD: Priyanka JURADO Symptoms: chest pain / possible NSTEMI Study Quality: Fair ECG Rhythm: Sinus Conclusions: - The left ventricular systolic function is normal. The calculated ejection fraction is 63% by biplane method. - No obvious valvular pathology seen on this study. Findings Left Ventricle Normal left ventricular cavity size. There is mildly increased left ventricular wall thickness. The left ventricular systolic function is normal. The calculated ejection fraction is 63% by biplane method. There is no evidence of regional wall motion abnormalities. Evidence suggests grade I (mild) diastolic dysfunction. Right Ventricle Normal right ventricular cavity size and systolic function. Atria Both atria are normal in size. Aortic Valve There is a normal trileaflet aortic valve. There is no aortic valve stenosis. There is trace (trivial) aortic valve regurgitation. Mitral Valve The mitral valve appears normal. There is trace mitral valve regurgitation. There is no mitral valve stenosis. Pulmonic Valve The pulmonic valve is likely normal. Tricuspid Valve There is trace tricuspid valve regurgitation. There is no evidence of pulmonary hypertension. Great Vessels The asc aorta is normal in size. Venous The inferior vena cava is normal in size and collapses greater than 50% with inspiration. Pericardium/Pleural There is no evidence of pericardial effusion. Prior Study Comparison No prior study available for comparison. Recommendations, Care & Conclusions No obvious valvular pathology seen on this study. Measurements 2D Linear Measurements IVSd: 1.02 0.6-0.9/0.6-1.0 cm LVIDd: 3.54 3.9-5.3/4.2-5.9 cm LVIDd Index: 2.34 2.4-3.2/2.2-3.1 cm/m2 LVIDs: 2.67 2.0-3.6 cm LVPWd: 1.09 0.7-1.1 cm Ao Root: 3.10 2.1-3.5 cm LA Diam: 2.90 2.7-3.8/3.0-4.0 cm LAIDs Index: 1.92 1.5-2.3 cm/m2 LV Mass: 141.44 67-162/88-224 g LV Mass Index: 93.67 43-95/49-115 g/m2 LVOT Diam: 1.90 3.0+(-)1.3 cm 2D Systolic Function EF 4C: 60.30 >55% EF 2C: 64.90 >55% EF BiP: 62.70 >55% Mitral Valve MV Pk E: 0.88 MV PK A: 1.25 MV Decel Time: 98.00 E/A: 0.70 E'Lateral: 9.25 E'Medial: 5.44 E/E' Med: 16.10 E/E' Lat: 9.50 PHT: 29.00 MVA PHT: 7.59 Decel [place]: 8.95 Aortic Valve AoV Pk Porter: 1.69 AoV Mn Porter: 0.96 AoV VTI: 0.33 AoV Pk Grad: 11.00 Aov Mn Grad: 5.00 HARVEY Cont.VTI: 1.25 LVOT LVOT Pk Porter: 0.75 LVOT Mn Porter: 0.43 LVOT VTI: 0.15 LVOT Pk Grad: 2.00 LVOT Mn Grad: 1.00 LVOT Diam: 1.90 LVOT Area: 2.84 Diastolic Function MV Pk E: 0.88 MV Pk A: 1.25 E/A: 0.70 E'Medial: 5.44 E/E' Med: 16.10 E' Laterial: 9.25 E/E' Lat: 9.50 Right Ventricle TAPSE (mm): 24.00 TVS' Porter: 12.00 Tricuspid Valve TR Pk Porter: 1.40 TR Pk Grad: 8.00 RA Press: 3.00 RVSP: 12.00 Great Vessels Aorta Ao Root-2D: 3.10 2.0-3.7 cm Ao Asc: 3.70 2.1-3.4 cm Pulmonary Valve PV Pk Porter: 1.02 Peak PV Grad: 4.00 Updated in Other Vendor System with Status of Final Slade Armstrong MD electronically signed on 08/21/2023 11:43:31 AM with status of Final
--- NOTE | 2023-08-21 07:43 | PC.NURSE ---
Pt reports chest pain on left side of chest, cannot describe at this time, reports its just pain , cannot give a number. 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 Provider is aware of pts condition.
[2023-08-21] MEDS: Nitroglycerin 0.4 MG TAB.SUBL SUBLINGUAL (07:45)
--- NOTE | 2023-08-21 07:56 | PC.NURSE ---
Chest pain unchanged per pt s/p Nitro, pt reports 7/10 remains to left chest, described as pin pricks . Sinus tach on tele, pt guarding to left chest. SKin pale, warm and dry. Breathing even and unlabored.
--- NOTE | 2023-08-21 08:28 | PC.NURSE ---
Pt reports CP has improved to 5/10 after nitro administration, no other symptoms reported. Vital signs remained stable.
--- NOTE | 2023-08-21 08:45 | PHA.MEDREC ---
Pharmacy Consult ? Medication Reconciliation Pharmacy has completed the medication reconciliation. Patient no longer on Prolia, mentions their MD will switch them to another drug.
[2023-08-21 08:52] LABS: Influenza A PCR NEGATIVE (Negative); Influenza B PCR NEGATIVE (Negative); Resp Syncy Virus RNA Qual PCR NEGATIVE (Negative); SARS COV2 PCR INHOUSE NEGATIVE (Negative)
--- NOTE | 2023-08-21 09:44 | P.CONCA_ITS ---
History of Present Illness History of Present Illness Date of Service: 08/21/23 Chief complaint: tremors, HTN, Tachy Narrative: This is a cardiology consultation regarding elevated troponins. Per ER physician, it seems that she originally came to the ER for tremors. Then patient called ambulance and then she was brought to the ER. In this context at some point, she started developing left-sided chest discomfort. She points to the left breast area with her fingers. Off and on discomfort. She has not able to say clearly if she has any coronary disease or so in the past but nothing documented. Otherwise, history of recent pneumonia. She states she has minimal activity at baseline and has had a lot of issues since the recent pneumonia. She apparently had VNA at home. For morbidity, she can walk with a walker but even that is very difficult. Today, she states her legs feel quite heavy and she can barely move them. Otherwise, denies any shortness of breath. She is having some cough but she thinks that is improving. Review of Systems 2 Review of Systems: Yes all other systems are reviewed and are negative Constitutional: Constitutional: Reports as per HPI and Reports no additional constitutional complaints Eyes: Eyes: Reports as per HPI and Denies no additional eye complaints ENT: Denies system reviewed and no additional complaints, except as documented and Reports as per HPI Cardiovascular: Cardiovascular: Reports as per HPI, Reports no additional cardiovascular complaints, Denies acrocyanosis, Denies cool extremities, Reports chest pain, Denies leg edema, Denies lightheadedness, Denies palpitations and Denies dyspnea Respiratory: Respiratory: Reports as per HPI, Denies no additional respiratory complaints and Denies dyspnea Gastrointestinal: Gastrointestinal: Reports as per HPI and Denies no additional gastrointestinal complaints Genitourinary: Genitourinary: Reports as per HPI Musculoskeletal: Musculoskeletal: Reports no additional musculoskeletal complaints and Reports as per HPI Integumentary/Breasts: Skin/Breast: Reports system reviewed and no additional complaints, except as docu Neurologic: Reports system reviewed and no additional complaints, except as documented and Reports as per HPI Psychiatric: Psychiatric: Reports no additional psychiatric complaints and Reports as per HPI Endocrine: Endocrine: Reports no additional endocrine complaints, Reports as per HPI and Denies palpitations Hematologic/Lymphatic: Hematologic/Lymphatic: Reports no additional hematologic/lymphatic complaints and Reports as per HPI Allergic/Immunologic: Allergic/Immunologic: Reports no additional allergic/immunologic complaints and Reports as per HPI PMFSH Past Medical History Medical History Bronchiectasis COVID-19 vaccine series completed Polymyalgia rheumatica Vitamin D deficiency Osteoporosis Family History Family History Father No problems noted. Mother Heart disease Brother Colon cancer Brother Stomach cancer Surgical History Surgical History Hx of colonoscopy Hx of toe surgery History of ear surgery Hx of tubal ligation Social History Social History Household Members: None Housing: Apartment Do you presently have visiting nurse or other home services: Yes (vna PT) Alcohol intake: never Patient Tobacco Use Status: Former Tobacco user Tobacco use type: Cigarette Cigarettes Per Day: 40 Years Smoked: 40 Smoked in Last 30 Days: No Use of substances other than those prescribed or required for medical reasons: No Advance Directives: No Advance Directives Information Provided: Yes Advance Directives Date on File: 01/21/21 service: No Meds Allergies Allergy/AdvReac Type Severity Reaction Status Date / Time influenza virus vaccine, Allergy 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 Iodinated Contrast Media Allergy Severe DIDN'T Verified 07/13/23 17:26 [IV CONTRAST] AGREE WITH PATIENT SHELLFISH Allergy Intermediate VOMITING Uncoded 07/13/23 17:26 contrast dye Allergy Unknown Unknown Uncoded 07/13/23 17:26 fish Allergy Unknown Unknown Uncoded 07/13/23 17:26 IV dye Allergy Unknown Unknown Uncoded 07/13/23 17:26 shellfish Allergy Unknown Unknown Uncoded 07/13/23 17:26 shrimp Allergy Unknown Unknown Uncoded 07/13/23 17:26 Home Medications Medication Instructions Recorded Confirmed Last Taken Type multivitamin 1 tab PO DAILY 08/05/20 08/21/23 08/20/23 History budesonide-formoterol HFA 80 2 inh inhalation BID 01/06/21 08/21/23 08/20/23 History mcg-4.5 mcg/actuation aerosol inhaler (Symbicort) mecobalamin (vitamin B12) 1,000 1,000 mcg sublingual DAILY 07/14/21 08/21/23 08/20/23 History mcg disintegrating tablet,sublingual albuterol sulfate 90 mcg/actuation 2 puff inhalation Q6H PRN cough 09/24/22 08/21/23 07/26/23 History aerosol inhaler fluticasone propionate 50 1 spray intranasal DAILY 09/24/22 08/21/23 08/20/23 History mcg/actuation nasal spray,suspension benzonatate 200 mg capsule 200 mg PO TID PRN cough 07/13/23 08/21/23 07/26/23 History celecoxib 100 mg capsule 100 mg PO DAILY 07/13/23 08/21/23 08/20/23 History cholecalciferol (vitamin D3) 25 25 mcg PO DAILY 07/13/23 08/21/23 08/20/23 History mcg (1,000 unit) tablet vitamin E 268 mg (400 unit) capsule 268 mg PO DAILY 07/13/23 08/21/23 08/20/23 History azithromycin 500 mg tablet 500 mg PO DAILY@1800 08/21/23 08/21/23 08/20/23 History codeine 10 mg-guaifenesin 100 mg/5 10 ml PO Q4H PRN cough 08/21/23 08/21/23 Unknown History mL oral liquid Physical Exam 2 Vital Signs: Vital Signs: Last Vital Signs Temp 98.6 F 08/21/23 01:07 Pulse 104 H 08/21/23 08:49 Resp 20 08/21/23 08:49 BP 155/72 H 08/21/23 08:49 Pulse Ox 96 08/21/23 08:27 O2 Del Method Nasal Cannula 08/21/23 08:27 O2 Flow Rate 2 08/21/23 08:27 Oxygen Flow Rate 2 08/21/23 01:07 BMI result Body Mass Index 21.1 Const: General: comfortable and no acute distress O rientation/consciousness: patient oriented x3 HEENT: Other: Unremarkable Head: Yes normal to inspection Neck: Neck: Yes normal visual inspection Chest: Chest palpation & inspection: normal inspection of the chest Resp: Auscultation: crackles bilateral Cardio: Palpation: normal PMI Heart sounds: S1 normal heart sound present, S2 normal heart sound present, no gallops, no murmurs and no rubs GI: Palpation (GI): Soft to palpation Back/Spine/Pelvis: Other: unremarkable Skin: General skin exam: no rashes or lesions noted Neuro: General: patient oriented x3 Extrem: General: Yes normal to inspection Psych: Mental Status: mental status grossly normal Objective Labs and Meds 08/21/23 01:56 08/21/23 01:56 Lab results: Laboratory Results - last 24 hr 08/21/23 08/21/23 08/21/23 01:56 06:54 07:34 WBC 9.8 RBC 3.77 L Hgb 9.8 L Hct 31.4 L MCV 83.3 MCH 26.0 L MCHC 31.2 RDW 14.7 Plt Count 416 H MPV 9.2 L Immature Gran % (Auto) 0.4 Neut % (Auto) 60.9 Lymph % (Auto) 25.2 [place] % (Auto) 10.4 Eos % (Auto) 2.4 Baso % (Auto) 0.7 Lymph # (Auto) 2.5 [place] # (Auto) 1.0 Eos # (Auto) 0.2 Baso # (Auto) 0.1 Abs Immat Gran (auto) 0.04 H Absolute Neuts (auto) 6.0 Absolute Nucleated RBC 0.000 Nucleated RBC % (auto) 0.0 Sodium 143 Potassium 3.6 Chloride 104 Carbon Dioxide 29 Anion Gap 14 BUN 14 Creatinine 0.77 Estim Creat Clear Calc 41.4 Estimated GFR > 60 Random Glucose 106 Calcium 10.4 H D Total Bilirubin 0.2 AST 18 ALT 13 Alkaline Phosphatase 59 Troponin I High Sens 11.3 D 73.8 H* D Total Protein 6.5 Albumin 3.1 L Influenza Type A (PCR) NEGATIVE Influenza Type B (PCR) NEGATIVE RSV RNA Qual (PCR) NEGATIVE SARS-CoV-2 RNA (RT-PCR) NEGATIVE ECG Interpretation: EKG shows sinus rhythm at 89/Min; no significant ST-T changes and otherwise unremarkable. In the repeat EKG, some T inversions in V1 but does not appear significant. Imaging Radiologist's impression: Impressions Chest X-Ray 08/21/23 01:23 IMPRESSION: Diffuse increased markings and multilevel bronchiectatic change. Patchy bilateral consolidation similar to previous. Assessment and Plan (1) Non-ST elevation [place] (NSTEMI): Status: Acute (2) Chest pain: Status: Acute Plan Chest x-ray with diffuse interstitial markings in multilevel bronchiectatic changes. Patchy bilateral consolidation. Troponin levels are 11.3 and 73.8. We can obtain another set. Echocardiogram is pending. Overall, chest pain that seems somewhat atypical but does have associated elevated troponins. We can treat this has NSTEMI. Not clear if it is primary or secondary. IV heparin drip, aspirin, beta-blockers, statins. She seems quite frail to me. Unclear if she will be suitable for any invasive procedures. To be decided. Can admit. Discussed with Dr. Haywood. Procedures Date of Service Date of Service: 08/21/23
--- NOTE | 2023-08-21 10:29 | PC.NURSE ---
Echo at bedside.
[2023-08-21 11:36] LABS: INTERNATIONAL NORM RATIO 1.1 (0.9-1.1); Prothrombin Time 12.9 SEC (11.1-13.3)
[2023-08-21] MEDS: Aspirin Enteric Coated 81 MG TABLET.DR PO (11:50)
[2023-08-21] MEDS: Heparin Sodium,Porcine/1/2NS 25,000 UNIT/250 ML IV.SOLN 6.28 UNIT IVCONT (13:06)
--- NOTE | 2023-08-21 13:38 | PM.IMHP ---
History of Present Illness Date of Service: 08/21/23 Chief Complaint: Chest pain An 88 years old lady with PMH of PMR, Osteoporosis, Bronchiectasis, COPD on Home O2 among others who presents to the hospital for tremors and chest pain. The patient reports she woke up because of tremors then she developed sudden onset chest pain that started earlier today on the left side of her chest, No palpitations, SOB, nausea, vomiting, diarrhea or urinary symptoms. She reports decrease physical activity as she has been recovering from Pneumonia recently with overall weakness and deconditioning. In ED she was found to have abnormal Elevated Trop with ST-wave depression. Admitted for further work up and treatment. Review of Systems Review of Systems: No fever, chills or weakness chest pain but no palpitation No shortness of breath or coughing No abdominal pain, nausea or vomiting No urinary symptoms No any rash or wounds PMFSH Medical History Bronchiectasis COVID-19 vaccine series completed Polymyalgia rheumatica Vitamin D deficiency Osteoporosis Family History Father No problems noted. Mother Heart disease Brother Colon cancer Brother Stomach cancer Surgical History Hx of colonoscopy Hx of toe surgery History of ear surgery Hx of tubal ligation Social History Household Members: None Housing: Apartment Do you presently have visiting nurse or other home services: Yes Alcohol intake: never Patient Tobacco Use Status: Former Tobacco user Tobacco use type: Cigarette Cigarettes Per Day: 40 Years Smoked: 40 Smoked in Last 30 Days: No Use of substances other than those prescribed or required for medical reasons: No Currently Displaying Signs/Symptoms of Drug Intoxication Withdrawal: No Advance Directives: No Advance Directives Information Provided: Yes Advance Directives Date on File: 01/21/21 Do you have thoughts of harming others: None Do you have a plan to hurt others: No Plan Recently lost weight without trying: No Eating poorly because of decreased appetite: No Nutrition Risks: No Nutritional Risk Patient : No service: No Meds Allergies Allergy/AdvReac Type Severity Reaction Status Date / Time influenza virus vaccine, Allergy 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 Active Medications: Current Medications Acetaminophen (Acetaminophen 325 Mg Tablet) 650 mg PO Q6H PRN PRN Reason: Pain, Mild (Pain Scale 1-3) Albuterol Sulfate (Albuterol Sulfate 90 Mcg 8 Gm Inhaler) 2 puff INHALE Q6H PRN PRN Reason: cough Aspirin (Aspirin Enteric Coated 81 Mg Tablet.Dr) 81 mg PO DAILY [facility] Last Admin: 08/21/23 11:50 Dose: 81 mg Atorvastatin Calcium (Atorvastatin Calcium 40 Mg Tablet) 40 mg PO DAILY [facility] Benzonatate (Benzonatate 100 Mg Capsule) 200 mg PO TID PRN PRN Reason: cough Calcium Carbonate (Calcium Carbonate 500 Mg Tablet) 500 mg PO DAILY [facility] Fluticasone Propionate (Fluticasone Propionate Nasal 16 Gm [place]) 1 spray NOSTRIL-B DAILY [facility] Fluticasone/Vilanterol (Fluticasone/Vilanterol 100/25 Blst.W.Dev) 1 puff INHALE RDAILY [facility] Guaifenesin/Codeine Phosphate (Guaifen/Codeine Sf 200/20/10ml 10 Ml Liquid) 10 ml PO Q4H PRN PRN Reason: cough Heparin Sodium (Porcine) (Heparin Sodium,Porcine 5,000 Unit/Ml Vial) 2,100 unit 40 unit/kg (2100 unit) IVPUSH PROTOCOL BOLUS PRN; Protocol PRN Reason: 40 unit/kg - Heparin Protocol Heparin Sodium (Porcine) (Heparin Sodium,Porcine 5,000 Unit/Ml Vial) 4,200 unit 80 unit/kg (4200 unit) IVPUSH PROTOCOL BOLUS PRN; Protocol PRN Reason: 80 unit/kg - Heparin Protocol Heparin Sodium/Sodium Chloride (Heparin Sodium,Porcine/1/2ns) 25,000 unit in 250 mls @ 0 mls/hr IVCONT .Q0M [facility]; Protocol Last Admin: 08/21/23 13:06 Dose: 12 units/kg/hr, 6.28 mls/hr Metoprolol Tartrate (Metoprolol Tartrate 25 Mg Tablet) 25 mg PO BID [facility]; Protocol Multivitamins/Vitamin C (Multivitamin Tablet) 1 tab PO DAILY [facility] Nitroglycerin (Nitroglycerin 0.4 Mg Tab.Subl) 0.4 mg SUBLINGUAL Q5MX3 PRN PRN Reason: Chest Pain Ondansetron HCl (Ondansetron Hcl 4 Mg/2 Ml Vial) 4 mg IVPUSH Q8H PRN PRN Reason: Nausea and Vomiting Sodium Chloride (0.9 % Sodium Chloride Flush 3 Ml Syringe) 3 ml IVFLUSH QSHIFT [facility] Vitamin D (Cholecalciferol (Vitamin D3) 25 Mcg Tablet) 25 mcg PO DAILY [facility] Home Medications Medication Instructions Recorded Confirmed Last Taken Type multivitamin 1 tab PO DAILY 08/05/20 08/21/23 08/20/23 History budesonide-formoterol HFA 80 2 inh inhalation BID 01/06/21 08/21/23 08/20/23 History mcg-4.5 mcg/actuation aerosol inhaler (Symbicort) mecobalamin (vitamin B12) 1,000 1,000 mcg sublingual DAILY 07/14/21 08/21/23 08/20/23 History mcg disintegrating tablet,sublingual albuterol sulfate 90 mcg/actuation 2 puff inhalation Q6H PRN cough 09/24/22 08/21/23 07/26/23 History aerosol inhaler fluticasone propionate 50 1 spray intranasal DAILY 09/24/22 08/21/23 08/20/23 History mcg/actuation nasal spray,suspension benzonatate 200 mg capsule 200 mg PO TID PRN cough 07/13/23 08/21/23 07/26/23 History celecoxib 100 mg capsule 100 mg PO DAILY 07/13/23 08/21/23 08/20/23 History cholecalciferol (vitamin D3) 25 25 mcg PO DAILY 07/13/23 08/21/23 08/20/23 History mcg (1,000 unit) tablet vitamin E 268 mg (400 unit) capsule 268 mg PO DAILY 07/13/23 08/21/23 08/20/23 History azithromycin 500 mg tablet 500 mg PO DAILY@1800 08/21/23 08/21/23 08/20/23 History codeine 10 mg-guaifenesin 100 mg/5 10 ml PO Q4H PRN cough 08/21/23 08/21/23 Unknown History mL oral liquid Physical Exam Vital Signs and Narrative: Vital Signs: Last Vital Signs Temp 98.6 F 08/21/23 01:07 Pulse 94 08/21/23 10:42 Resp 17 08/21/23 10:42 BP 143/77 H 08/21/23 10:42 Pulse Ox 97 08/21/23 10:42 O2 Del Method Nasal Cannula 08/21/23 10:42 O2 Flow Rate 2 08/21/23 10:42 Oxygen Flow Rate 2 08/21/23 01:07 BMI result Body Mass Index 21.1 Const: Other: Constitutional : Awake, interactive, not in distress Neck : Normal inspection, Supple Cardiovascular : RRR, no JVP, no lower extremity edema Respiratory : good bilateral air entry, no crackles, wheezes or rhonchi Gastrointestinal: soft, lax, Normal bowel sounds, Non tender Skin : Warm, Dry Neurological : Alert & oriented x3, No focal deficit Results Labs 08/22/23 08:34 08/22/23 08:34 Labs: Laboratory Results - last 24 hr 08/21/23 08/21/23 08/21/23 01:56 06:54 07:34 MCV 83.3 MCH 26.0 L MCHC 31.2 RDW 14.7 Plt Count 416 H MPV 9.2 L Immature Gran % (Auto) 0.4 Neut % (Auto) 60.9 Lymph % (Auto) 25.2 [place] % (Auto) 10.4 Eos % (Auto) 2.4 Baso % (Auto) 0.7 Lymph # (Auto) 2.5 [place] # (Auto) 1.0 Eos # (Auto) 0.2 Baso # (Auto) 0.1 Abs Immat Gran (auto) 0.04 H Absolute Neuts (auto) 6.0 Absolute Nucleated RBC 0.000 Nucleated RBC % (auto) 0.0 PT INR aPTT Heparin Protocol Anion Gap 14 Estim Creat Clear Calc 41.4 Estimated GFR > 60 Random Glucose 106 Calcium 10.4 H D Total Bilirubin 0.2 AST 18 ALT 13 Alkaline Phosphatase 59 Troponin I High Sens 11.3 D 73.8 H* D Total Protein 6.5 Albumin 3.1 L Influenza Type A (PCR) NEGATIVE Influenza Type B (PCR) NEGATIVE RSV RNA Qual (PCR) NEGATIVE SARS-CoV-2 RNA (RT-PCR) NEGATIVE 08/21/23 11:23 MCV MCH MCHC RDW Plt Count MPV Immature Gran % (Auto) Neut % (Auto) Lymph % (Auto) [place] % (Auto) Eos % (Auto) Baso % (Auto) Lymph # (Auto) [place] # (Auto) Eos # (Auto) Baso # (Auto) Abs Immat Gran (auto) Absolute Neuts (auto) Absolute Nucleated RBC Nucleated RBC % (auto) PT 12.9 INR 1.1 aPTT Heparin Protocol 34.0 L Anion Gap Estim Creat Clear Calc Estimated GFR Random Glucose Calcium Total Bilirubin AST ALT Alkaline Phosphatase Troponin I High Sens Total Protein Albumin Influenza Type A (PCR) Influenza Type B (PCR) RSV RNA Qual (PCR) SARS-CoV-2 RNA (RT-PCR) Imaging Radiologist's Impressions: Impressions Chest X-Ray 08/21/23 01:23 IMPRESSION: Diffuse increased markings and multilevel bronchiectatic change. Patchy bilateral consolidation similar to previous. Assessment and Plan (1) Chest pain: Status: Acute (2) Non-ST elevation [place] (NSTEMI): Status: Acute (3) Physical deconditioning: Status: Acute Plan An 88 years old lady with PMH of PMR, Osteoporosis, Bronchiectasis, COPD on Home O2 among others who presents to the hospital for tremors and chest pain. NSTEMI with ST depression and elevated Trop Trend Trop ASA 81 mg daily Atorvastatin 40 mg daily MEtoprolol 25 mg bid Start Heparin drip for 48 hours Telemetry O2 as needed Echo , no WMA, EF 63% Cardiology following COPD continue home inhalors O2 supplement Physical deconditioning to do PT once done with Heparin DVT PPx Heparin The patient will likely need 2 overnight hospital stay for treatment of NSTEMI with IV heparin which can not be done in any less acute facility Quality Stroke Does the patient have a stroke diagnosis?: No VTE Prior VTE?: No VTE Risk Level:: Medical - moderate - high VTE Device Contraindication: Treatment Not Indicated VTE Drug Contraindication: N/A - Med Ordered
[2023-08-21 15:14] LABS: Troponin-I High Sensitivity 81.1 ng/L (<3.5-17.0)
[2023-08-21] MEDS: 0.9 % Sodium Chloride Flush 3 ML SYRINGE IVFLUSH (16:27)
[2023-08-21 19:29] LABS: PTT Heparin Drip 38.9 SEC (53-77.9)
[2023-08-21] MEDS: Heparin Sodium,Porcine 5,000 UNIT/ML VIAL 2100 UNIT IVPUSH (19:43)
[2023-08-21] MEDS: Metoprolol Tartrate 25 MG TABLET PO (20:31)
[2023-08-21] MEDS: Milk of Magnesia 30 ML ORAL.SUSP 15 ML PO (20:31)
[2023-08-21] MEDS: Albuterol Sulfate 90 MCG 8 GM INHALER 2 PUFF INHALE (20:31)
[2023-08-22] VITALS (10 sets, daily range): BP systolic 116–164; BP diastolic 50–80; PULSE 69–94; RESP 16–20; TEMP 36.3–36.8; O2SAT 90–94
[2023-08-22 01:53] LABS: PTT Heparin Drip 51.2 SEC (53-77.9)
[2023-08-22] MEDS: Heparin Sodium,Porcine 5,000 UNIT/ML VIAL 2100 UNIT IVPUSH (02:32)
[2023-08-22] MEDS: Fluticasone/Vilanterol 100/25 BLST.W.DEV 1 PUFF INHALE ×2 (08:34→09:09)
[2023-08-22 08:40] LABS: Hematocrit 35.9 % (37.0-47.0); Hemoglobin 11.1 g/dl (12.0-16.0); Mean Corpuscular HGB Conc 30.9 g/dl (31.0-35.0); Mean Corpuscular Hemoglobin 25.6 pg (27.0-33.0); Mean Corpuscular Volume 82.9 fL (80.0-98.0); Mean Platelet Volume 9.1 fL (9.4-12.3); Platelet Count 492 X10*3/uL (160-400); Red Blood Count 4.33 X10*6/uL (4.20-5.50); Red Cell Distribution Width 14.9 % (11.0-16.0); White Blood Count 10.9 X10*3/uL (4.8-10.8)
[2023-08-22 08:46] LABS: Prothrombin Time 12.4 SEC (11.1-13.3)
[2023-08-22 08:49] LABS: PTT Heparin Drip 81.7 SEC (53-77.9)
[2023-08-22 08:55] LABS: Alanine Aminotransferase 13 U/L (0-31); Albumin Level 3.3 g/dL (3.5-5.0); Alkaline Phosphatase 57 U/L (39-117); Anion Gap 14 (12-20); Aspartate Amino Transferase 20 U/L (5-31); Bilirubin Total 0.3 mg/dL (0.0-1.0); Blood Urea Nitrogen 9 mg/dL (9-16); Calcium 10.7 mg/dL (8.4-10.2); Carbon Dioxide 30 mmol/L (22-29); Chloride 104 mmol/L (96-108); Creatinine Clr Calc Pharmacy 42.6; Estimated Glomerular Filt Rate > 60; Glucose Random 117 mg/dL (60-115); Potassium 3.5 mmol/L (3.3-5.1); Sodium 144 mmol/L (135-145); Total Protein 6.8 g/dL (6.5-8.0)
[2023-08-22] MEDS: Cholecalciferol (Vitamin D3) 25 MCG TABLET PO (09:08)
[2023-08-22] MEDS: Metoprolol Tartrate 25 MG TABLET PO ×2 (09:08→22:50)
[2023-08-22] MEDS: Aspirin Enteric Coated 81 MG TABLET.DR PO (09:09)
[2023-08-22] MEDS: Atorvastatin Calcium 40 MG TABLET PO (09:09)
[2023-08-22] MEDS: Multivitamin TABLET 1 TAB PO (09:09)
[2023-08-22] MEDS: 0.9 % Sodium Chloride Flush 3 ML SYRINGE IVFLUSH (09:11)
--- NOTE | 2023-08-22 11:11 | PM.PNCARD ---
Subjective Subjective Date of Service: 08/22/23 Interval history: She states she feels okay. No new complaints. Denies any clear chest pains. Review of Systems Review of Systems Yes all other systems are reviewed and are negative Constitutional: Reports as per HPI and Reports no additional constitutional complaints Eyes: Reports as per HPI and Denies no additional eye complaints Denies system reviewed and no additional complaints, except as documented and Reports as per HPI Cardiovascular: Reports as per HPI, Reports no additional cardiovascular complaints, Denies acrocyanosis, Denies cool extremities, Denies chest pain, Denies leg edema, Denies lightheadedness, Denies palpitations and Denies dyspnea Respiratory: Reports as per HPI, Denies no additional respiratory complaints and Denies dyspnea Gastrointestinal: Reports as per HPI and Denies no additional gastrointestinal complaints Genitourinary: Reports as per HPI Musculoskeletal: Reports no additional musculoskeletal complaints and Reports as per HPI Skin/Breast: Reports system reviewed and no additional complaints, except as docu Reports system reviewed and no additional complaints, except as documented and Reports as per HPI Psychiatric: Reports no additional psychiatric complaints and Reports as per HPI Endocrine: Reports no additional endocrine complaints, Reports as per HPI and Denies palpitations Hematologic/Lymphatic: Reports no additional hematologic/lymphatic complaints and Reports as per HPI Allergic/Immunologic: Reports no additional allergic/immunologic complaints and Reports as per HPI Physical Exam Const General: comfortable and no acute distress Orientation/consciousness: patient oriented x3 HEENT Other: Unremarkable Head: Yes normal to inspection Neck Neck: Yes normal visual inspection Chest Chest palpation & inspection: normal inspection of the chest Resp Auscultation: crackles bilateral Cardio Palpation: normal PMI Heart sounds: S1 normal heart sound present, S2 normal heart sound present, no gallops, no murmurs and no rubs GI Palpation (GI): Soft to palpation Back/Spine/Pelvis Other: unremarkable Skin General skin exam: no rashes or lesions noted Neuro General: patient oriented x3 Extrem General: Yes normal to inspection Psych Mental Status: mental status grossly normal Objective Labs and Meds 08/22/23 08:34 08/22/23 08:34 Lab results: Laboratory Results - last 24 hr 08/21/23 08/21/23 08/21/23 11:23 14:47 19:05 WBC RBC Hgb Hct MCV MCH MCHC RDW Plt Count MPV Absolute Nucleated RBC Nucleated RBC % (auto) PT 12.9 INR 1.1 aPTT Heparin Protocol 34.0 L 38.9 L Sodium Potassium Chloride Carbon Dioxide Anion Gap BUN Creatinine Estim Creat Clear Calc Estimated GFR Random Glucose Calcium Total Bilirubin AST ALT Alkaline Phosphatase Troponin I High Sens 81.1 H* Total Protein Albumin 08/22/23 08/22/23 01:33 08:34 WBC 10.9 H RBC 4.33 Hgb 11.1 L Hct 35.9 L MCV 82.9 MCH 25.6 L MCHC 30.9 L RDW 14.9 Plt Count 492 H MPV 9.1 L Absolute Nucleated RBC 0.000 Nucleated RBC % (auto) 0.0 PT 12.4 INR 1.0 aPTT Heparin Protocol 51.2 L D 81.7 H D Sodium 144 Potassium 3.5 Chloride 104 Carbon Dioxide 30 H Anion Gap 14 BUN 9 Creatinine 0.75 Estim Creat Clear Calc 42.6 Estimated GFR > 60 Random Glucose 117 H Calcium 10.7 H Total Bilirubin 0.3 AST 20 ALT 13 Alkaline Phosphatase 57 Troponin I High Sens Total Protein 6.8 Albumin 3.3 L Progress Note: A&P Assessment and plan (1) Non-ST elevation [place] (NSTEMI): Status: Acute (2) Chest pain: Status: Acute Plan Chest x-ray with diffuse interstitial markings in multilevel bronchiectatic changes. Patchy bilateral consolidation. Troponin levels are 11.3; 73.8; 81.1. Echocardiogram is unremarkable. No overt wall motion abnormalities. Overall, elderly female, frail, comorbidities, possible demand related troponin leak. Clinically she is free of any cardiac symptoms at this time. IV heparin 48 hours, aspirin, beta-blockers and statins. Conservative care only. Discussed with Dr. Haywood. Time Spent With Patient Time: Total time managing care of this patient today ____ minutes. Procedures Date of Service Date of Service: 08/22/23
--- NOTE | 2023-08-22 11:52 | P.PNIM_ITS ---
Subjective Subjective Date of Service: 08/22/23 Interval History: Seen and evaluated this morning feels better overall denies any chest pain or SOB Review of Systems Review of Systems: Yes all other systems are reviewed and are negative Physical Exam 2 Vital Signs: Vital Signs: Last Vital Signs Temp 97.5 F 08/22/23 11:00 Pulse 69 08/22/23 11:00 Resp 20 08/22/23 11:00 BP 126/64 08/22/23 11:00 Pulse Ox 94 08/22/23 11:00 O2 Del Method Nasal Cannula 08/22/23 11:00 O2 Flow Rate 2 08/22/23 11:00 Oxygen Flow Rate 2 08/21/23 01:07 BMI result Body Mass Index 21.1 Const: Other: Constitutional : Awake, interactive, not in distress Neck : Normal inspection, Supple Cardiovascular : RRR, no JVP, no lower extremity edema Respiratory : good bilateral air entry, no crackles, wheezes or rhonchi Gastrointestinal: soft, lax, Normal bowel sounds, Non tender Skin : Warm, Dry Neurological : Alert & oriented x3, No focal deficit Objective Data Active Medications Acetaminophen (Acetaminophen 325 Mg Tablet) 650 mg PO Q6H PRN PRN Reason: Pain, Mild (Pain Scale 1-3) Albuterol Sulfate (Albuterol Sulfate 90 Mcg 8 Gm Inhaler) 2 puff INHALE Q6H PRN PRN Reason: cough Last Admin: 08/21/23 20:31 Dose: 2 puff Aspirin (Aspirin Enteric Coated 81 Mg Tablet.) 81 mg PO DAILY [facility] Last Admin: 08/22/23 09:09 Dose: 81 mg Documented By: ARELI Atorvastatin Calcium (Atorvastatin Calcium 40 Mg Tablet) 40 mg PO DAILY [facility] Last Admin: 08/22/23 09:09 Dose: 40 mg Documented By: ARELI Benzonatate (Benzonatate 100 Mg Capsule) 200 mg PO TID PRN PRN Reason: cough Calcium Carbonate (Calcium Carbonate 500 Mg Tablet) 500 mg PO DAILY [facility] Last Admin: 08/22/23 09:08 Dose: 500 mg Documented By: ARELI Fluticasone Propionate (Fluticasone Propionate Nasal 16 Gm [place]) 1 spray NOSTRIL-B DAILY [facility] Last Admin: 08/22/23 09:13 Dose: Not Given Documented By: ARELI Non-Admin Reason: Med Not Available Fluticasone/Vilanterol (Fluticasone/Vilanterol 100/25 Blst.W.Dev) 1 puff INHALE RDAILY [facility] Last Admin: 08/22/23 09:09 Dose: 1 puff Documented By: ARELI Guaifenesin/Codeine Phosphate (Guaifen/Codeine Sf 200/20/10ml 10 Ml Liquid) 10 ml PO Q4H PRN PRN Reason: cough Heparin Sodium (Porcine) (Heparin Sodium,Porcine 5,000 Unit/Ml Vial) 2,100 unit 40 unit/kg (2100 unit) IVPUSH PROTOCOL BOLUS PRN; Protocol PRN Reason: 40 unit/kg - Heparin Protocol Last Admin: 08/22/23 02:32 Dose: 2,100 unit Documented By: RHODA Heparin Sodium (Porcine) (Heparin Sodium,Porcine 5,000 Unit/Ml Vial) 4,200 unit 80 unit/kg (4200 unit) IVPUSH PROTOCOL BOLUS PRN; Protocol PRN Reason: 80 unit/kg - Heparin Protocol Heparin Sodium/Sodium Chloride (Heparin Sodium,Porcine/1/2ns) 25,000 unit in 250 mls @ 0 mls/hr IVCONT .Q0M [facility]; Protocol Last Titration: 08/22/23 08:54 Dose: 14 units/kg/hr, 7.32 mls/hr Documented By: ARELI Co-signed By: MIKE Metoprolol Tartrate (Metoprolol Tartrate 25 Mg Tablet) 25 mg PO BID [facility]; Protocol Last Admin: 08/22/23 09:08 Dose: 25 mg Documented By: ARELI Multivitamins/Vitamin C (Multivitamin Tablet) 1 tab PO DAILY [facility] Last Admin: 08/22/23 09:09 Dose: 1 tab Documented By: ARELI Nitroglycerin (Nitroglycerin 0.4 Mg Tab.Subl) 0.4 mg SUBLINGUAL Q5MX3 PRN PRN Reason: Chest Pain Ondansetron HCl (Ondansetron Hcl 4 Mg/2 Ml Vial) 4 mg IVPUSH Q8H PRN PRN Reason: Nausea and Vomiting Sodium Chloride (0.9 % Sodium Chloride Flush 3 Ml Syringe) 3 ml IVFLUSH QSHIFT [facility] Last Admin: 08/22/23 09:11 Dose: 3 ml Documented By: ARELI Vitamin D (Cholecalciferol (Vitamin D3) 25 Mcg Tablet) 25 mcg PO DAILY [facility] Last Admin: 08/22/23 09:08 Dose: 25 mcg Documented By: ARELI Labs 08/22/23 08:34 08/22/23 08:34 Labs: Laboratory Results - last 24 hr 08/21/23 08/21/23 08/22/23 14:47 19:05 01:33 MCV MCH MCHC RDW Plt Count MPV Absolute Nucleated RBC Nucleated RBC % (auto) PT INR aPTT Heparin Protocol 38.9 L 51.2 L D Anion Gap Estim Creat Clear Calc Estimated GFR Random Glucose Calcium Total Bilirubin AST ALT Alkaline Phosphatase Troponin I High Sens 81.1 H* Total Protein Albumin 08/22/23 08:34 MCV 82.9 MCH 25.6 L MCHC 30.9 L RDW 14.9 Plt Count 492 H MPV 9.1 L Absolute Nucleated RBC 0.000 Nucleated RBC % (auto) 0.0 PT 12.4 INR 1.0 aPTT Heparin Protocol 81.7 H D Anion Gap 14 Estim Creat Clear Calc 42.6 Estimated GFR > 60 Random Glucose 117 H Calcium 10.7 H Total Bilirubin 0.3 AST 20 ALT 13 Alkaline Phosphatase 57 Troponin I High Sens Total Protein 6.8 Albumin 3.3 L Assessment and Plan (1) Chest pain: Status: Acute (2) Non-ST elevation [place] (NSTEMI): Status: Acute (3) Physical deconditioning: Status: Acute Plan An 88 years old lady with PMH of PMR, Osteoporosis, Bronchiectasis, COPD on Home O2 among others who presents to the hospital for tremors and chest pain. NSTEMI continue ASA 81 mg daily Atorvastatin 40 mg daily MEtoprolol 25 mg bid Heparin drip to finish 48 hours Telemetry O2 as needed Echo , no WMA, EF 63% Cardiology following COPD continue home inhalors O2 supplement Physical deconditioning PT eval DVT PPx Heparin The patient will likely need overnight hospital stay for treatment of NSTEMI with IV heparin which can not be done in any less acute facility Quality Stroke Does the patient have a stroke diagnosis?: No VTE Prior VTE?: No VTE Risk Level:: Medical - moderate - high VTE Device Contraindication: Treatment Not Indicated VTE Drug Contraindication: N/A - Med Ordered
--- NOTE | 2023-08-22 12:43 | MHC.CM.PN ---
IMM 08/22/23, Pt lives alone and has home health services from [facility], she would like to have [facility] when she goes home, task submitted for [facility]. She has been to [facility] before and would like to go to [facility], referral submitted. HCP on file, and confirmed, names Chetna Jenkins. PCP:Dionisio Wise. CM to follow and assist with DC plan.
[2023-08-22] MEDS: Heparin Sodium,Porcine/1/2NS 25,000 UNIT/250 ML IV.SOLN 7.32 UNIT IVCONT (13:23)
[2023-08-22 15:36] LABS: PTT Heparin Drip 56.3 SEC (53-77.9)
[2023-08-22 22:37] LABS: PTT Heparin Drip 54.6 SEC (53-77.9)
[2023-08-22] MEDS: Nitroglycerin 0.4 MG TAB.SUBL SUBLINGUAL (22:47)
[2023-08-22] MEDS: guaiFEN/Codeine SF 200/20/10ML 10 ML LIQUID PO (23:12)
[2023-08-22] MEDS: Albuterol Sulfate 90 MCG 8 GM INHALER 2 PUFF INHALE (23:52)
[2023-08-23] VITALS (7 sets, daily range): BP systolic 118–151; BP diastolic 56–67; PULSE 69–75; RESP 16–18; TEMP 36.1–36.9; O2SAT 92–95
[2023-08-23 07:53] LABS: PTT Heparin Drip 55.4 SEC (53-77.9)
[2023-08-23] MEDS: Fluticasone Propionate Nasal 16 GM SPRAY 1 SPRAY NOSTRIL-B (08:12)
[2023-08-23] MEDS: Atorvastatin Calcium 40 MG TABLET PO (08:13)
[2023-08-23] MEDS: Metoprolol Tartrate 25 MG TABLET PO ×2 (08:13→22:37)
[2023-08-23] MEDS: Multivitamin TABLET 1 TAB PO (08:13)
[2023-08-23] MEDS: Cholecalciferol (Vitamin D3) 25 MCG TABLET PO (08:13)
[2023-08-23] MEDS: Aspirin Enteric Coated 81 MG TABLET.DR PO (08:13)
--- NOTE | 2023-08-23 10:55 | MHC.CM.PN ---
CM met with Patient at bedside and addressed IMM with her, providing Patient with the original and a copy has been placed on the chart.
--- NOTE | 2023-08-23 12:06 | HO.PM.IMPN ---
Subjective Subjective Date of Service: 08/23/23 Interval History: Seen and evaluated this morning feels better overall on Heparin drip denies any chest pain or SOB Review of Systems Review of Systems: Yes all other systems are reviewed and are negative Physical Exam Vital Signs: Vital Signs: Last Vital Signs Temp 98.1 F 08/23/23 11:24 Pulse 73 08/23/23 11:24 Resp 18 08/23/23 11:24 BP 124/60 08/23/23 11:24 Pulse Ox 94 08/23/23 11:24 O2 Del Method Nasal Cannula 08/23/23 11:24 O2 Flow Rate 2 08/23/23 11:24 Oxygen Flow Rate 2 08/21/23 01:07 BMI result Body Mass Index 21.1 Const: Other: Constitutional : Awake, interactive, not in distress Neck : Normal inspection, Supple Cardiovascular : RRR, no JVP, no lower extremity edema Respiratory : good bilateral air entry, no crackles, wheezes or rhonchi Gastrointestinal: soft, lax, Normal bowel sounds, Non tender Skin : Warm, Dry Neurological : Alert & oriented x3, No focal deficit Objective Data Active Medications Acetaminophen (Acetaminophen 325 Mg Tablet) 650 mg PO Q6H PRN PRN Reason: Pain, Mild (Pain Scale 1-3) Albuterol Sulfate (Albuterol Sulfate 90 Mcg 8 Gm Inhaler) 2 puff INHALE Q6H PRN PRN Reason: cough Last Admin: 08/22/23 23:52 Dose: 2 puff Documented By: JA Aspirin (Aspirin Enteric Coated 81 Mg Tablet.) 81 mg PO DAILY [facility] Last Admin: 08/23/23 08:13 Dose: 81 mg Documented By: ARELI Atorvastatin Calcium (Atorvastatin Calcium 40 Mg Tablet) 40 mg PO DAILY [facility] Last Admin: 08/23/23 08:13 Dose: 40 mg Documented By: ARELI Benzonatate (Benzonatate 100 Mg Capsule) 200 mg PO TID PRN PRN Reason: cough Calcium Carbonate (Calcium Carbonate 500 Mg Tablet) 500 mg PO DAILY [facility] Last Admin: 08/23/23 08:13 Dose: 500 mg Documented By: ARELI Fluticasone Propionate (Fluticasone Propionate Nasal 16 Gm [place]) 1 spray NOSTRIL-B DAILY [facility] Last Admin: 08/23/23 08:12 Dose: 1 spray Documented By: ARELI Fluticasone/Vilanterol (Fluticasone/Vilanterol 100/25 Blst.W.Dev) 1 puff INHALE RDAILY [facility] Last Admin: 08/22/23 09:09 Dose: 1 puff Documented By: ARELI Guaifenesin/Codeine Phosphate (Guaifen/Codeine Sf 200/20/10ml 10 Ml Liquid) 10 ml PO Q4H PRN PRN Reason: cough Last Admin: 08/22/23 23:12 Dose: 10 ml Documented By: MADYSON Heparin Sodium (Porcine) (Heparin Sodium,Porcine 5,000 Unit/Ml Vial) 2,100 unit 40 unit/kg (2100 unit) IVPUSH PROTOCOL BOLUS PRN; Protocol PRN Reason: 40 unit/kg - Heparin Protocol Last Admin: 08/22/23 02:32 Dose: 2,100 unit Documented By: RHODA Heparin Sodium (Porcine) (Heparin Sodium,Porcine 5,000 Unit/Ml Vial) 4,200 unit 80 unit/kg (4200 unit) IVPUSH PROTOCOL BOLUS PRN; Protocol PRN Reason: 80 unit/kg - Heparin Protocol Heparin Sodium/Sodium Chloride (Heparin Sodium,Porcine/1/2ns) 25,000 unit in 250 mls @ 0 mls/hr IVCONT .Q0M [facility]; Protocol Last Titration: 08/23/23 08:03 Dose: 14 units/kg/hr, 7.32 mls/hr Documented By: ARELI Co-signed By: AMADA Metoprolol Tartrate (Metoprolol Tartrate 25 Mg Tablet) 25 mg PO BID [facility]; Protocol Last Admin: 08/23/23 08:13 Dose: 25 mg Documented By: ARELI Multivitamins/Vitamin C (Multivitamin Tablet) 1 tab PO DAILY [facility] Last Admin: 08/23/23 08:13 Dose: 1 tab Documented By: ARELI Nitroglycerin (Nitroglycerin 0.4 Mg Tab.Subl) 0.4 mg SUBLINGUAL Q5MX3 PRN PRN Reason: Chest Pain Last Admin: 08/22/23 22:47 Dose: 0.4 mg Documented By: MADYSON Comments: aware Ondansetron HCl (Ondansetron Hcl 4 Mg/2 Ml Vial) 4 mg IVPUSH Q8H PRN PRN Reason: Nausea and Vomiting Sodium Chloride (0.9 % Sodium Chloride Flush 3 Ml Syringe) 3 ml IVFLUSH QSHIFT [facility] Last Admin: 08/23/23 08:13 Dose: Not Given Documented By: ARELI Non-Admin Reason: IV Running Vitamin D (Cholecalciferol (Vitamin D3) 25 Mcg Tablet) 25 mcg PO DAILY [facility] Last Admin: 08/23/23 08:13 Dose: 25 mcg Documented By: ARELI Labs 08/22/23 08:34 08/22/23 08:34 Labs: Laboratory Results - last 24 hr 08/22/23 08/22/23 08/23/23 15:19 22:15 07:32 aPTT Heparin Protocol 56.3 D 54.6 55.4 Assessment and Plan (1) Non-ST elevation [place] (NSTEMI): Status: Acute (2) Physical deconditioning: Status: Acute Plan An 88 years old lady with PMH of PMR, Osteoporosis, Bronchiectasis, COPD on Home O2 among others who presents to the hospital for tremors and chest pain. NSTEMI continue ASA 81 mg daily Atorvastatin 40 mg daily MEtoprolol 25 mg bid Heparin drip to finish this afternoon keep on Telemetry O2 as needed Echo , no WMA, EF 63% Cardiology following COPD continue home inhalors O2 supplement Physical deconditioning PT eval rec STR, DVT PPx Heparin The patient will likely need overnight hospital stay for treatment of NSTEMI with IV heparin which can not be done in any less acute facility pending safe discharge plan Quality Stroke Does the patient have a stroke diagnosis?: No VTE Prior VTE?: No VTE Risk Level:: Medical - moderate - high VTE Device Contraindication: Treatment Not Indicated VTE Drug Contraindication: N/A - Med Ordered
--- NOTE | 2023-08-23 16:27 | HO.WOUND ---
Wound Consult: Initial 88yr old?[place] [facility] [place] See progress notes and H&P for detailed history.? Wound consult placed for coccyx wound POA.? Patient agreeable to assessment and photo documentation.?Patient able to stand with 1 assist and walker - pt reports she is able to report when she has to void - - she asked to use the commode when standing for assessment. Patient reports she has tenderness and some pain to the coccyx / tailbone area. Waffle cushion applied and foam dressing applied - pt reports immediate comfort increase. Will order Low air loss mattress. The sacrum and coccyx were assessed for intact pink redness remains blanchable throughout - no open lesions noted. Sacral foam dressing applied. Recommendations: 1. Turn and Reposition every 2 hours and as needed for patient comfort.? Use pillows or wedges to support off loading positions. 2. Off Load all bony prominences with use of pillows and heel boots if needed.? Apply Preventative foams where needed. ? 3. Monitor for incontinence and moisture control, use barrier creams when needed for prevention and treatment. 4. Provide adequate and supplemental nutrition.? 5. Order or Continue low air loss mattress. 6. Sacrum / coccyx - Off Load Pressure - Cleanse with routine care, dry well. Cover with sacral foam dressing, peel back and assess Q shift and change every 3 days. Waffle cushion when up to a recliner chair provided at bedside. Re-consult wound care Nurse for wound deterioration or wound changes.
[2023-08-23] MEDS: Acetaminophen 325 MG TABLET 650 MG PO (18:11)
[2023-08-23] MEDS: ondansetron HCL 4 MG/2 ML VIAL IVPUSH (18:50)
[2023-08-23] MEDS: Metoclopramide HCl 10 MG/2 ML VIAL IVPUSH (20:42)
[2023-08-23] MEDS: guaiFEN/Codeine SF 200/20/10ML 10 ML LIQUID PO (22:37)
[2023-08-24] VITALS (7 sets, daily range): BP systolic 104–136; BP diastolic 50–70; PULSE 64–76; RESP 16–20; TEMP 36.1–37.1; O2SAT 91–98
[2023-08-24] MEDS: Fluticasone/Vilanterol 100/25 BLST.W.DEV 1 PUFF INHALE (07:57)
[2023-08-24] MEDS: Aspirin Enteric Coated 81 MG TABLET.DR PO (08:36)
[2023-08-24] MEDS: Atorvastatin Calcium 40 MG TABLET PO (08:36)
[2023-08-24] MEDS: Metoprolol Tartrate 25 MG TABLET PO (08:36)
[2023-08-24] MEDS: Fluticasone Propionate Nasal 16 GM SPRAY 1 SPRAY NOSTRIL-B (08:37)
[2023-08-24] MEDS: Cholecalciferol (Vitamin D3) 25 MCG TABLET PO (08:37)
[2023-08-24] MEDS: Multivitamin TABLET 1 TAB PO (08:37)
[2023-08-24] MEDS: 0.9 % Sodium Chloride Flush 3 ML SYRINGE IVFLUSH (08:40)
--- NOTE | 2023-08-24 11:43 | MHC.CM.PN ---
Pt is medically cleared for D/C today to [facility]. This CM met with pt to discuss, and she states she no longer wants to go to [facility] [place], she would like [facility]. Referral updated and bed offer received from [facility]. Pt accepted bed offer from [facility]. Transport booked for 2pm via [facility].
--- NOTE | 2023-08-24 11:50 | PM.DS ---
DS: Providers Provider Date of Service: 08/24/23 Date of admission: 08/21/23 11:05 Primary care physician: Dionisio Bustamante MD Consults: 08/21/23 09:48 Consult to Cardiology Stat Consulting Provider: [facility] Cardiovascular Services Reason for consultation: possible NSTEMI Has provider been notified: Yes 08/21/23 18:01 Consult to Wound Care Routine Reason for consultation: ? stage I to coccyx DS: Diagnosis Discharge Diagnosis (1) Non-ST elevation [place] (NSTEMI): Status: Acute (2) Physical deconditioning: Status: Acute DS: Summary Hospital Course Hospital Course: Admission note HPI An 88 years old lady with PMH of PMR, Osteoporosis, Bronchiectasis, COPD on Home O2 among others who presents to the hospital for tremors and chest pain. The patient reports she woke up because of tremors then she developed sudden onset chest pain that started earlier today on the left side of her chest, No palpitations, SOB, nausea, vomiting, diarrhea or urinary symptoms. She reports decrease physical activity as she has been recovering from Pneumonia recently with overall weakness and deconditioning. In ED she was found to have abnormal Elevated Trop with ST-wave depression. Admitted for further work up and treatment. Hospital course Admitted to the hospital for evaluation of chest pain. She was treated as NSTEMI as EKG showed ST depression and elevated Trop that trended up. Started on Heparin drip for 48 hours along with ASA 81 mg daily, Atorvastatin 40 mg, MEtoprolol 25 mg bid. She was evaluated by shotgun shell loading machine operator who recommended medical management for now as Echo showed no wall motion abnormalities with EF 63%. To follow with cardiology as outpatient. For COPD she was continued home inhalors and baseline O2 supplement. Physical deconditioning was evaluated by physical therapy who recommended STR, patient will be transferred to Nursing facility on discharge. Continue Aspirin, Atorvastatin and Metoprolol as prescribed increase physical activity as tolerated To follow with dr Urias as outpatient Time Attestation Discharge Coordination Time (in mins): 33 Quality: Safe Use of Opioids Does Pt have an Active Cancer Diagnosis on the Problem List?: No Quality: Stroke Does the patient have a stroke diagnosis?: No Physical Exam Vital Signs: Vital Signs: Last Vital Signs Temp 97.0 F 08/24/23 11:05 Pulse 64 08/24/23 11:05 Resp 20 08/24/23 11:05 BP 104/50 L 08/24/23 11:05 Pulse Ox 96 08/24/23 11:05 O2 Del Method Nasal Cannula 08/24/23 11:05 O2 Flow Rate 2 08/24/23 11:05 Oxygen Flow Rate 2 08/21/23 01:07 BMI result Body Mass Index 21.1 Const: Other: Constitutional : Awake, interactive, not in distress Neck : Normal inspection, Supple Cardiovascular : RRR, no JVP, no lower extremity edema Respiratory : good bilateral air entry, no crackles, wheezes or rhonchi Gastrointestinal: soft, lax, Normal bowel sounds, Non tender Skin : Warm, Dry Neurological : Alert & oriented x3, No focal deficit DS: Data Imaging Chest x-ray: Radiologist's impression: ITS Impressions Chest X-Ray 08/21/23 01:23 IMPRESSION: Diffuse increased markings and multilevel bronchiectatic change. Patchy bilateral consolidation similar to previous. Discharge Plan Discharge Anticipated Discharge Date/Time: 08/24/23 11:44 Patient Disposition: Xfer [facility] Discharge Diagnosis: NSTEMI physical deconditioning Referrals: [facility] [Outside] - 1 Week Dionisio Bustamante MD [Primary Care Provider] - 1 Week Discharge Medications: New atorvastatin 40 mg Tablet 40 mg PO DAILY Qty: 90 0RF aspirin 81 mg Tablet,Delayed Release (Dr/Ec) 81 mg PO DAILY Qty: 90 0RF metoprolol tartrate 25 mg Tablet 25 mg PO BID Qty: 180 0RF Protocol: Hold for SBP/HR < HOLD for SBP < : 90 HOLD for HR < : 60 Continued calcium carbonate 600 mg calcium (1,500 mg) tablet 600 mg PO DAILY 90 Days Qty: 90 11RF codeine-guaifenesin 10-100 mg/5 mL liquid 10 ml PO Q4H PRN (Reason: cough) celecoxib 100 mg capsule 100 mg PO DAILY benzonatate 200 mg capsule 200 mg PO TID PRN (Reason: cough) vitamin E 268 mg (400 unit) Capsule 268 mg PO DAILY cholecalciferol (vitamin D3) 25 mcg (1,000 unit) Tablet 25 mcg PO DAILY multivitamin Tablet 1 tab PO DAILY budesonide-formoterol [Symbicort] 80-4.5 mcg/actuation HFA aerosol inhaler 2 inh inhalation BID mecobalamin (vitamin B12) 1,000 mcg tablet,disintegrating 1,000 mcg sublingual DAILY Rx Instructions: place tablet under tongue and allow to dissolve for at least30 secs before swallowing albuterol sulfate 90 mcg/actuation HFA aerosol inhaler 2 puff inhalation Q6H PRN (Reason: cough) fluticasone propionate 50 mcg/actuation spray,suspension 1 spray intranasal DAILY Discontinued azithromycin 500 mg tablet 500 mg PO DAILY@1800 Rx Instructions: END DATE: 08/24/23 Discharge Orders: Discharge Order (Routine); Ordered 08/24/23 Ordered By: Dariel Haywood Diet: Advance to usual diet Activity on Discharge: As tolerated Stand Alone Forms: Patient Portal Discharge page Care Plan Goals: Read below Health Concerns: Read below Plan of Treatment: Read below Assessment: You were admitted to the hospital for evaluation of chest pain. treated as heart attack with IV blood thinners, aspirin and cholestrol medication as you were evaluated by shotgun shell loading machine operator. Continue Aspirin, Atorvastatin and Metoprolol as prescribed increase physical activity as tolerated To follow with dr Urias as outpatient Discharge Date/Time: 08/24/23 14:09
--- NOTE | 2023-09-01 16:07 | P.CDIM_ITS ---
PROVIDER RESPONSE TEXT: To clarify, the appropriate diagnosis supported by the clinical indicators: Chronic respiratory failure QUERY TEXT: PHYSICIAN'S DOCUMENTATION REQUEST Date of Query: 08/23/2023 07:53 AM EDT Patient Name: Danielle Shields Admit Date: 08/21/2023 Dear Dariel Haywood, A review of the medical record indicates additional documentation may be needed. Please review below and update the documentation accordingly. Clinical Indicators: Patient started on home oxygen 2 liters for COPD Please clarify which of the following accurately represents the patient's respiratory status: Chronic respiratory failure Other Other (explain) Clinically unable to determine (explain) Thank you, Janet German, CCS, CDIS Use of terms such as suspected, likely, concern for, or probable (associated with a specific diagnosi s that is being evaluated, monitored, or treated as if it exists) are acceptable and can be coded in the inpatient se tting, when documented at the time of discharge. Please use your independent medical judgment in providing your response. THIS QUERY IS PART OF THE PERMANENT MEDICAL RECORD
--- NOTE | 2023-09-01 16:07 | P.CDIM_ITS ---
PROVIDER RESPONSE TEXT: To clarify, the appropriate diagnosis supported by the clinical indicators: Acute on chronic respiratory failue QUERY TEXT: PHYSICIAN'S DOCUMENTATION REQUEST Date of Query: 08/27/2023 10:45 AM EDT Patient Name: Danielle Shields Admit Date: 08/21/2023 Dear Dariel Haywood, RETROSPECTIVE QUERY A review of the medical record indicates additional documentation may be needed. Please review below and update the documentation accordingly. Clinical Indicators: Progress notes: Patient with NSTEMI, Bronchiectasis, COPD on home O2. Home inhalers and baseline O2 supplement. 2 liters [place] Chronic respiratory failure Chronic respiratory failure, O2 dependent Acute on chronic respiratory failue Other (explain) Clinically unable to determine (explain) Thank you, Janet German, CCS, CDIS Use of terms such as suspected, likely, concern for, or probable (associated with a specific diagnosi s that is being evaluated, monitored, or treated as if it exists) are acceptable and can be coded in the inpatient se tting, when documented at the time of discharge. Please use your independent medical judgment in providing your response. THIS QUERY IS PART OF THE PERMANENT MEDICAL RECORD
== END 2023-08-24 14:09 | disposition skilled nursing facility (03) | DRG 280 ==
LOC: HO.ED 08:10 → HO.EDOVER 11:13 → HO.IMC 15:50
PROVIDERS: Internal Medicine; Physician Assistant Medical; Admitting Provider Student in an Organized Health Care Education/Training Program; Emergency Provider Emergency Medicine; PCP Internal Medicine; Visit Provider Student in an Organized Health Care Education/Training Program
DX: I21.4 Non-ST elevation (NSTEMI) myocardial infarction (principal); J96.20 Acute and chronic respiratory failure, unspecified whether with hypoxia or hypercapnia; M35.3 Polymyalgia rheumatica; Z99.81 Dependence on supplemental oxygen; R53.81 Other malaise; J47.9 Bronchiectasis, uncomplicated; Z20.822 Contact with and (suspected) exposure to COVID-19; Z79.51 Long term (current) use of inhaled steroids; Z79.899 Other long term (current) drug therapy
CPT/HCPCS: 0241U; 36415; 71045; 80053; 84484; 85025; 85027; 85610; 85730; 93005; 93306; 94640; 97110; 97116; 97162; 99285; J1644; J2405; J2765

== ENCOUNTER → 2023-08-21 02:00 | Outpatient (BNV) | payer MEDICARE, OTHER, SELFPAY | PROVIDERS: Emergency Provider Emergency Medicine; Visit Provider Internal Medicine | DX: I21.4 Non-ST elevation (NSTEMI) myocardial infarction (principal); R07.9 Chest pain, unspecified | CPT/HCPCS: 93010; 93306; 99223; 99233 ==

== ENCOUNTER → 2023-08-21 11:05 | Outpatient (BNV) | payer MEDICARE, OTHER, SELFPAY | PROVIDERS: Admitting Provider Student in an Organized Health Care Education/Training Program; Emergency Provider Emergency Medicine; Visit Provider Student in an Organized Health Care Education/Training Program | DX: I21.4 Non-ST elevation (NSTEMI) myocardial infarction (principal); R53.81 Other malaise | CPT/HCPCS: 99223; 99231; 99232; 99239 ==

== ENCOUNTER 2023-09-16 05:37 | Emergency (ER) | payer MEDICARE, OTHER, SELFPAY ==
--- NOTE | ~2023-09-16 | XR_ITS ---
EXAMINATION: XR CHEST CLINICAL INFORMATION: Shortness of breath COMPARISON: Chest right radiographs 08/21/2023 CT angiogram chest 01/15/2022 TECHNIQUE: Frontal view of the chest was obtained. FINDINGS: When comparison is made to the prior study there's been no significant interval change aside from decrease in size of previously seen small pleural effusions. Again noted are chronic markings in both lungs, right greater than left, secondary to previously demonstrated bronchiectasis as well as multiple calcified and noncalcified pulmonary nodules. Heart size is normal. No new areas of consolidation are seen. XR/XR chest 1V IMPRESSION: No acute intrathoracic disease. Severe chronic changes as described above.
[2023-09-16 05:59] VITALS: BP 143/64; PULSE 93; RESP 18; TEMP 36.6; O2SAT 98; BMI 18.5
[2023-09-16 06:02] VITALS: BP 137/82; PULSE 93; O2SAT 98
--- NOTE | 2023-09-16 06:53 | PC.NURSE ---
Pts daughter Yuly martinez @ [phone]
--- NOTE | 2023-09-16 06:56 | PC.NURSE ---
Pt ca&ox3, no signs of distress. Pt denies pain, sob, dizziness. Vitals stable. Plan of care ongoing.
--- NOTE | 2023-09-16 07:02 | ED_ITS ---
HPI - General Adult General Chief complaint: General Medical Stated complaint: SHAKINESS Time Seen by Provider: 09/16/23 06:26 Source: patient, family and EMS Mode of arrival: EMS Limitations: no limitations History of Present Illness HPI narrative: 88 y/o female with history of NSTEMI, osteoporosis, bronchiectasis, COPD, polymyalgia rheumatica with recent hospitalization for pneumonia presenting the the ED with episode of shakiness this morning at 3am. Her daughter at bedside reports that the patient called to her and asked for her to take her blood pressure because she felt hot then cold with shakiness. Daughter reports that the patients hands were shaky and tachypneic but no wheezing. Patient states that she woke up suddenly and felt uneasy with her heart racing and shortness of breath. Denies syncope. Daughter reports oxygen saturation was 98% on 2L, which is her baseline, but she was unable to get blood pressure record. Daughter was anxious and called 911 because she could not get BP reading. Administered nebulizer prior to EMS arrival. Here, patient reports that she recently was discharge from [facility] on 09/12 due to hospitalization with pneumonia. She expresses great anxiety regarding this because she is scared to get ill again. She denies any recent fevers, abdominal pain, urinary symptoms, chest pain, but reports lingering productive cough with green mucus. Did not take her home meds this morning. Patient denies history of anxiety, but daughter reports patient has been very worried about getting sick and being alone. She is currently looking for detention placement for the patient. Of note, patient is does not know she had NSTEMI- daughters told her it was an episode of angina. Daughter from [place] is at beside and reports that her sisters live near patient but don't visit often. complaint: shakiness Onset (ago): hour(s) Location: left, right and lower extremity Severity: mild Severity scale (1-10): 5 Pain Consistency: now resolved Relieving factors: rest Associated symptoms: cough Treatments prior to arrival: none Related Data Home Medications ?Medication ?Instructions ?Recorded ?Confirmed multivitamin 1 tab PO DAILY 08/05/20 08/21/23 budesonide-formoterol HFA 80 2 inh inhalation BID 01/06/21 08/21/23 mcg-4.5 mcg/actuation aerosol inhaler (Symbicort) mecobalamin (vitamin B12) 1,000 1,000 mcg sublingual DAILY 07/14/21 08/21/23 mcg disintegrating tablet,sublingual albuterol sulfate 90 mcg/actuation 2 puff inhalation Q6H PRN cough 09/24/22 08/21/23 aerosol inhaler fluticasone propionate 50 1 spray intranasal DAILY 09/24/22 08/21/23 mcg/actuation nasal spray,suspension benzonatate 200 mg capsule 200 mg PO TID PRN cough 07/13/23 08/21/23 celecoxib 100 mg capsule 100 mg PO DAILY 07/13/23 08/21/23 cholecalciferol (vitamin D3) 25 25 mcg PO DAILY 07/13/23 08/21/23 mcg (1,000 unit) tablet vitamin E 268 mg (400 unit) capsule 268 mg PO DAILY 07/13/23 08/21/23 codeine 10 mg-guaifenesin 100 mg/5 10 ml PO Q4H PRN cough 08/21/23 08/21/23 mL oral liquid Previous Rx's ?Medication ?Instructions ?Recorded calcium carbonate 600 mg calcium 600 mg PO DAILY 90 days #90 tabs 08/02/23 (1,500 mg) tablet aspirin 81 mg tablet,delayed 81 mg PO DAILY #90 tabs 08/24/23 release atorvastatin 40 mg tablet 40 mg PO DAILY #90 tabs 08/24/23 metoprolol tartrate 25 mg tablet 25 mg PO BID #180 tabs 08/24/23 Allergies Allergy/AdvReac Type Severity Reaction Status Date / Time influenza virus vaccine, Allergy 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 Mother Heart disease Brother Colon cancer Brother Stomach cancer Social History Social History Household Members: None Housing: Apartment Do you presently have visiting nurse or other home services: Yes Alcohol intake: never Patient Tobacco Use Status: Former Tobacco user Tobacco use type: Cigarette Cigarettes Per Day: 40 Years Smoked: 40 Smoked in Last 30 Days: No Use of substances other than those prescribed or required for medical reasons: No Advance Directives: No Advance Directives Information Provided: Yes Advance Directives Date on File: 01/21/21 service: No Physical Exam ED Vital Signs: Vital Signs - 24 hr 09/16/23 05:59 09/16/23 09:12 Temperature 97.8 F 97.6 F Pulse Rate 93 79 Respiratory Rate 18 17 Blood Pressure 143/64 H 125/62 Pulse Oximetry 98 100 Oxygen Delivery Method Nasal Cannula Room Air BMI result Body Mass Index 18.5 Appearance: Alert. Oriented X3. No acute distress. Head: normocephalic, atraumatic. Eyes: Pupils equal, round and reactive to light. ENT: Pharynx normal. No tonsillar swelling or exudate. Neck: Normal inspection. Neck supple. CVS: Normal heart rate and rhythm. Pulses normal. Respiratory: No respiratory distress. Breath sounds normal. Abdomen: Soft and nontender. Skin: Skin warm and dry. Normal skin color. Normal skin turgor. No rashes. Extremities: No lower extremity edema. No joint swelling. + dorsal pedalis pulses bilaterally Neuro/psych: Oriented X 3. No motor deficit. Normal speech and cognition. Course Reevaluation(s) Reevaluation #1: Patient reports suprapubic pain and nausea. No vomiting. She states that the pain might be due to needing to move her bowels. Ordered zofran for nausea. Time: 08:24 Medications Administered Discontinued Medications Generic Name Dose Route Start Last Admin Trade Name Freq PRN Reason Stop Dose Admin Ondansetron HCl 4 mg 09/16/23 08:22 09/16/23 09:15 Ondansetron Odt 4 Mg Tab.Bjorndis TRANSLINGU 09/16/23 08:23 4 mg ONCE ONE Administration Medical Decision Making Medical Decision Making MDM Narrative: 88 y/o female with history of NSTEMI, osteoporosis, bronchiectasis, COPD, polymyalgia rheumatica with recent hospitalization for pneumonia presenting the the ED with episode of shakiness this morning at 3am. Will obtain ECG at this time as she presented last month with tremors that awoke her from sleep, had left-sided chest pain and she was diagnosed with NSTEMI. ECG obtained today is normal sinus rhythm without ST elevations or depression, patient has not experienced any chest today. Low clinical suspicion for ACS. X-ray has mutiple patchy opacities but appears to be improved from last imaging. Cough is likely due to resolving pneumonia and chronic bronchiestasis. Labwork obtained today is reassuring and unremarkable, aside from hypercalcemia which is being addressed by her PCP. Will advise to stop calcium supplements. Due to history from daughter at bedside and patient's reassuring exam, her presentation of tremors and shakiness were most likely due to anxiety. VSS, comfortable to discharge patient home with her daughter. Differential Diagnosis Differential Diagnoses: The differential diagnosis associated with the presentation includes pneumonia, COVID, STEMI, NSTEMI, influenza, anxiety, panic attack Admission/Observation Consideration of admission/observation: Escalation of care including admission/observation considered Lab Data MDM Lab Attestation statement: I reviewed the patient's lab results. stable anemia, hypercalcemia, improved 09/16/23 08:41 09/16/23 08:41 Labs: Lab Results 09/16/23 09/16/23 Range/Units 08:32 08:41 WBC 10.7 (4.8-10.8) X10*3/uL RBC 4.12 L (4.20-5.50) X10*6/uL Hgb 10.9 L (12.0-16.0) g/dl Hct 35.3 L (37.0-47.0) % MCV 85.7 (80.0-98.0) fL MCH 26.5 L (27.0-33.0) pg MCHC 30.9 L (31.0-35.0) g/dl RDW 16.0 (11.0-16.0) % Plt Count 298 (160-400) X10*3/uL MPV 10.8 (9.4-12.3) fL Immature Gran % (Auto) 0.4 (0.0-0.4) % Neut % (Auto) 66.9 (45-73) % Lymph % (Auto) 21.2 (20-40) % [place] % (Auto) 7.3 (2-11) % Eos % (Auto) 3.6 (0-4) % Baso % (Auto) 0.6 (0-2) % Lymph # (Auto) 2.3 (1.2-4.9) X10*3/uL [place] # (Auto) 0.8 (0.1-1.2) X10*3/uL Eos # (Auto) 0.4 (0.0-0.4) X10*3/uL Baso # (Auto) 0.1 (0.0-0.2) X10*3/uL Abs Immat Gran (auto) 0.04 H (0.00-0.03) X10*3/uL Absolute Neuts (auto) 7.2 (2.0-8.3) x10*3/uL Absolute Nucleated RBC 0.000 (0.0-0.012) X10*3/uL Nucleated RBC % (auto) 0.0 (0.0-0.2) /100WBC Sodium 144 (135-145) mmol/L Potassium 4.2 (3.3-5.1) mmol/L Chloride 104 (96-108) mmol/L Carbon Dioxide 32 H (22-29) mmol/L Anion Gap 12 (12-20) BUN 14 (9-16) mg/dL Creatinine 0.83 (0.5-1.4) mg/dL Estim Creat Clear Calc 35.3 Estimated GFR > 60 Random Glucose 121 H (60-115) mg/dL Calcium 11.5 H (8.4-10.2) mg/dL Magnesium 2.3 (1.6-2.6) mg/dL Total Bilirubin 0.3 (0.0-1.0) mg/dL Direct Bilirubin 0.1 (0.0-0.5) mg/dL AST 18 (5-31) U/L ALT 14 (0-31) U/L Alkaline Phosphatase 65 (39-117) U/L Total Protein 7.2 (6.5-8.0) g/dL Albumin 3.9 (3.5-5.0) g/dL Urine Color Yellow Urine Appearance Clear Urine pH 6.0 (5.0-9.0) Ur Specific [place] 1.015 (1.005-1.025) Urine Protein Negative (Neg-Trace) mg/dL Urine Glucose (UA) Negative (Negative) mg/dL Urine Ketones Negative (Negative) mg/dL Urine Blood Negative (Negative) Urine Nitrite Negative (Negative) Ur Leukocyte Esterase Negative (Negative) Influenza Type A (PCR) NEGATIVE (Negative) Influenza Type B (PCR) NEGATIVE (Negative) RSV RNA Qual (PCR) NEGATIVE (Negative) SARS-CoV-2 RNA (RT-PCR) NEGATIVE (Negative) Independent Interpretation I performed an independent interpretation of an: EKG and Plain X-Ray Interpretation: X-Ray: Diffuse increased markings and multilevel bronchiectatic change. Patchy bilateral consolidation improved from previous x-ray. ECG: Normal sinus rhythm with ventricular rate of [address] changes, elevation, or depression present. Normal QTc at 429 ms, normal ND interval at 150 ms. Radiology Impression Discussion of test interpretation with radiology: I have reviewed the radiologist's reading. Radiologist Impression: EXAMINATION: XR CHEST CLINICAL INFORMATION: Shortness of breath COMPARISON: Chest right radiographs 08/21/2023 CT angiogram chest 01/15/2022 TECHNIQUE: Frontal view of the chest was obtained. FINDINGS: When comparison is made to the prior study there's been no significant interval change aside from decrease in size of previously seen small pleural effusions. Again noted are chronic markings in both lungs, right greater than left, secondary to previously demonstrated bronchiectasis as well as multiple calcified and noncalcified pulmonary nodules. Heart size is normal. No new areas of consolidation are seen. XR/XR chest 1V IMPRESSION: No acute intrathoracic disease. Severe chronic changes as described above. Independent Historian Clinical information obtained from an independent historian. History obtained from or confirmed by: Other (daughter) External Record Review External record reviewed: Inpatient record, Office record and Outpatient record Prescription Management I considered prescription management with: Antibiotic Chronic Conditions Patient?s care impacted by: Hypertension Critical Care Time Critical Care Time Critical Care Time: No Discharge Plan Discharge Clinical Impression: Anxiety, Hypercalcemia Patient Disposition: Home, Self-Care Instructions: Anxiety (ED) Additional Instructions: your lab workup today was unremarkable aside from an elevated calcium of 11.5 STOP taking your calcium supplement until you follow up with your doctor next week and discuss further management. Try raising the head of your bed or using extra pillows at nighttime to help with breathing. When you get anxious, try practicing slow, deep breaths and grounding yourself. If you develop new or worsening symptoms such as chest pain, worsening shortness of breath call 911 or come back to the ER for further evaluation. Prescriptions: No Action calcium carbonate 600 mg calcium (1,500 mg) tablet 600 mg PO DAILY 90 Days Qty: 90 11RF codeine-guaifenesin 10-100 mg/5 mL liquid 10 ml PO Q4H PRN (Reason: cough) atorvastatin 40 mg Tablet 40 mg PO DAILY Qty: 90 0RF aspirin 81 mg Tablet,Delayed Release (Dr/Ec) 81 mg PO DAILY Qty: 90 0RF metoprolol tartrate 25 mg Tablet 25 mg PO BID Qty: 180 0RF Protocol: Hold for SBP/HR < HOLD for SBP < : 90 HOLD for HR < : 60 celecoxib 100 mg capsule 100 mg PO DAILY benzonatate 200 mg capsule 200 mg PO TID PRN (Reason: cough) vitamin E 268 mg (400 unit) Capsule 268 mg PO DAILY cholecalciferol (vitamin D3) 25 mcg (1,000 unit) Tablet 25 mcg PO DAILY multivitamin Tablet 1 tab PO DAILY budesonide-formoterol [Symbicort] 80-4.5 mcg/actuation HFA aerosol inhaler 2 inh inhalation BID mecobalamin (vitamin B12) 1,000 mcg tablet,disintegrating 1,000 mcg sublingual DAILY Rx Instructions: place tablet under tongue and allow to dissolve for at least30 secs before swallowing albuterol sulfate 90 mcg/actuation HFA aerosol inhaler 2 puff inhalation Q6H PRN (Reason: cough) fluticasone propionate 50 mcg/actuation spray,suspension 1 spray intranasal DAILY Referrals: Dionisio Bustamante MD [Primary Care Provider] - Print Language: [place]
--- NOTE | 2023-09-16 07:17 | ECG_ITS ---
Test Reason : weakness Blood Pressure : / mmHG Vent. Rate : 080 BPM Atrial Rate : 080 BPM P-R Int : 150 ms QRS Dur : 068 ms QT Int : 372 ms P-R-T Axes : 074 -18 038 degrees QTc Int : 429 ms Normal sinus rhythm Normal ECG When compared with ECG of 21-AUG-2023 07:31, No significant change was found Referred By: Obdulia Moore Electronically Signed By:BENTON RODRIGUEZ
[2023-09-16 09:04] LABS: MANUAL DIFF FLAG NO
[2023-09-16 09:10] LABS: Basophils Absolute Auto 0.1 X10*3/uL (0.0-0.2); Basophils Percent Auto 0.6 % (0-2); Eosinophils Absolute Auto 0.4 X10*3/uL (0.0-0.4); Eosinophils Percent Auto 3.6 % (0-4); Hematocrit 35.3 % (37.0-47.0); Hemoglobin 10.9 g/dl (12.0-16.0); Imm Gran Abs Auto 0.04 X10*3/uL (0.00-0.03); Imm Gran Pct Auto 0.4 % (0.0-0.4); Lymphocytes Absolute Auto 2.3 X10*3/uL (1.2-4.9); Lymphocytes Percent Auto 21.2 % (20-40); Mean Corpuscular HGB Conc 30.9 g/dl (31.0-35.0); Mean Corpuscular Hemoglobin 26.5 pg (27.0-33.0); Mean Corpuscular Volume 85.7 fL (80.0-98.0); Mean Platelet Volume 10.8 fL (9.4-12.3); Monocytes Absolute Auto 0.8 X10*3/uL (0.1-1.2); Monocytes Percent Auto 7.3 % (2-11); Neutrophils Absolute Auto 7.2 x10*3/uL (2.0-8.3); Neutrophils Percent Auto 66.9 % (45-73); Platelet Count 298 X10*3/uL (160-400); Red Blood Count 4.12 X10*6/uL (4.20-5.50); White Blood Count 10.7 X10*3/uL (4.8-10.8)
[2023-09-16 09:10] LABS: Appearance Urine Clear; Color Urine Yellow; Glucose Urine UA Negative (Negative); Leukocyte Esterase Urine Negative (Negative); Nitrite Urine Negative (Negative); Specific Gravity - Urine 1.015 (1.005-1.025); Urine Blood Negative (Negative); Urine Ketones Negative (Negative); Urine Protein Negative (Neg-Trace)
[2023-09-16 09:12] VITALS: BP 125/62; PULSE 79; RESP 17; TEMP 36.4; O2SAT 100
[2023-09-16] MEDS: Ondansetron ODT 4 MG TAB.RAPDIS TRANSLINGU (09:15)
[2023-09-16 09:25] LABS: Alanine Aminotransferase 14 U/L (0-31); Albumin Level 3.9 g/dL (3.5-5.0); Alkaline Phosphatase 65 U/L (39-117); Anion Gap 12 (12-20); Aspartate Amino Transferase 18 U/L (5-31); Bilirubin Direct 0.1 mg/dL (0.0-0.5); Bilirubin Total 0.3 mg/dL (0.0-1.0); Blood Urea Nitrogen 14 mg/dL (9-16); Calcium 11.5 mg/dL (8.4-10.2); Carbon Dioxide 32 mmol/L (22-29); Chloride 104 mmol/L (96-108); Creatinine Clr Calc Pharmacy 35.3; Estimated Glomerular Filt Rate > 60; Glucose Random 121 mg/dL (60-115); Magnesium 2.3 mg/dL (1.6-2.6); Potassium 4.2 mmol/L (3.3-5.1); Sodium 144 mmol/L (135-145); Total Protein 7.2 g/dL (6.5-8.0)
[2023-09-16 10:18] LABS: Influenza A PCR NEGATIVE (Negative); Influenza B PCR NEGATIVE (Negative); Resp Syncy Virus RNA Qual PCR NEGATIVE (Negative); SARS COV2 PCR INHOUSE NEGATIVE (Negative)
[2023-09-16 10:58] VITALS: BP 120/66; PULSE 82; RESP 16; TEMP 37.1; O2SAT 99
[2023-09-16 11:07] VITALS: BP 120/66; PULSE 82; RESP 16; TEMP 37.1; O2SAT 99
== END 2023-09-16 11:17 | disposition home or self-care (01) ==
PROVIDERS: Physician Assistant; Emergency Provider Emergency Medicine; PCP Internal Medicine
DX: F41.9 Anxiety disorder, unspecified (principal); E83.52 Hypercalcemia; R06.02 Shortness of breath; J44.9 Chronic obstructive pulmonary disease, unspecified; I25.2 Old myocardial infarction
CPT/HCPCS: 0241U; 36415; 71045; 80048; 80076; 81003; 83735; 85025; 93005; 99283; 99284

== ENCOUNTER → 2023-09-16 07:17 | Outpatient (BNV) | payer MEDICARE, OTHER, SELFPAY | PROVIDERS: Emergency Provider Emergency Medicine; PCP Internal Medicine; Visit Provider Internal Medicine | DX: R53.1 Weakness (principal) | CPT/HCPCS: 93010 ==

== ENCOUNTER → 2024-09-28 10:57 | Outpatient (RCR) | payer MEDICARE, OTHER, SELFPAY ==
--- NOTE | 2020-03-13 16:14 | MHC.PT.DC ---
[facility] [place] Office [place] Office [place] Office [address] Dionna Kaba [address] [phone] F: [phone] F: [phone] F: [phone] F: [phone] Physical Therapy Discharge Report Diagnosis: Myalgia, Gait disturbance. Date of Surgery: N/A Date of Evaluation: 02/07/20 Date of Discharge: 03/13/20 Treatments to Date: 8 Cancellations to Date: 0 No Shows to Date: 0 Discharge Status: Improved Function Independent with HEP Discharge Summary: Pt has been an active participant in her therapy with good motivation. She has improved her subjective LE functional activity questionnaire to 39/80 from 24/80 on evaluation; she has not c/o foot/ ankle pain in at least 2 weeks and reports she has not been thinking of it. Pt has been instructed in home program with handouts. She is deemed appropriate for DC at this time having met most of hr therapeutic goals and is I with self management. Electronically signed by: Curt Tam PT. Please sign and return to therapist. Thank you for your referral.
== END | disposition home or self-care (01) ==
LOC: HO.PTCHIC 03-06 14:57
PROVIDERS: PCP Internal Medicine; Visit Provider Internal Medicine
DX: M79.10 Myalgia, unspecified site (principal)
CPT/HCPCS: 97110; 97112